=== PATIENT | male | born 1950 | race Caucasian/White ===

== ENCOUNTER 2024-11-15 15:41 | Inpatient (IN) | payer OTHER, SELFPAY ==
[2024-11-15] VITALS (35 sets, daily range): BP systolic 87–131; BP diastolic 50–90; BMI 22.3; BMI 23.2
[2024-11-15 13:30] LABS: Glucose - Point of Care 183 mg/dl (70-99)
[2024-11-15 13:55] LABS: Urine Albumin 2+ (Neg - Trace); Urine Bilirubin Negative (Negative); Urine Character Clear (Clear); Urine Color Yellow; Urine Glucose 1+ (Negative); Urine Ketone Negative (Negative); Urine Leukocyte 1+ (Negative); Urine Nitrite Negative (Negative); Urine Occult Blood 3+ (Negative); Urine Specific Gravity 1.015 (<1.030); Urine Urobilinogen Negative (Neg - 1+)
[2024-11-15] MEDS: NSS 500 IV (13:57)
[2024-11-15 14:01] LABS: % Basophils 0.1 % (0-2); % Immature Granulocytes 0.5 % (0-0.5); % Monocytes 2.1 % (1.7-9.3); % Neutrophils 92.3 % (42.2-75.2); Absolute Immature Granulocytes 0.1 10^3/uL (0-0.05); Absolute Lymphocytes 0.6 10^3/uL (1.2-3.4); Absolute Monocytes 0.3 10^3/uL (0.1-0.6); Absolute Neutrophils 11.7 10^3/uL (1.4-6.5); Hematocrit 20.8 % (39.0-52.0); Mean Corp Hgb Conc. 33.7 g/dL (33.0-37.0); Mean Corpuscular Hgb 32.7 pg (27.0-31.0); Mean Corpuscular Volume 97.2 fL (80.0-94.0); Mean Platelet Volume 9.4 fL (7.4-10.4); Nucleated Red Blood Cells % 0 % (-); Platelet Count 202 10^3/uL (130-400); Red Blood Cell Count 2.14 10^6/uL (4.70-6.10); Red Cell Dist. Width 14.7 % (11.5-14.5); White Blood Cell Count 12.7 10^3/uL (4.8-10.8)
[2024-11-15 14:02] LABS: Urine Hyaline Cast 0-2 /LPF (0-2); Urine Squamous Cell 0-2 /LPF (Few)
[2024-11-15 14:03] LABS: Urine Bacteria Few (Negative)
[2024-11-15 14:26] LABS: Lactic Acid 2.3 mmol/L (0.7-2.0)
--- NOTE | 2024-11-15 14:41 | ED.GENMED ---
History of Present Illness
General
Chief Complaint: Change in Mental Status
Source: patient and family
Exam Limitations: dementia
Time Seen by Provider: 11/15/24 13:35
History of Present Illness
History of Present Illness:
74-year-old male who presents with his who states he was just profoundly weak at home. She states that he really had a tough time getting around but she was able to get him down the steps by holding onto his waist. She then sat him on a chair
and he sort of slid down and she could not get him up. Other family arrived to try to help. They were unable to get him up. also states that his coloring has seemed yellowish and may be pale. This all has been progressive over the last week
but today was more more significant. No reported fevers. No reported diarrhea. No reported hematochezia. Patient somewhat confused on arrival and is not really sure why he is here. EMS arrived to find his blood pressure 60 systolic.
states that he was diaphoretic at that time.
Past History
Past History
ED Past Medical History: HTN, Hypercholesterolemia and Other ('Essential tremor', dementia)
Phy Exam
Physical Exam
Physical Exam:
CONSTITUTIONAL Patient alert and oriented to person, place. ill-appearing. Vital signs reviewed. Pale. Hypothermic
HEAD atraumatic, normocephalic.
EYES eyelids normal to inspection, Extraocular muscles intact, Conjunctiva normal, Sclera normal.
NECK normal range of motion, Trachea midline, no jugular venous distention.
RESPIRATORY CHEST No respiratory distress noted, Chest expansion equal, Bilateral breath sounds clear.
CARDIOVASCULAR regular rate and rhythm, Heart sounds normal.
ABDOMEN abdomen nontender, Bowel sounds normal. No distention.
Rectal exam large amount of melena
BACK normal inspection, no obvious deformities
UPPER EXTREMITY range of motion normal, Motor strength normal, no cyanosis, no edema.
LOWER EXTREMITY range of motion normal, Motor strength normal, no cyanosis, no edema.
NEURO Speech normal, No focal motor deficits,Cranial Nerves intact to screening exam. Essential tremor noted to bilateral upper extremities
SKIN skin warm, dry, and normal in color.
Course
Orders/Labs/Results
Orders:
Orders
11/15/24 13:25
Electrocardiogram (*1) Urgent
Reason for Study: Fatigue / Weakness
11/15/24 13:26
EKG- Treatment ONCE
11/15/24 13:32
Complete Blood Count/With Diff Urgent
Comprehensive Metabolic Panel Urgent
Lactic Acid Urgent
Magnesium Urgent
Urinalysis Reflex To Culture Urgent
Date Specimen was Collected: 11/15/24
Time Specimen was Collected: 13:26
Urine Microscopic Reflex Cult Urgent
Urine Culture Urgent
IRVIN Source: U
Specimen Description:
Obtained by: Random
Date Specimen was Collected: 11/15/24
Time Specimen was Collected: 13:26
11/15/24 13:40
0.9% Sodium Chloride 500 ml [Nss] 500 ml IV BOLUS
CR Chest - 2 Views Urgent
Comment:
Reason For Exam: sepsis
11/15/24 13:44
STOOL [C difficile Antigen & Toxins] Urgent
IRVIN Source: Feces/Stool
Specimen Description:
Date Specimen was Collected: 11/15/24
Time Specimen was Collected: 13:52
Stool Culture Urgent
IRVIN Source: Feces/Stool
Specimen Description:
Date Specimen was Collected: 11/15/24
Time Specimen was Collected: 13:52
11/15/24 14:36
* Blood Bank Products Urgent
Blood Bank Products: *Packed RBC Leuko(PRBC's)
Quantity: 2
Transfuse Today: Yes
Reason: Anemia
11/15/24 14:37
IV Insert/Care/Rem.- Treatment PRN
Pantoprazole 80 mg/100 ml Nss [Protonix] 80 mg in 100 ml IV NOW
Pantoprazole [Protonix IV] 80 mg IV NOW STA
11/15/24 14:41
Brennan Hugger [Brennan Hugger-Treatment] ONCE
Patient's goal temperature:: 97 F
Additional Instructions:: Temperature and skin assessment per unit protocol
11/15/24 14:47
Type+Screen Urgent
Blood Culture Q30M
IRVIN Source: Blood/Venous
Specimen Description:
Blood Culture Q30M
IRVIN Source: Blood/Venous
Specimen Description:
11/15/24 14:57
ABO2 Urgent
BBK Wristband Number:
Associate notified that ABO2 has been ordered: [id number]
Date: 11/15/24
Time: 14:58
Carbon Rod Inserter ID: [id number]
Abnormal Lab Results
11/15/24 11/15/24
13:29 13:32
WBC 12.7 H 10^3/uL
(4.8-10.8)
RBC 2.14 L 10^6/uL
(4.70-6.10)
Hgb 7.0 L g/dL
(13.0-18.0)
Hct 20.8 L* %
(39.0-52.0)
MCV 97.2 H fL
(80.0-94.0)
MCH 32.7 H pg
(27.0-31.0)
RDW 14.7 H %
(11.5-14.5)
Abs Immat Gran (auto) 0.1 H 10^3/uL
(0-0.05)
Absolute Neuts (auto) 11.7 H 10^3/uL
(1.4-6.5)
Absolute Lymphs (auto) 0.6 L 10^3/uL
(1.2-3.4)
Neutrophils % 92.3 H %
(42.2-75.2)
Lymphocytes % 5.0 L %
(20.5-51.1)
Chloride 114 H mmol/L
(98-107)
Carbon Dioxide 15 L mmol/L
(22-30)
BUN 117 H* mg/dl
(9-20)
Creatinine 3.1 H mg/dL
(0.7-1.3)
Glucose 166 H mg/dl
(70-99)
Lactic Acid 2.3 H mmol/L
(0.7-2.0)
Magnesium 2.6 H mg/dl
(1.6-2.3)
Total Protein 4.8 L g/dl
(6.3-8.2)
Albumin 2.9 L g/dl
(3.5-5.0)
Ur Occult Blood Reflex 3+ A
(Negative)
Leukocyte Esterase Rfl 1+ A
(Negative)
Urine RBC 3-6 A /HPF
(0-2)
Urine WBC (Reflex) 11-15 A /HPF
(0-5)
Urine Bacteria (Reflex) Few A
(Negative)
Urine Glucose 1+ A
(Negative)
Urine Albumin (Reflex) 2+ A
(Neg - Trace)
POC Glucose 183 H mg/dl
(70-99)
11/15/24 13:32
11/15/24 13:32
Vital Signs
Initial and Last Documented VS:
Initial Vital Signs
BP
109/90
11/15/24 13:26
Last Documented Vital Signs
Temp Pulse Resp BP Pulse Ox
95.4 F L 60 15 109/90 94
11/15/24 14:37 11/15/24 13:43 11/15/24 13:43 11/15/24 13:43 11/15/24 13:43
MDM/Problems Addressed
Differential Diagnosis Includes:
Sepsis, hemorrhagic shock, electrolyte disturbance, dehydration
MDM/Problems Addressed:
Hemorrhagic shock, acute severe upper GI bleed, NSAID use
*Radiology
Radiology exam reviewed: all reviewed NAD by ED Provider
*Pulse Oximetry
Patient hypoxic: no
*EKG
Interpreted by ED Provider?: Yes
Interpretation: abnormal
Rate: bradycardiac
Rhythm: sinus
Aniwa: left axis deviation
Ischemia: non-specific ST changes
*Hand Stonecutter Interpretation
Rate: normal
Interpretation: normal
Rhythm: sinus
*Critical Care Note
Total Time (30-74mins, 75-104mins- exclusive of procedures): 40 minutes
Data Reviewed
Review of Other/Old Records Reveals: Labs (Labs reviewed from November 03 on the patient's spouse's phone)
Source: patient, family and ambulance crew (EMS reports patient was hypotensive on their arrival and they gave 800 cc of fluid and it improved)
Further Testing Considered But Not Given:
Considered CT but abdomen benign
Patient Management
Discussion with other providers: Hospitalist and Candy Depositing Machine Operator (Gastroenterology)
Escalation/DeEscalation of care consider admission/obs:
74-year-old male who presents hypotensive and weak. Found to have profound amount of melena. Hemoglobin on labs performed on November 03 showed hemoglobin of 17 and now hemoglobin is 7. Clearly with hemorrhagic shock and hypothermia. Brennan hugger
applied and blood ordered. Case discussed with gastroenterology. does state that he takes ibuprofen mostly every night for hip pain
Also found of acute renal failure. Hopefully prerenal and will improve with blood products and fluids
ED Attending Note
-
Portions of this chart may have been created with voice recognition software.� Occasional wrong word or��sound alike� substitutions may have occurred due to the inherent limitations of voice recognition software.
Discharge Plan
Departure
Patient Disposition: Admit
Date of Disposition: 11/15/24
Time of Disposition: 14:44
Admit to: IMU
Presentation/result/management discussed w/ accepting MD/DO: Hospitalist
Discharge Problem:
Hemorrhagic shock, acute severe GI bleed, Acute renal failure
Prescriptions:
No Action
metformin 500 MG tablet
500 mg PO BID
ezetimibe 10 MG tablet
10 mg PO DAILY
donepezil 10 mg Tablet
10 mg PO DAILY
Theragen Tablet
1 tab PO DAILY
amlodipine [Norvasc] 10 mg Tablet
10 mg PO DAILY
ibuprofen [Advil] 200 mg Tablet
400 mg PO BID
carbidopa-levodopa 25-100 mg Tablet
1.5 tab PO BID@0800,1200
carbidopa-levodopa 25-100 mg Tablet
1 tab PO HS
losartan 100 mg Tablet
100 mg PO DAILY
memantine 10 mg Tablet
10 mg PO BID
PreserVision AREDS 2,148 mcg-113 mg-45 mg-17.4mg Tablet
1 tab PO BID
ZzzQuil 50 mg/30 mL Liquid
50 mg PO HSPRN PRN (Reason: sleep)
Interventions
Interventions:
*Risk Screen - Suicide Last Done: 11/15/24 13:43
*General Assessment Last Done: 11/15/24 13:43
*Neglect/Abuse Screening Last Done: 11/15/24 13:43
*ED- Fall Risk Assessment Last Done: 11/15/24 13:43
*ED COVID-19 Vaccine History Last Done: 11/15/24 13:43
ED- Pulmonary Assessment Last Done: 11/15/24 13:43
ED-Psychological Assessment Last Done: 11/15/24 13:43
ED- Neurological Assessment Last Done: 11/15/24 13:43
ED- Cardiac Assessment Last Done: 11/15/24 13:43
ED Swallowing Screen Last Done: 11/15/24 13:43
Discharge Date and Time
Print Language: KOREAN
[2024-11-15 14:55] LABS: ALT (SGPT) < 10 U/L (0-50); AST (SGOT) 27 U/L (17-59); Albumin 2.9 g/dl (3.5-5.0); Alkaline Phosphatase 50 U/L (38-126); Blood Urea Nitrogen 117 mg/dl (9-20); Carbon Dioxide 15 mmol/L (22-30); Chloride 114 mmol/L (98-107); Estimated Creatinine Clearance 22 ml/min; Glucose 166 mg/dl (70-99); Magnesium 2.6 mg/dl (1.6-2.3); Potassium 4.7 mmol/L (3.5-5.1); Sodium 141 mmol/L (135-145); Total Bilirubin 0.4 mg/dl (0.2-1.3); Total Protein 4.8 g/dl (6.3-8.2); eGFR 20.07
[2024-11-15] MEDS: PROTONIX 100 IV ×2 (14:58→23:17)
[2024-11-15] MEDS: PROTONIX IV 80 MG IV (14:58)
--- NOTE | 2024-11-15 15:05 | HPS.HSE ---
Family Physician
-
Family Physician: Gordon Rodriguez
Chief Complaint
-
Hypertension, melena, profound weakness
History of Present Illness
HPI: 74-year-old male with PMH HTN, HLD, Essential tremor, dementia; p/w profound weakness at home.
He is a limited historian due to underlying dementia.
Discussed with ED physician. Patient apparently has been taking ibuprofen for hip pain.
He was found with significant melena.
BP noted to be low by EMS. BP improved following IV fluid resuscitation in the ER.
Medical History
Past Medical History
Past Medical History: Reports Other
Additional Past Medical History:
HTN, HLD, Essential tremor, dementia
Past Surgical History: Reports None
Social History
Unable to obtain full social history at this time due to: Dementia
Personal:
Living: With Family
Family History
Family History: Not pertinent
Allergies / Home Medications
Allergies reflects when Allergies were last updated in [facility].
Home Medications with original date entered in [facility]
Allergy/Medication List:
Allergies
Allergy/AdvReac Type Severity Reaction Status Date / Time
No Known Drug Allergies Allergy Unknown Verified 09/22/13 10:00
pollen extracts Allergy Seasonal - Verified 11/15/24 15:30
sneezing,
runny nose
Home Medications
ezetimibe 10 mg tablet 10 mg PO DAILY 10/24/12
metformin 500 mg tablet 500 mg PO BID 10/24/12
amlodipine 10 mg tablet (Norvasc) 10 mg PO DAILY 11/15/24
carbidopa 25 mg-levodopa 100 mg tablet 1 tab PO HS 11/15/24
carbidopa 25 mg-levodopa 100 mg tablet 1.5 tab PO BID@0800,1200 11/15/24
diphenhydramine HCl 50 mg/30 mL oral liquid (ZzzQuil) 50 mg PO HSPRN PRN sleep 11/15/24
donepezil 10 mg tablet 10 mg PO DAILY 11/15/24
ibuprofen 200 mg tablet (Advil) 400 mg PO BID 11/15/24
losartan 100 mg tablet 100 mg PO DAILY 11/15/24
memantine 10 mg tablet 10 mg PO BID 11/15/24
therapeutic multivitamin 1 tab PO DAILY 11/15/24
vitamins A,C,R-btci-ycxvll 2,148 mcg-113 mg-45 mg-17.4 mg tablet (PreserVision AREDS) 1 tab PO BID 11/15/24
Review of Systems
-
Abdomen/GI: Reports See HPI and Bloody Stools
Physical Exam
Vital Signs
Vital Signs
Temp Pulse Resp BP Pulse Ox
35.2 C L 60 15 109/90 94
11/15/24 14:37 11/15/24 13:43 11/15/24 13:43 11/15/24 13:43 11/15/24 13:43
Physical Exam
General: Well Developed, Well Nourished, No Apparent Distress and Comfortable
HEENT: NormoCephalic, Moist mucous membranes, Atraumatic and Oxygen (4L NC)
Respiratory: Clear and Non Labored Respirations; No Accessory Resp Muscle Use
Cardiac: S1/S2 and Regular Rhythm; No Murmur or Rub
GI: Soft, Non Tender, Non Distended and Normal Bowel Sounds; No Organomegaly
Rectal: Deferred by Provider
Musculoskeletal: No Clubbing, No Cyanosis and No Edema
Skin: No Rash
Neuro: Awake
Psych: Calm and Apparent Dementia
Laboratory Results
-
11/15/24 13:32
11/15/24 13:32
Laboratory Results
Lactic Acid 2.3 mmol/L (0.7-2.0) H 11/15/24 13:32
Total Bilirubin 0.4 mg/dl (0.2-1.3) 11/15/24 13:32
AST 27 U/L (17-59) 11/15/24 13:32
ALT < 10 U/L (0-50) 11/15/24 13:32
Alkaline Phosphatase 50 U/L (38-126) 11/15/24 13:32
Data Reviewed
-
Lab Data: Labs Reviewed by me
Impression/Plan
-
HPI: 74-year-old male with PMH HTN, HLD, Essential tremor, dementia; p/w profound weakness at home.
He is a limited historian due to underlying dementia.
Discussed with ED physician. Patient apparently has been taking ibuprofen for hip pain.
He was found with significant melena.
BP noted to be low by EMS. BP improved following IV fluid resuscitation in the ER.
A/P:
# acute anemia suspect acute blood loss due to GI bleed
# Hypotension due to above
Hemoglobin 7.0 from baseline 16
To transfuse 2 units PRBC
Continue Protonix drip
check iron panel, B12 and folate level
GI CS
Blood pressure improved following IV fluid bolus, continue maintenance fluid
Consider pressor if blood pressure remains low
# Hypothermia, may be due to acute blood loss
Check TSH reflex FT4
Consider checking cortisol level
Brennan Cullen
# TAMANNA, suspect prerenal
Serum creatinine 3.1 from baseline 0.9
cont IVF support
Also check bladder scan for retention
Consider kidney ultrasound and additional workup if serum creatinine does not improve
Other medical problems
# HTN
Hold home BP meds
# HLD
# Essential tremor
# dementia
Patient awake and conversant, but not orientated
DVT ppx: SCD
FC
--- NOTE | 2024-11-15 15:22 | CON.GI ---
Addendum entered and electronically signed by Bridget Hopkins MD 11/15/24 18:25:
I saw and examined the patient.
The SALES LEDGER ADMINISTRATOR or PA's note was reviewed and I agree with the note.
Comment:
This patient is a 74-year-old man with history of dementia and restless leg. He also has a prior history of questionable ulcers and H. pylori many years ago. In fact he states that Dr. Painter did his endoscopy approximately 25 to 30 years ago. He
also has a colonoscopy in 2016 with just diverticulosis. He was admitted with a low hemoglobin. He did not see any blood per rectum and has had no abdominal pain or hematemesis. He has been taking regular ibuprofen nightly.
abd: soft, nontender
impression
anemia
hx of PUD
plan:
PPI
clears
EGD tomorrow. discussed with and daughter as well
Original Note:
Consultation
-
Date/Time Consultation Requested: 11/15/24 1500
Date/Time Consultation Performed: 11/15/24 1525
Requesting Provider: Jeniffer Javier MD
Performing Provider: SOLO Blue, Bridget Hopkins MD
Reason for Consultation: melena, anemia
Medical History
Chief Complaint / HPI
Chief Complaint: black stools
History of Present Illness:
Pt is a 74yo with hx HTN, hyperlipidemia, tremor, dementia, NIDDM, CKD, obesity , gallstones with prior raza, colon polyps, hemorrhoids with hemorrhoidectomy, IBS, h pylori presents today with weakness with pale skin, inability to get up. On
admission noted with melena and hbg 7. Last hbg 17 on 11/03/24. Pt also noted with hypotension and hypothermia on admission with creat 3.1 with BUN 117, lactate 2.3, and iron studies not c/w iron deficiency. In review with patient he admits to
weakness. He denies issues with odynophagia, dysphagia, GERD, nausea, vomiting, abdominal pain, diarrhea, constipation or rectal bleeding prior to admission. He states he was taking Ibuprofen for ? restless leg syndrome. Pt was unsure about
prior EGD but noted with H pylori in PCP office notes. Last colonoscopy 02/2016 Painter good prep to cecum- Diverticulosis in the sigmoid colon- The examination was otherwise normal.
Past Medical History
Past Medical History: HTN, Hypercholesterolemia, NIDDM, Renal Failure (CKD) and Other (essential tremor, dementia, obesity , gallstones, hemorrhoids, IBS, h pylori,HP colon polyps)
Past Surgical History: Cholecystectomy and Other (hernia repair, hemorrhoidal surgery )
Social History
Tobacco: Former Smoker
Alcohol: Other (social on past )
Drug: None
Personal:
Living: With Family
Employment: Retired
Family History
Family History: Other (pt denies family hx colon CA or polyps)
Allergies / Home Medications
Allergy/AdvReac Type Severity Reaction Status Date / Time
No Known Drug Allergies Allergy Unknown Verified 09/22/13 10:00
Seasonal Allergy Sneezing, Uncoded 09/22/13 10:00
runny nose
�Medication �Instructions �Recorded
ezetimibe 10 mg tablet 10 mg PO DAILY 10/24/12
metformin 500 mg tablet 500 mg PO BID 10/24/12
amlodipine 10 mg tablet (Norvasc) 10 mg PO DAILY 11/15/24
carbidopa 25 mg-levodopa 100 mg 1 tab PO HS 11/15/24
tablet
carbidopa 25 mg-levodopa 100 mg 1.5 tab PO BID@0800,1200 11/15/24
tablet
diphenhydramine HCl 50 mg/30 mL 50 mg PO HSPRN PRN sleep 11/15/24
oral liquid (ZzzQuil)
donepezil 10 mg tablet 10 mg PO DAILY 11/15/24
ibuprofen 200 mg tablet (Advil) 400 mg PO BID 11/15/24
losartan 100 mg tablet 100 mg PO DAILY 11/15/24
memantine 10 mg tablet 10 mg PO BID 11/15/24
therapeutic multivitamin 1 tab PO DAILY 11/15/24
vitamins A,C,A-kbpl-ajownk 2,148 1 tab PO BID 11/15/24
mcg-113 mg-45 mg-17.4 mg tablet
(PreserVision AREDS)
Review of Systems
-
History Source: Patient
Constitutional: Reports Other (tremors , hypothermia )
EENT: Reports No Symptoms
Respiratory: Reports No Symptoms
Cardiac: Reports No Symptoms
Abdomen/GI: Reports Black Stools
: Reports No Symptoms
Musculoskeletal: Reports No Symptoms
Skin: Reports No Symptoms
Neurological: Reports Weakness
Endocrine: Reports No Symptoms
Hematologic/Lymphatic: Reports Bleeding
Vital Signs
Temp Pulse Resp BP Pulse Ox
95.4 F L 57 15 87/66 93
11/15/24 14:37 11/15/24 15:15 11/15/24 15:15 11/15/24 15:00 11/15/24 15:15
Physical Exam
Exam
General: Other (elderly male with noted tremor )
HEENT: Normocephalic and Anicteric
Respiratory: Clear
Cardiac: Other
GI: Soft, Non Tender and Non Distended
Rectal: Hem Positive (melena per ER)
Musculoskeletal: No Clubbing and No Cyanosis
Skin: Warm and Dry
Neuro: Other (forgetfulness, )
Psych: Calm
Results
WBC 12.7 10^3/uL (4.8-10.8) H 11/15/24 13:32
Hgb 7.0 g/dL (13.0-18.0) L 11/15/24 13:32
Hct 20.8 % (39.0-52.0) L* 11/15/24 13:32
MCV 97.2 fL (80.0-94.0) H 11/15/24 13:32
Plt Count 202 10^3/uL (130-400) 11/15/24 13:32
Absolute Neuts (auto) 11.7 10^3/uL (1.4-6.5) H 11/15/24 13:32
Sodium 141 mmol/L (135-145) 11/15/24 13:32
Potassium 4.7 mmol/L (3.5-5.1) 11/15/24 13:32
Chloride 114 mmol/L (98-107) H 11/15/24 13:32
Carbon Dioxide 15 mmol/L (22-30) L 11/15/24 13:32
BUN 117 mg/dl (9-20) H* 11/15/24 13:32
Creatinine 3.1 mg/dL (0.7-1.3) H 11/15/24 13:32
Calcium 9.0 mg/dl (8.4-10.2) 11/15/24 13:32
Total Bilirubin 0.4 mg/dl (0.2-1.3) 11/15/24 13:32
AST 27 U/L (17-59) 11/15/24 13:32
ALT < 10 U/L (0-50) 11/15/24 13:32
Alkaline Phosphatase 50 U/L (38-126) 11/15/24 13:32
Diagnostic Image Results:
11/15/24 CR Chest - 2 Views
No acute cardiopulmonary abnormality.
Prior GI Procedures:
EGD: pt unsure
Colonoscopy: 02/2016 Painter good prep to cecum- Diverticulosis in the sigmoid colon- The examination was otherwise normal.
Assessment / Plan
-
Pt is a 74yo with hx HTN, hyperlipidemia, tremor, dementia, NIDDM, CKD, obesity, gallstones with prior raza, colon polyps, hemorrhoids with hemorrhoidectomy, IBS, h pylori presents today with weakness with pale skin, inability to get up. On
admission noted with melena and hbg 7. Last hbg 17 on 11/03/24. Pt also noted with hypotension and hypothermia on admission with creat 3.1 with BUN 117, lactate 2.3, and iron studies not c/w iron deficiency. In review with patient he admits to
weakness. He denies issues with odynophagia, dysphagia, GERD, nausea, vomiting, abdominal pain, diarrhea, constipation or rectal bleeding prior to admission. He states he was taking Ibuprofen for ? restless leg syndrome. Pt was unsure about
prior EGD but noted with H pylori in PCP office notes. Last colonoscopy 02/2016 Painter good prep to cecum- Diverticulosis in the sigmoid colon- The examination was otherwise normal.
-melena
-symptoms anemia
-hypothermic
-TAMANNA
-elevated lactate
-confusion on admission
other med problems:
-HTN
-hyperlipidemia
-tremor
-dementia
--NIDDM
-obesity
-gallstone with prior raza
-colon polyps
-hemorrhoids
-IBS
-hx H pylori
PLAN:
etiology of melena and anemia related PUD with ? NSAID use, ectasia, mass vs other
will need EGD will review timing with Dr. Hopkins
trend hbg
PPI
for transfusion
NPO
NSAID avoidance
I left message for to review history and plan
-
-
Thank you for consultation and allowing me to participate in the patient's care. Please call the absorption operator GI physician during the after hours with any questions or concerns.
--- NOTE | 2024-11-15 15:42 | CON.INTV ---
Consultation
Consultation Request
Date/Time Consultation Requested: 11/15/24-3 45 PM
Date/Time Consultation Performed: 11/15/24-4:15 PM
Requesting Provider: hospitalist
Performing Provider: Dr. Ryan
Reason for Consultation: GI bleed/critical care management
Medical History
-
Chief Complaint: GI bleed
History of Present Illness:
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
bleed/critical care management 11/15/24.. The patient is a little lethargic but alert, and denies any shortness of breath, chest pain, chest tightness, mucus production, abdominal pain, nausea,
Past Medical History
Past Medical History: None ( Hypertension. Hyperlipidemia. Essential tremor. Dementia. Diabetes. Hernia repair. Hemorrhoids. Cholelithiasis/Lap cholecystectomy 2013.)
Social History
Tobacco: Former Smoker ( less than [id number] 23 years old)
Alcohol: None
Drug: None
Living: With Family
Occupational Exposures: No known asbestos exposure
Environmental Exposures: no known tuberculosis exposure
Family History
Family History: Reviewed & Not Pertinent
Allergies / Home Medications
Allergies
Allergy/AdvReac Type Severity Reaction Status Date / Time
No Known Drug Allergies Allergy Unknown Verified 09/22/13 10:00
pollen extracts Allergy Seasonal - Verified 11/15/24 15:30
sneezing,
runny nose
Home Medications
�Medication �Instructions �Recorded �Confirmed �Last Taken �Type
ezetimibe 10 mg tablet 10 mg PO DAILY 10/24/12 11/15/24 11/15/24 History
metformin 500 mg tablet 500 mg PO BID 10/24/12 11/15/24 11/15/24 History
amlodipine 10 mg tablet (Norvasc) 10 mg PO DAILY 11/15/24 11/15/24 11/15/24 History
carbidopa 25 mg-levodopa 100 mg 1 tab PO HS 11/15/24 11/15/24 11/14/24 History
tablet
carbidopa 25 mg-levodopa 100 mg 1.5 tab PO BID@0800,1200 11/15/24 11/15/24 11/15/24 History
tablet
diphenhydramine HCl 50 mg/30 mL 50 mg PO HSPRN PRN sleep 11/15/24 11/15/24 Unknown History
oral liquid (ZzzQuil)
donepezil 10 mg tablet 10 mg PO DAILY 11/15/24 11/15/24 11/15/24 History
ibuprofen 200 mg tablet (Advil) 400 mg PO BID 11/15/24 11/15/24 11/15/24 History
losartan 100 mg tablet 100 mg PO DAILY 11/15/24 11/15/24 11/15/24 History
memantine 10 mg tablet 10 mg PO BID 11/15/24 11/15/24 11/15/24 History
therapeutic multivitamin 1 tab PO DAILY 11/15/24 11/15/24 11/15/24 History
vitamins A,C,V-wbku-xvgcqv 2,148 1 tab PO BID 11/15/24 11/15/24 11/15/24 History
mcg-113 mg-45 mg-17.4 mg tablet
(PreserVision AREDS)
Review of Systems
-
Unable to Obtain full review of systems at this time due to: Dementia
Vitals / Labs / Diagnostic Testing
Vital Signs
Temp Pulse Resp BP Pulse Ox
96.9 F L 63 12 90/65 100
11/15/24 15:34 11/15/24 15:34 11/15/24 15:34 11/15/24 15:34 11/15/24 15:34
Lab Data
11/15/24 13:32
11/15/24 13:32
Diagnostic Testing:
Physical Exam
-
Exam:
well-nourished and well-developed in no apparent distress
HEENT-atraumatic, normocephalic
Neck-supple, no JVD, no bruit
Heart-regular rate and rhythm-no murmurs, rubs or gallops
Chest-clear to auscultation, no wheezes, crackles
Back-no tenderness
Abdomen-soft, nontender, nondistended, no hepatosplenomegaly
Extremities-no cyanosis, clubbing, edema and good peripheral pulses
Integument-intact, no rashes, lesions or ecchymosis
Neurology-alert and oriented, nonfocal motor and sensory exam
Assessment
-
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
bleed/critical care management 11/15/24.
Anemia due to acute blood loss-hemoglobin 7.0-macrocytic
GI bleed/melena
Hypotension
Hypothermia
TAMANNA
Metabolic acidosis
Hyperglycemia
Conditions present prior to admission:
Hypertension.
Hyperlipidemia.
Essential tremor.
Dementia.
Diabetes.
Hernia repair. Hemorrhoids. Cholelithiasis/Lap cholecystectomy 2012.
Plan
Patient will be admitted to medical intensive care with active bleeding, critically ill and in need of resuscitation
Supplemental oxygen as needed
Aspiration precautions
Incentive spirometry
Nebulizers if needed-currently not bronchospastic
Monitor hemoglobin
Transfuse packed red blood cells and FFP as needed
Monitor coagulopathy
GI evaluation
Probable endoscopy
Avoid NSAIDs
PPI drip
Norepinephrine if needed
Bear hugger for hypothermia
Monitor renal function
Intravenous fluids and blood products for volume expansion
Consider nephrology evaluation if worsens
Monitor blood sugar
Insulin supplementation if needed
DVT prophylaxis-Mechanical
GI prophylaxis-on PPI
Aspiration precautions
Nutrition
Early mobilization
Critical care statement: A total of 55 minutes of critical care time was provided for this patient today. This includes management of unstable vital signs, management of transfusions, evaluation of the patient at bedside, reviewing the patient's
pertinent medical records including radiographs, microbiology, laboratory evaluations, and discussion with primary team, consultants, pharmacy, nutrition, physical therapy, case management, charge nurse, critical care nursing, and respiratory
therapy.
Diagnostic data:
Chest x-ray 10/20/12-NAD
Chest x-ray 11/15/24-NAD
Data Reviewed
-
EKG: Report reviewed by me
Radiology: Report reviewed by me
MRI: Report reviewed by me
Labs: Labs reviewed by me
Old Records: Reviewed
Critical Care Time (in minutes): 55
[2024-11-15 15:47] LABS: Iron 69 ug/dl (49-181)
[2024-11-15 15:48] LABS: Percent Saturation 27 % (20-50); Total Iron Binding Capacity 250 ug/dl (261-462)
--- NOTE | 2024-11-15 15:50 | EDRN ---
this RN called the receiving ICU nurse Danielle and gave verbal report
[2024-11-15 16:17] LABS: TSH Reflex To Free T4 1.29 uIU/ml (0.47-4.68)
[2024-11-15 16:52] LABS: Folate 17.4 ng/ml (2.76-20); Vitamin B12 507 pg/ml (239-931)
[2024-11-15 17:12] LABS: Glucose - Point of Care 127 mg/dl (70-99)
[2024-11-15] MEDS: SINEMET 25-100 1 TABLET PO (18:11)
[2024-11-15] MEDS: NSS 1000 IV (18:13)
--- NOTE | 2024-11-15 18:22 | PTCARENOTE ---
Pt admitted to ICU bed 3365. Pt alert with confusion. Temp 98.1 orally on arrival therefore lidia hugger not reapplied. BP 117/50 on arrival. First unit of PRBC infusing at this time. SpO2 100% on 2L NC. Small smear of dark brown stool.
Protonix gtt infusing per order. Voided in urinal. Family at bedside.
--- NOTE | 2024-11-15 20:20 | PTCARENOTE ---
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 afebrile. SR HR 60s. 1st unit PRBC complete, pt for 2nd unit. POC discussed, care ongoing. bed alarm on, call topete with pt.
--- NOTE | 2024-11-15 22:20 | PTCARENOTE ---
2nd PRBC complete, pt having difficultly with urinal- saturated with urine, skin care, #25 condom cath applied, no further changes.
[2024-11-15] MEDS: BENADRYL 50 MG PO (22:36)
[2024-11-15 23:28] LABS: Hematocrit 23.7 % (39.0-52.0); Hemoglobin 8.3 g/dL (13.0-18.0)
[2024-11-15 23:52] LABS: Glucose - Point of Care 77 mg/dl (70-99)
[2024-11-16] VITALS (30 sets, daily range): BP systolic 85–125; BP diastolic 53–88; BMI 23.3
--- NOTE | 2024-11-16 04:30 | PTCARENOTE ---
no changes in pt assessment.
[2024-11-16] MEDS: SINEMET 25-100 1.5 TABLET PO ×2 (04:51→11:51)
[2024-11-16 05:00] LABS: Hematocrit 24.6 % (39.0-52.0); Hemoglobin 8.5 g/dL (13.0-18.0); Mean Corp Hgb Conc. 34.6 g/dL (33.0-37.0); Mean Corpuscular Hgb 31.8 pg (27.0-31.0); Mean Corpuscular Volume 92.1 fL (80.0-94.0); Platelet Count 152 10^3/uL (130-400); Red Blood Cell Count 2.67 10^6/uL (4.70-6.10); Red Cell Dist. Width 15.5 % (11.5-14.5); White Blood Cell Count 9.1 10^3/uL (4.8-10.8)
[2024-11-16 05:07] LABS: APTT 27.2 Sec (23.4-35.0); INR 1.14; PT 15.1 Sec (11.4-14.6)
[2024-11-16 05:18] LABS: Blood Urea Nitrogen 105 mg/dl (9-20); Calcium 8.5 mg/dl (8.4-10.2); Carbon Dioxide 18 mmol/L (22-30); Chloride 117 mmol/L (98-107); Estimated Creatinine Clearance 25 ml/min; Glucose 86 mg/dl (70-99); Magnesium 2.5 mg/dl (1.6-2.3); Potassium 4.2 mmol/L (3.5-5.1); Sodium 145 mmol/L (135-145); eGFR 23.68
[2024-11-16 05:36] LABS: Glucose - Point of Care 98 mg/dl (70-99)
[2024-11-16] MEDS: ARICEPT 10 MG PO (07:27)
[2024-11-16] MEDS: NSS 1000 IV (07:27)
--- NOTE | 2024-11-16 07:50 | W.PN.INTV ---
Today's Communication / Plan
Recommendations
Hemodynamically improved
EGD
Follow hemoglobin
Transfuse as needed
If remains stable then transfer out of ICU-call pulmonary if respiratory issues arise
Assessment
-
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
bleed/critical care management 11/15/24.
Anemia due to acute blood loss-hemoglobin 7.0-macrocytic
GI bleed/melena
Hypotension
Hypothermia
TAMANNA
Metabolic acidosis
Hyperglycemia
Conditions present prior to admission:
Hypertension.
Hyperlipidemia.
Essential tremor.
Dementia.
Diabetes.
Hernia repair. Hemorrhoids. Cholelithiasis/Lap cholecystectomy 2012.
Plan
Patient hemodynamically stable without further evidence for active bleeding
Supplemental oxygen as needed
Aspiration precautions
Incentive spirometry
Nebulizers if needed-currently not bronchospastic
Monitor hemoglobin
Transfuse packed red blood cells and FFP as needed
Monitor coagulopathy
GI evaluation ongoing
Endoscopy today
Avoid NSAIDs
PPI drip
Norepinephrine if needed-not needed
Hypothermia improved
Monitor renal function
Intravenous fluids and blood products for volume expansion
Consider nephrology evaluation if worsens
Monitor blood sugar
Insulin supplementation if needed
DVT prophylaxis-Mechanical
GI prophylaxis-on PPI
Aspiration precautions
Nutrition
Early mobilization
If patient's hemoglobin remained stable without evidence for active bleeding and endoscopy completed the patient could be transferred out of ICU-call pulmonary if respiratory issues arise
Critical care statement: A total of 40 minutes of critical care time was provided for this patient today. This includes management of unstable vital signs, management of transfusions, evaluation of the patient at bedside, reviewing the patient's
pertinent medical records including radiographs, microbiology, laboratory evaluations, and discussion with primary team, consultants, pharmacy, nutrition, physical therapy, case management, charge nurse, critical care nursing, and respiratory
therapy.
Diagnostic data:
Chest x-ray 10/20/12-NAD
Chest x-ray 11/15/24-NAD
Subjective Dataa
Subjective Data
Date of Service:
Date of Service: November 16, 2024
Chief Complaint: Public Policy Manager Follow Up and Pulmonary Follow Up
Subjective:
patient feels well, denies any shortness of breath, chest pain, abdominal pain, nausea, and complains of his chronic hip pain
Review of Systems
General: Other ( Per HPI)
Objective Data
Data Reviewed
Vital Signs / I&O / Oxygen:
Vital Signs
Temp Pulse Resp BP Pulse Ox
97.8 F 62 15 105/53 96
11/16/24 07:46 11/16/24 06:00 11/16/24 06:00 11/16/24 06:00 11/16/24 06:00
Intake and Output
11/15/24 11/16/24 11/17/24
06:59 06:59 06:59
Intake Total 1540 / 1540
Output Total 1475 / 1475
Balance 65 / 65
SaO2 96
Nasal Cannula flow liters per 2
minute
Physical Exam
General: Respiratory Distress (n) and Comfortable
HEENT: Normocephalic, Anicteric and Moist Mucous Membranes
Cardiovascular: Regular Rhythm and Murmur
Respiratory: Crackles (n), Rhonchi (n), Non-Labored Respirations, Accessory Resp Muscle Use (n) and Stridor (n)
GI: Soft, Non Distended and Non Tender
Neurology: Awake, Alert and No Motor Deficits
Skin: Warm, Good Color, Cyanosis (n), Jaundice (n) and Rash (n)
Labs/Micro/Reports
Lab Data
11/16/24 04:42
11/16/24 04:42
Laboratory Results
11/16/24
04:42
PT 15.1 H
INR 1.14
APTT 27.2
--- NOTE | 2024-11-16 08:07 | W.PN.HOSP.TC ---
Today's Communication/Plan
-
see A/P
Assessment / Plan
Assessment / Plan
HPI: 74-year-old male with PMH HTN, HLD, Essential tremor, dementia; p/w profound weakness at home.
He is a limited historian due to underlying dementia.
Discussed with ED physician. Patient apparently has been taking ibuprofen for hip pain.
He was found with significant melena.
BP noted to be low by EMS. BP improved following IV fluid resuscitation in the ER.
A/P:
# acute anemia suspect acute blood loss due to GI bleed
Hemoglobin 7.0 from baseline 16, s/p 2 units PRBC, Hgb improved to 8.5
Continue Protonix drip
noted iron panel, B12 and folate WNL
For EGD by GI today 11/16
# Hypotension due to above
Blood pressure improved with IVF
Hold home BP meds
# Hypothermia, may be due to acute blood loss
TSH 1.29
Temperature normalized s/p Brennan Hugger
# TAMANNA, suspect prerenal
Creatinine 3.1 -> 2.7; baseline 0.9
cont IVF support
bladder scan for retention
Consider kidney ultrasound and additional workup if serum creatinine does not improve
Other medical problems
# HTN
Hold home BP meds
# HLD
# Essential tremor
# dementia
Patient awake and conversant, but not orientated
DVT ppx: SCD
FC
updated on the phone
Anticipated Discharge: 24 - 48 hours
Subjective/Interval History
-
Date of Service: November 16, 2024
Objective Data
-
Labs:
Laboratory Results
11/15/24 11/16/24
23:15 04:42
WBC 9.1
Hgb 8.3 L 8.5 L
Hct 23.7 L 24.6 L
Plt Count 152 D
PT 15.1 H
INR 1.14
APTT 27.2
Sodium 145
Potassium 4.2
Chloride 117 H
Carbon Dioxide 18 L
BUN 105 H*
Creatinine 2.7 H
Glucose 86
Calcium 8.5
Vital Signs:
Vital Signs
Temp Pulse Resp BP Pulse Ox
36.6 C 62 15 105/53 96
11/16/24 07:46 11/16/24 06:00 11/16/24 06:00 11/16/24 06:00 11/16/24 06:00
I&O
11/15/24 11/16/24 11/17/24
06:59 06:59 06:59
Intake Total 1540 / 1540
Output Total 1475 / 1475
Balance 65 / 65
Review of Systems
-
History Source: Patient
All other systems: Reviewed and negative
Physical Exam
-
General: Well Developed, Well Nourished, No Apparent Distress, Comfortable and Conversant; Negative Respiratory Distress
HEENT: Normocephalic, Atraumatic, Nose Appears Normal and Ears Appear Normal; Negative Oxygen
Respiratory: Clear to Auscultation and Non Labored Respirations; Negative Accessory Resp Muscle Use
Cardiac: Regular Rhythm and S1/S2
GI: Soft, Nontender, Nondistended and Normal Bowel Sounds
Skin: Warm and Dry
Neuro: Awake and Alert
Psych: Calm and Apparent Dementia
Data Reviewed
-
Labs: Labs Reviewed by me and Discussed with Family
--- NOTE | 2024-11-16 08:49 | PTCARENOTE ---
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 afebrile. SR HR 60s. POC discussed, care ongoing. bed alarm on, call topete with pt.
[2024-11-16] MEDS: PROTONIX 100 IV (09:15)
[2024-11-16 11:04] LABS: Ferritin 81.5 ng/ml (17.9-464.0)
[2024-11-16 11:54] LABS: Glucose - Point of Care 126 mg/dl (70-99)
--- NOTE | 2024-11-16 12:35 | PTCARENOTE ---
Assessment unchanged. VSS. Small black BM on bedside commode.
--- NOTE | 2024-11-16 13:29 | PTCARENOTE ---
Pt to EGD at 1250.
--- NOTE | 2024-11-16 13:41 | W.PN.UPDATE ---
Update Note
Progress Note Update
EGD: one clean based ulcer in Duodenum, erosive gastritis
plan:
PPI bid x 8 weeks
NO NSAIDS
bx for hpylori
regular diet
no other recs as this is low risk for rebleed (clean based)
will sign off call with questions
did d/w Mariam () by phone
--- NOTE | 2024-11-16 14:22 | CM ---
Patient seen at bedside in ICU. Patient resting, CM called to patient . Patient handed daughter, Ameena the phone and she stated that patient has been getting a large number of spam callers. Patient daughter stated that patient and
live in a 2 story home with no DME prior to this admission. Patient has not needed VN or supports. Patient PCP is Dr. Rodriguez and they use the [facility] in [place]. Patient daughter stated that patient had received call from physician but
were uncertain about next steps. CM reviewed options for post acute care from VN to SNF. Patient daughter stated that prior to this admission patient had not needed any assistance. CM will continue to follow for discharge planning needs.
Plan; home with VN vs SNF pending medical treatment or therapy recommendations.
[2024-11-16] MEDS: NSS IV (15:23)
--- NOTE | 2024-11-16 15:32 | PTCARENOTE ---
Returned from GI LAB with pt's HR noted to be in afib 80-90s. ECG performed and hospitalist, hide grader notified. BP lower than prior to procedure upon return but improved over next hour without intervention.
[2024-11-16] MEDS: SINEMET 25-100 1 TABLET PO (17:20)
--- NOTE | 2024-11-16 19:45 | PTCARENOTE ---
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 denies pain. AFib HR 70-80s. LA IV x 2 WNL- no gtts infusing. POC discussed, call topete with pt, bed alarm on.
[2024-11-16] MEDS: NSS (PRESERVATIVE FREE) 10 ML IV (19:55)
[2024-11-16] MEDS: PROTONIX IV 40 MG IV (19:55)
[2024-11-17] VITALS (16 sets, daily range): BP systolic 95–139; BP diastolic 57–91; PULSE 91; O2SAT 98; BMI 23.3
--- NOTE | 2024-11-17 03:30 | PTCARENOTE ---
vss, no changes in pt assessment.
[2024-11-17] MEDS: SINEMET 25-100 1.5 TABLET PO ×2 (03:38→12:24)
[2024-11-17 04:10] LABS: Hematocrit 23.9 % (39.0-52.0); Hemoglobin 8.1 g/dL (13.0-18.0); Mean Corp Hgb Conc. 33.9 g/dL (33.0-37.0); Mean Corpuscular Hgb 31.6 pg (27.0-31.0); Mean Corpuscular Volume 93.4 fL (80.0-94.0); Mean Platelet Volume 9.2 fL (7.4-10.4); Platelet Count 154 10^3/uL (130-400); Red Blood Cell Count 2.56 10^6/uL (4.70-6.10); Red Cell Dist. Width 15.9 % (11.5-14.5); White Blood Cell Count 7.2 10^3/uL (4.8-10.8)
[2024-11-17 04:26] LABS: Blood Urea Nitrogen 68 mg/dl (9-20); Calcium 8.2 mg/dl (8.4-10.2); Carbon Dioxide 20 mmol/L (22-30); Chloride 119 mmol/L (98-107); Estimated Creatinine Clearance 39 ml/min; Glucose 92 mg/dl (70-99); Magnesium 2.4 mg/dl (1.6-2.3); Sodium 147 mmol/L (135-145); eGFR 41.26
[2024-11-17] MEDS: NSS (PRESERVATIVE FREE) 10 ML IV ×2 (07:27→20:50)
[2024-11-17] MEDS: ARICEPT 10 MG PO (07:27)
[2024-11-17] MEDS: PROTONIX IV 40 MG IV ×2 (07:27→20:50)
--- NOTE | 2024-11-17 07:53 | W.PN.HOSP.TC ---
Today's Communication/Plan
-
see A/P
Assessment / Plan
Assessment / Plan
HPI: 74-year-old male with PMH HTN, HLD, Essential tremor, dementia; p/w profound weakness at home.
He is a limited historian due to underlying dementia.
Discussed with ED physician. Patient apparently has been taking ibuprofen for hip pain.
He was found with significant melena.
BP noted to be low by EMS. BP improved following IV fluid resuscitation in the ER.
A/P:
# acute blood loss anemia 2/2 GI bleed
Hemoglobin 7.0 on admission from baseline 16; s/p 2 units PRBC, Hgb at 8.1 today
s/p EGD 11/16: Gastritis- Biopsied. Non-bleeding duodenal ulcer with no stigmata of bleeding.
Follow pathology results outpatient with GI .
PPI PO bid for 8 weeks. Avoid nsaids
noted iron panel, B12 and folate WNL
# Hypotension due to above, resolved
Blood pressure improved with IVF
Cont to observe off home BP meds (Norvasc, Losartan)
# Hypothermia, may be due to acute blood loss, resolved
TSH 1.29
s/p Brennan Hugger
Temperature normalized
# TAMANNA, suspect prerenal
Creatinine 3.1 on admission -> 1.7; baseline 0.9
cont IVF support, changed to D5W with hypernatremia
bladder scan for retention
Consider kidney ultrasound and additional workup if serum creatinine does not improve
# Hypernatremia
Start D5W
Observe sodium level
# New onset A fib noted following EGD
Check echo
Card CS
Defer to GI wrt OAC
Other medical problems
# HTN
Hold home BP meds
# HLD
# Essential tremor
# dementia
Patient awake and conversant, but not orientated
DVT ppx: SCD
FC
DW RN
updated on the phone
total time 51 min
Anticipated Discharge: 24 - 48 hours
Subjective/Interval History
-
Date of Service: November 17, 2024
Objective Data
-
Labs:
Laboratory Results
11/17/24
03:29
WBC 7.2
Hgb 8.1 L
Hct 23.9 L
Plt Count 154
Sodium 147 H
Potassium 4.0
Chloride 119 H
Carbon Dioxide 20 L
BUN 68 H
Creatinine 1.7 H
Glucose 92
Calcium 8.2 L
Vital Signs:
Vital Signs
Temp Pulse Resp BP Pulse Ox
36.6 C 98 19 116/91 99
11/17/24 07:31 11/17/24 06:00 11/17/24 06:00 11/17/24 06:00 11/17/24 06:00
I&O
11/16/24 11/17/24 11/18/24
06:59 06:59 06:59
Intake Total 1540 / 1650 1140 / 1140
Output Total 1475 / 1475 2300 / 2300
Balance 65 / 175 -1160 / -1160
Review of Systems
-
History Source: Patient
All other systems: Reviewed and negative
Physical Exam
-
General: Well Developed, Well Nourished, No Apparent Distress, Comfortable and Conversant
HEENT: Normocephalic, Atraumatic, Nose Appears Normal, Ears Appear Normal and Oxygen (2L NC-> 1L NC)
Respiratory: Clear to Auscultation and Non Labored Respirations; Negative Accessory Resp Muscle Use
Cardiac: Regular Rhythm and S1/S2
GI: Soft, Nontender, Nondistended and Normal Bowel Sounds
Skin: Warm and Dry
Neuro: Awake and Alert
Psych: Calm and Apparent Dementia
Data Reviewed
-
Labs: Labs Reviewed by me and Discussed with Family
--- NOTE | 2024-11-17 08:55 | W.PN.INTV ---
Today's Communication / Plan
Recommendations
Hemoglobin stable
No active bleeding
Blood pressure improved-transfer out of ICU-call pulmonary if respiratory issues arise
Assessment
-
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
bleed/critical care management 11/15/24.
Anemia due to acute blood loss-hemoglobin 7.0-macrocytic
GI bleed/melena
Hypotension
Hypothermia
TAMANNA
Metabolic acidosis
Hyperglycemia
Conditions present prior to admission:
Hypertension.
Hyperlipidemia.
Aortic stenosis-moderate
Essential tremor.
Dementia.
Diabetes.
Hernia repair. Hemorrhoids. Cholelithiasis/Lap cholecystectomy 2012.
Plan
The patient remains stable without further evidence for bleeding-blood pressure improved
Supplemental oxygen as needed-weaned to room air
Aspiration precautions
Incentive spirometry
Nebulizers if needed-currently not bronchospastic
Follow hemoglobin
Transfuse packed red blood cells and FFP as needed
Monitor coagulopathy
GI evaluation ongoing-correspondence reviewed
Endoscopy 11/16/20242963-2585 5-1 clean based ulcer in duodenum, erosive gastritis
Continue to avoid NSAIDs
PPI drip-convert to oral twice daily x 8 weeks
Biopsy for H. pylori
Norepinephrine if needed-not needed
Hypothermia resolved
Follow renal function
Intravenous fluids and blood products for volume expansion
Consider nephrology evaluation if worsens
Echocardiogram 11/17/2024-EF 50%, inferolateral wall hypokinesis, moderate aortic stenosis
Monitor blood sugar
Insulin supplementation if needed
DVT prophylaxis-Mechanical
GI prophylaxis-on PPI
Aspiration precautions
Nutrition
Early mobilization
The patient's hemoglobin has remained stable without evidence for active bleeding and endoscopy completed the patient could be transferred out of ICU-call pulmonary if respiratory issues arise
Reviewed the patient's pertinent medical records including radiographs, microbiology, laboratory evaluations, and discussion with primary team, consultants, pharmacy, nutrition, physical therapy, case management, charge nurse, critical care
nursing, and respiratory therapy.
Diagnostic data:
Chest x-ray 10/20/12-NAD
Chest x-ray 11/15/24-NAD
Subjective Dataa
Subjective Data
Date of Service:
Date of Service: November 17, 2024
Chief Complaint: Pharmaceutical Physician Follow Up and Pulmonary Follow Up
Subjective:
patient feels much better, no further bleeding, blood pressure improved, no shortness of breath, chest pain or abdominal pain
Review of Systems
General: Other
Objective Data
Data Reviewed
Vital Signs / I&O / Oxygen:
Vital Signs
Temp Pulse Resp BP Pulse Ox
97.9 F 93 13 113/73 100
11/17/24 07:31 11/17/24 08:00 11/17/24 08:00 11/17/24 08:00 11/17/24 08:45
Intake and Output
11/16/24 11/17/24 11/18/24
06:59 06:59 06:59
Intake Total 1540 / 1650 1140 / 1140 240 / 240
Output Total 1475 / 1475 2300 / 2300
Balance 65 / 175 -1160 / -1160 240 / 240
SaO2 100
Nasal Cannula flow liters per 2
minute
Physical Exam
General: Respiratory Distress (n) and Comfortable
HEENT: Normocephalic, Anicteric and Moist Mucous Membranes
Cardiovascular: Regular Rhythm and Murmur
Respiratory: Crackles (n), Rhonchi (n), Non-Labored Respirations, Accessory Resp Muscle Use (n) and Stridor (n)
GI: Soft, Non Distended and Non Tender
Neurology: Awake, Alert and No Motor Deficits
Skin: Warm, Good Color, Cyanosis (n), Jaundice (n) and Rash (n)
Labs/Micro/Reports
Lab Data
11/17/24 03:29
11/17/24 03:29
Microbiology
11/15/24 14:47 Blood/Venous Blood Culture - Preliminary
No Growth in 24 hours- Final report to follow
11/15/24 14:47 Blood/Venous Blood Culture - Preliminary
No Growth in 24 hours- Final report to follow
11/15/24 13:32 Urine Urine Culture - Final
NO GROWTH
[2024-11-17] MEDS: D5W 1000 IV (09:02)
--- NOTE | 2024-11-17 09:26 | CON.CAR ---
Consultation
Consultation Request
Date/Time Consultation Requested: 11/17/24
Date/Time Consultation Performed: 11/17/24
Requesting Provider: Dr ochoa
Performing Provider: Dr Javier
Reason for Consultation: New Afib
Medical History
-
Chief Complaint: af
History of Present Illness:
74-year-old gentleman with a past medical history of hyperlipidemia with statin intolerance, type 2 diabetes on oral medications, hypertension, GERD, memory loss and stage III kidney disease who presented on 11/15/2024 with melena and and acute blood
loss anemia hemoglobin drifted to 7 before admission from a baseline of 16. He has received 2 units of packed red blood cells. EGD revealed a large nonbleeding duodenal ulcer. Following his EGD yesterday, he was found to be in atrial fibrillation
and we are asked to comment on that.Currently he is asymptomatic and in rate controlled af.
Past Medical History
Past Medical History: HTN, NIDDM and Other (memory disorder)
Past Surgical History: None
Social History
Tobacco: Non-Smoker
Living: With Family
Family History
Family History: Reviewed & Not Pertinent
Allergies / Home Medications
Allergy/AdvReac Type Severity Reaction Status Date / Time
No Known Drug Allergies Allergy Unknown Verified 09/22/13 10:00
pollen extracts Allergy Seasonal - Verified 11/15/24 15:30
sneezing,
runny nose
�Medication �Instructions �Recorded �Confirmed �Type
ezetimibe 10 mg tablet 10 mg PO DAILY High Cholesterol 10/24/12 11/15/24 History
metformin 500 mg tablet 500 mg PO BID Diabetes 10/24/12 11/15/24 History
amlodipine 10 mg tablet (Norvasc) 10 mg PO DAILY Blood Pressure 11/15/24 11/15/24 History
carbidopa 25 mg-levodopa 100 mg 1 tab PO QPM Neurological Condition 11/15/24 11/15/24 History
tablet
carbidopa 25 mg-levodopa 100 mg 1.5 tab PO BID@0600,1200 11/15/24 11/15/24 History
tablet Neurological Condition
diphenhydramine HCl 50 mg/30 mL 50 mg PO HSPRN PRN sleep 11/15/24 11/15/24 History
oral liquid (ZzzQuil)
donepezil 10 mg tablet 10 mg PO DAILY Neurological 11/15/24 11/15/24 History
Condition
ibuprofen 200 mg tablet (Advil) 400 mg PO BID Pain 11/15/24 11/15/24 History
losartan 100 mg tablet 100 mg PO DAILY Blood Pressure 11/15/24 11/15/24 History
memantine 10 mg tablet 10 mg PO BID Neurological Condition 11/15/24 11/15/24 History
therapeutic multivitamin 1 tab PO DAILY Supplement 11/15/24 11/15/24 History
vitamins A,C,A-rhwm-gstmoz 2,148 1 tab PO BID Supplement 11/15/24 11/15/24 History
mcg-113 mg-45 mg-17.4 mg tablet
(PreserVision AREDS)
Review of Systems
-
All other systems: Negative unless noted
Physical Exam
Vital Signs
Temp Pulse Resp BP Pulse Ox
97.9 F 93 13 113/73 100
11/17/24 07:31 11/17/24 08:00 11/17/24 08:00 11/17/24 08:00 11/17/24 08:45
Lab Results
11/17/24 03:29
11/17/24 03:29
Physical Exam
General: Well Developed and Well Nourished
Respiratory: Clear, Wheezes, Crackles, Rhonchi and Non Labored Respirations
Cardiac: S1/S2 and Irregular Rhythm; Negative Murmur, Rub or Peripheral Edema
Neuro: AO x 3
Impression / Plan
-
74-year-old with memory deficit, diabetes, hypertension, hyperlipidemia with statin intolerance presented for acute GI bleeding and anemia found to have new atrial fibrillation.
AFib
- Rate: inherently rate controlled
- Rhythm: af
- Oral Anticoagulation: Given the size of his ulcer seen on EGD, GI recommending trialing heparin to ensure no recurrent GI bleeding with anticoagulation.
- [id number]: (<del>Heart</del> <del>failure</del>, HTN, age 75 or more, Diabetes Mellitus, <del>prior</del> <del>Stroke/TIA,</del> <del>Vascular</del> <del>disease,</del> <del>age</del> <del>65-74</del>, <del>female</del> <del>gender):</del> 4
GI bleeding with acute blood loss anemia
Found to have large duodenal ulcer.
PPI started.
monitor hgb with heparin
Will need to avoid NSAIDs and alcohol.
Hypertension: BP has been low with blood loss, typically taking amlodipine 10 mg and losartan 100 mg
Hyperlipidemia: Statin intolerant can resume Zetia
OBS
Diabetes
Data Reviewed
-
EKG: Tracing Personally Visualized and interpreted (EKG 11/16/2024 shows atrial fibrillation at 101 bpm with PVCs. Left anterior fascicular block.Compared to the prior on 11/15/2024 atrial fibrillation has replaced sinus bradycardia left anterior
fascicular block has replaced a left bundle branch block)
Radiology: Image Personally Visualized and interpreted (Chest x-ray/ without any pulmonary edema. Normal heart size.)
--- NOTE | 2024-11-17 09:35 | PTCARENOTE ---
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 patient is AAOX3 when speaking with him, but forgetful to situation. appropriate in conversation however. He was on 2L nasal cannula from , removed and is 99% on room air. Patient is afib on monitor. echo
and cardiology consult pending. Patient has regular diet. Oral PPI given. Condom cath for urine. Will review orders. bed alarm on.
--- NOTE | 2024-11-17 11:24 | PTCARENOTE ---
Patient transferred to be 426, report given to RYLEE Reyes. patient's is at bedside and updated on plan of care. Patient was a standby assist, entered PT orders as patient is unsteady.
[2024-11-17] MEDS: HEPARIN 4000 UNITS IV (12:07)
[2024-11-17] MEDS: HEPARIN 25000 UNITS/250 ML IV (12:11)
[2024-11-17 12:20] LABS: Hematocrit 24.8 % (39.0-52.0); Hemoglobin 8.6 g/dL (13.0-18.0); Mean Corp Hgb Conc. 34.7 g/dL (33.0-37.0); Mean Corpuscular Hgb 32.6 pg (27.0-31.0); Mean Corpuscular Volume 93.9 fL (80.0-94.0); Platelet Count 164 10^3/uL (130-400); Red Blood Cell Count 2.64 10^6/uL (4.70-6.10); Red Cell Dist. Width 15.9 % (11.5-14.5); White Blood Cell Count 6.7 10^3/uL (4.8-10.8)
--- NOTE | 2024-11-17 14:53 | CM ---
Chart reviewed and patient has transferred from ICU and cardiology requesting pricing on Eliquis for patient, cost of Eliquis for patient $145 per month. Patient is possible a tier 3 or 4 for this medication as patient generally pays zero copay,
caser shoe parts met with patient and daughter and they are agreeable to cost, caser shoe parts also reviewed visiting nurses and they are agreeable to [facility].
Plan; Home when spouse and [facility].
--- NOTE | 2024-11-17 15:06 | PN.CDI ---
CDI
- -
CDI:
Physician Documentation Request
Admit Date: 11/15/24 15:41
Dear Doctor Sim,
Clinical Indicators:
Patient admitted with C. difficile colitis.
11/16 [facility] RN note, 'R sacral/buttocks DTI evolving to what appears to be a stage 3 pressure injury, pink with some yellow fibrin and dark outer edge. L coccyx stage 2 pressure injury.'
11/16 RN skin/wound assessment: Sacrum Stage 3 Pressure Injury
Physician documentation of the type and location of wounds is required for compliant documentation. Based on the above clinical findings and your assessment, please provide the following in your progress note:
1. Location of the ulcer/wound, including laterality.
2. Type (etiology) of ulcer/wound:
- Pressure (decubitus) ulcer
- Other,
3. For a non-pressure ulcer, please indicate the depth/severity:
- Limited to the breakdown of skin
- With fat layer exposed
- With necrosis of muscle
- With necrosis of bone
- Other
- Unable to determine
4. If a pressure ulcer, please also include the stage* of the ulcer:
- Stage 1 - Skin intact, non-blanchable redness
- Stage 2 - Partial thickness loss of dermis, includes intact or open blister
- Stage 3 - Full thickness tissue not including bone, tendon or muscle
- Stage 4 - Full thickness tissue loss, including exposed bone, tendon or muscle
- Unstageable - Full thickness loss in which the base of the ulcer is covered by slough (yellow, padron, winters, green or brown) and/or eschar (padron, brown or black) in the wound bed.
- Unable to determine
Use of terms such as suspected, likely, concern for, or probable (associated with a specific diagnosis that is being evaluated, monitored, or treated as if it exists) are acceptable and can be coded in the inpatient setting, when documented at the
time of discharge.
Thank you,
Jody Hicks RN
CDI Specialist
available via tiger text
Please use your independent medical judgment in providing your response.
*Source: National Pressure Ulcer Advisory Panel (NPUAP)
--- NOTE | 2024-11-17 15:36 | VNURNOTE ---
Home Health Liaison met with patient at bedside. Family were not at bedside. Per chart review, patient w/dementia. Call placed to patient's spouse Mariam, no answer, left message.
[facility]N referral completed in [facility].
[2024-11-17] MEDS: SINEMET 25-100 1 TABLET PO (17:49)
[2024-11-17 18:51] LABS: % Basophils 0.4 % (0-2); % Eosinophils 2.2 % (0-6); % Immature Granulocytes 0.4 % (0-0.5); % Lymphocytes 14.5 % (20.5-51.1); % Monocytes 8.4 % (1.7-9.3); % Neutrophils 74.1 % (42.2-75.2); Absolute Eosinophils 0.2 10^3/uL (0-0.7); Absolute Lymphocytes 1.1 10^3/uL (1.2-3.4); Absolute Monocytes 0.6 10^3/uL (0.1-0.6); Absolute Neutrophils 5.4 10^3/uL (1.4-6.5); Hematocrit 22.9 % (39.0-52.0); Hemoglobin 8.1 g/dL (13.0-18.0); Mean Corp Hgb Conc. 35.4 g/dL (33.0-37.0); Mean Corpuscular Hgb 32.8 pg (27.0-31.0); Mean Corpuscular Volume 92.7 fL (80.0-94.0); Mean Platelet Volume 9.2 fL (7.4-10.4); Nucleated Red Blood Cells % 0 % (-); Platelet Count 169 10^3/uL (130-400); Red Blood Cell Count 2.47 10^6/uL (4.70-6.10); Red Cell Dist. Width 15.8 % (11.5-14.5); White Blood Cell Count 7.3 10^3/uL (4.8-10.8)
[2024-11-17 18:59] LABS: APTT 75.1 Sec (23.4-35.0)
[2024-11-17 19:10] LABS: Blood Urea Nitrogen 53 mg/dl (9-20); Calcium 8.1 mg/dl (8.4-10.2); Carbon Dioxide 22 mmol/L (22-30); Chloride 113 mmol/L (98-107); Estimated Creatinine Clearance 48 ml/min; Glucose 128 mg/dl (70-99); Potassium 3.9 mmol/L (3.5-5.1); Sodium 140 mmol/L (135-145); eGFR 52.09
--- NOTE | 2024-11-17 20:00 | PTCARENOTE ---
Pt's Na decreased from 147 to 140. Pt ordered D5w at 110 mL/hr, latest BP 111/66, HR 80. 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
[2024-11-17] MEDS: D5W IV (20:34)
[2024-11-17] MEDS: NAMENDA 10 MG PO (20:50)
[2024-11-18 01:15] LABS: APTT 94.5 Sec (23.4-35.0)
[2024-11-18 01:52] VITALS: BP 131/73
[2024-11-18] MEDS: SINEMET 25-100 1.5 TABLET PO ×2 (06:11→12:44)
[2024-11-18 06:15] LABS: Hematocrit 23.8 % (39.0-52.0); Hemoglobin 8.3 g/dL (13.0-18.0); Mean Corp Hgb Conc. 34.9 g/dL (33.0-37.0); Mean Corpuscular Hgb 32.2 pg (27.0-31.0); Mean Corpuscular Volume 92.2 fL (80.0-94.0); Mean Platelet Volume 8.9 fL (7.4-10.4); Platelet Count 153 10^3/uL (130-400); Red Blood Cell Count 2.58 10^6/uL (4.70-6.10); Red Cell Dist. Width 15.9 % (11.5-14.5); White Blood Cell Count 6.5 10^3/uL (4.8-10.8)
[2024-11-18 07:30] VITALS: BP 123/75
[2024-11-18 07:39] LABS: Blood Urea Nitrogen 44 mg/dl (9-20); Calcium 8.3 mg/dl (8.4-10.2); Carbon Dioxide 22 mmol/L (22-30); Chloride 114 mmol/L (98-107); Estimated Creatinine Clearance 48 ml/min; Glucose 95 mg/dl (70-99); Magnesium 2.2 mg/dl (1.6-2.3); Sodium 142 mmol/L (135-145); eGFR 52.09
[2024-11-18] MEDS: HEPARIN 25000 UNITS/250 ML IV (11:18)
[2024-11-18] MEDS: ARICEPT 10 MG PO (11:33)
[2024-11-18] MEDS: NAMENDA 10 MG PO ×2 (11:33→21:06)
[2024-11-18] MEDS: NSS (PRESERVATIVE FREE) 10 ML IV ×2 (11:34→21:06)
[2024-11-18] MEDS: PROTONIX IV 40 MG IV ×2 (11:34→21:06)
[2024-11-18 11:58] VITALS: BP 122/73
--- NOTE | 2024-11-18 14:51 | W.PN.HOSP.TC ---
Today's Communication/Plan
-
continue current care
Assessment / Plan
Assessment / Plan
74-year-old male with PMH of
HTN,
HLD,
Essential tremor,
dementia;
p/w profound weakness at home. He is a limited historian due to underlying dementia. Discussed with ED physician. Patient apparently has been taking ibuprofen for hip pain.
He was found with significant melena. BP noted to be low by EMS. BP improved following IV fluid resuscitation in the ER.
A/P:
1. acute blood loss anemia 2/2 GI bleed
Hemoglobin 7.0 on admission from baseline 16; s/p 2 units PRBC, Hgb at 8.3 today
s/p EGD 11/16: Gastritis- Biopsied. Non-bleeding duodenal ulcer with no stigmata of bleeding.
Follow pathology results outpatient with GI .
PPI PO bid for 8 weeks. Avoid nsaids
noted iron panel, B12 and folate WNL
2. Hypotension due to above, resolved
Blood pressure improved with IVF
Cont to observe off home BP meds (Norvasc, Losartan)
3. Hypothermia, may be due to acute blood loss, resolved
TSH 1.29
s/p Brennan Hugger
Temperature normalized
4. TAMANNA, suspect prerenal
Creatinine 3.1 on admission -> 1.7; baseline 0.9
cont IVF support, changed to D5W with hypernatremia
bladder scan for retention
Consider kidney ultrasound and additional workup if serum creatinine does not improve
5. Hypernatremia
Started D5W
Observe sodium level
6. New onset A fib noted following EGD
Checked echo
Card CS
Defer to GI wrt OAC
Other medical problems:
HTN - Hold home BP meds
HLD
Essential tremor
dementia - Patient awake and conversant, but not orientated
DVT ppx: SCD
FC
total time 51 min
Anticipated Discharge: > 48 hours
Subjective/Interval History
-
Date of Service: November 18, 2024
No complaints.
Objective Data
-
Labs:
Laboratory Results
11/18/24
06:01
WBC 6.5
Hgb 8.3 L
Hct 23.8 L
Plt Count 153
Sodium 142
Potassium 4.0
Chloride 114 H
Carbon Dioxide 22
BUN 44 H
Creatinine 1.4 H
Glucose 95
Calcium 8.3 L
Vital Signs:
Vital Signs
Temp Pulse Resp BP Pulse Ox
98.4 F 95 20 122/73 100
11/18/24 11:58 11/18/24 11:58 11/18/24 11:58 11/18/24 11:58 11/18/24 11:58
I&O
11/17/24 11/18/24 11/19/24
06:59 06:59 06:59
Intake Total 1140 / 1140 1200 / 1200 90 / 90
Output Total 2300 / 2300 700 / 700
Balance -1160 / -1160 500 / 500 90 / 90
Review of Systems
-
Unable to obtain full review of systems at this time due to: Dementia
History Source: Patient
All other systems: Reviewed and negative
Physical Exam
-
General: Well Developed, Well Nourished, No Apparent Distress and Comfortable
HEENT: Nose Appears Normal and Ears Appear Normal
Respiratory: Clear to Auscultation
Cardiac: Regular Rhythm and S1/S2
GI: Soft, Nontender and Nondistended
Musculoskeletal: No Clubbing, No Cyanosis and No Edema
Skin: Warm and Dry
Neuro: Awake and Alert
Psych: Calm
Data Reviewed
-
Labs: Labs Reviewed by me
[2024-11-18 15:36] VITALS: BP 127/78
--- NOTE | 2024-11-18 16:28 | W.PN.CD ---
Today's Communication / Plan
-
- I am ok allowing ULCER to heal and starting Eliquis in 1-4 weeks
- Will add some gentle rate control meds
Impression / Plan
-
74-year-old with dementia, diabetes, hypertension, hyperlipidemia with statin intolerance presented for acute GI bleeding and anemia found to have new atrial fibrillation
AFib
- Rate: rates are now over 100 => will add some rate control
- Rhythm: Afib so far persisting
- Oral Anticoagulation: IV heparin chosen
- [id number]: 4 (HTN, age2, Diabetes Mellitus)
- I am ok allowing ULCER to heal and starting Eliquis in 1-4 weeks
Moderate aortic stenosis
GI bleeding with acute blood loss anemia
- Found to have large duodenal ulcer.
- PPI started.
- He was placed on IV heparin
- Will need to avoid NSAIDs and alcohol.
Dementia
Hypertension: BP has been low with blood loss, typically taking amlodipine 10 mg and losartan 100 mg
Hyperlipidemia: Statin intolerant can resume Zetia
Diabetes
Subjective: No CP or palps
Physical Exam
Vital Signs/Labs
Vital Signs
Temp Pulse Resp BP Pulse Ox
97.8 F 85 20 127/78 100
11/18/24 15:36 11/18/24 15:36 11/18/24 15:36 11/18/24 15:36 11/18/24 15:36
11/17/24 11/18/24 11/19/24
06:59 06:59 06:59
Actual Weight 75.7 kg
11/18/24 06:01
11/18/24 06:01
PT 15.1 Sec (11.4-14.6) H 11/16/24 04:42
INR 1.14 11/16/24 04:42
APTT 94.5 Sec (23.4-35.0) H 11/18/24 00:51
Magnesium 2.2 mg/dl (1.6-2.3) 11/18/24 06:01
Physical Exam
Constitutional: No acute distress
EENT: Anicteric
Cardiovascular: Rhythm & rate is regular, Pedal edema is absent and Systolic murmur present
Respiratory: Respiratory effort normal and Lungs clear to auscul.
GI: Soft and Distention absent
Neuro/Psych: Alert and Other (poorly oriented to situation)
Data Reviewed
-
Date of Service: November 18, 2024
[2024-11-18] MEDS: TOPROL XL 25 MG PO (18:33)
[2024-11-18] MEDS: SINEMET 25-100 1 TABLET PO (18:33)
[2024-11-18 19:25] VITALS: BP 100/75
[2024-11-18 23:30] VITALS: BP 113/71
[2024-11-19] VITALS (7 sets, daily range): BP systolic 94–138; BP diastolic 49–76
[2024-11-19] MEDS: SINEMET 25-100 1.5 TABLET PO ×2 (05:45→11:50)
[2024-11-19 07:47] LABS: Blood Urea Nitrogen 33 mg/dl (9-20); Calcium 8.5 mg/dl (8.4-10.2); Carbon Dioxide 24 mmol/L (22-30); Chloride 113 mmol/L (98-107); Estimated Creatinine Clearance 48 ml/min; Glucose 95 mg/dl (70-99); Hematocrit 25.5 % (39.0-52.0); Hemoglobin 8.6 g/dL (13.0-18.0); Mean Corp Hgb Conc. 33.7 g/dL (33.0-37.0); Mean Corpuscular Hgb 31.5 pg (27.0-31.0); Mean Corpuscular Volume 93.4 fL (80.0-94.0); Mean Platelet Volume 9.3 fL (7.4-10.4); Platelet Count 181 10^3/uL (130-400); Potassium 3.8 mmol/L (3.5-5.1); Red Blood Cell Count 2.73 10^6/uL (4.70-6.10); Red Cell Dist. Width 15.9 % (11.5-14.5); Sodium 142 mmol/L (135-145); White Blood Cell Count 6.5 10^3/uL (4.8-10.8); eGFR 52.09
[2024-11-19] MEDS: NSS (PRESERVATIVE FREE) 10 ML IV ×2 (08:57→20:52)
[2024-11-19] MEDS: PROTONIX IV 40 MG IV ×2 (08:57→20:52)
[2024-11-19] MEDS: ARICEPT 10 MG PO (08:58)
[2024-11-19] MEDS: NAMENDA 10 MG PO ×2 (08:58→20:52)
[2024-11-19] MEDS: TOPROL XL PO (09:12)
--- NOTE | 2024-11-19 11:15 | W.PN.HOSP.TC ---
Today's Communication/Plan
-
Renal ultrasound pending. Likely ok to go home tomorrow.
Assessment / Plan
Assessment / Plan
74-year-old male with PMH of
HTN,
HLD,
Essential tremor,
dementia
p/w profound weakness at home. He was a limited historian due to underlying dementia. Patient had been taking ibuprofen for hip pain. He was found with significant melena. BP noted to be low by EMS. BP improved following IV fluid resuscitation in
the ER.
A/P:
1. acute blood loss anemia 2/2 GI bleed
Hemoglobin 7.0 on admission from baseline 16; s/p 2 units PRBC, Hgb at 8.6 today
s/p EGD 11/16: Gastritis- Biopsied. Non-bleeding duodenal ulcer with no stigmata of bleeding.
Follow pathology results outpatient with GI .
PPI PO bid for 8 weeks.
Avoid nsaids
noted iron panel, B12 and folate WNL
2. Hypotension due to above, resolved
Blood pressure improved with IVF
Cont to observe off home BP meds (Norvasc, Losartan)
To be resumed by PCP as outpatient
3. Hypothermia, may be due to acute blood loss, resolved
TSH 1.29
s/p Brennan Carleeer
Temperature normalized
4. TAMANNA, suspect prerenal
Creatinine 3.1 on admission -> 1.4; baseline 0.9
cont IVF support, changed to D5W with hypernatremia
bladder scan for retention
kidney ultrasound ordered since serum creatinine not at baseline
Keep metformin OFF. To be restarted if needed as outpatient
5. Hypernatremia
Started D5W
Observe sodium level - today 142
6. New onset A fib noted following EGD
Checked echo
Card CS
OAC to be restarted as outpatient in 1-4 weeks
7. Diabetes - in good control
Avoid metformin until kidneys are back to baseline.
Other medical problems:
HTN - Hold home BP meds
HLD
Essential tremor
dementia - Patient awake and conversant, intermittently oriented.
Dispo: likely OK to go home tomorrow after renal ultrasound.
DVT ppx: SCD
FC
total time 51 min
Anticipated Discharge: Within 24 hours
Subjective/Interval History
-
Date of Service: November 19, 2024
Feels well. No new issues.
Objective Data
-
Labs:
Laboratory Results
11/19/24
06:34
WBC 6.5
Hgb 8.6 L
Hct 25.5 L
Plt Count 181
Sodium 142
Potassium 3.8
Chloride 113 H
Carbon Dioxide 24
BUN 33 H
Creatinine 1.4 H
Glucose 95
Calcium 8.5
Vital Signs:
Vital Signs
Temp Pulse Resp BP Pulse Ox
97.9 F 60 22 94/59 98
11/19/24 07:30 11/19/24 07:30 11/19/24 07:30 11/19/24 09:12 11/19/24 07:30
I&O
11/18/24 11/19/24 11/20/24
06:59 06:59 06:59
Intake Total 1200 / 1200 1398 / 1398
Output Total 700 / 700
Balance 500 / 500 1398 / 1398
Review of Systems
-
History Source: Patient
All other systems: Reviewed and negative
Physical Exam
-
General: Well Developed, Well Nourished, No Apparent Distress and Comfortable
HEENT: Normocephalic, Moist Mucous Membranes, Nose Appears Normal and Ears Appear Normal
Respiratory: Clear to Auscultation
Cardiac: Regular Rhythm and S1/S2
GI: Soft, Nontender and Nondistended
Musculoskeletal: No Clubbing, No Cyanosis and No Edema
Skin: Warm and Dry; Negative Rash
Neuro: Awake, Alert and Oriented
Psych: Calm
Data Reviewed
-
Labs: Labs Reviewed by me
--- NOTE | 2024-11-19 13:43 | W.PN.CD ---
Today's Communication / Plan
-
When ulcer adequately healed start Eliquis 5 bid
Increase rate control
If AFib persists then proceed to a cardioversion (after on Eliquis for at least 21 days)
Impression / Plan
-
74-year-old with dementia, diabetes, hypertension, hyperlipidemia with statin intolerance presented for acute GI bleeding and anemia found to have new atrial fibrillation
AFib
- Rate: rates are still a bit fast
- Rhythm: Afib so far persisting
- Oral Anticoagulation: Off IV heparin, I did not feel comfortable ordering it
- [id number]: 4 (HTN, age2, Diabetes Mellitus)
- I am ok allowing ULCER to heal and starting Eliquis in 1-4 weeks
Moderate aortic stenosis
GI bleeding with acute blood loss anemia
- Found to have large duodenal ulcer.
- PPI started.
- He was placed on IV heparin
- Will need to avoid NSAIDs and alcohol.
Dementia
Hypertension: BP has been low with blood loss, typically taking amlodipine 10 mg and losartan 100 mg
Hyperlipidemia: Statin intolerant can resume Zetia
Diabetes
Subjective: No CP or palps
Physical Exam
Vital Signs/Labs
Vital Signs
Temp Pulse Resp BP Pulse Ox
97.8 F 61 22 113/74 96
11/19/24 11:00 11/19/24 11:00 11/19/24 11:00 11/19/24 11:00 11/19/24 11:00
11/19/24 06:34
11/19/24 06:34
PT 15.1 Sec (11.4-14.6) H 11/16/24 04:42
INR 1.14 11/16/24 04:42
APTT 94.5 Sec (23.4-35.0) H 11/18/24 00:51
Magnesium 2.2 mg/dl (1.6-2.3) 11/18/24 06:01
Physical Exam
Cardiovascular: Rhythm/rate is irregular
Data Reviewed
-
Date of Service: November 19, 2024
[2024-11-19] MEDS: SINEMET 25-100 1 TABLET PO (17:49)
[2024-11-19] MEDS: TOPROL XL 25 MG PO (20:51)
[2024-11-20 03:41] VITALS: BP 120/80
[2024-11-20] MEDS: SINEMET 25-100 1.5 TABLET PO ×2 (05:06→11:21)
[2024-11-20 07:28] VITALS: BP 114/75
[2024-11-20] MEDS: TOPROL XL 25 MG PO (08:00)
[2024-11-20] MEDS: NAMENDA 10 MG PO (08:00)
[2024-11-20] MEDS: ARICEPT 10 MG PO (08:01)
[2024-11-20] MEDS: NSS (PRESERVATIVE FREE) 10 ML IV (08:01)
[2024-11-20] MEDS: PROTONIX IV 40 MG IV (08:01)
--- NOTE | 2024-11-20 08:27 | W.PN.CD ---
Addendum entered and electronically signed by Inder Manning MD 11/20/24 10:44:
F/u Tiffanie Badillo NP 12/06/[address] Shahid who saw the patient in initial consult on 11/17/2024.
Original Note:
Today's Communication / Plan
-
- Now rate-controlled.
- Continue Toprol-XL 25 mg BID.
- Start Eliquis in 1-4 weeks as outpatient.
- Outpatient follow-up with Cardiology (Dr. Manning).
Impression / Plan
-
74-year-old with dementia, diabetes, hypertension, hyperlipidemia with statin intolerance presented for acute GI bleeding and anemia found to have new atrial fibrillation
New onset paroxysmal atrial fibrillation:
- Now rate-controlled.
- Continue Toprol-XL 25 mg BID.
- Oral Anticoagulation: Off IV heparin, I did not feel comfortable ordering it
- [id number]: 4 (HTN, age2, Diabetes Mellitus)
- Start Eliquis in 1-4 weeks as outpatient.
- Outpatient follow-up with Cardiology (Dr. Manning).
Moderate aortic stenosis:
- Appears to be clinically stable; continue to monitor over time.
GI bleeding with acute blood loss anemia
- Found to have large duodenal ulcer.
- PPI started.
- Will need to avoid NSAIDs and alcohol.
- Start Eliquis in 1-4 weeks as outpatient.
Hypertension:
- Blood pressure controlled on Toprol-XL; continue current dose.
- Do not resume amlodipine or losartan at this time.
Hyperlipidemia:
- Statin intolerant.
- Will resume Zetia.
Diabetes:
- Management as per primary team.
Dementia:
- Appears to be at baseline.
Subjective:
No major events overnight. No cardiac complaints this a.m.
Physical Exam
Vital Signs/Labs
Vital Signs
Temp Pulse Resp BP Pulse Ox
97.8 F 82 18 114/75 100
11/20/24 07:28 11/20/24 08:00 11/20/24 07:28 11/20/24 08:00 11/20/24 07:28
PT 15.1 Sec (11.4-14.6) H 11/16/24 04:42
INR 1.14 11/16/24 04:42
APTT 94.5 Sec (23.4-35.0) H 11/18/24 00:51
Magnesium 2.2 mg/dl (1.6-2.3) 11/18/24 06:01
Physical Exam
Constitutional: No acute distress and Comfortable
EENT: Anicteric
Cardiovascular: Pedal edema is absent, Rhythm/rate is irregular, Systolic murmur present (soft 2/6) and S1S2 is normal
Respiratory: Respiratory effort normal and Lungs clear to auscul.
GI: Soft
Neuro/Psych: Alert
Other: Skin (Warm, dry, intact)
Data Reviewed
-
Date of Service: November 20, 2024
EKG: Tracing Personally Visualized and interpreted (Telemetry: A-fib)
Echo: Report Reviewed by me (EF 50%; moderate )
Labs: Labs Reviewed by me
[2024-11-20 08:39] LABS: Hematocrit 25.5 % (39.0-52.0); Hemoglobin 8.7 g/dL (13.0-18.0); Mean Corp Hgb Conc. 34.1 g/dL (33.0-37.0); Mean Corpuscular Volume 93.8 fL (80.0-94.0); Mean Platelet Volume 9.2 fL (7.4-10.4); Platelet Count 188 10^3/uL (130-400); Red Blood Cell Count 2.72 10^6/uL (4.70-6.10); Red Cell Dist. Width 15.9 % (11.5-14.5); White Blood Cell Count 7.6 10^3/uL (4.8-10.8)
[2024-11-20] MEDS: ZETIA 10 MG PO (08:43)
[2024-11-20 09:32] LABS: Blood Urea Nitrogen 29 mg/dl (9-20); Calcium 8.6 mg/dl (8.4-10.2); Carbon Dioxide 22 mmol/L (22-30); Chloride 112 mmol/L (98-107); Estimated Creatinine Clearance 48 ml/min; Glucose 92 mg/dl (70-99); Sodium 142 mmol/L (135-145); eGFR 52.09
[2024-11-20 10:49] VITALS: BP 105/71
--- NOTE | 2024-11-20 11:21 | WOUNDNOTE ---
[facility] RN note: Patient admitted with acute anemia, HOTN. Patient lives with his . Patient for discharge today with [facility].
See H&P for complete history.
PMH: HTN, essential tremor, dementia, weakness.
Wound Location and type/assessment: Patient has a small partial thickness coccyx ulcer suspect r/t moisture and possibly pressure.
Appetite: good.
Pressure redistribution devices in place: VersaLola Pirindola Accumax. Air chair cushion. Patient stood during skin assessment.
Plan: Calazime ointment applied to coccyx. Protective silicone foam maintained on sacrum.
Discharge instructions updated. Updated RYLEE Ko and Sonia Flores. Updated Dr. Curiel via tiger text. t/c VM left for requesting a call back.
Recommend follow up at wound care center upon discharge if needed.
--- NOTE | 2024-11-20 11:38 | VNURNOTE ---
Second call placed to patient's primary contact, spouse. No answer. VN referral accepted in [facility].
--- NOTE | 2024-11-20 11:42 | W.DCSUMMARY ---
Discharge Summary
Discharge Data
Date of Admission: 11/15/24
Date of Discharge: 11/20/24
-
Pending Results: No
Hospital Course
Mr. Mccabe is a 74-year-old male with a medical history of hypertension, oka-cyebppf-wfdtuecbx diabetes mellitus, essential tremor, and dementia who presented with profound weakness and significant melena. He was initially admitted to the ICU due to
hypotension. He was transfused 2 units PRBCs for initial hemoglobin of 7.0, baseline around 16. He underwent upper endoscopy on 11/16/2024 with finding of cratered duodenal bulb ulcer and gastritis. Apparently he had been taking NSAIDs for hip pain
and has now been advised to avoid NSAIDs altogether. He has been started on acid suppression twice daily for 8 weeks. His hemoglobin has recovered and continues to improve.
He developed A-fib following his upper endoscopy. Echocardiogram showed mildly reduced LVEF of 50% and moderate aortic stenosis. His heart rate was well-controlled with metoprolol succinate 25 mg twice daily. He was not started on anticoagulation
due to GI bleeding. However, he will need to follow-up with cardiology in the outpatient setting and cautiously start anticoagulation with Eliquis in 1 to 4 weeks with close monitoring for rebleeding. He has an appointment set up with Tiffanie "Casa"Justino (cardiology TMD TEACHER) on 12/06/2024 and can follow-up further with Dr. Shahid who saw this patient for initial consult on 11/17/2024.
His home blood pressure medications were held initially due to hypotension. His blood pressure recovered, however he has remained normotensive without antihypertensive medications. His home blood pressure medications will continue to be held at
time of discharge. He can follow-up with his primary care physician and with cardiology regarding restarting blood pressure medications if needed.
He had an TAMANNA initially with a creatinine of 3.1 likely due to hypovolemia and anemia in the setting of acute GI bleeding. Ultrasound showed no evidence of obstruction but did show a degree of chronic medical renal disease. Ultrasound also showed
small bilateral simple renal cysts. His renal function recovered and creatinine has been stable at 1.4 which is likely his current baseline.
His home metformin was held initially due to to his acute kidney injury. However his blood glucose has been stable and within normal limits throughout this hospitalization. His metformin will continue to be held at discharge. He can follow-up
with his primary care physician for ongoing blood glucose monitoring and diabetic medications can be restarted if needed.
He was medically stable at time of hospital discharge. He will need to follow-up with his primary care physician, with cardiology, and with gastroenterology for ongoing monitoring.
General: No Apparent Distress, Comfortable and Conversant
HEENT: NormoCephalic, Moist mucous membranes, Atraumatic
Respiratory: Clear and Non Labored Respirations
Cardiac: S1/S2 and Regular Rhythm; No Rub or Gallop
GI: Soft, Non Tender, Non Distended and Normal Bowel Sounds
Musculoskeletal: No Edema, no deformity
: NO Jose
Neuro: Awake, Alert, Nonfocal/grossly intact
Psych: Calm and cooperative
Discharge Plan
-
Patient Disposition: Home (Routine Discharge)
Discharge Diagnosis/Procedures: GI bleed, acute blood loss anemia requiring transfusion, TAMANNA
Diet: Regular
Activity: As tolerated
Other Services: VN
Activity Restrictions/Additional Instructions:
Mr. Mccabe is a 74-year-old male with a medical history of hypertension, njw-oixrksm-vjzgkbger diabetes mellitus, essential tremor, and dementia who presented with profound weakness and significant melena. He was initially admitted to the ICU due to
hypotension. He was transfused 2 units PRBCs for initial hemoglobin of 7.0, baseline around 16. He underwent upper endoscopy on 11/16/2024 with finding of cratered duodenal bulb ulcer and gastritis. Apparently he had been taking NSAIDs for hip pain
and has now been advised to avoid NSAIDs altogether. He has been started on acid suppression twice daily for 8 weeks. His hemoglobin has recovered and continues to improve.
He developed A-fib following his upper endoscopy. Echocardiogram showed mildly reduced LVEF of 50% and moderate aortic stenosis. His heart rate was well-controlled with metoprolol succinate 25 mg twice daily. He was not started on anticoagulation
due to GI bleeding. However, he will need to follow-up with cardiology in the outpatient setting and cautiously start anticoagulation with Eliquis in 1 to 4 weeks with close monitoring for rebleeding. He has an appointment set up with Tiffanie
Justino (cardiology TMD TEACHER) on 12/06/2024 and can follow-up further with Dr. Shahid who saw this patient for initial consult on 11/17/2024.
His home blood pressure medications were held initially due to hypotension. His blood pressure recovered, however he has remained normotensive without antihypertensive medications. His home blood pressure medications will continue to be held at
time of discharge. He can follow-up with his primary care physician and with cardiology regarding restarting blood pressure medications if needed.
He had an TAMANNA initially with a creatinine of 3.1 likely due to hypovolemia and anemia in the setting of acute GI bleeding. Ultrasound showed no evidence of obstruction but did show a degree of chronic medical renal disease. Ultrasound also showed
small bilateral simple renal cysts. His renal function recovered and creatinine has been stable at 1.4 which is likely his current baseline.
His home metformin was held initially due to to his acute kidney injury. However his blood glucose has been stable and within normal limits throughout this hospitalization. His metformin will continue to be held at discharge. He can follow-up
with his primary care physician for ongoing blood glucose monitoring and diabetic medications can be restarted if needed.
He was medically stable at time of hospital discharge. He will need to follow-up with his primary care physician, with cardiology, and with gastroenterology for ongoing monitoring.
Referrals:
Gordon Rodriguez DO [Family Provider] -
Tiffanie Badillo CRNP [Specified Professional Personl] - 12/06/24 2:20 pm
Prescriptions:
New
metoprolol succinate 25 mg Tablet Extended Release 24 Hr
25 mg PO BID 30 Days Qty: 60 0RF
pantoprazole 40 mg tablet,delayed release (DR/EC)
40 mg PO BID 56 Days Qty: 112 0RF
Continued
ezetimibe 10 MG tablet
10 mg PO DAILY
donepezil 10 mg Tablet
10 mg PO DAILY
therapeutic multivitamin Tablet
1 tab PO DAILY
carbidopa-levodopa 25-100 mg Tablet
1.5 tab PO BID@0600,1200
carbidopa-levodopa 25-100 mg Tablet
1 tab PO QPM
memantine 10 mg Tablet
10 mg PO BID
PreserVision AREDS 2,148 mcg-113 mg-45 mg-17.4mg Tablet
1 tab PO BID
ZzzQuil 50 mg/30 mL Liquid
50 mg PO HSPRN PRN (Reason: sleep)
Discontinued
metformin 500 MG tablet
500 mg PO BID
amlodipine [Norvasc] 10 mg Tablet
10 mg PO DAILY
ibuprofen [Advil] 200 mg Tablet
400 mg PO BID
losartan 100 mg Tablet
100 mg PO DAILY
Discharge Orders:
Discharge Patient (As Directed); Ordered 11/20/24
Ordered By: Steven Curiel
Discharge Date and Time
Print Language: UPPER SORBIAN
--- NOTE | 2024-11-20 12:30 | CM ---
Chart reviewed and cyanide case hardener met with patient this am and patient has been cleared for discharge to return to home with spouse and [facility].
Plan; Home with spouse and [facility].
== END 2024-11-20 15:06 | disposition home health service (06) | DRG 378 ==
LOC: 4 WEST ACU 15:41
PROVIDERS: Internal Medicine Cardiovascular Disease; Nurse Practitioner Primary Care; ADMITTING PHYSICIAN Internal Medicine; ATTENDING PHYSICIAN Internal Medicine; CONSULT PHYSICIAN Internal Medicine; CONSULT PHYSICIAN Internal Medicine Critical Care Medicine; EMERGENCY PHYSICIAN Emergency Medicine; FAMILY PHYSICIAN Internal Medicine
PROC: 0DB68ZX Excision of Stomach, Via Natural or Artificial Opening Endoscopic, Diagnostic (ICD-10-PCS; 2024-11-16)
PROC: 0DB98ZX Excision of Duodenum, Via Natural or Artificial Opening Endoscopic, Diagnostic (ICD-10-PCS; 2024-11-16)
DX: K29.71 Gastritis, unspecified, with bleeding (principal); D62 Acute posthemorrhagic anemia; E87.0 Hyperosmolality and hypernatremia; N17.9 Acute kidney failure, unspecified; E87.20 Acidosis, unspecified; K26.4 Chronic or unspecified duodenal ulcer with hemorrhage; F03.90 Unspecified dementia, unspecified severity, without behavioral disturbance, psychotic disturbance, mood disturbance, and anxiety; I10 Essential (primary) hypertension; G25.0 Essential tremor; E11.9 Type 2 diabetes mellitus without complications; Z79.84 Long term (current) use of oral hypoglycemic drugs
CPT/HCPCS: 88305; 51798; 71046; 76770; 80048; 80053; 81003; 81015; 82607; 82728; 82746; 82962; 83540; 83550; 83605; 83735; 84443; 85014; 85018; 85025; 85027; 85610; 85730; 86850; 86900; 86901; 86920; 87040; 87086; 88342; 93005; 93306; 96361; 96365; 97162; 97530; 99291; P9016

== ENCOUNTER 2025-01-27 16:04 | Inpatient (IN) | payer OTHER, SELFPAY ==
[2025-01-27] VITALS (30 sets, daily range): BP systolic 105–151; BP diastolic 60–109; BMI 25.6; BMI 26.3; BMI 26.5
[2025-01-27 11:15] LABS: Hematocrit 41.5 % (39.0-52.0); Hemoglobin 12.6 g/dL (13.0-18.0); Mean Corp Hgb Conc. 30.4 g/dL (33.0-37.0); Mean Corpuscular Volume 82.7 fL (80.0-94.0); Nucleated Red Blood Cells % 0.6 % (-); Platelet Count 247 10^3/uL (130-400); Red Cell Dist. Width 17.0 % (11.5-14.5)
[2025-01-27 11:23] LABS: INR 1.47; PT 18.1 Sec (11.4-14.6)
[2025-01-27 11:24] LABS: APTT 33.5 Sec (23.4-35.0)
[2025-01-27 11:41] LABS: ALT (SGPT) 29 U/L (0-50); AST (SGOT) 69 U/L (17-59); Albumin 3.9 g/dl (3.5-5.0); Alkaline Phosphatase 84 U/L (38-126); Blood Urea Nitrogen 69 mg/dl (9-20); Calcium 9.3 mg/dl (8.4-10.2); Carbon Dioxide 14 mmol/L (22-30); Chloride 113 mmol/L (98-107); Estimated Creatinine Clearance 27 ml/min; Glucose 127 mg/dl (70-99); Potassium 5.0 mmol/L (3.5-5.1); Sodium 142 mmol/L (135-145); Total Protein 6.2 g/dl (6.3-8.2); eGFR 27.28
[2025-01-27 12:03] LABS: Venous Blood Gas B.E. -9.8 mmol/L (-4 to +4); Venous Blood Gas O2 Sat % 52.2 %
[2025-01-27 12:07] LABS: Venous Blood Gas O2 Therapy RA
[2025-01-27 12:15] LABS: Troponin I < 0.012 ng/ml
[2025-01-27] MEDS: CARDIZEM 10 MG IV (14:07)
[2025-01-27] MEDS: CARDIZEM 125 IV (14:08)
--- NOTE | 2025-01-27 14:15 | ED.GENMED ---
History of Present Illness
General
Chief Complaint: Breathing Problem
Source: patient and family
Time Seen by Provider: 01/27/25 11:02
History of Present Illness
History of Present Illness:
Note:
CHIEF COMPLAINT(S)
Shortness of breath on exertion.
HISTORY OF PRESENT ILLNESS
The patient is a 74-year-old male with a recent diagnosis of atrial fibrillation (AFib) who presented with shortness of breath, predominantly upon exertion. The patient was seen following an admission about a week ago due to new-onset AFib, during
which he was started on a beta-jhon. The family reports concern that the medication may be contributing to dehydration. The patient denies nausea or vomiting, but experiences significant shortness of breath during physical activity, such as
walking. At rest, the patients lungs are clear, and oxygen saturation is 94-98%. When engaged in minor exertion, such as walking, the patient becomes distressed. The patient denies orthopnea or recent changes in stool color, although he reports two
loose stool movements this morning. Leg swelling was noted, with the left leg appearing slightly more swollen than the right, but the patient contends that the swelling is normal for him.
ADDITIONAL HISTORY OBTAINED FROM SOURCES OTHER THAN THE PATIENT
According to the patients and son, the patient stopped taking certain medications due to adverse reactions, including a notable episode where his heart rate significantly dropped. They reported that the patient has been more short of breath and
fatigued with even minimal activity such as standing up or climbing a few steps. The family also noted that he has not been eating well for the past two days, consuming minimal fluids.
EXTERNAL RECORDS REVIEWED
The patient had previous records from an intensive care unit visit where AFib was diagnosed and he was initiated on beta-jhon therapy; mentioned the patient was admitted for gastrointestinal bleeding, which precluded the use of anticoagulation
for AFib.
CHRONIC MEDICAL CONDITIONS SIGNIFICANTLY AFFECTING CARE
Atrial fibrillation.
PHYSICAL EXAM
General: Awake, alert, and oriented, no acute respiratory distress.
Cardiovascular: Irregularly irregular heartbeat with a heart rate of 117, bilateral lower extremity edema noted.
Respiratory: Lungs are clear to auscultation bilaterally when at rest.
Gastrointestinal: No focal abnormalities noted.
Neurological: No focal motor deficits observed.
PROBLEM LIST
Acute:
- Shortness of breath on exertion
- Atrial fibrillation with uncontrolled heart rate
- Peripheral edema
Chronic:
- Atrial fibrillation
PLAN
- Review prior medical records including recent hospitalization records for comprehensive insights into past AFib management.
- Initiate laboratory investigations and chest X-ray to evaluate possible causes of current symptoms including dehydration or heart failure.
- Assess the fluid and volume status of the patient.
- Discuss beta-jhon management considering heart rate control and potential dehydration. Consider alternative treatment strategies if necessary.
DIFFERENTIAL DIAGNOSIS
The Differential Diagnosis includes, in no particular order and is not limited to:
- Congestive heart failure
- Dehydration
- Anemia
- Pulmonary embolism
- Chronic obstructive pulmonary disease exacerbation
- Acute coronary syndrome
- Medication side effects
- Respiratory infection
- Gastrointestinal bleed (historical concern)
- Thyroid dysfunction
CARE-UPDATE
01/27/25 - 14:19
Patient exhibits tachypnea with Kussmaul breathing, indicating possible metabolic acidosis. Bedside ultrasound reveals trace pericardial effusion. Oxygen saturation is in the 90s, and supplemental oxygen is applied. Laboratory results confirm
metabolic acidosis without signs of diabetic ketoacidosis (DKA). Recommend measuring lactic acid levels and obtaining blood cultures to evaluate for potential sepsis.
CARE-UPDATE
01/27/25 - 14:25
Discussed plan with Cardiology: Dr. Hill Bailey recommends initiating heparin, taking into consideration the patients history of GI bleed. Close monitoring will be implemented due to this history, but heparin is advised based on current symptoms and
clinical findings. I did discuss the possibility of emergency department echocardiogram and Dr. Bailey will assess
EKG
My independent EKG interpretation is:
- Rhythm: Atrial fibrillation with rapid ventricular response (RVR)
- [place]: Left axis deviation
- Notable abnormality: Interventricular conduction delay
- Additional findings: Non-specific STT wave changes
Disposition:
SUMMARY OF ENCOUNTER
A 74-year-old male presented to the emergency department with progressive shortness of breath on exertion and rapid atrial fibrillation. Heart rates in the ED reached 130-140 beats per minute. There was a suspicion of metabolic acidosis contributing
to symptoms, as indicated by the presence of Kussmaul breathing. Labs revealed leukocytosis, metabolic acidosis with a pH of 7.28, serum bicarbonate of 14, an anion gap of 15, and a creatinine level elevated at 2.4 from a baseline of 1.4, indicating
possible acute kidney injury. Chest X-ray showed bilateral pleural effusions without pneumonia. Treatment included IV fluids for possible heart failure, and rate control with diltiazem was attempted for atrial fibrillation. Blood cultures and
lactate levels were also considered to rule out sepsis or ischemia.
DISPOSITION
Admit
ASSESSMENT
The patient is experiencing rapid atrial fibrillation potentially exacerbated by underlying metabolic acidosis and acute kidney injury. The bilateral pleural effusions suggest heart failure, compounded by possible sepsis or another contributory
factor.
EMERGENCY TREATMENTS ADMINISTERED
Diltiazem was administered for rate control of atrial fibrillation.
MANAGEMENT OF THE PATIENTS CARE WAS DISCUSSED WITH
Case was discussed with both cardiology for management recommendations and the hospitalist team for admission and ongoing care.
PLAN
The plan is to initiate heparin with supervision from cardiology, given the history of GI bleed but considering current symptoms. Blood cultures and lactate levels are to be drawn to evaluate for underlying sepsis.
INDEPENDENT REVIEW OF LABS AND INTERPRETATION OF TESTS
- My independent review of CBC indicates leukocytosis with a white blood cell count of 13.5.
- My independent review of metabolic panel indicates metabolic acidosis with a pH of 7.28 and serum bicarbonate of 14.
- Creatinine is elevated at 2.4, up from a baseline of 1.4, indicating renal function decline.
- My independent interpretation of the chest X-ray shows bilateral pleural effusions without evidence of pneumonia.
MEDICATION RECONCILIATION
The patient was administered diltiazem in the emergency department to manage atrial fibrillation rate control.
MEDICAL DECISION MAKING
- Chronic conditions affecting care: Atrial fibrillation. Differential Diagnosis List: Congestive heart failure, dehydration, anemia, pulmonary embolism, COPD exacerbation, acute coronary syndrome, medication side effects, respiratory infection, GI
bleed, thyroid dysfunction.
- Data:
Category 1:
- Reviewed external records: Recent discharge summary for a GI bleed.
Category 2:
- Input obtained from the patients family about prior medication reactions and symptoms.
Category 3:
- Discussion regarding patient management was held with cardiology and the hospitalist.
- Risk:
- Prescription medication was prescribed: Diltiazem.
- Heparin is considered under cardiac supervision due to the risk of anticoagulation in the context of his history of GI bleed.
DIAGNOSIS
- Atrial fibrillation, unspecified, with rapid ventricular response (I48.91)
- Acute Kidney Injury on chronic kidney disease, unspecified (N17.9)
- Metabolic acidosis (E87.2)
Past History
Past History
ED Past Medical History: HTN, Hypercholesterolemia and Other ('Essential tremor', dementia)
Phy Exam
Physical Exam
Physical Exam:
.
Scores
Heart Failure Risk
Heart Failure Risk Score: Yes
History of Stroke or TIA: No
History of intubation for respiratory distress: No
Heart rate on ED arrival >/= 110: Yes
SaO2 <90% on arrival on room air: No
HR >/=110 during 3min walk test (or too ill to perform test): Yes
ECG has acute ischemic changes: No
Urea >/=12mmol/L (BUN 33.6mg/dL): No
Serum CO2>/=35mmol/L: No
Troponin I or T elevated to LA Level (0.4mg/dL): No
NT-proBNP >/=5,000ng/L (5,000pg/ml): Yes
HF Risk Score: 3
Admission Status: HIGH RISK 15.9% Consider SNF treatment or admission to hospital
Course
Orders/Labs/Results
Orders:
Orders
01/27/25 11:02
EKG [Electrocardiogram (*1)] Stat
Reason for Study: Bradycardia / Tachycardia
EKG- Treatment ONCE
01/27/25 11:04
Type+Screen Urgent
Complete Blood Count/With Diff Urgent
Comprehensive Metabolic Panel Urgent
PTT Stat
Prothrombin Time Stat
01/27/25 11:15
CR Chest - 2 Views Urgent
Comment:
Reason For Exam: sob
01/27/25 11:31
NT-proBNP Urgent
Troponin I Urgent
01/27/25 11:55
Venous Blood Gas Urgent
%Oxygen/Room Air: RA
01/27/25 13:37
Diltiazem 125 mg/125 ml Nss [Cardizem] 125 mg in 125 ml IV NOW
Initial dose in mg/hr, then titrate:: 10
Titrate to keep:: Heart rate 80-100 bpm
Titrate by mg/hr:: 5 mg/hr
Frequency of titrations (minutes):: 15
Maximum dose in mg/hr:: 15
Diltiazem HCl [Cardizem] 10 mg IV NOW STA
01/27/25 14:19
Blood Culture Q30M
IRVIN Source: Blood/Venous
Specimen Description:
Blood Culture Q30M
IRVIN Source: Blood/Venous
Specimen Description:
01/27/25 14:30
Urinalysis Reflex To Culture Urgent
Date Specimen was Collected: 01/27/25
Time Specimen was Collected: 14:27
01/27/25 15:45
Admit/Transfer Patient As Directed
Co-Sign Provider:
Level of Care: Inpatient admission
Assign to:: IMU- Intermediate Care
Physician / Group: Piyush/Hospitalist
Diagnosis: AECHF, A.fib RVR, metab acidosis, TAMANNA
Reason for Hospitalization: AECHF, A.fib RVR, metab acidosis, TAMANNA
Expected length of stay greater than two midnights?: Yes
ELOS- Estimated Length of Stay in days: 4
I certify the patient meets the requirements for IP care: Yes
PRN Pain Medication Management As Directed
May give lesser potent ordered pain med per pt: Yes
preference::
Protocol:: Medication orders for pain may be administered in a
manner that supports deferring to patient preference
when the pt is:
- Requesting an ordered lesser potent pain medication.
Least to most potent pain medications are defined
as: acetaminophen < NSAID < tramadol < opioids
(morphine, oxycodone, hydromorphone).
- Requesting a lesser dose of the same medication IF
ORDERED.
- Requesting a less intrusive route of administration
if both routes are prescribed by the provider (PO <
IV).
01/27/25 15:48
Code Status As Directed
Resuscitation Status: Full Code
01/27/25 16:00
Amoxicillin [Amoxil] 500 mg PO TID
01/27/25 16:16
Lactic Acid Urgent
01/27/25 18:00
Carbidopa/Levodopa [Sinemet 25-100] 1 tablet PO QPM
Abnormal Lab Results
01/27/25 01/27/25
11:04 11:55
WBC 13.5 H 10^3/uL
(4.8-10.8)
Hgb 12.6 L g/dL
(13.0-18.0)
MCH 25.1 L pg
(27.0-31.0)
MCHC 30.4 L g/dL
(33.0-37.0)
RDW 17.0 H %
(11.5-14.5)
Abs Immat Gran (auto) 0.1 H 10^3/uL
(0-0.05)
Absolute Neuts (auto) 11.3 H 10^3/uL
(1.4-6.5)
Absolute Lymphs (auto) 0.9 L 10^3/uL
(1.2-3.4)
Absolute Monos (auto) 1.2 H 10^3/uL
(0.1-0.6)
Neutrophils % 84.0 H %
(42.2-75.2)
Lymphocytes % 6.7 L %
(20.5-51.1)
PT 18.1 H Sec
(11.4-14.6)
VBG pH 7.28 L
(7.32-7.43)
VBG pCO2 34 L mmHg
(35-48)
VBG HCO3 16.0 L mmol/L
(22-27)
Chloride 113 H mmol/L
(98-107)
Carbon Dioxide 14 L* mmol/L
(22-30)
BUN 69 H mg/dl
(9-20)
Creatinine 2.4 H mg/dL
(0.7-1.3)
Glucose 127 H mg/dl
(70-99)
AST 69 H U/L
(17-59)
Total Protein 6.2 L g/dl
(6.3-8.2)
01/27/25 11:04
01/27/25 11:04
Vital Signs
Initial and Last Documented VS:
Initial Vital Signs
Temp Pulse Resp BP Pulse Ox
97.1 F 116 20 117/89 98
01/27/25 10:53 01/27/25 10:53 01/27/25 10:53 01/27/25 10:53 01/27/25 10:53
Last Documented Vital Signs
Temp Pulse Resp BP Pulse Ox
98.1 F 88 21 106/86 91
01/27/25 14:00 01/27/25 15:00 01/27/25 15:00 01/27/25 15:00 01/27/25 15:00
*Pulse Oximetry
SaO2: 98
Oxygen Mode of Delivery: Room air
Patient hypoxic: no
*Critical Care Note
Total Time (30-74mins, 75-104mins- exclusive of procedures): 40 minutes
ED Attending Note
-
Portions of this chart may have been created with voice recognition software.� Occasional wrong word or��sound alike� substitutions may have occurred due to the inherent limitations of voice recognition software.
Discharge Plan
Departure
Patient Disposition: Admit
Date of Disposition: 01/27/25
Time of Disposition: 14:18
Admit to: IMU
Presentation/result/management discussed w/ accepting MD/DO: Hospitalist
Discharge Problem:
Acute CHF, Metabolic acidosis, Atrial fibrillation with RVR, Acute kidney injury, small pericardial effusion
Interventions
Interventions:
*Risk Screen - Suicide Last Done: 01/27/25 10:53
*General Assessment Last Done: 01/27/25 10:53
*Neglect/Abuse Screening Last Done: 01/27/25 10:53
*ED- Fall Risk Assessment Last Done: 01/27/25 10:53
ED- Cardiac Assessment Last Done: 01/27/25 11:04
ED- Pulmonary Assessment Last Done: 01/27/25 10:53
--- NOTE | 2025-01-27 14:28 | HPS.HSE ---
Addendum entered and electronically signed by Layla Pickett DO 01/27/25 17:52:
I was able to speak to the patient's in the room. She mentions that the patient could not tolerate Eliquis nor metoprolol secondary to side effects. She said that the medications kept him up all night and was not feeling well on them. He is
no longer taking his medications. She asked that we not start a heparin drip at this time. She also mention that he has not been eating nor drinking much over the past 2 days.
#Lactic acidosis of 2.9, likely intravascular depletion, the patient actually appears volume depleted at this time rather than an overload
- In the setting of history of heart failure and moderate aortic stenosis, will give a one-time 500 mL liter bolus over 2 hours, and continue the patient on normal saline at 100 mL/h for 1 bag
-Will repeat lactic acid level
-Bladder scan the patient
-Monitor for fever and signs and symptoms of infection
#Hold heparin drip at this time as per patient and family wishes
# Before medication reconciliation
The confirmed that the patient is a DNR, changed to DNR status
Original Note:
Family Physician
-
Family Physician: Gordon Rodriguez
Chief Complaint
-
SOB
History of Present Illness
The patient is a 74-year-old gentleman with past medical history significant for hypertension, wbs-kobgyri-hemvsqohy diabetes, essential tremor, dementia, recent hospitalization here from November 15 to November 20 due to GI bleed with acute blood loss
anemia requiring transfusion and acute kidney injury, admitted to the ICU at that time secondary to hypotension status post 2 units of packed red blood cells, developed atrial fibrillation following upper endoscopy at that time, not started on
anticoagulation secondary to the GI bleed, who presents to the emergency department today due to shortness of breath on exertion and was noted to be in atrial fibrillation with RVR with a heart rate high documented at 141. He was recently started
on a beta-jhon. He has been having significant amount of shortness of breath with activity including walking. At rest he is oxygenating well between 94 and 98% but with minimal exertion and becomes dyspneic. He denies any GI bleed, no chest
pain, no palpitations, he does have leg swelling left greater than right which the patient says is normal for him. He is also had anorexia for the past 2 days with decreased oral intake including decreased fluid intake. He was being evaluated in
the outpatient setting by cardiology for initiating anticoagulation after the recent GI bleed. When speaking to the ED provider he has noticed that the patient has Kussmaul breathing. The ED provider performed a bedside echocardiogram that
revealed trace pericardial effusion. Also the ED provider spoke to Dr. MARCIA Bailey, and cardiology who recommended starting a heparin drip. Labs remarkable for leukocytosis, metabolic acidosis with a pH of 7.28, serum bicarbonate of 14, an anion gap
of 15, and a creatinine level elevated at 2.4 from a baseline of 1.4. Chest X-ray revealed bilateral pleural effusions without pneumonia. Per pharmacy ( not in room currently and unable to reach on phone as of yet), Amoxicillin was filled
on 01/25-pt states for dental abscess, and per ED provider, Eliquis was dc'd by family - unknown reason why at this time (filled on 01/09 per pharmacy).
ED treatment IV diltiazem
Medical History
Past Medical History
Past Medical History: Reports Other
Additional Past Medical History:
HTN, HLD, Essential tremor, dementia
Past Surgical History: Reports None
Social History
Unable to obtain full social history at this time due to: Dementia
Personal:
Living: With Family
Family History
Family History: Not pertinent
Allergies / Home Medications
Allergies reflects when Allergies were last updated in [employer].
Home Medications with original date entered in [employer]
Allergy/Medication List:
Allergies
Allergy/AdvReac Type Severity Reaction Status Date / Time
No Known Drug Allergies Allergy Unknown Verified 01/27/25 11:03
pollen extracts Allergy Seasonal - Verified 01/27/25 11:03
sneezing,
runny nose
Home Medications
ezetimibe 10 mg tablet 10 mg PO DAILY High Cholesterol 10/24/12
carbidopa 25 mg-levodopa 100 mg tablet 1 tab PO QPM Neurological Condition 11/15/24
carbidopa 25 mg-levodopa 100 mg tablet 1.5 tab PO BID@0600,1200 Neurological Condition 11/15/24
diphenhydramine HCl 50 mg/30 mL oral liquid (ZzzQuil) 50 mg PO HSPRN PRN sleep 11/15/24
donepezil 10 mg tablet 10 mg PO DAILY Neurological Condition 11/15/24
memantine 10 mg tablet 10 mg PO BID Neurological Condition 11/15/24
therapeutic multivitamin 1 tab PO DAILY Supplement 11/15/24
vitamins A,C,C-plbd-chjcdx 2,148 mcg-113 mg-45 mg-17.4 mg tablet (PreserVision AREDS) 1 tab PO BID Supplement 11/15/24
metoprolol succinate 25 mg tablet,extended release 24 hr 25 mg PO BID 30 days #60 tabs 11/20/24
pantoprazole 40 mg tablet,delayed release 40 mg PO BID 8 weeks #112 tabs 11/20/24
Review of Systems
-
A 12 point ROS was completed and negative except as noted: Yes
Physical Exam
Vital Signs
Vital Signs
Temp Pulse Resp BP Pulse Ox
98.1 F 116 31 151/109 98
01/27/25 14:00 01/27/25 14:15 01/27/25 14:15 01/27/25 14:00 01/27/25 14:16
Physical Exam
General: No Apparent Distress and Appears Chronically Ill
HEENT: NormoCephalic, Anicteric, Moist mucous membranes and Other (left mandibular dental infection)
Respiratory: Clear and Non Labored Respirations
Cardiac: S1/S2 and Irregular Rhythm
GI: Soft, Non Tender and Non Distended
Musculoskeletal: No Clubbing, No Cyanosis, Edema, Left Lower Extremity (1+) and Edema, Right Lower Extremity (1+)
Skin: Warm and Dry
Neuro: Awake, Alert and Other (confused to situation)
Psych: Calm
Laboratory Results
-
01/27/25 11:04
01/27/25 11:04
Laboratory Results
PT 18.1 Sec (11.4-14.6) H 01/27/25 11:04
INR 1.47 01/27/25 11:04
APTT 33.5 Sec (23.4-35.0) 01/27/25 11:04
Total Bilirubin 1.2 mg/dl (0.2-1.3) 01/27/25 11:04
AST 69 U/L (17-59) H 01/27/25 11:04
ALT 29 U/L (0-50) 01/27/25 11:04
Alkaline Phosphatase 84 U/L (38-126) 01/27/25 11:04
Troponin I < 0.012 ng/ml 01/27/25 11:31
Data Reviewed
-
Diagnostic Radiology: Image Personally Visualized and interpreted and Report Reviewed by me (b/l pleural effusions)
Medical Tests (Nuc Med, Echo, EKG etc): Image Personally Visualized and interpreted and Report Reviewed by me (Atrial fibrillation with RVR, interventricular conduction delay, nonspecific ST-T wave changes)
Impression/Plan
-
IMPRESSION:
The patient is a 74-year-old gentleman with past medical history significant for hypertension, dhl-dgfphbq-ohschkpqb diabetes, essential tremor, dementia, recent hospitalization here from November 15 to November 20 due to GI bleed with acute blood loss
anemia (requiring 2 u PRBC transfusion) and acute kidney injury, admitted to the ICU at that time secondary to hypotension, EGD showed non-bleeding cratered duodenal ulcer, he went into a.fib following EGD (he just filled rx for Eliquis -
recommended for 1-4 weeks post dc, but does not recall starting Eliquis OP), who presents to the emergency department today due to shortness of breath on exertion and was noted to be in atrial fibrillation with RVR with a heart rate high documented
at 141. He was recently started on a beta-jhon. He was also started on amoxicillin OP for a dental tooth infection. He has been having significant amount of shortness of breath with activity including walking. At rest he is oxygenating well
between 94 and 98% but with minimal exertion and becomes dyspneic. He denies any GI bleed, no chest pain, no palpitations, he does have leg swelling left greater than right which the patient says is normal for him. He is also had anorexia for the
past 2 days with decreased oral intake including decreased fluid intake. He was being evaluated in the outpatient setting by cardiology for initiating anticoagulation after the recent GI bleed. When speaking to the ED provider he has noticed that
the patient has Kussmaul breathing. The ED provider performed a bedside echocardiogram that revealed trace pericardial effusion. Also the ED provider spoke to Dr. MARCIA Bailey, and cardiology who recommended starting a heparin drip. Labs remarkable
for leukocytosis, metabolic acidosis with a pH of 7.28, serum bicarbonate of 14, an anion gap of 15, and a creatinine level elevated at 2.4 from a baseline of 1.4. Chest X-ray revealed bilateral pleural effusions without pneumonia.
ED treatment IV diltiazem
#Acute exacerbation of heart failure with reduced EF, likely exacerbated by A.fib w RVR
-Admit IMU , tele monitoring
-Echo on 11/17 reduced LV systolic function, EF 50%, intero-lateral wall hypokinesis, moderate , trace AR
-Cardiology consultation
-echocardiogram
#Atrial fibrillation with RVR
-admit to IMU
-cont Dilt IV infusion, monitor
-hep gtt per Cardiology, monitor closely for signs/symptoms of GI bleeding
#Metabolic acidosis, likeley multifactorial in setting of TAMANNA, possibly 2/2 AECHF and a.fib with RVR, BP on low side, rule out infectious etiology as well-possibly dental vs UTI (pending UA), afebrile
-lactic acid pending
-UA pending
-blood cx pending
-cont amoxicililn for now, low threshold to start IV Zosyn /more broad spectrum IV abx
# Recent GI bleed not on oral anticoagulation outpatient , EGD 11/16/24 with Patchy moderate inflammation characterized by erosions and erythema was found in the gastric fundus, in the gastric body and in the gastric
antrum. One non-bleeding cratered duodenal ulcer with no stigmata of bleeding
but surrounding edema and erythema was found in the duodenal bulb.
-path report- No curvilinear Helicobacter microorganisms identified, supported with negative immunohistochemical stain for H. pylori
-discharged on PPI BID for 8 weeks
-PPI
# Atrial fibrillation, diagnosed during recent GI bleed
-On discharge from the hospital on November 20 they discussed starting anticoagulation in approximately 1 to 4 weeks including Eliquis-pt has rx filled for Eliquis
# Dementia
-on Sinemet, unclear if diagnosed with Parkinson's dx
# Dental infection, left mandible
-on amoxicillin, seems to be improving on this, will cont amoxicillin for now and monitor for signs/symptoms of infection
# Essential hypertension
-stable, monitor, hold parameters on BP meds
# Hyperlipidemia
-Statin intolerance
DVT proph-hep gtt
Full Code as per recent hospitalization, will discuss further with family (unable to reach both contacts as of yet, after multiple phone calls)
--- NOTE | 2025-01-27 15:19 | PHANOTE ---
01/27/25 med rec tech note: have left message for to call me back, pt unable to give med rec
--- NOTE | 2025-01-27 15:26 | CON.CAR ---
Consultation
Consultation Request
Date/Time Consultation Requested: 01/27/2025 at 1300
Date/Time Consultation Performed: 01/27/2025 at 1530
Requesting Provider: Dr. Gee
Performing Provider: Fede Bailey
Reason for Consultation: Atrial fibrillation
Medical History
-
Chief Complaint: Weakness and dyspnea
History of Present Illness:
74-year-old man who was admitted to [facility] in early November with upper GI bleeding related to gastritis and duodenal ulcer, after prevent presenting with profound weakness at home. Hemoglobin was 7 at presentation and received 2 units of blood. He was
discharged, seen in follow-up by Dr. Longoria. Initially followed by CBC in the hospital. Metoprolol and Eliquis were prescribed, but he discontinued both of these feeling that they were responsible for adverse effects. He is not interested in
anticoagulation at this time. He developed dyspnea with anorexia. He presents and has a metabolic acidosis with a serum bicarbonate of 14. Note he had a similar presentation during his admission for GI bleeding. He has been on metformin for many
years. He had TAMANNA in November, and had a creatinine of 2.4 on presentation today, previously was 1.4. Currently he offers no complaints. He is on donepezil. He thinks it is made. His is here. He offers no specific complaints. No attempts have
been made to restore sinus rhythm since the diagnosis of atrial fibrillation in November
Past Medical History
Past Medical History: Arrhythmias (Persistent atrial fibrillation), HTN, Hypercholesterolemia, NIDDM (Type II), Valvular Disease (Moderate aortic stenosis) and Other (CKD 3B, history of peptic ulcer disease admitted with upper GI bleed November 2024
requiring transfusion, gastritis and duodenal ulcers, Parkinson's, dementia)
Past Surgical History: Cholecystectomy and Other (Herniorrhaphy, hemorrhoidectomy)
Social History
Tobacco: Former Smoker
Alcohol: None
Drug: None
Personal:
Living: With Family
Employment: Retired
Family History
Family History: Reviewed & Not Pertinent
Allergies / Home Medications
Allergy/AdvReac Type Severity Reaction Status Date / Time
No Known Drug Allergies Allergy Unknown Verified 01/27/25 11:03
pollen extracts Allergy Seasonal - Verified 01/27/25 11:03
sneezing,
runny nose
�Medication �Instructions �Recorded �Confirmed �Type
ezetimibe 10 mg tablet 10 mg PO DAILY High Cholesterol 10/24/12 11/15/24 History
carbidopa 25 mg-levodopa 100 mg 1 tab PO QPM Neurological Condition 11/15/24 11/15/24 History
tablet
carbidopa 25 mg-levodopa 100 mg 1.5 tab PO BID@0600,1200 11/15/24 11/15/24 History
tablet Neurological Condition
diphenhydramine HCl 50 mg/30 mL 50 mg PO HSPRN PRN sleep 11/15/24 11/15/24 History
oral liquid (ZzzQuil)
donepezil 10 mg tablet 10 mg PO DAILY Neurological 11/15/24 11/15/24 History
Condition
memantine 10 mg tablet 10 mg PO BID Neurological Condition 11/15/24 11/15/24 History
therapeutic multivitamin 1 tab PO DAILY Supplement 11/15/24 11/15/24 History
vitamins A,C,G-tjsu-byyagw 2,148 1 tab PO BID Supplement 11/15/24 11/15/24 History
mcg-113 mg-45 mg-17.4 mg tablet
(PreserVision AREDS)
metoprolol succinate 25 mg 25 mg PO BID 30 days #60 tabs 11/20/24 Rx
tablet,extended release 24 hr
pantoprazole 40 mg tablet,delayed 40 mg PO BID 8 weeks #112 tabs 11/20/24 Rx
release
Review of Systems
-
Unable to obtain full review of systems at this time due to: Dementia
All other systems: Negative unless noted
Physical Exam
Vital Signs
Temp Pulse Resp BP Pulse Ox
36.7 C 88 21 106/86 91
01/27/25 14:00 01/27/25 15:00 01/27/25 15:00 01/27/25 15:00 01/27/25 15:00
Lab Results
01/27/25 11:04
01/27/25 11:04
Troponin I < 0.012 ng/ml 01/27/25 11:31
Eqq-F-Txjragwzxtd Pept > 66194 pg/ml 01/27/25 11:31
Physical Exam
General: No Apparent Distress and Comfortable
HEENT: Normocephalic
Respiratory: Clear
Cardiac: Irregular Rhythm, Murmur (3/6 aortic stenosis murmur) and Carotid Pulses (Diminished)
GI: Soft and Non Tender
Musculoskeletal: No Cyanosis and No Edema
Skin: Dry
Neuro: Awake and Alert (Pleasant somewhat flat affect)
Psych: Calm
Impression / Plan
-
Impression:
Metabolic acidosis, possibly related to metformin therapy
TAMANNA on CKD 3B
Possible acute HFpEF, though clinically he does not appear to be volume overloaded
Newly diagnosed persistent atrial fibrillation
Duodenal ulcer status post upper GI bleed requiring transfusion November 2024
Type 2 diabetes
Moderate aortic stenosis
Hypertension
Parkinson's disease
Dementia
Echocardiogram 11/17/2024: EF 50%, inferolateral hypokinesis, moderate aortic stenosis, trace aortic regurgitation, mild mitral regurgitation, peak/mean aortic valve gradients 40/24 mmHg, aortic valve area 1.3 cm 2, pulmonary artery systolic pressure
29
Plan:
Although initially he was complaining of dyspnea, I wonder if this was a respiratory compensation for metabolic acidosis induced by metformin. Though his picture could be consistent with clinical sepsis or possibly low output state, I suspect this
is not the case.
According to ER staff, he looks much better with the initiation of IV diltiazem and better rate control. He was not taking beta-jhon and is not currently interested in anticoagulation.
We will continue with rate control strategy and now using IV diltiazem and try to convert to oral in the morning.
Metformin will be held.
He is on oral amoxicillin for a dental infection. This will be continued.
We will hold diuretics for now and reassess. He will need a follow-up echo. There was some concern regarding pericardial effusion on a yearly basis study with poor definition of the left ventricle. There is no evidence of neck vein distention.
We will continue to follow.
Data Reviewed
-
EKG: Tracing Personally Visualized and interpreted (Atrial fibrillation with rapid ventricular response, possible septal OR, nonspecific intraventricular conduction delay, left axis, was in sinus rhythm November 15, 2024)
Radiology: Image Personally Visualized and interpreted (Cardiomegaly, mandible CPA blunting, minimal vascular congestion?)
Medical Tests (Nuc Med, Echo etc): Report Reviewed by me
Labs: Labs Reviewed by me (White count 13.5, hemoglobin 12.6, left shift, venous gas 7.2 8//36, bicarb 16, serum bicarb 14, potassium 5, BUN/creatinine 69 and 2.4, creatinine had been 1.4, anion gap is 15, urinalysis pending)
Old Records: Reviewed
[2025-01-27 16:18] LABS: Urine Character Slightly Cloudy (Clear)
[2025-01-27] MEDS: SINEMET 25-100 1 TABLET PO (16:48)
[2025-01-27] MEDS: AMOXIL 500 MG PO ×2 (16:48→23:06)
--- NOTE | 2025-01-27 17:16 | CM ---
CM reviewed chart and met with pt and bedside in ED. Lives with , 2 story home, 2nd floor BR/BA.
Independent in ADLs, personal care and ambulation at baseline. No DME in home.
No hx VN, had referral in October but pt declined. No hx SNF.
Home address is [address] [place] [address] Rd, [place]
PCP: Gordon Rodriguez
Pharmacy: [facility]
Discharge plan: Anticipate home, watch for needs
[2025-01-27] MEDS: NSS 500 IV (19:12)
[2025-01-27] MEDS: NSS 1000 IV (20:19)
[2025-01-27] MEDS: PROTONIX 40 MG PO (20:19)
[2025-01-27 21:32] LABS: Troponin I < 0.012 ng/ml
[2025-01-27 21:45] LABS: Glucose - Point of Care 122 mg/dl (70-99)
--- NOTE | 2025-01-27 22:15 | PTCARENOTE ---
Pt received at beginning of shift as admission to IMU. AAOx3. Slow speech. Flat affect. Hx Parkinson's. Received on Cardizem gtt 10mg/hr. Afib on CM rate 72-90. Cardizem gtt decreased to 5mg/hr. VSS. Afebrile. POX RA 97%. Tachypneic at times upper
20's. THOMPSON. Lungs clear. Pt denies any pain or discomfort. Stage 1 to sacrum wound care completed and documented. Repeat LA 1.5. Trop neg. EKG obtained and on chart. Rest of assessment as documented. Turns self in bed. Call topete within reach. Will
continue to monitor.
[2025-01-28] VITALS (12 sets, daily range): BP systolic 102–130; BP diastolic 70–105; BMI 26.5
[2025-01-28 03:26] LABS: Hematocrit 36.5 % (39.0-52.0); Hemoglobin 11.7 g/dL (13.0-18.0); Mean Corp Hgb Conc. 32.1 g/dL (33.0-37.0); Mean Corpuscular Volume 79.3 fL (80.0-94.0); Nucleated Red Blood Cells % 0.3 % (-); Platelet Count 174 10^3/uL (130-400); Red Cell Dist. Width 16.9 % (11.5-14.5)
[2025-01-28 03:41] LABS: ALT (SGPT) 31 U/L (0-50); AST (SGOT) 44 U/L (17-59); Albumin 3.1 g/dl (3.5-5.0); Alkaline Phosphatase 77 U/L (38-126); Blood Urea Nitrogen 65 mg/dl (9-20); Calcium 8.7 mg/dl (8.4-10.2); Carbon Dioxide 15 mmol/L (22-30); Chloride 116 mmol/L (98-107); Estimated Creatinine Clearance 33 ml/min; Glucose 106 mg/dl (70-99); HDL Cholesterol 21 mg/dl; LDL Cholesterol, Calculated 55 mg/dl; Magnesium 2.2 mg/dl (1.6-2.3); Potassium 4.4 mmol/L (3.5-5.1); Sodium 139 mmol/L (135-145); Total Protein 5.3 g/dl (6.3-8.2); Very Low Density Lipoprotein 20 mg/dl (0-30); eGFR 36.11
[2025-01-28 03:54] LABS: Troponin I < 0.012 ng/ml
[2025-01-28] MEDS: SINEMET 25-100 1.5 TABLET PO ×2 (05:24→12:35)
[2025-01-28] MEDS: CARDIZEM 125 IV (07:44)
[2025-01-28] MEDS: AMOXIL 500 MG PO ×3 (07:45→21:08)
[2025-01-28] MEDS: PROTONIX 40 MG PO (07:45)
[2025-01-28 08:13] LABS: Glucose - Point of Care 114 mg/dl (70-99)
--- NOTE | 2025-01-28 08:25 | W.PN.HOSP.TC ---
Addendum entered and electronically signed by Ari Escobedo MD 01/28/25 10:25:
Regarding AC, as per discussion with Dr. MARCIA Bailey, the patient is adamantly opposed to anticoagulation. I will order subcutaneous heparin for DVT prophylaxis. If patient is agreeable at some point Eliquis will be started.
Original Note:
Today's Communication/Plan
-
see plan
Assessment / Plan
Assessment / Plan
Gen: NAD, Awake and alert
Eyes: EOMI, PERRLA, no scleral icterus.
Neck: supple.
CV: irreg/irreg, +S1/S2, no m/r/g.
Resp: CTAB, no rales, wheezes, or rhonchi.
Abd: +BS, soft, NT, ND
Skin: No rashes.
Neuro: CN 2-12 intact, non-focal.
Psych: Normal mood and affect.
CXR: Possible tiny bilateral pleural effusions.
Echo 11/17/24: EF 50%. Inferolateral wall is hypokinetic. Mod , trace AR.
Afib w RVR:
-cont cardizem gtt, currently at 5mg/hr
-cards following
-check echo (prior echo above)
-with lactic acidosis (and mild hypoalbuminemia) there was concern for intravascular volume depletion. Pt was given 1.5L NS.
-I discussed the case at length with Dr. MARCIA Bailey over the phone. At this point, despite the proBNP > 27,000 acute HFpEF has been ruled out. He and I discussed a slow flow rate bicarb gtt for acute non-AG metabolic acidosis and he agrees with this.
TAMANNA:
-Cr improving after IVFs
-start NaHCO3 150meq/L @ 40cc/hr
Acute non-AG metabolic acidosis:
-due to TAMANNA and lactic acidosis
-metformin on hold
-s/p IVFs as above, lactic acidosis has resolved
-start NaHCO3 150meq/L @ 40cc/hr
-VBG/BMP in AM
Other problems:
DM2: holding Metformin with lactic acidosis. SSI/accuchecks
PUD: cont PPI daily (was on PPI BID for 8 weeks after 11/20/24 discharge for GIB)
h/o GIB: was not on AC [employer] for afib
Dementia: pt on Sinemet, unclear if h/o Parkinson's
Chronic L mandibular dental infection: afebrile, cont home Amoxicillin
Essential HTN:
HLD: h/o statin intolerance
DNR/SCDs with recent GIB
Anticipated Discharge: 24 - 48 hours
Subjective/Interval History
-
Date of Service: January 28, 2025
Denies CP/SOB.
Objective Data
-
Labs:
Laboratory Results
01/28/25
03:01
WBC 12.8 H
Hgb 11.7 L
Hct 36.5 L
Plt Count 174 D
Sodium 139
Potassium 4.4
Chloride 116 H
Carbon Dioxide 15 L
BUN 65 H
Creatinine 1.9 H
Glucose 106 H
Calcium 8.7
Total Bilirubin 1.0
AST 44
ALT 31
Alkaline Phosphatase 77
Vital Signs:
Vital Signs
Temp Pulse Resp BP Pulse Ox
97.5 F 84 27 128/96 99
01/28/25 07:10 01/28/25 04:30 01/28/25 04:30 01/28/25 04:00 01/28/25 04:30
I&O
01/27/25 01/28/25 01/29/25
06:59 06:59 06:59
Intake Total 1300 / 1300
Output Total 1250 / 1250
Balance 50 / 50
[2025-01-28] MEDS: HEPARIN 5000 UNITS SC ×2 (10:38→19:37)
--- NOTE | 2025-01-28 11:08 | W.PN.CARDCBS ---
Today's Communication / Plan
-
Convert IV diltiazem to oral diltiazem CD100 20 mg twice daily
Watch for volume overload with bicarbonate, proBNP greater than 27,000
Echo in a.m.
Impression / Plan
-
Impression:
Metabolic acidosis, possibly related to metformin therapy
TAMANNA on CKD 3B
Possible acute HFpEF, though clinically he does not appear to be volume overloaded
Newly diagnosed persistent atrial fibrillation
Duodenal ulcer status post upper GI bleed requiring transfusion November 2024
Type 2 diabetes
Moderate aortic stenosis
Hypertension
Parkinson's disease
Dementia
Echocardiogram 11/17/2024: EF 50%, inferolateral hypokinesis, moderate aortic stenosis, trace aortic regurgitation, mild mitral regurgitation, peak/mean aortic valve gradients 40/24 mmHg, aortic valve area 1.3 cm 2, pulmonary artery systolic pressure
29
Plan:
Overall, he looks reasonably improved from the standpoint of atrial fibrillation. Ventricular response is still rapid but improved. Will convert IV diltiazem to oral. Relatively low blood pressure may limit our ability to treat.
No anticoagulation at present related to patient choice.
He has moderate aortic stenosis by echo. There was some concern regarding abnormalities on a bedside echo done by the ER physician
Will repeat echo in AM.
proBNP was greater than 27,000 on admission but he was not obviously complaining of shortness of breath and chest x-ray was relatively unremarkable. He is getting bicarb. Will need to watch closely for evidence of heart failure and will have low
threshold for administering furosemide.
Still suspect metformin as the cause of metabolic acidosis in the setting of acute kidney injury. Renal function is now better, creatinine is 1.9.
We will continue to follow.
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
Subjective
Date of Service: January 28, 2025:
74-year-old man admitted with dyspnea TAMANNA, and metabolic acidosis with anion gap of 15. Had been admitted in November with upper GI bleed and had metabolic acidosis at that time. Both in November and currently, he had TAMANNA on metformin. Recently diagnosed
with persistent atrial fibrillation in November, has moderate aortic stenosis and baseline CKD 3B
PMH: Now with persistent atrial fibrillation, hypertension, hypercholesterolemia type 2 diabetes, moderate aortic stenosis, CKD 3B, recent duodenal ulcer with l upper GI bleed, hemoglobin of 7 and requiring transfusion, Parkinson's disease, dementia
Current meds: Amoxicillin for dental infection, Sinemet, IV diltiazem, pantoprazole, subcu heparin. Patient was on metoprolol and Eliquis for A-fib but stopped both and is not interested in restarting.
128/96, pulse 84, respiratory rate 27, sats are 99%, intake and output even, weight is 81.2 kg, up 0.5 kg, he offers no complaints, at bedside, lungs are relatively clear, JVD modestly elevated,Irregular rate and rhythm, murmur of moderate
aortic stenosis, abdomen benign, extremities without much edema, at bedside
Chest x-ray yesterday cardiomegaly, small effusions, perhaps minimal vascular congestion
White count 12.8, hemoglobin 11.7, MCV 79, sodium 139, potassium 4.4, bicarb is 15, anion gap is now 8., BUN is 65, creatinine is 1.9, had been 2.4, troponin undetectable, proBNP is greater than 27,000
Objective
Labs:
01/28/25 03:01
01/28/25 03:01
Labs
Hgb 11.7 g/dL (13.0-18.0) L 01/28/25 03:01
Hct 36.5 % (39.0-52.0) L 01/28/25 03:01
Plt Count 174 10^3/uL (130-400) D 01/28/25 03:01
PT 18.1 Sec (11.4-14.6) H 01/27/25 11:04
INR 1.47 01/27/25 11:04
APTT 33.5 Sec (23.4-35.0) 01/27/25 11:04
Sodium 139 mmol/L (135-145) 01/28/25 03:01
Potassium 4.4 mmol/L (3.5-5.1) 01/28/25 03:01
BUN 65 mg/dl (9-20) H 01/28/25 03:01
Creatinine 1.9 mg/dL (0.7-1.3) H 01/28/25 03:01
Glucose 106 mg/dl (70-99) H 01/28/25 03:01
Troponins
01/27/25 01/27/25 01/28/25
11:31 20:58 03:01
Troponin I < 0.012 < 0.012 < 0.012
Vital Signs and I&O:
Vital Signs
Temp Pulse Resp BP Pulse Ox
36.4 C 84 27 128/96 99
01/28/25 07:10 01/28/25 04:30 01/28/25 04:30 01/28/25 04:00 01/28/25 04:30
Vital Signs
Temp Pulse Resp BP Pulse Ox
36.4 C 84 27 128/96 99
01/28/25 07:10 01/28/25 04:30 01/28/25 04:30 01/28/25 04:00 01/28/25 04:30
Intake & Output
01/26/25 01/27/25 01/28/25 01/29/25
07:59 07:59 07:59 07:59
Intake Total 1300 / 1300
Output Total 1250 / 1250
Balance 50 / 50
Physical Exam
Physical Exam
See above
[2025-01-28] MEDS: SODIUM BICARBONATE 1150 MEQ IV (11:25)
[2025-01-28] MEDS: NOVOLOG FLEXPEN-LOW RESISTANCE SC (12:36)
[2025-01-28 12:48] LABS: Glucose - Point of Care 136 mg/dl (70-99)
[2025-01-28 13:11] LABS: Iron < 20 ug/dl (49-181)
[2025-01-28 13:20] LABS: Total Iron Binding Capacity 320 ug/dl (261-462)
[2025-01-28 16:57] LABS: Glucose - Point of Care 175 mg/dl (70-99)
[2025-01-28] MEDS: SINEMET 25-100 1 TABLET PO (17:03)
[2025-01-28] MEDS: NOVOLOG FLEXPEN-LOW RESISTANCE 1 UNITS SC (17:40)
--- NOTE | 2025-01-28 18:32 | PTCARENOTE ---
Assumed care of Pt at shift change; Resting comfortably in bed; Denies pain; AAO x 3, slow speech; Remains A-fib on monitor, with cardizem drip infusing at 5ml/hr into L hand; 98% on RA; Attempted to assist Pt OOB to chair, however once at side
of bed Pt stated he didnt 'feel right'. Reported lightheadedness. Rechecked BP = 130/91, was 107/70 before sitting up. Assisted back into bed. Will continue to monitor and assess.
[2025-01-28] MEDS: CARDIZEM CD 120 MG PO (19:37)
[2025-01-28 21:36] LABS: Glucose - Point of Care 166 mg/dl (70-99)
--- NOTE | 2025-01-28 22:42 | PTCARENOTE ---
ax3 slow ro respond. afib controlled- cardizem gt stopped- po given see sep. afebrile bp wnl- voids in urinal
[2025-01-29] VITALS (19 sets, daily range): BP systolic 98–137; BP diastolic 67–102; PULSE 101–106; BMI 27.1
--- NOTE | 2025-01-29 02:22 | PTCARENOTE ---
afib remains controlled off of Cardizem gtt
[2025-01-29 04:36] LABS: Hematocrit 33.7 % (39.0-52.0); Hemoglobin 10.7 g/dL (13.0-18.0); Mean Corp Hgb Conc. 31.8 g/dL (33.0-37.0); Mean Corpuscular Volume 79.5 fL (80.0-94.0); Platelet Count 142 10^3/uL (130-400); Red Cell Dist. Width 16.5 % (11.5-14.5); Venous Blood Gas B.E. -4.2 mmol/L (-4 to +4); Venous Blood Gas O2 Sat % 99.1 %
[2025-01-29 04:54] LABS: Blood Urea Nitrogen 48 mg/dl (9-20); Calcium 8.5 mg/dl (8.4-10.2); Carbon Dioxide 23 mmol/L (22-30); Chloride 113 mmol/L (98-107); Estimated Creatinine Clearance 39 ml/min; Glucose 117 mg/dl (70-99); Potassium 3.9 mmol/L (3.5-5.1); Sodium 138 mmol/L (135-145); eGFR 44.38
[2025-01-29] MEDS: SINEMET 25-100 1.5 TABLET PO ×2 (05:46→12:31)
--- NOTE | 2025-01-29 07:30 | W.PN.HOSP.TC ---
Addendum entered and electronically signed by Wilda Osorio MD 01/29/25 15:09:
I saw and evaluated the patient independently. I reviewed the resident�s note and agree with findings and plan as documented by Dr. Hernandez.
GENERAL: well developed, well nourished, male in no apparent distress
HEENT: NC/AT--no O2
HEART: irreg irreg
LUNGS : clear to auscultation bilaterally
ABDOM: soft, nontender, nondistended, + bowel sounds
EXT: no cyanosis, clubbing, or edema
NEUROLOGIC: flat facies, pill rolling tremor right hand
Persistent atrial fibrillation with rapid ventricular response--newly diagnosed--apprec cards--rate controlling--cardizem to carvedilol--amio being added for rate control--ECHO 11/17/24 showed EF 50% with mod aortic stenosis and hypokinetic inferior
wall--repeat echo now with EF 25%--GDMT as able--Xarelto being added for AC
Prerenal acute kidney injury-- Stable-improving--likely prerenal--can stop IVF--lasix x1 given--creat 2.4 on admission, now 1.6
Acute anion gap metabolic acidosis--thought due to lactic acidosis likely from metformin--resolved after IVF with bicarb--no metformin at discharge--can try Jardiance
Parkinson's disease-- Stable-cont sinemet
Peptic ulcer disease--Stable--cont protonix
Essential hypertension--cont home meds as able
Leukocytosis --no signs of infection--likely reactive
History of GI bleed--none currently--follow Hgb
Bau-idduxtn-ktsfwmitt type II diabetes mellitus--stop metformin at d/c--consider Jardiance
Moderate aortic stenosis--as per cards
DVT proph
code status--FULL CODE
Original Note:
Today's Communication/Plan
-
Amiodarone added for rate control
Patient unable to tolerate Eliquis�Xarelto started
IV Lasix given for tachypnea and fluid overload
Patient's diltiazem was increased today�plan to change diltiazem to carvedilol.
Assessment / Plan
Assessment / Plan
HPI: Patient is a 74-year-old male with a past medical history significant for hypertension, hxt-ebiuudt-bvmvgobqz diabetes mellitus, essential tremor, dementia, who was recently hospitalized at [place] from November 15 to November 20 due to GI bleed with
acute blood loss anemia requiring transfusion and TAMANNA. During that stay he was noted to be in atrial fibrillation with rapid ventricular response with a hide heart rate documented at 141. He was started on a beta-jhon and discharged after
spending time in the ICU and being medically stabilized. He presented to the emergency department with a significant amount of shortness of breath with activity including walking. At rest he was oxygenating well between 94 and 98% with minimal
exertion he became dyspneic. He denied any GI bleed, no chest pain, palpitations, but did note to have leg swelling with his left side being more swollen than the right which is the norm for him. He also had anorexia for the past 2 days prior to
his presentation due to decreased oral intake. While in the emergency department it was noted that the patient had Kussmaul breathing. ED provider performed a bedside echo that revealed trace pericardial effusion. Cardiology was consulted
recommended starting heparin. Labs were remarkable for leukocytosis, metabolic acidosis with a pH of 7.28, serum bicarb of 14, anion gap of 15, and a creatinine level elevated at 2.4 from a baseline of 1.4. CXR revealed bilateral pleural effusion
without pneumonia. Patient currently not on Eliquis as the patient unable to tolerate Eliquis.
Assessment/Plan:
- Persistent atrial fibrillation with rapid ventricular response:
Prior echo conducted on 11/17/2024 showed an ejection fraction of 50%. Inferior lateral wall was hypokinetic. Moderate aortic stenosis with trace aortic regurgitation.
Cardiology consulted�appreciate cardiology recommendations
Cardizem increased to 100 mg twice daily oral on 01/29/2025
Follow-up echo ordered�preliminary results show an ejection fraction of 25%
Will opt for GDMT management if patient amenable�continue current regimen for the time being. Cardiology considering attempting carvedilol in place of diltiazem. Amiodarone added for rate control.
Patient unable to tolerate Eliquis�will attempt Xarelto
Patient unable to tolerate metoprolol
IV Lasix given
-Prerenal acute kidney injury: Stable-improving
Patient had a creatinine of 2.4 on 01/27/2025 indicating acute kidney injury
Creatinine improved with IV fluid support and continues to trend downward -indicating prerenal acute kidney injury
Creatinine 1.6 on 01/29/2025
-Acute anion gap metabolic acidosis: Improving�monitoring
Anion gap secondary to lactic acid -lactic acid was 2.9 on admission with an anion gap of 15
Bicarb given in the emergency department -anion gap closed -currently anion gap 2 at 01/29/2025
Bicarb discontinued
Patient should not be restarted on metformin on discharge
-Parkinson's disease: Stable�monitoring
Continue carbidopa levodopa
-Peptic ulcer disease: Stable�monitoring
Pantoprazole
-Essential hypertension: Stable�monitoring
Continue home medications with hold parameters
-Leukocytosis: Improving�monitoring
White blood cell count at 11.2 on 01/29/25�an improvement from 01/28/2025 which was 12.8
Likely reactionary -no obvious source of infection -afebrile
-History of GI bleed: Monitoring�stable
Monitoring H&H
-Wku-qttqnxa-lzkcagyjk type II diabetes mellitus: Monitoring�stable
Holding metformin
Patient should not be restarted on metformin on discharge
Consideration of SGLT2 antagonist given the type 2 diabetes and HFpEF
-Moderate aortic stenosis: Monitoring-stable
Seen on last echocardiogram�will follow on recent echocardiogram
FULL CODE STATUS
Stress Ulcer Prophylaxis: Protonix
DVT Prophylaxis: Xarelto
Imaging:
- Chest x-ray conducted on 01/17/2025:
Possible tiny bilateral pleural effusion
Anticipated Discharge: 24 - 48 hours
Subjective/Interval History
-
Date of Service: January 29, 2025
Met with patient at the bedside. He is doing well and feels better than he did yesterday. He does not have any shortness of breath or complaints at the present time. He is polite in conversation but does not have much to say. He was looking
forward to eating his breakfast.
Objective Data
-
Labs:
Laboratory Results
01/29/25
04:26
WBC 11.2 H
Hgb 10.7 L
Hct 33.7 L
Plt Count 142
Sodium 138
Potassium 3.9
Chloride 113 H
Carbon Dioxide 23
BUN 48 H
Creatinine 1.6 H
Glucose 117 H
Calcium 8.5
Vital Signs:
Vital Signs
Temp Pulse Resp BP Pulse Ox
97.9 F 99 28 117/102 98
01/29/25 11:00 01/29/25 12:31 01/29/25 09:12 01/29/25 12:31 01/29/25 09:12
I&O
01/28/25 01/29/25 01/30/25
06:59 06:59 06:59
Intake Total 1300 / 1300 720 / 720
Output Total 1250 / 1250 400 / 400 175 / 175
Balance 50 / 50 320 / 320 -175 / -175
Review of Systems
-
History Source: Patient
Constitutional: Reports No Symptoms
EENT: Reports No Symptoms Reported
Respiratory: Reports No Symptoms
Cardiac: Reports No Symptoms
Abdomen/GI: Reports No Symptoms
Breast: Reports No Symptoms
Genitourinary: Reports No Symptoms
Musculoskeletal: Reports No Symptoms
Skin: Reports No Symptoms
Neuro: Reports No Symptoms
Endocrine: Reports No Symptoms
Physical Exam
-
General: Well Developed and Well Nourished
HEENT: Normocephalic and Atraumatic
Respiratory: Clear to Auscultation
Cardiac: S1/S2 and Murmur (Systolic murmur)
Breast: Deferred by me
GI: Soft, Nontender, Nondistended and Normal Bowel Sounds
Musculoskeletal: No Clubbing, No Cyanosis and No Edema
Skin: Warm and Dry; Negative Rash, Ulcers or Lesions
Neuro: Awake, Alert, Oriented and AO x 3
Psych: Calm
[2025-01-29 07:48] LABS: Glucose - Point of Care 106 mg/dl (70-99)
--- NOTE | 2025-01-29 08:31 | W.PN.CARDCBS ---
Addendum entered and electronically signed by Fede Bailey MD 01/29/25 11:45:
Will add amiodarone for rate control. Discussed with . They are willing to also try Xarelto in place of Eliquis. Finally, he seems tachypneic, will give IV Lasix x 1 now. Avoid digoxin at present, eventually transition diltiazem to
carvedilol. Intolerant of metoprolol.
Addendum entered and electronically signed by Fede Bailey MD 01/29/25 10:22:
Preliminary EF, 25%, will need GDMT to the extent patient will permit. No change at the moment, continue current regimen, possibly attempt carvedilol in place of diltiazem, may need amiodarone for rate control
Original Note:
Today's Communication / Plan
-
Stop bicarb, now 23
Increase diltiazem, if blood pressure is an issue might need to add digoxin
Watch for volume overload, may need Lasix, repeat proBNP in a.m.
Impression / Plan
-
Impression:
Metabolic acidosis, possibly related to metformin therapy
TAMANNA on CKD 3B
Possible acute HFpEF, though clinically he does not appear to be volume overloaded
Newly diagnosed persistent atrial fibrillation
Duodenal ulcer status post upper GI bleed requiring transfusion November 2024
Type 2 diabetes
Moderate aortic stenosis
Hypertension
Parkinson's disease
Dementia
Echocardiogram 11/17/2024: EF 50%, inferolateral hypokinesis, moderate aortic stenosis, trace aortic regurgitation, mild mitral regurgitation, peak/mean aortic valve gradients 40/24 mmHg, aortic valve area 1.3 cm 2, pulmonary artery systolic pressure
29
Plan:
Overall he looks improved, and his acidosis has resolved, was likely due to metformin in the setting of TAMANNA. Metformin should not be restarted
Renal function is improving, creatinine now down to 1.6.
Await echocardiogram
Increase diltiazem for rate control. Patient refuses beta-jhon. He has stopped Eliquis.
Repeat proBNP in a.m., watch for heart failure, admission proBNP was greater than 27,000. Currently not on a diuretic.
Could consider SGLT2 antagonist given type 2 diabetes and HFpEF.
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
Subjective
Date of Service: January 29, 2025:
74-year-old man admitted with dyspnea TAMANNA, and metabolic acidosis with anion gap of 15. Had been admitted in November with upper GI bleed and had metabolic acidosis at that time. Both in November and currently, he had TAMANNA on metformin. Recently diagnosed
with persistent atrial fibrillation in November, has moderate aortic stenosis and baseline CKD 3B
PMH: Now with persistent atrial fibrillation, hypertension, hypercholesterolemia type 2 diabetes, moderate aortic stenosis, CKD 3B, recent duodenal ulcer with l upper GI bleed, hemoglobin of 7 and requiring transfusion, Parkinson's disease, dementia
Current meds: Amoxicillin 500 3 times daily, Sinemet, pantoprazole, insulin, IV bicarb, subcu heparin, diltiazem CD120 twice daily
105/87, pulse 95, respiratory 26, weight is 83.1 kg, up 2.9 kg, no distress, eating breakfast, ventricular response is still rapid, now on oral diltiazem, head neck exam unremarkable, some coarse breath sounds, JVD not dramatically elevated,
irregular and tachycardic with MR murmur, not much edema
White count 11.2, hemoglobin 10.7, MCV 79, bicarb is 23, potassium is 3.9, BUN/creatinine are 48 and 1.6, creatinine had been 1.9 iron: Less than 20, TIBC is 320
Echo is pending
Objective
Labs:
01/29/25 04:26
01/29/25 04:26
Labs
Hgb 10.7 g/dL (13.0-18.0) L 01/29/25 04:26
Hct 33.7 % (39.0-52.0) L 01/29/25 04:26
Plt Count 142 10^3/uL (130-400) 01/29/25 04:
PT 18.1 Sec (11.4-14.6) H 01/27/25 11:04
INR 1.47 01/27/25 11:04
APTT 33.5 Sec (23.4-35.0) 01/27/25 11:04
Sodium 138 mmol/L (135-145) 01/29/25 04:26
Potassium 3.9 mmol/L (3.5-5.1) 01/29/25 04:26
BUN 48 mg/dl (9-20) H 01/29/25 04:26
Creatinine 1.6 mg/dL (0.7-1.3) H 01/29/25 04:26
Glucose 117 mg/dl (70-99) H 01/29/25 04:26
Troponins
01/27/25 01/27/25 01/28/25
11:31 20:58 03:01
Troponin I < 0.012 < 0.012 < 0.012
Vital Signs and I&O:
Vital Signs
Temp Pulse Resp BP Pulse Ox
36.5 C 95 26 105/87 87
01/29/25 07:00 01/29/25 06:00 01/29/25 06:00 01/29/25 06:00 01/29/25 06:00
Vital Signs
Temp Pulse Resp BP Pulse Ox
36.5 C 95 26 105/87 87
01/29/25 07:00 01/29/25 06:00 01/29/25 06:00 01/29/25 06:00 01/29/25 06:00
Intake & Output
01/27/25 01/28/25 01/29/25 01/30/25
07:59 07:59 07:59 07:59
Intake Total 1300 / 1300 720 / 720
Output Total 1250 / 1250 400 / 400
Balance 50 / 50 320 / 320
Physical Exam
Physical Exam
See above
[2025-01-29] MEDS: NOVOLOG FLEXPEN-LOW RESISTANCE SC ×3 (08:35→18:42)
[2025-01-29 08:53] LABS: Glycohemoglobin (HgbA1c) 6.0 % (4.0-5.6)
[2025-01-29] MEDS: CARDIZEM 10 MG IV ×2 (09:09→22:40)
[2025-01-29] MEDS: HEPARIN 5000 UNITS SC (09:14)
[2025-01-29] MEDS: CARDIZEM CD 120 MG PO ×2 (09:15→21:02)
[2025-01-29] MEDS: PROTONIX 40 MG PO (09:15)
[2025-01-29] MEDS: AMOXIL 500 MG PO ×3 (09:15→21:02)
[2025-01-29 11:13] LABS: Glucose - Point of Care 136 mg/dl (70-99)
--- NOTE | 2025-01-29 11:34 | CM ---
CM met with pt and spouse bedside
PT/OT evals pending but anticipate SNF recs as pt noted 2 person assist per nursing
Pt is hopeful to return home with VN and spouse support
Concerned note with house layout and bathroom being on 2nd floor
He is in agreement with backup SNF referrals
PAC provided, PASRR and SNF referrals sent to /[facility] rehabs per request
[facility] is of particular interest
If plan for SNF on dc, he will require IBC auth
Discharge Disposition- anticipate SNF pending auth
[2025-01-29] MEDS: KCL 40 MEQ PO (12:30)
[2025-01-29] MEDS: PACERONE 200 MG PO ×3 (12:31→21:02)
[2025-01-29] MEDS: LASIX 60 MG IV (12:31)
--- NOTE | 2025-01-29 16:41 | PTCARENOTE ---
Patient AAOx3, cooperative and making needs known. HR better controlled. See vitals documented. VSS. Afib on monitor. RA. Patient up in chair. Downgraded to tele. Continuing to closely monitor.
[2025-01-29] MEDS: XARELTO 15 MG PO (18:28)
[2025-01-29] MEDS: SINEMET 25-100 1 TABLET PO (18:28)
[2025-01-29 18:35] LABS: Glucose - Point of Care 92 mg/dl (70-99)
[2025-01-29 21:21] LABS: Glucose - Point of Care 130 mg/dl (70-99)
--- NOTE | 2025-01-29 22:44 | PTCARENOTE ---
HR >120. PRN IV cardizem administered. Patient responding well to medication AEB heart rate in low 100s, on telemetry.
--- NOTE | 2025-01-29 23:11 | PTCARENOTE ---
This RN spoke with patient's , to update her. All questions and/or concerns addressed by this RN. Per patient's , she will be in to the see the patient tomorrow, at 0900.
[2025-01-30 03:17] VITALS: BP 122/81
[2025-01-30] MEDS: SINEMET 25-100 1.5 TABLET PO ×2 (05:32→13:04)
[2025-01-30 05:49] VITALS: BMI 26.1
[2025-01-30 06:36] VITALS: BMI 26.1
--- NOTE | 2025-01-30 07:30 | W.PN.HOSP.TC ---
Addendum entered and electronically signed by Wilda Osorio MD 01/30/25 14:24:
I saw and evaluated the patient independently. I reviewed the resident�s note and agree with findings and plan as documented by Dr. Hernandez.
GENERAL: well developed, well nourished, male in no apparent distress
HEENT: NC/AT--no O2
HEART: irreg irreg
LUNGS : clear to auscultation bilaterally
ABDOM: soft, nontender, nondistended, + bowel sounds
EXT: no cyanosis, clubbing, or edema
NEUROLOGIC: flat facies, pill rolling tremor right hand
Persistent atrial fibrillation with rapid ventricular response--newly diagnosed--apprec cards--rate controlling--cont carvedilol/amio--ECHO 11/17/24 showed EF 50% with mod aortic stenosis and hypokinetic inferior wall--repeat echo now with EF
25%--GDMT as able--Xarelto being added for AC
Prerenal acute kidney injury-- Stable-improving--likely prerenal--can stop IVF--lasix x2 given--creat 2.4 on admission, now 1.5
Acute anion gap metabolic acidosis--thought due to lactic acidosis likely from metformin--resolved after IVF with bicarb--no metformin at discharge--can try Jardiance
Parkinson's disease-- Stable-cont sinemet
Peptic ulcer disease--Stable--cont protonix
Essential hypertension--cont home meds as able
Leukocytosis --no signs of infection--likely reactive
History of GI bleed--none currently--follow Hgb
Ola-cxzdejm-ssajppfiq type II diabetes mellitus--stop metformin at d/c--consider Jardiance
Moderate aortic stenosis--as per cards
DVT proph
code status--FULL CODE
therapy rec SNF--pt trying to decide on what he wants to do
Original Note:
Today's Communication/Plan
-
Patient changed from diltiazem to Coreg in preparation of outpatient management
Reached out to case management in regards to Jardiance coverage by insurance
IV Lasix given
Continue amiodarone
Will follow labs and move forward with discontinuing antibiotics if indicated
Assessment / Plan
Assessment / Plan
HPI: Patient is a 74-year-old male with a past medical history significant for hypertension, orp-kiptybq-klhtstjeb diabetes mellitus, essential tremor, dementia, who was recently hospitalized at [facility] from November 15 to November 20 due to GI bleed with
acute blood loss anemia requiring transfusion and TAMANNA. During that stay he was noted to be in atrial fibrillation with rapid ventricular response with a hide heart rate documented at 141. He was started on a beta-jhon and discharged after
spending time in the ICU and being medically stabilized. He presented to the emergency department with a significant amount of shortness of breath with activity including walking. At rest he was oxygenating well between 94 and 98% with minimal
exertion he became dyspneic. He denied any GI bleed, no chest pain, palpitations, but did note to have leg swelling with his left side being more swollen than the right which is the norm for him. He also had anorexia for the past 2 days prior to
his presentation due to decreased oral intake. While in the emergency department it was noted that the patient had Kussmaul breathing. ED provider performed a bedside echo that revealed trace pericardial effusion. Cardiology was consulted
recommended starting heparin. Labs were remarkable for leukocytosis, metabolic acidosis with a pH of 7.28, serum bicarb of 14, anion gap of 15, and a creatinine level elevated at 2.4 from a baseline of 1.4. CXR revealed bilateral pleural effusion
without pneumonia. Patient currently not on Eliquis as the patient unable to tolerate Eliquis.
Assessment/Plan:
- Persistent atrial fibrillation with rapid ventricular response:
Prior echo conducted on 11/17/2024 showed an ejection fraction of 50%. Inferior lateral wall was hypokinetic. Moderate aortic stenosis with trace aortic regurgitation.
Cardiology consulted�appreciate cardiology recommendations
Cardizem increased to 100 mg twice daily oral on 01/29/2025
Follow-up echo ordered�preliminary results show an ejection fraction of 25%
Will opt for GDMT management if patient amenable�continue current regimen for the time being. Cardiology considering attempting carvedilol in place of diltiazem. Cardiology is trying to change the patient over to Coreg if the patient will allow.
Jardiance added -reached out to case management in regards to insurance coverage
Amiodarone added for rate control.
Patient unable to tolerate Eliquis�will attempt Xarelto
Patient unable to tolerate metoprolol
IV Lasix given for volume overload based on most recent proBNP on 01/29
Cardiology considering outpatient cardioversion
-Prerenal acute kidney injury: Stable-back at baseline
Patient had a creatinine of 2.4 on 01/27/2025 indicating acute kidney injury
Creatinine improved with IV fluid support and continues to trend downward -indicating prerenal acute kidney injury
Creatinine 1.6 on 01/29/2025, 1.5 on 01/30/2025
-Acute anion gap metabolic acidosis: Improving�monitoring
Anion gap secondary to lactic acid -lactic acid was 2.9 on admission with an anion gap of 15
Bicarb given in the emergency department -anion gap closed -currently anion gap 2 at 01/29/2025
Bicarb discontinued
Patient should not be restarted on metformin on discharge
-Parkinson's disease: Stable�monitoring
Continue carbidopa levodopa
-Peptic ulcer disease: Stable�monitoring
Pantoprazole
-Essential hypertension: Stable�monitoring
Continue home medications with hold parameters
-Leukocytosis: Resolved
White blood cell count at 11.2 on 01/29/25�an improvement from 01/28/2025 which was 12.8
Likely reactionary -no obvious source of infection -afebrile
White blood cell count at 9.4 on 01/30/2025
-History of GI bleed: Monitoring�stable
Monitoring H&H
-Pzm-rqszgnp-klkbuapxh type II diabetes mellitus: Monitoring�stable
Holding metformin
Patient should not be restarted on metformin on discharge
Consideration of SGLT2 antagonist given the type 2 diabetes and HFpEF
-Moderate aortic stenosis: Monitoring-stable
Seen on last echocardiogram�will follow on recent echocardiogram
FULL CODE STATUS
Stress Ulcer Prophylaxis: Protonix
DVT Prophylaxis: Xarelto
Imaging:
- Chest x-ray conducted on 01/17/2025:
Possible tiny bilateral pleural effusion
- Echocardiogram conducted on 11/17/2024:
EF 50%, inferolateral hypokinesis, moderate aortic stenosis, trace aortic regurgitation, mild mitral regurgitation, peak/mean aortic valve gradients 40/24 mmHg, aortic valve area 1.3 cm 2, pulmonary artery systolic pressure 29
- Echocardiogram conducted on 01/29/2025:
Ejection fraction 20 to 25% with severely dilated ventricle, global hypokinesis with mid septal, anteroseptal, inferior, and apical akinesis, moderate to severe MR, mild to moderate AAS with mean gradient of 16 mmHg aortic valve area 1.5 cm�, mild
AI, mild TR PA systolic of 41 mmHg
Anticipated Discharge: 24 - 48 hours
Subjective/Interval History
-
Date of Service: January 30, 2025
Met with the patient at the bedside. He states that he is doing well and offers no complaints at the present time. Patient is polite in conversation but is not very talkative. He has no shortness of breath. He did not report any sensation of
palpitations or irregular heartbeat.
Objective Data
-
Labs:
Labs
01/30/25 07:12
01/30/25 07:12
Vital Signs:
Vital Signs
Temp Pulse Resp BP Pulse Ox
97.1 F 83 20 122/81 97
01/30/25 03:17 01/30/25 03:17 01/30/25 03:17 01/30/25 03:17 01/30/25 03:17
I&O
01/29/25 01/30/25 01/31/25
06:59 06:59 06:59
Intake Total 720 / 720 480 / 480
Output Total 400 / 400 1575 / 1575
Balance 320 / 320 -1095 / -1095
Review of Systems
-
History Source: Patient
Constitutional: Reports No Symptoms
EENT: Reports No Symptoms Reported
Respiratory: Reports No Symptoms
Cardiac: Reports No Symptoms
Abdomen/GI: Reports No Symptoms
Breast: Reports No Symptoms
Genitourinary: Reports No Symptoms
Musculoskeletal: Reports No Symptoms
Skin: Reports No Symptoms
Neuro: Reports No Symptoms
Endocrine: Reports No Symptoms
[2025-01-30 07:38] LABS: Hematocrit 34.2 % (39.0-52.0); Hemoglobin 10.6 g/dL (13.0-18.0); Mean Corp Hgb Conc. 31.0 g/dL (33.0-37.0); Mean Corpuscular Volume 80.5 fL (80.0-94.0); Platelet Count 156 10^3/uL (130-400); Red Cell Dist. Width 16.6 % (11.5-14.5)
[2025-01-30 07:59] LABS: Glucose - Point of Care 112 mg/dl (70-99)
[2025-01-30 08:19] VITALS: BP 123/76
[2025-01-30] MEDS: NOVOLOG FLEXPEN-LOW RESISTANCE SC ×3 (08:24→16:29)
[2025-01-30] MEDS: AMOXIL 500 MG PO ×3 (08:25→21:43)
[2025-01-30] MEDS: PACERONE 200 MG PO ×3 (08:25→21:43)
[2025-01-30] MEDS: CARDIZEM CD 120 MG PO (08:25)
[2025-01-30] MEDS: PROTONIX 40 MG PO (08:25)
[2025-01-30 08:36] LABS: Blood Urea Nitrogen 41 mg/dl (9-20); Calcium 8.3 mg/dl (8.4-10.2); Carbon Dioxide 22 mmol/L (22-30); Chloride 112 mmol/L (98-107); Estimated Creatinine Clearance 42 ml/min; Glucose 110 mg/dl (70-99); Potassium 3.7 mmol/L (3.5-5.1); Sodium 140 mmol/L (135-145); eGFR 47.95
--- NOTE | 2025-01-30 10:24 | CM ---
Addendum entered by Neli Gordon 01/30/25 14:12:
Consult received for zarate check of Jardiance/Farxiga 10 mg, spoke with patients pharmacy, cost of Jardiance 30 day supply $146.96, no prior auth required, Farxiga 30 day supply $140.03, no prior auth needed. Update to Resident.
Original Note:
CM reviewed chart, patient seen bedside with . CM discussed therapy recommendation of SNF- patient would like to think about it before making decision for SNF vs VN. Patient has been accepted at [facility], will need auth for SNF
if agreeable. reports she will leave decision to patient. CM will follow up with patient regarding SNF decision. CM will continue to follow for all discharge planning needs.
Plan; VN vs SNF- pt to make decision
[2025-01-30 12:08] VITALS: BP 122/88
[2025-01-30 12:38] LABS: Glucose - Point of Care 139 mg/dl (70-99)
--- NOTE | 2025-01-30 12:43 | W.PN.CARDCBS ---
Today's Communication / Plan
-
Change diltiazem to Coreg if patient will allow
Add Jardiance if insurance allows
Consider eventual outpatient cardioversion given reduced ejection fraction with the addition of amiodarone added
Will give IV Lasix as appears to still have an element of volume overload based on elevated proBNP on 01/29
Impression / Plan
-
Impression:
Metabolic acidosis, possibly related to metformin therapy
TAMANNA on CKD 3B
Possible acute HFpEF, though clinically he does not appear to be volume overloaded
Newly diagnosed persistent atrial fibrillation
Duodenal ulcer status post upper GI bleed requiring transfusion November 2024
Type 2 diabetes
Moderate aortic stenosis
Hypertension
Parkinson's disease
Dementia
Echocardiogram 11/17/2024: EF 50%, inferolateral hypokinesis, moderate aortic stenosis, trace aortic regurgitation, mild mitral regurgitation, peak/mean aortic valve gradients 40/24 mmHg, aortic valve area 1.3 cm 2, pulmonary artery systolic pressure
29
Echocardiogram 01/29/2025: Ejection fraction 20 to 25% with severely dilated ventricle, global hypokinesis with mid septal, anteroseptal, inferior, and apical akinesis, moderate to severe MR, mild to moderate AAS with mean gradient of 16 mmHg aortic
valve area 1.5 cm�, mild AI, mild TR PA systolic of 41 mmHg
Plan:
He feels better after IV Lasix on 01/29
Will give a dose of IV Lasix 40 mg now
Of note proBNP improved from greater than 27,000 to 14,60o on 01/30
Follow renal function closely as creatinine has improved to 1.5 on 01/30
Will try Coreg and stop diltiazem given reduced ejection although patient has historically refused beta-blockers in the past
Remains in A-fib and amiodarone 200 3 times daily was added on 01/29
Unclear if patient will be fall risk with Parkinson's
Could consider cardioversion as an outpatient if reduced ejection fraction could be due to A-fib
Will add Jardiance if insurance allows
Updated patient and family at bedside
Progress Note - Inventory Control Analyst
Subjective
Date of Service: January 30, 2025
No chest pain or shortness of breath
Objective
Labs:
01/30/25 07:12
01/30/25 07:12
Labs
Hgb 10.6 g/dL (13.0-18.0) L 01/30/25 07:12
Hct 34.2 % (39.0-52.0) L 01/30/25 07:12
Plt Count 156 10^3/uL (130-400) 01/30/25 07:12
PT 18.1 Sec (11.4-14.6) H 01/27/25 11:04
INR 1.47 01/27/25 11:04
APTT 33.5 Sec (23.4-35.0) 01/27/25 11:04
Sodium 140 mmol/L (135-145) 01/30/25 07:12
Potassium 3.7 mmol/L (3.5-5.1) 01/30/25 07:12
BUN 41 mg/dl (9-20) H 01/30/25 07:12
Creatinine 1.5 mg/dL (0.7-1.3) H 01/30/25 07:12
Glucose 110 mg/dl (70-99) H 01/30/25 07:12
Troponins
01/27/25 01/28/25
20:58 03:01
Troponin I < 0.012 < 0.012
Vital Signs and I&O:
Vital Signs
Temp Pulse Resp BP Pulse Ox
97.5 F 97 14 122/88 94
01/30/25 12:08 01/30/25 12:08 01/30/25 12:08 01/30/25 12:08 01/30/25 12:08
Vital Signs
Temp Pulse Resp BP Pulse Ox
97.5 F 97 14 122/88 94
01/30/25 12:08 01/30/25 12:08 01/30/25 12:08 01/30/25 12:08 01/30/25 12:08
Intake & Output
01/28/25 01/29/25 01/30/25 01/31/25
06:59 06:59 06:59 06:59
Intake Total 1300 / 1300 720 / 720 480 / 480
Output Total 1250 / 1250 400 / 400 1575 / 1575
Balance 50 / 50 320 / 320 -1095 / -1095
Physical Exam
Physical Exam
General: Well developed, well nourished in NAD.
Neck: Supple, no JVD, HJR, carotids +2 B/L, no bruits bilaterally.
Heart: Non displaced PMI, RRR, no murmurs, No S3, S4, no rubs.
Lungs: Clear to auscultation bilaterally, no wheeze, rhonchi, rubs bilaterally,
normal expiratory phase.
Extremities: No clubbing, cyanosis or edema bilaterally.
Neuro: Grossly nonfocal, awake, alert and oriented x3.
[2025-01-30] MEDS: LASIX 40 MG IV (12:59)
[2025-01-30] MEDS: FARXIGA 10 MG PO (13:04)
--- NOTE | 2025-01-30 15:20 | PN.CDI ---
CDI
- -
CDI:
Physician Documentation Request
Admit Date: 01/27/25 16:04
Dear Doctor David,
Clinical Indicators:
Patient admitted with persistent atrial fibrillation with RVR.
01/29 Cardiology PN,'Possible acute HFpEF, though clinically he does not appear to be volume overloaded'
01/30 PN, 'IV Lasix given for volume overload based on most recent proBNP on 01/29'
BNP trend:
01/27/25 01/30/25
11:31 07:12
Zjj-J-Vgdynsrmbto Pept > [id number]
Due to potentially conflicting documentation, please clarify the appropriate diagnosis, if significant, that supports the above abnormalities and additional evaluation, monitoring and/or treatment rendered:
Acute HFpEF
Volume overload only
Other, please specify
Use of terms such as suspected, likely, concern for, or probable (associated with a specific diagnosis that is being evaluated, monitored, or treated as if it exists) are acceptable and can be coded in the inpatient setting, when documented at the
time of discharge.
Thank you,
LENORA Cox RN
CDI Specialist
available via tiger text
Please use your independent medical judgment in providing your response.
[2025-01-30 15:59] VITALS: BP 120/87
[2025-01-30 16:29] LABS: Glucose - Point of Care 117 mg/dl (70-99)
[2025-01-30] MEDS: XARELTO 15 MG PO (17:20)
[2025-01-30] MEDS: SINEMET 25-100 1 TABLET PO (17:21)
[2025-01-30 19:50] VITALS: BP 124/75
[2025-01-30] MEDS: COREG 3.125 MG PO (20:07)
[2025-01-30 21:10] LABS: Glucose - Point of Care 164 mg/dl (70-99)
[2025-01-30 23:21] VITALS: BP 114/74
[2025-01-31] VITALS (8 sets, daily range): BP systolic 111–140; BP diastolic 75–95; PULSE 112–130; O2SAT 93–98; BMI 25.9
[2025-01-31] MEDS: SINEMET 25-100 1.5 TABLET PO ×2 (05:24→11:24)
[2025-01-31 06:21] LABS: Hematocrit 34.2 % (39.0-52.0); Hemoglobin 10.5 g/dL (13.0-18.0); Mean Corp Hgb Conc. 30.7 g/dL (33.0-37.0); Mean Corpuscular Volume 81.0 fL (80.0-94.0); Platelet Count 179 10^3/uL (130-400); Red Cell Dist. Width 16.6 % (11.5-14.5)
[2025-01-31 06:49] LABS: Albumin 3.2 g/dl (3.5-5.0); Blood Urea Nitrogen 39 mg/dl (9-20); Calcium 8.6 mg/dl (8.4-10.2); Carbon Dioxide 23 mmol/L (22-30); Chloride 112 mmol/L (98-107); Estimated Creatinine Clearance 39 ml/min; Glucose 120 mg/dl (70-99); Potassium 4.0 mmol/L (3.5-5.1); Sodium 139 mmol/L (135-145); eGFR 44.38
[2025-01-31] MEDS: AMOXIL 500 MG PO (07:14)
[2025-01-31] MEDS: COREG 3.125 MG PO ×2 (07:14→20:02)
[2025-01-31] MEDS: PACERONE 200 MG PO ×3 (07:14→21:39)
[2025-01-31] MEDS: PROTONIX 40 MG PO (07:14)
[2025-01-31] MEDS: FARXIGA 10 MG PO (07:14)
--- NOTE | 2025-01-31 07:34 | W.PN.HOSP.TC ---
Addendum entered and electronically signed by Wilda Osorio MD 01/31/25 15:21:
I saw and evaluated the patient independently. I reviewed the resident�s note and agree with findings and plan as documented by Dr. Hernandez.
GENERAL: well developed, well nourished, male in no apparent distress
HEENT: NC/AT--no O2
HEART: irreg irreg
LUNGS : clear to auscultation bilaterally
ABDOM: soft, nontender, nondistended, + bowel sounds
EXT: no cyanosis, clubbing, or edema
NEUROLOGIC: flat facies, pill rolling tremor right hand
Persistent atrial fibrillation with rapid ventricular response--newly diagnosed--apprec cards--rate controlling--cont carvedilol/amio--ECHO 11/17/24 showed EF 50% with mod aortic stenosis and hypokinetic inferior wall--repeat echo now with EF
25%--GDMT as able--Xarelto being added for AC--MARY JANE with CV in AM
acute exacerbation HFrEF--GDMT--apprec cards--possible ischemic eval in next few weeks/months--cont IV diuresis--cont Farxiga
Prerenal acute kidney injury-- Stable-improving--likely prerenal--can stop IVF--maybe new baseline
Acute anion gap metabolic acidosis--thought due to lactic acidosis likely from metformin--resolved after IVF with bicarb--no metformin at discharge--Farxiga added
Parkinson's disease-- Stable-cont sinemet
Peptic ulcer disease--Stable--cont protonix
Essential hypertension--cont home meds as able
Leukocytosis --no signs of infection--likely reactive
History of GI bleed--none currently--follow Hgb
Stn-gebiikn-lpbkgzsef type II diabetes mellitus--stop metformin at d/c--consider Jardiance
Moderate aortic stenosis--as per cards
DVT proph
code status--FULL CODE
therapy rec SNF--pt trying to decide on what he wants to do--now agreeable to [facility]
Original Note:
Today's Communication/Plan
-
Patient diagnosed with HFrEF based on echocardiogram conducted on 01/29/2025
40 mg IV Lasix given today -patient now started on Farxiga
Cardiology likely to proceed with MARY JANE/cardioversion in hopes of improving his ejection fraction and to restore his sinus rhythm.
Continue Coreg and amiodarone
Continue Xarelto 15 mg
Assessment / Plan
Assessment / Plan
HPI: Patient is a 74-year-old male with a past medical history significant for hypertension, ntp-rsoxfxc-elqtdvycl diabetes mellitus, essential tremor, dementia, who was recently hospitalized at [facility] from November 15 to November 20 due to GI bleed with
acute blood loss anemia requiring transfusion and TAMANNA. During that stay he was noted to be in atrial fibrillation with rapid ventricular response with a hide heart rate documented at 141. He was started on a beta-jhon and discharged after
spending time in the ICU and being medically stabilized. He presented to the emergency department with a significant amount of shortness of breath with activity including walking. At rest he was oxygenating well between 94 and 98% with minimal
exertion he became dyspneic. He denied any GI bleed, no chest pain, palpitations, but did note to have leg swelling with his left side being more swollen than the right which is the norm for him. He also had anorexia for the past 2 days prior to
his presentation due to decreased oral intake. While in the emergency department it was noted that the patient had Kussmaul breathing. ED provider performed a bedside echo that revealed trace pericardial effusion. Cardiology was consulted
recommended starting heparin. Labs were remarkable for leukocytosis, metabolic acidosis with a pH of 7.28, serum bicarb of 14, anion gap of 15, and a creatinine level elevated at 2.4 from a baseline of 1.4. CXR revealed bilateral pleural effusion
without pneumonia. Patient currently not on Eliquis as the patient unable to tolerate Eliquis.
Assessment/Plan:
- Persistent atrial fibrillation with rapid ventricular response:
Prior echo conducted on 11/17/2024 showed an ejection fraction of 50%. Inferior lateral wall was hypokinetic. Moderate aortic stenosis with trace aortic regurgitation.
Cardiology consulted�appreciate cardiology recommendations
Cardizem increased to 100 mg twice daily oral on 01/29/2025
Follow-up echo ordered�preliminary results show an ejection fraction of 25%
Will opt for GDMT management if patient amenable�continue current regimen for the time being. Cardiology considering attempting carvedilol in place of diltiazem. Cardiology is trying to change the patient over to Coreg if the patient will allow.
Jardiance added -reached out to case management in regards to insurance coverage
Amiodarone added for rate control.
Patient unable to tolerate metoprolol
IV Lasix given for volume overload based on most recent proBNP on 01/29, Lasix 40 mg IV given again on 01/31/2025
Cardiology considering MARY JANE/CV and possible eventual outpatient catheterization if no improvement with rhythm control efforts
Patient started on Xarelto 15 mg
Patient started on Farxiga
-Prerenal acute kidney injury on chronic kidney disease stage IIIa: Stable-back at baseline
Patient had a creatinine of 2.4 on 01/27/2025 indicating acute kidney injury
Creatinine improved with IV fluid support and continues to trend downward -indicating prerenal acute kidney injury
Patient has an EGFR that hovers around 45�59 for approximately 3 months indicating likely chronic kidney disease stage IIIa
Creatinine 1.6 on 01/29/2025, 1.5 on 01/30/2025
-Acute anion gap metabolic acidosis: Improving�monitoring
Anion gap secondary to lactic acid -lactic acid was 2.9 on admission with an anion gap of 15
Bicarb given in the emergency department -anion gap closed -currently anion gap 2 at 01/29/2025
Bicarb discontinued
Patient should not be restarted on metformin on discharge
- HFrEF with volume overload: Stable�monitoring
Patient had a proBNP of greater than 27,000 on 01/27/2025.
proBNP shows improvement to 14,600 on 01/30/2025
Echocardiogram conducted on 01/29/2025: Ejection fraction 20 to 25% with severely dilated ventricle, global hypokinesis with mid septal, anteroseptal, inferior, and apical akinesis, moderate to severe MR, mild to moderate AAS with mean gradient of
16 mmHg aortic valve area 1.5 cm�, mild AI, mild TR PA systolic of 41 mmHg
IV Lasix given
-Parkinson's disease: Stable�monitoring
Continue carbidopa levodopa
-Peptic ulcer disease: Stable�monitoring
Pantoprazole
-Essential hypertension: Stable�monitoring
Continue home medications with hold parameters
-Leukocytosis: Resolved
White blood cell count at 11.2 on 01/29/25�an improvement from 01/28/2025 which was 12.8
Likely reactionary -no obvious source of infection -afebrile
White blood cell count at 9.4 on 01/30/2025
-History of GI bleed: Monitoring�stable
Monitoring H&H
-Pnj-anjxrek-pzwnwvqtb type II diabetes mellitus: Monitoring�stable
Holding metformin
Patient should not be restarted on metformin on discharge
Consideration of SGLT2 antagonist given the type 2 diabetes and HFpEF
-Moderate aortic stenosis: Monitoring-stable
Seen on last echocardiogram�will follow on recent echocardiogram
FULL CODE STATUS
Stress Ulcer Prophylaxis: Protonix
DVT Prophylaxis: Xarelto
Imaging:
- Chest x-ray conducted on 01/17/2025:
Possible tiny bilateral pleural effusion
- Echocardiogram conducted on 11/17/2024:
EF 50%, inferolateral hypokinesis, moderate aortic stenosis, trace aortic regurgitation, mild mitral regurgitation, peak/mean aortic valve gradients 40/24 mmHg, aortic valve area 1.3 cm 2, pulmonary artery systolic pressure 29
- Echocardiogram conducted on 01/29/2025:
Ejection fraction 20 to 25% with severely dilated ventricle, global hypokinesis with mid septal, anteroseptal, inferior, and apical akinesis, moderate to severe MR, mild to moderate AAS with mean gradient of 16 mmHg aortic valve area 1.5 cm�, mild
AI, mild TR PA systolic of 41 mmHg
Anticipated Discharge: 24 - 48 hours
Subjective/Interval History
-
Date of Service: January 31, 2025
Met with the patient at the bedside. He is calm and polite in conversation. He offers no complaints at the present time. He is aware that he will likely need to go to a skilled rehab after discharge in order to gain his strength.
Objective Data
-
Labs:
Laboratory Results
01/31/25
05:44
WBC 8.6
Hgb 10.5 L
Hct 34.2 L
Plt Count 179
Sodium 139
Potassium 4.0
Chloride 112 H
Carbon Dioxide 23
BUN 39 H
Creatinine 1.6 H
Glucose 120 H
Calcium 8.6
Vital Signs:
Vital Signs
Temp Pulse Resp BP Pulse Ox
97.3 F 96 18 124/88 94
01/31/25 02:56 01/31/25 07:14 01/31/25 02:56 01/31/25 02:56 01/31/25 02:56
I&O
01/30/25 01/31/25 02/01/25
06:59 06:59 06:59
Intake Total 480 / 480 1140 / 1140
Output Total 1575 / 1575 1275 / 1275
Balance -1095 / -1095 -135 / -135
Review of Systems
-
History Source: Patient
All other systems: Reviewed and negative
Physical Exam
-
General: Well Developed, Well Nourished, No Apparent Distress and Comfortable
HEENT: Normocephalic, Atraumatic and Moist Mucous Membranes
Respiratory: Clear to Auscultation; Negative Wheezes, Rales, Rhonchi or Crackles
Cardiac: Irregular Rhythm and Murmur (Over the right second intercostal space); Negative Regular Rhythm, Rub, JVD or Gallop
Breast: Deferred by me
GI: Soft, Nontender, Nondistended and Normal Bowel Sounds
Rectal: Deferred by Provider
Genito-urinary: Deferred by me
Musculoskeletal: No Clubbing, No Cyanosis and No Edema; Negative Clubbing or Cyanosis
Skin: Warm and Dry; Negative Rash, Ulcers, Lesions or Jaundice
Neuro: Awake, Alert, Oriented and AO x 3
[2025-01-31 07:42] LABS: Glucose - Point of Care 111 mg/dl (70-99)
[2025-01-31] MEDS: NOVOLOG FLEXPEN-LOW RESISTANCE SC ×2 (07:53→11:23)
--- NOTE | 2025-01-31 10:25 | W.PN.CARDCBS ---
Addendum entered and electronically signed by Chacorta Torres MD 01/31/25 11:37:
I saw and examined the patient.
The Ski Technician's note was reviewed and I agree with the note.
Comment:
GEN: No distress, awake, Ox3
HEENT: supple, anicteric, mmm
LUNGS: CTA, no wheezes/rales
CV: Irreg, S1/S2, 2/6 syst aHSM
ABD: soft, BS+, NT/ND
EXT: No edema
NEURO: Gross non-focal
SKIN: No rash
Plan:
This is a complicated case. I reviewed his echo and his ejection fraction has decreased from 50% in July down to 15 to 20% currently. He also has moderate aortic stenosis and moderate to severe mitral regurgitation.
I had a lengthy discussion with him and his regarding treatment options. We discussed possible ischemic evaluation including cardiac cath and options for restoring sinus rhythm. We also discussed a rate control strategy with cardioversion in
4 weeks. We agreed to proceed with MARY JANE/cardioversion in a.m. to try to restore sinus rhythm. Hopefully this will improve his ejection fraction. His ventricular rates are improved but still not ideal. Continue Coreg and amiodarone load. Continue
Xarelto 15 mg daily.
Continue to diurese with Lasix 40 mg IV daily. Patient also now on Farxiga.
Creatinine is improved and down to 1.5. For now we will hold off on ANDREIA/ARB/Entresto.
Original Note:
Today's Communication / Plan
-
New CM, consider MARY JANE/CV and possible eventual outpatient cath if no improvement with rhythm control efforts
Cont rate control efforts
Tolerating Xarelto
Lasix 40 mg IV x1 ordered by me
Impression / Plan
-
PCP: Dr. Rodriguez
Card: Dr. Patel
Impression:
Admitted with acute HF and metabolic acidosis 01/27/25
Recent admission for GIB and new Afib 11/15/24 until 11/20/24
Acute HFrEF
CM EF 20% by echo 01/29/25
Mild to mod
Moderate to severe MR
Metabolic acidosis, possibly related to metformin therapy
TAMANNA on CKD 3B
Persistent atrial fibrillation, initially diagnosed 11/2024
Duodenal ulcer status post upper GI bleed requiring transfusion November 2024
Type 2 diabetes
Moderate aortic stenosis
Hypertension
Parkinson's disease
Dementia
Echocardiogram 11/17/2024: EF 50%, inferolateral hypokinesis, moderate aortic stenosis, trace aortic regurgitation, mild mitral regurgitation, peak/mean aortic valve gradients 40/24 mmHg, aortic valve area 1.3 cm 2, pulmonary artery systolic pressure
29
Echocardiogram 01/29/2025: Ejection fraction 20 to 25% with severely dilated ventricle, global hypokinesis with mid septal, anteroseptal, inferior, and apical akinesis, moderate to severe MR, mild to moderate with mean gradient of 16 mmHg aortic
valve area 1.5 cm�, mild AI, mild TR PA systolic of 41 mmHg
Plan:
-Patient admitted with acute HF and found to have a newly reduced EF. He was also recently admitted with GIB and found to have new Afib at that time, he was seen by CBC initially and then decided to see Dr. Patel for follow up. On readmission he
had another echo and EF is now reduced with MR and
-Echo report from 11/17/24 and 01/29/25 reviewed by me. EF was 50% and is now 20-25%. Tachycardia mediated CM is a possibility, but should have an ischemic evaluation.
-Cre as high as 2.4 on admission and now 1.6 on labs reviewed by me 01/31/25.
-If patient goes for cardiac cath then we will need to load with aspirin
-Patient with GIB 11/2024 and EGD found duodenal ulcer. No recurrent bleeding and so Eliquis was started as an outpatient for Afib that was diagnosed during the 11/2024 admission. Patient and felt that Eliquis and metoprolol caused insomnia and
poor appetite so they were stopped as an outpatient. On readmission patient was still in Afib and refused Heparin gtt. Now tolerating Xarelto 15 mg daily.
-Patient remains in Afib with HRs in the low 100s. Outpatient dose of Toprol XL was replaced with Coreg 3.125 mg BID and amiodarone 200 mg TID was added for rate control.
-Echo showed moderate to severe MR, can better evaluate MR at time of MARY JANE/CV
-Echo also showed mild to mod mean gradient 16 mmHg with EF down at 20-25% compared to mean gradient 24 mmHg when EF was 50% during 11/17/24 echo
-Weight down 1 lb overnight after Lasix 40 mg IV x1 on 01/30/25. Patient was not taking a loop diuretic prior to admission. Will give another dose of Lasix 40 mg IV x1 now, orders placed by me. Follow labs
-New to Farxiga 10 mg daily, but cost will be $140/month per CM, although not sure if he has to meet a deductible and then the zarate will drop.
-Coreg as above
-Outpatient dose of losartan is on hold due to TAMANNA
Progress Note - Business Librarian
Subjective
Date of Service: January 31, 2025
He wants to go home, less SOB
Objective
Labs:
01/31/25 05:44
01/31/25 05:44
Labs
Hgb 10.5 g/dL (13.0-18.0) L 01/31/25 05:44
Hct 34.2 % (39.0-52.0) L 01/31/25 05:44
Plt Count 179 10^3/uL (130-400) 01/31/25 05:44
PT 18.1 Sec (11.4-14.6) H 01/27/25 11:04
INR 1.47 01/27/25 11:04
APTT 33.5 Sec (23.4-35.0) 01/27/25 11:04
Sodium 139 mmol/L (135-145) 01/31/25 05:44
Potassium 4.0 mmol/L (3.5-5.1) 01/31/25 05:44
BUN 39 mg/dl (9-20) H 01/31/25 05:44
Creatinine 1.6 mg/dL (0.7-1.3) H 01/31/25 05:44
Glucose 120 mg/dl (70-99) H 01/31/25 05:44
Vital Signs and I&O:
Vital Signs
Temp Pulse Resp BP Pulse Ox
97.4 F 106 16 140/85 97
01/31/25 08:19 01/31/25 08:19 01/31/25 08:19 01/31/25 08:19 01/31/25 08:19
Vital Signs
Temp Pulse Resp BP Pulse Ox
97.4 F 106 16 140/85 97
01/31/25 08:19 01/31/25 08:19 01/31/25 08:19 01/31/25 08:19 01/31/25 08:19
Intake & Output
01/29/25 01/30/25 01/31/25 02/01/25
06:59 06:59 06:59 06:59
Intake Total 720 / 720 480 / 480 1140 / 1140
Output Total 400 / 400 1575 / 1575 1275 / 1275
Balance 320 / 320 -1095 / -1095 -135 / -135
Physical Exam
Physical Exam
General: AAO x3
Heart: Afib on tele, irreg irreg
Lungs: RA, no audible wheeze
Extremities: No edema bilaterally.
[2025-01-31 11:20] LABS: Glucose - Point of Care 126 mg/dl (70-99)
[2025-01-31] MEDS: LASIX 40 MG IV (11:26)
--- NOTE | 2025-01-31 15:37 | CM ---
CM reviewed chart, patient seen bedside with son, discussed therapy recommendations for rehab. Patient agreeable to [facility], will require insurance auth once stable. Patient for cardioversion tomorrow. Coupon for [facility] Dol[facility] placed in chart. CM will
continue to follow for all discharge planning needs.
Plan; [facility] when stable, will require auth
[2025-01-31 16:31] LABS: Glucose - Point of Care 151 mg/dl (70-99)
[2025-01-31] MEDS: NOVOLOG FLEXPEN-LOW RESISTANCE 1 UNITS SC (16:42)
[2025-01-31] MEDS: XARELTO 15 MG PO (16:43)
[2025-01-31] MEDS: SINEMET 25-100 1 TABLET PO (16:43)
[2025-01-31 21:29] LABS: Glucose - Point of Care 145 mg/dl (70-99)
[2025-02-01 03:08] VITALS: BP 130/89
[2025-02-01] MEDS: SINEMET 25-100 1.5 TABLET PO ×2 (05:01→12:13)
[2025-02-01 05:12] VITALS: BMI 25.2
[2025-02-01 06:32] LABS: Albumin 3.2 g/dl (3.5-5.0); Blood Urea Nitrogen 42 mg/dl (9-20); Calcium 8.6 mg/dl (8.4-10.2); Carbon Dioxide 21 mmol/L (22-30); Chloride 112 mmol/L (98-107); Estimated Creatinine Clearance 37 ml/min; Glucose 126 mg/dl (70-99); Potassium 3.7 mmol/L (3.5-5.1); Sodium 140 mmol/L (135-145); eGFR 41.26
[2025-02-01 07:00] VITALS: BP 131/89
[2025-02-01 07:02] LABS: Glucose - Point of Care 126 mg/dl (70-99)
[2025-02-01] MEDS: NOVOLOG FLEXPEN-LOW RESISTANCE SC ×3 (07:12→16:51)
[2025-02-01] MEDS: FARXIGA 10 MG PO (07:13)
[2025-02-01] MEDS: PROTONIX 40 MG PO (07:13)
[2025-02-01] MEDS: COREG 3.125 MG PO ×2 (07:13→20:33)
[2025-02-01] MEDS: PACERONE 200 MG PO ×3 (07:14→22:36)
--- NOTE | 2025-02-01 09:39 | ITS.CL.CARDI ---
Dial Marker - Cardioversion
Cardioversion
Procedure Report:
Date of Procedure: 02/01/25
Procedure: Cardioversion
Indication: Symptomatic atrial fibrillation
Performing Physician: Fede Zamarripa MD
Technique: The patient was brought to the holding area. Signed informed consent was obtained. A time out was called and performed. The patient was anesthetized by the anesthesia service. Anticoagulation status was reviewed and appropriate. R2 pads
were placed anteriorly and posteriorly. A 200 J, 360j, and 360 J synchronized biphasic shock failed to restore normal sinus rhythm. There were no complications.
Conclusion: Failed cardioversion of atrial fibrillation.
Recommendation: Routine post cardioversion care. Continue bed bug exterminator anticoagulation.
--- NOTE | 2025-02-01 09:51 | W.PN.CARDCBS ---
Addendum entered and electronically signed by Chacorta Torres MD 02/01/25 18:07:
I saw and examined the patient.
The Cloth Calender's note was reviewed and I agree with the note.
Comment:
GEN: No distress, awake, Ox3
HEENT: supple, anicteric, mmm
LUNGS: scatt rhonchi
CV: Irreg, S1/S2, 1/6 syst LSB, S3+
ABD: soft, BS+, NT/ND
EXT: No edema
NEURO: Gross non-focal
SKIN: No rash
PLan:
MARY JANE cardioversion today unsuccessful and patient remains in atrial fibrillation. He remains volume overloaded and will increase Lasix to 40 mg IV twice daily and attempt to diurese further.
LVEF remains markedly reduced at 15 to 20% with moderate mitral regurgitation.
Continue amiodarone load and carvedilol. Would reassess in a.m. and make plan for repeat attempted cardioversion. This could be done early next week as an inpatient or in 1 to 2 weeks as an outpatient if the patient is clinically stable.
Creatinine up to 1.7. Continue to follow closely on higher dose of Lasix.
Continue carvedilol and Farxiga. No ANDREIA/ARB due to renal insufficiency.
So far doing well on Xarelto 15 mg daily.
Original Note:
Today's Communication / Plan
-
Cont amio load and repeat CV in 2-3 weeks as an outpatient
Lasix increased to 40 mg IV BID
Impression / Plan
-
PCP: Dr. Rodriguez
Card: Dr. Patel
Impression:
Admitted with acute HF and metabolic acidosis 01/27/25
Recent admission for GIB and new Afib 11/15/24 until 11/20/24
Acute HFrEF
CM EF 20% by echo 01/29/25
Mild to mod
Moderate to severe MR
Metabolic acidosis, possibly related to metformin therapy
TAMANNA on CKD 3B
Persistent atrial fibrillation, initially diagnosed 11/2024
Duodenal ulcer status post upper GI bleed requiring transfusion November 2024
Type 2 diabetes
Moderate aortic stenosis
Hypertension
Parkinson's disease
Dementia
Echocardiogram 11/17/2024: EF 50%, inferolateral hypokinesis, moderate aortic stenosis, trace aortic regurgitation, mild mitral regurgitation, peak/mean aortic valve gradients 40/24 mmHg, aortic valve area 1.3 cm 2, pulmonary artery systolic pressure
29
Echocardiogram 01/29/2025: Ejection fraction 20 to 25% with severely dilated ventricle, global hypokinesis with mid septal, anteroseptal, inferior, and apical akinesis, moderate to severe MR, mild to moderate with mean gradient of 16 mmHg aortic
valve area 1.5 cm�, mild AI, mild TR PA systolic of 41 mmHg
MARY JANE 02/01/2025: Report pending
Plan:
-Patient admitted with acute HF and found to have a newly reduced EF. He was also recently admitted with GIB and found to have new Afib at that time, he was seen by CBC initially and then decided to see Dr. Patel for follow up. On readmission he
had another echo and EF is now reduced with MR and
-Weight down 5 lbs overnight if recorded bed scale is correct.
-Lasix increased to 40 mg IV BID on 02/01/25
-Cre up to 1.7 on my review of labs 02/01/2025. Cre was as high as 2.4 on 01/27/2025
-New to Farxiga 10 mg daily, but cost will be $140/month per CM, although not sure if he has to meet a deductible and then the zarate will drop.
-Coreg as below
-Outpatient dose of losartan is on hold due to TAMANNA
-EF was 50% 11/17/24 and is now 20-25%. Tachycardia mediated CM is a possibility, but should have an ischemic evaluation.
-Patient had an attempt MARY JANE/CV 02/01/25, no TC clot, but CV was unsuccessful x3 attempts.
-Cont amiodarone 200 mg TID and attempt CV again in 2-3 weeks as an outpatient
-Outpatient dose of Toprol XL was replaced with Coreg 3.125 mg BID
-Patient is tolerating Xarelto 15 mg daily.
-Patient with GIB 11/2024 and EGD found duodenal ulcer. No recurrent bleeding and so Eliquis was started as an outpatient for Afib that was diagnosed during the 11/2024 admission. Patient and felt that Eliquis and metoprolol caused insomnia and
poor appetite so they were stopped as an outpatient.
-Official MARY JANE report pending, but no evidence of structural disease of the mitral valve, MR may be more of a function of his severely dilated LV and EF at 20 to 25%
Progress Note - Scientific Helper
Subjective
Date of Service: February 01, 2025
He feels well
Objective
Labs:
01/31/25 05:44
02/01/25 05:19
Labs
Hgb 10.5 g/dL (13.0-18.0) L 01/31/25 05:44
Hct 34.2 % (39.0-52.0) L 01/31/25 05:44
Plt Count 179 10^3/uL (130-400) 01/31/25 05:44
PT 18.1 Sec (11.4-14.6) H 01/27/25 11:04
INR 1.47 01/27/25 11:04
APTT 33.5 Sec (23.4-35.0) 01/27/25 11:04
Sodium 140 mmol/L (135-145) 02/01/25 05:19
Potassium 3.7 mmol/L (3.5-5.1) 02/01/25 05:19
BUN 42 mg/dl (9-20) H 02/01/25 05:19
Creatinine 1.7 mg/dL (0.7-1.3) H 02/01/25 05:19
Glucose 126 mg/dl (70-99) H 02/01/25 05:19
Vital Signs and I&O:
Vital Signs
Temp Pulse Resp BP Pulse Ox
97.8 F 75 18 131/89 99
02/01/25 07:00 02/01/25 07:00 02/01/25 07:00 02/01/25 07:00 02/01/25 07:15
Vital Signs
Temp Pulse Resp BP Pulse Ox
97.8 F 75 18 131/89 99
02/01/25 07:00 02/01/25 07:00 02/01/25 07:00 02/01/25 07:00 02/01/25 07:15
Intake & Output
01/30/25 01/31/25 02/01/25 02/02/25
06:59 06:59 06:59 06:59
Intake Total 480 / 480 1140 / 1140 860 / 860
Output Total 1575 / 1575 1275 / 1275 1050 / 1050
Balance -1095 / -1095 -135 / -135 -190 / -190
Physical Exam
Physical Exam
General: AAO x3
Heart: Afib on tele, irreg irreg
Lungs: RA, slight expiratory wheeze
Extremities: No edema bilaterally.
[2025-02-01] MEDS: LASIX 40 MG IV ×2 (10:09→15:34)
--- NOTE | 2025-02-01 10:45 | W.PN.HOSP.TC ---
Addendum entered and electronically signed by Wilda Osorio MD 02/01/25 15:01:
I saw and evaluated the patient independently. I reviewed the resident�s note and agree with findings and plan as documented by Dr. Hernandez.
GENERAL: well developed, well nourished, male in no apparent distress
HEENT: NC/AT--no O2
HEART: irreg irreg
LUNGS : clear to auscultation bilaterally
ABDOM: soft, nontender, nondistended, + bowel sounds
EXT: no cyanosis, clubbing, or edema
NEUROLOGIC: flat facies, pill rolling tremor right hand
Persistent atrial fibrillation with rapid ventricular response--newly diagnosed--apprec cards--rate controlling--cont carvedilol/amio--ECHO 11/17/24 showed EF 50% with mod aortic stenosis and hypokinetic inferior wall--repeat echo now with EF
25%--GDMT as able--Xarelto being added for AC--MARY JANE with CV today unsuccesful
acute exacerbation HFrEF--GDMT--apprec cards--possible ischemic eval in next few weeks/months--cont IV diuresis as per cards--cont Farxiga
Prerenal acute kidney injury-- Stable-improving--likely prerenal--can stop IVF--maybe new baseline
Acute anion gap metabolic acidosis--thought due to lactic acidosis likely from metformin--resolved after IVF with bicarb--no metformin at discharge--Farxiga added
Parkinson's disease-- Stable-cont sinemet
Peptic ulcer disease--Stable--cont protonix
Essential hypertension--cont home meds as able
Leukocytosis --no signs of infection--likely reactive
History of GI bleed--none currently--follow Hgb
Lpd-ilrbvmv-asmeklplp type II diabetes mellitus--stop metformin at d/c--consider Jardiance
Moderate aortic stenosis--as per cards
DVT proph
code status--FULL CODE
therapy rec SNF--pt trying to decide on what he wants to do--now agreeable to [facility]
Original Note:
Today's Communication/Plan
-
Unsuccessful cardioversion today -patient will need to remain on Xarelto
Continue discharge planning with anticipated discharge to [facility] rehab
Continue Farxiga
IV Lasix 40 mg twice daily
Continue amiodarone
Continue Coreg
Assessment / Plan
Assessment / Plan
HPI: Patient is a 74-year-old male with a past medical history significant for hypertension, hio-syzmfgv-ywpaxqmtu diabetes mellitus, essential tremor, dementia, who was recently hospitalized at [facility] from November 15 to November 20 due to GI bleed with
acute blood loss anemia requiring transfusion and TAMANNA. During that stay he was noted to be in atrial fibrillation with rapid ventricular response with a hide heart rate documented at 141. He was started on a beta-jhon and discharged after
spending time in the ICU and being medically stabilized. He presented to the emergency department with a significant amount of shortness of breath with activity including walking. At rest he was oxygenating well between 94 and 98% with minimal
exertion he became dyspneic. He denied any GI bleed, no chest pain, palpitations, but did note to have leg swelling with his left side being more swollen than the right which is the norm for him. He also had anorexia for the past 2 days prior to
his presentation due to decreased oral intake. While in the emergency department it was noted that the patient had Kussmaul breathing. ED provider performed a bedside echo that revealed trace pericardial effusion. Cardiology was consulted
recommended starting heparin. Labs were remarkable for leukocytosis, metabolic acidosis with a pH of 7.28, serum bicarb of 14, anion gap of 15, and a creatinine level elevated at 2.4 from a baseline of 1.4. CXR revealed bilateral pleural effusion
without pneumonia. Patient currently not on Eliquis as the patient unable to tolerate Eliquis.
Assessment/Plan:
- Persistent atrial fibrillation with rapid ventricular response:
Prior echo conducted on 11/17/2024 showed an ejection fraction of 50%. Inferior lateral wall was hypokinetic. Moderate aortic stenosis with trace aortic regurgitation.
Cardiology consulted�appreciate cardiology recommendations
Cardizem increased to 100 mg twice daily oral on 01/29/2025
Follow-up echo ordered�preliminary results show an ejection fraction of 25%
Will opt for GDMT management if patient amenable�continue current regimen for the time being. Cardiology considering attempting carvedilol in place of diltiazem. Cardiology is trying to change the patient over to Coreg if the patient will allow.
Jardiance added -reached out to case management in regards to insurance coverage
Amiodarone added for rate control.
Patient unable to tolerate metoprolol
IV Lasix given for volume overload based on most recent proBNP on 01/29, Lasix 40 mg IV given again on 01/31/2025
Patient underwent cardioversion on 02/01/2025 which was unfortunately unsuccessful.
Patient started on Xarelto 15 mg -will need to be on long-term anticoagulation due to persistent atrial fibrillation with unsuccessful cardioversion
-Prerenal acute kidney injury on chronic kidney disease stage IIIa: Stable-back at baseline
Patient had a creatinine of 2.4 on 01/27/2025 indicating acute kidney injury
Creatinine improved with IV fluid support and continues to trend downward -indicating prerenal acute kidney injury
Patient has an EGFR that hovers around 45�59 for approximately 3 months indicating likely chronic kidney disease stage IIIa
Creatinine 1.6 on 01/29/2025, 1.5 on 01/30/2025
-Acute anion gap metabolic acidosis: Improving�monitoring
Anion gap secondary to lactic acid -lactic acid was 2.9 on admission with an anion gap of 15
Bicarb given in the emergency department -anion gap closed -currently anion gap 2 at 01/29/2025
Bicarb discontinued
Patient should not be restarted on metformin on discharge
- Acute exacerbation of HFrEF with volume overload: Stable�monitoring
Patient had a proBNP of greater than 27,000 on 01/27/2025.
proBNP shows improvement to 14,600 on 01/30/2025
Echocardiogram conducted on 01/29/2025: Ejection fraction 20 to 25% with severely dilated ventricle, global hypokinesis with mid septal, anteroseptal, inferior, and apical akinesis, moderate to severe MR, mild to moderate AAS with mean gradient of
16 mmHg aortic valve area 1.5 cm�, mild AI, mild TR PA systolic of 41 mmHg
IV Lasix 40 mg IV twice daily
Patient started on Farxiga
-Parkinson's disease: Stable�monitoring
Continue carbidopa levodopa
-Peptic ulcer disease: Stable�monitoring
Pantoprazole
-Essential hypertension: Stable�monitoring
Continue home medications with hold parameters
-Leukocytosis: Resolved
White blood cell count at 11.2 on 01/29/25�an improvement from 01/28/2025 which was 12.8
Likely reactionary -no obvious source of infection -afebrile
White blood cell count at 9.4 on 01/30/2025
-History of GI bleed: Monitoring�stable
Monitoring H&H
-Zlf-ezsmygk-fwcpdwkli type II diabetes mellitus: Monitoring�stable
Holding metformin
Patient should not be restarted on metformin on discharge
Consideration of SGLT2 antagonist given the type 2 diabetes and HFpEF
-Moderate aortic stenosis: Monitoring-stable
Seen on last echocardiogram�will follow on recent echocardiogram
FULL CODE STATUS
Stress Ulcer Prophylaxis: Protonix
DVT Prophylaxis: Xarelto
Imaging:
- Chest x-ray conducted on 01/17/2025:
Possible tiny bilateral pleural effusion
- Echocardiogram conducted on 11/17/2024:
EF 50%, inferolateral hypokinesis, moderate aortic stenosis, trace aortic regurgitation, mild mitral regurgitation, peak/mean aortic valve gradients 40/24 mmHg, aortic valve area 1.3 cm 2, pulmonary artery systolic pressure 29
- Echocardiogram conducted on 01/29/2025:
Ejection fraction 20 to 25% with severely dilated ventricle, global hypokinesis with mid septal, anteroseptal, inferior, and apical akinesis, moderate to severe MR, mild to moderate AAS with mean gradient of 16 mmHg aortic valve area 1.5 cm�, mild
AI, mild TR PA systolic of 41 mmHg
Anticipated Discharge: 24 - 48 hours
Subjective/Interval History
-
Date of Service: February 01, 2025
Met with patient at the bedside. He offers no complaints at the present time but is frustrated that his cardioversion procedure was unsuccessful today. He hopes that he will be able to be managed in the outpatient setting as he has grown impatient
with staying in the hospital. Education provided about his current health condition and the significance of ensuring that he will be safely discharged. Had a conversation about need for rehab at [facility] at discharge.
Objective Data
-
Labs:
Laboratory Results
02/01/25
05:19
Sodium 140
Potassium 3.7
Chloride 112 H
Carbon Dioxide 21 L
BUN 42 H
Creatinine 1.7 H
Glucose 126 H
Calcium 8.6
Vital Signs:
Vital Signs
Temp Pulse Resp BP Pulse Ox
97.8 F 84 18 99/72 99
02/01/25 07:00 02/01/25 10:09 02/01/25 07:00 02/01/25 10:09 02/01/25 07:15
I&O
01/31/25 02/01/25 02/02/25
06:59 06:59 06:59
Intake Total 1140 / 1140 860 / 860
Output Total 1275 / 1275 1050 / 1050
Balance -135 / -135 -190 / -190
Review of Systems
-
History Source: Patient
All other systems: Reviewed and negative
Physical Exam
-
General: Well Developed, Well Nourished, No Apparent Distress and Comfortable
HEENT: Normocephalic, Atraumatic and Moist Mucous Membranes
Respiratory: Clear to Auscultation; Negative Wheezes, Rales, Rhonchi or Crackles
Cardiac: S1/S2, Irregular Rhythm and Murmur; Negative Rub or JVD
GI: Soft, Nontender, Nondistended and Normal Bowel Sounds
Skin: Warm and Dry; Negative Rash, Ulcers or Lesions
Neuro: Awake, Alert, Oriented and AO x 3
Psych: Calm
[2025-02-01 11:00] VITALS: BP 120/82
[2025-02-01 12:08] LABS: Glucose - Point of Care 114 mg/dl (70-99)
--- NOTE | 2025-02-01 14:41 | CM ---
Addendum entered by Briana Aguilar 02/02/25 16:31:
Please call report to [facility] and confirm ambulance time
report [phone]

Addendum entered by Briana Aguilar 02/02/25 16:29:
Patient approved 5 days(02/02-02/06). The pending auth is now the auth
Ambulance auth is [id number]. Ambulance auth is [id number].
Addendum entered by Briana Aguilar 02/01/25 15:13:
bed available for patient tomorrow. CM will start auth as appropriate.
Original Note:
Patient seen at bedside with physician and patient in [facility]. Patient for discharge to SNF tomorrow. CM sent tt to admissions at [facility] to confirm available bed and will start auth when confirmed. CM will continue to follow for discharge planning
needs.
Plan; [place] pending auth and bed availability
[2025-02-01 15:35] VITALS: BP 108/78
[2025-02-01] MEDS: SINEMET 25-100 1 TABLET PO (16:46)
[2025-02-01] MEDS: XARELTO 15 MG PO (16:46)
[2025-02-01 16:52] LABS: Glucose - Point of Care 126 mg/dl (70-99)
[2025-02-01 19:58] VITALS: BP 120/85
[2025-02-01 21:13] LABS: Glucose - Point of Care 141 mg/dl (70-99)
[2025-02-01 22:34] VITALS: BP 113/83
[2025-02-02] VITALS (7 sets, daily range): BP systolic 106–127; BP diastolic 68–89; PULSE 94–123; O2SAT 94–98; BMI 25.1
[2025-02-02] MEDS: SINEMET 25-100 1.5 TABLET PO ×2 (05:06→12:14)
--- NOTE | 2025-02-02 07:30 | W.PN.HOSP.TC ---
Addendum entered and electronically signed by Wilda Osorio MD 02/02/25 17:23:
I saw and evaluated the patient independently. I reviewed the resident�s note and agree with findings and plan as documented by Dr. Hernandez.
GENERAL: well developed, well nourished, male in no apparent distress
HEENT: NC/AT--no O2
HEART: irreg irreg
LUNGS : clear to auscultation bilaterally
ABDOM: soft, nontender, nondistended, + bowel sounds
EXT: no cyanosis, clubbing, or edema
NEUROLOGIC: flat facies, pill rolling tremor right hand
Persistent atrial fibrillation with rapid ventricular response--newly diagnosed--apprec cards--rate controlling--cont carvedilol/amio--ECHO 11/17/24 showed EF 50% with mod aortic stenosis and hypokinetic inferior wall--repeat echo now with EF
25%--GDMT as able--Xarelto being added for AC--MARY JANE with CV unsuccessful, will need future appointment for another attempt
acute exacerbation HFrEF--GDMT--apprec cards--possible ischemic eval in next few weeks/months--diuresis as per cards--cont Farxiga--cleared for d/c by cards
Prerenal acute kidney injury-- Stable improving--likely prerenal---maybe new baseline
Acute anion gap metabolic acidosis--thought due to lactic acidosis likely from metformin--resolved after IVF with bicarb--no metformin at discharge--Farxiga added
Parkinson's disease-- Stable-cont sinemet
Peptic ulcer disease--Stable--cont protonix
Essential hypertension--cont home meds as able
Leukocytosis --no signs of infection--likely reactive
History of GI bleed--none currently--follow Hgb
Jpg-dqztrcu-aqjzdmqjd type II diabetes mellitus--stop metformin at d/c--consider Jardiance
Moderate aortic stenosis--as per cards
DVT proph
code status--FULL CODE
therapy rec SNF--pt trying to decide on what he wants to do--now agreeable to [facility]
Original Note:
Today's Communication/Plan
-
Moving forward discharge planning to [facility].
Assessment / Plan
Assessment / Plan
HPI: Patient is a 74-year-old male with a past medical history significant for hypertension, hsa-vxzdsof-tjviifjfs diabetes mellitus, essential tremor, dementia, who was recently hospitalized at [place] from November 15 to November 20 due to GI bleed with
acute blood loss anemia requiring transfusion and TAMANNA. During that stay he was noted to be in atrial fibrillation with rapid ventricular response with a hide heart rate documented at 141. He was started on a beta-jhon and discharged after
spending time in the ICU and being medically stabilized. He presented to the emergency department with a significant amount of shortness of breath with activity including walking. At rest he was oxygenating well between 94 and 98% with minimal
exertion he became dyspneic. He denied any GI bleed, no chest pain, palpitations, but did note to have leg swelling with his left side being more swollen than the right which is the norm for him. He also had anorexia for the past 2 days prior to
his presentation due to decreased oral intake. While in the emergency department it was noted that the patient had Kussmaul breathing. ED provider performed a bedside echo that revealed trace pericardial effusion. Cardiology was consulted
recommended starting heparin. Labs were remarkable for leukocytosis, metabolic acidosis with a pH of 7.28, serum bicarb of 14, anion gap of 15, and a creatinine level elevated at 2.4 from a baseline of 1.4. CXR revealed bilateral pleural effusion
without pneumonia. Patient currently not on Eliquis as the patient unable to tolerate Eliquis.
Assessment/Plan:
- Persistent atrial fibrillation with rapid ventricular response: Newly diagnosed during this hospital admission -stable and monitoring
Prior echo conducted on 11/17/2024 showed an ejection fraction of 50%. Inferior lateral wall was hypokinetic. Moderate aortic stenosis with trace aortic regurgitation.
Cardiology consulted�appreciate cardiology recommendations
Cardizem increased to 100 mg twice daily oral on 01/29/2025
Follow-up echo ordered�preliminary results show an ejection fraction of 25%
Will opt for GDMT management if patient amenable�continue current regimen for the time being. Cardiology considering attempting carvedilol in place of diltiazem. Cardiology is trying to change the patient over to Coreg if the patient will allow.
Jardiance added -reached out to case management in regards to insurance coverage
Amiodarone added for rate control.
Patient unable to tolerate metoprolol
IV Lasix given for volume overload based on most recent proBNP on 01/29, Lasix 40 mg IV given again on 01/31/2025
Patient underwent cardioversion on 02/01/2025 which was unfortunately unsuccessful.
Patient started on Xarelto 15 mg -will need to be on long-term anticoagulation due to persistent atrial fibrillation with unsuccessful cardioversion
Patient likely to undergo cardioversion 1 to 2 weeks following discharge in the outpatient setting.
-Prerenal acute kidney injury on chronic kidney disease stage IIIa: Stable-back at baseline
Patient had a creatinine of 2.4 on 01/27/2025 indicating acute kidney injury
Creatinine improved with IV fluid support and continues to trend downward -indicating prerenal acute kidney injury
Patient has an EGFR that hovers around 45�59 for approximately 3 months indicating likely chronic kidney disease stage IIIa
Creatinine 1.6 on 01/29/2025, 1.5 on 01/30/2025
No ANDREIA/ARB due to renal insufficiency
-Acute anion gap metabolic acidosis: Resolved
Anion gap secondary to lactic acid -lactic acid was 2.9 on admission with an anion gap of 15
Bicarb given in the emergency department -anion gap closed -currently anion gap 2 at 01/29/2025
Bicarb discontinued
Patient should not be restarted on metformin on discharge
- Acute exacerbation of HFrEF with volume overload: Stable�monitoring
Patient had a proBNP of greater than 27,000 on 01/27/2025.
proBNP shows improvement to 14,600 on 01/30/2025
Echocardiogram conducted on 01/29/2025: Ejection fraction 20 to 25% with severely dilated ventricle, global hypokinesis with mid septal, anteroseptal, inferior, and apical akinesis, moderate to severe MR, mild to moderate AAS with mean gradient of
16 mmHg aortic valve area 1.5 cm�, mild AI, mild TR PA systolic of 41 mmHg
IV Lasix 40 mg IV twice daily
Patient started on Farxiga
-Parkinson's disease: Stable�monitoring
Continue carbidopa levodopa
-Peptic ulcer disease: Stable�monitoring
Pantoprazole
-Essential hypertension: Stable�monitoring
Continue home medications with hold parameters
-Leukocytosis: Resolved
White blood cell count at 11.2 on 01/29/25�an improvement from 01/28/2025 which was 12.8
Likely reactionary -no obvious source of infection -afebrile
White blood cell count at 9.4 on 01/30/2025
-History of GI bleed: Monitoring�stable
Monitoring H&H
-Mse-mkggyhb-rxhvyopge type II diabetes mellitus: Monitoring�stable
Holding metformin
Patient should not be restarted on metformin on discharge
Consideration of SGLT2 antagonist given the type 2 diabetes and HFpEF
-Moderate aortic stenosis: Monitoring-stable
Seen on last echocardiogram�will follow on recent echocardiogram
FULL CODE STATUS
Stress Ulcer Prophylaxis: Protonix
DVT Prophylaxis: Xarelto
Imaging:
- Chest x-ray conducted on 01/17/2025:
Possible tiny bilateral pleural effusion
- Echocardiogram conducted on 11/17/2024:
EF 50%, inferolateral hypokinesis, moderate aortic stenosis, trace aortic regurgitation, mild mitral regurgitation, peak/mean aortic valve gradients 40/24 mmHg, aortic valve area 1.3 cm 2, pulmonary artery systolic pressure 29
- Echocardiogram conducted on 01/29/2025:
Ejection fraction 20 to 25% with severely dilated ventricle, global hypokinesis with mid septal, anteroseptal, inferior, and apical akinesis, moderate to severe MR, mild to moderate AAS with mean gradient of 16 mmHg aortic valve area 1.5 cm�, mild
AI, mild TR PA systolic of 41 mmHg
Anticipated Discharge: Today
Subjective/Interval History
-
Date of Service: February 02, 2025
Met with patient at the bedside. Overall he is doing well and offers no complaints at the present time. He inquires about when he will be discharged and if it will be today. Spoke to patient about upcoming discharge planning to [facility]. He
states that he is prepared and ready to go to [facility].
Objective Data
-
Labs:
Labs
02/02/25 07:40
02/02/25 07:40
01/27/25 14:19 Blood Culture - Final
Blood/Venous No Growth - Final Report
01/27/25 14:19 Blood Culture - Preliminary
Blood/Venous Diptheroids
Gram Stain - Preliminary
Vital Signs:
Vital Signs
Temp Pulse Resp BP Pulse Ox
97.9 F 107 18 127/89 96
02/02/25 07:59 02/02/25 07:59 02/02/25 07:59 02/02/25 07:59 02/02/25 07:59
I&O
02/01/25 02/02/25 02/03/25
06:59 06:59 06:59
Intake Total 860 / 860 1440 / 1440
Output Total 1050 / 1050 1575 / 1575
Balance -190 / -190 -135 / -135
Review of Systems
-
History Source: Patient
All other systems: Reviewed and negative
Constitutional: Reports No Symptoms
EENT: Reports No Symptoms Reported
Respiratory: Reports No Symptoms
Cardiac: Reports No Symptoms
Abdomen/GI: Reports No Symptoms
Breast: Reports No Symptoms
Genitourinary: Reports No Symptoms
Musculoskeletal: Reports No Symptoms
Skin: Reports No Symptoms
Neuro: Reports No Symptoms
Endocrine: Reports No Symptoms
Hematologic / Lymphatic: Reports No Symptoms
Allergy / Immunology: Reports No Symptoms
Physical Exam
-
General: Well Developed, Well Nourished, No Apparent Distress and Comfortable
HEENT: Normocephalic, Atraumatic and Moist Mucous Membranes
Respiratory: Clear to Auscultation; Negative Wheezes, Rales, Rhonchi or Crackles
Cardiac: S1/S2, Irregular Rhythm and Murmur; Negative Rub, JVD or HJR
Breast: Deferred by me
GI: Soft, Nontender, Nondistended and Normal Bowel Sounds
Rectal: Deferred by Provider
Genito-urinary: Deferred by me
Musculoskeletal: No Clubbing, No Cyanosis and No Edema
Skin: Warm, Dry and Normal Turgor; Negative Rash, Ulcers, Lesions or Jaundice
Neuro: Awake, Alert, Oriented and AO x 3
Hematologic / Lymphatic: No Lymphadenopathy
Psych: Calm
[2025-02-02 08:25] LABS: Hematocrit 35.6 % (39.0-52.0); Hemoglobin 11.0 g/dL (13.0-18.0); Mean Corp Hgb Conc. 30.9 g/dL (33.0-37.0); Mean Corpuscular Volume 79.5 fL (80.0-94.0); Nucleated Red Blood Cells % 0 % (-); Platelet Count 202 10^3/uL (130-400); Red Cell Dist. Width 16.5 % (11.5-14.5)
[2025-02-02 08:29] LABS: Albumin 3.2 g/dl (3.5-5.0); Blood Urea Nitrogen 43 mg/dl (9-20); Calcium 8.2 mg/dl (8.4-10.2); Carbon Dioxide 22 mmol/L (22-30); Chloride 109 mmol/L (98-107); Estimated Creatinine Clearance 35 ml/min; Glucose 115 mg/dl (70-99); Potassium 3.4 mmol/L (3.5-5.1); Sodium 139 mmol/L (135-145); eGFR 38.53
[2025-02-02 09:01] LABS: Glucose - Point of Care 180 mg/dl (70-99)
[2025-02-02] MEDS: NOVOLOG FLEXPEN-LOW RESISTANCE 1 UNITS SC ×2 (09:26→12:15)
[2025-02-02] MEDS: PACERONE 200 MG PO (09:28)
[2025-02-02] MEDS: COREG 3.125 MG PO (09:29)
[2025-02-02] MEDS: PROTONIX 40 MG PO (09:29)
[2025-02-02] MEDS: FARXIGA 10 MG PO (09:29)
[2025-02-02] MEDS: LASIX 40 MG IV (09:30)
[2025-02-02 11:44] LABS: Glucose - Point of Care 151 mg/dl (70-99)
--- NOTE | 2025-02-02 15:11 | W.PN.CARDCBS ---
Addendum entered and electronically signed by Constantino Patel MD 02/02/25 17:00:
I saw and examined the patient.
The [facility]'s note was reviewed and I agree with the note.
Comment: Briefly, 74-year-old man past medical history of atrial fibrillation presenting in rapid A-fib and acute decompensated heart failure. He was found to have severely reduced left ventricular function which is a new diagnosis for him and I
suspect may be a tachycardia mediated cardiomyopathy. Attempt was made to cardioversion earlier this week but was unsuccessful.
-A-fib:
Uptitrate carvedilol to 6.25 mg twice daily for rate control
Continue amiodarone load 200 mg twice daily for 1 month and then decrease to 200 mg daily
Xarelto for stroke prophylaxis
Plan for outpatient cardioversion in approximately 2 weeks. I reviewed with the patient that he needs to be reliably taking his anticoagulation.
-HFrEF:
Volume status is reasonable today on exam
Suspect he is approaching his dry weight between 165-170 lbs
Creatinine slowly uptrending
Plan to transition to oral Lasix 40 mg daily�was not on a diuretic prior to admission
Continue SGLT2
Beta-jhon as above
Unfortunately his blood pressure is unlikely to tolerate additional GDMT. Eventual plan to resume losartan for afterload reduction.
Stable cardiac status for discharge from my perspective
Outpatient follow-up has been arranged
Original Note:
Today's Communication / Plan
-
Replete potassium
Transition to oral Lasix on 02/03/2025 at 40 mg daily
Continue amiodarone 200 mg 3 times daily during admission but would discharge on 200 mg twice a day
Increase carvedilol to 6.25 mg twice a day
Continue to hold ANDREIA/ARB
Outpatient cardiology follow-up has been arranged. Cardioversion can be set up at that time
Will need eventual ischemic evaluation
Impression / Plan
-
PCP: Dr. Rodriguez
Card: Dr. Patel
Impression:
Admitted with acute HF and metabolic acidosis 01/27/25
Recent admission for GIB and new Afib 11/15/24 until 11/20/24
Acute HFrEF
CM EF 20% by echo 01/29/25
Mild to mod
Moderate to severe MR
Metabolic acidosis, possibly related to metformin therapy
TAMANNA on CKD 3B
Persistent atrial fibrillation, initially diagnosed 11/2024
Duodenal ulcer status post upper GI bleed requiring transfusion November 2024
Type 2 diabetes
Moderate aortic stenosis
Hypertension
Parkinson's disease
Dementia
Echocardiogram 11/17/2024: EF 50%, inferolateral hypokinesis, moderate aortic stenosis, trace aortic regurgitation, mild mitral regurgitation, peak/mean aortic valve gradients 40/24 mmHg, aortic valve area 1.3 cm 2, pulmonary artery systolic pressure
29
Echocardiogram 01/29/2025: Ejection fraction 20 to 25% with severely dilated ventricle, global hypokinesis with mid septal, anteroseptal, inferior, and apical akinesis, moderate to severe MR, mild to moderate with mean gradient of 16 mmHg aortic
valve area 1.5 cm�, mild AI, mild TR PA systolic of 41 mmHg
MARY JANE 02/01/2025: EF 15 to 20%. Global hypokinesis. Mild left atrial dilation. No thrombus in left atrial appendage. Moderate mitral regurgitation with restriction of posterior leaflet. Moderate aortic stenosis with mild to moderate AI. Mild TR.
Plan:
-Patient admitted 01/27/2025 with acute HF and found to have a newly reduced EF. He was also recently admitted with GIB and found to have new Afib at that time, he was seen by CBC initially and then decided to see Dr. Patel for follow up. On
readmission he had another echo and EF is now reduced with MR and
-Lasix increased to 40 mg IV BID on 02/01/25; Weight down 8 lbs since admission if recorded bed scale is correct. Volume status improved. Transition to oral Lasix 02/03/2025
-Cre up to 1.8 on my review of labs 02/02/2025. Cre was as high as 2.4 on 01/27/2025
-New to Farxiga 10 mg daily, but cost will be $140/month per CM, although not sure if he has to meet a deductible and then the zarate will drop.
-Outpatient dose of losartan is on hold due to TAMANNA
-Potassium 3.4. Would replete
-EF was 50% 11/17/24 and is now 20-25%. Tachycardia mediated CM is suspected, but should have an eventual ischemic evaluation eventually.
-MARY JANE as noted above shows EF of 15 to 20% with moderate MR and moderate , mild to moderate AI
-Patient had an attempted MARY JANE/CV 02/01/25, no TC clot, but CV was unsuccessful x3 attempts.
- Patient has received 2400 mg load of oral amiodarone as of 02/02/25 in early pm. Would continue 200 mg twice a day upon discharge and attempt CV again in 2-3 weeks as an outpatient
-Outpatient dose of Toprol XL was replaced with Coreg 3.125 mg BID. Blood pressure will allow for up titration to 6.25 mg twice a day. This hopefully will help both with his tachycardia as well as with his reduced ejection fraction.
-Patient is tolerating Xarelto 15 mg daily.
-Patient with GIB 11/2024 and EGD found duodenal ulcer. No recurrent bleeding and so Eliquis was started as an outpatient for Afib that was diagnosed during the 11/2024 admission. Patient and felt that Eliquis and metoprolol caused insomnia and
poor appetite so they were stopped as an outpatient. Stressed importance of continuing beta-jhon, amiodarone and Eliquis. Discussed if the Eliquis discontinued patient is at increased risk for thromboembolic event.
- TSH 0.71
Progress Note - [facility]
Subjective
Date of Service: February 02, 2025
Patient seen and examined. Patient resting comfortably in bed. Offers no specific cardiac complaints.
Objective
Labs:
02/02/25 07:40
02/02/25 07:40
Labs
Hgb 11.0 g/dL (13.0-18.0) L 02/02/25 07:40
Hct 35.6 % (39.0-52.0) L 02/02/25 07:40
Plt Count 202 10^3/uL (130-400) 02/02/25 07:40
PT 18.1 Sec (11.4-14.6) H 01/27/25 11:04
INR 1.47 01/27/25 11:04
APTT 33.5 Sec (23.4-35.0) 01/27/25 11:04
Sodium 139 mmol/L (135-145) 02/02/25 07:40
Potassium 3.4 mmol/L (3.5-5.1) L 02/02/25 07:40
BUN 43 mg/dl (9-20) H 02/02/25 07:40
Creatinine 1.8 mg/dL (0.7-1.3) H 02/02/25 07:40
Glucose 115 mg/dl (70-99) H 02/02/25 07:40
Vital Signs and I&O:
Vital Signs
Temp Pulse Resp BP Pulse Ox
97.6 F 75 18 125/85 94
02/02/25 11:18 02/02/25 11:18 02/02/25 11:18 02/02/25 11:18 02/02/25 11:18
Vital Signs
Temp Pulse Resp BP Pulse Ox
97.6 F 75 18 125/85 94
02/02/25 11:18 02/02/25 11:18 02/02/25 11:18 02/02/25 11:18 02/02/25 11:18
Intake & Output
01/31/25 02/01/25 02/02/25 02/03/25
06:59 06:59 06:59 06:59
Intake Total 1140 / 1140 860 / 860 1440 / 1440
Output Total 1275 / 1275 1050 / 1050 1575 / 1575
Balance -135 / -135 -190 / -190 -135 / -135
Physical Exam
Physical Exam
GEN: No distress, awake, Ox3, sitting in bed
HEENT: supple, anicteric, mmm
LUNGS: Mildly decreased at bases otherwise CTA, no wheezes/rales
CV: Irregularly irregular, S1/S2, 1/6 RSB murmur softer murmur at
ABD: soft, BS+, NT/ND
EXT: No edema, clubbing or cyanosis
NEURO: Gross non-focal
SKIN: No rash, warm, dry, pink
[2025-02-02 15:53] LABS: Glucose - Point of Care 125 mg/dl (70-99)
--- NOTE | 2025-02-02 17:28 | W.DCSUMMARY ---
Addendum entered and electronically signed by Wilda Osorio MD 02/02/25 18:05:
Read, reviewed, and agree. See same day progress note for additional details. Time spent coordinating care, DC planning, review of DC plan of care with resident, transition of care, review of records in EMR, med rec, consults, notes, d/w
consultants, nursing, family, and CM = 36 minutes
Original Note:
Discharge Summary
Discharge Data
Date of Admission: 01/27/25
Date of Discharge: 02/02/25
-
Pending Results: No
Hospital Course
Discharging Physician : Dr. Osorio
Disposition : [facility]/SNF
Primary care physician : Gordon Rodriguez
Principal Discharge diagnosis : Persistent atrial fibrillation with rapid ventricular response
Chronic Discharge diagnosis : HFrEF, chronic kidney disease stage IIIa, Parkinson's disease, peptic ulcer disease, essential hypertension, xwm-lituarg-kmijactqk type 2 diabetes mellitus, moderate aortic stenosis
Hospital Course : Patient is a 74-year-old male with a past medical history significant for hypertension, cok-lqijfdi-gzslkdvhi diabetes mellitus, essential tremor, dementia, who was recently hospitalized at [facility] from November 15 to November 20 due to
GI bleed with acute blood loss anemia requiring transfusion and TAMANNA. During that stay he was noted to be in atrial fibrillation with rapid ventricular response with a hide heart rate documented at 141. He was started on a beta-jhon and
discharged after spending time in the ICU and being medically stabilized. He presented to the emergency department with a significant amount of shortness of breath with activity including walking. At rest he was oxygenating well between 94 and 98%
with minimal exertion he became dyspneic. He denied any GI bleed, no chest pain, palpitations, but did note to have leg swelling with his left side being more swollen than the right which is the norm for him. He also had anorexia for the past 2
days prior to his presentation due to decreased oral intake. While in the emergency department it was noted that the patient had Kussmaul breathing. ED provider performed a bedside echo that revealed trace pericardial effusion. Cardiology was
consulted recommended starting heparin. Labs were remarkable for leukocytosis, metabolic acidosis with a pH of 7.28, serum bicarb of 14, anion gap of 15, and a creatinine level elevated at 2.4 from a baseline of 1.4. CXR revealed bilateral pleural
effusion without pneumonia. Patient was not on Eliquis as the patient unable to tolerate Eliquis. Patient was admitted to [facility] for acute exacerbation of heart failure with reduced ejection fraction exacerbated by atrial fibrillation with rapid
ventricular response.
The patient was admitted to the IMU with telemetry monitoring. Cardiology was consulted and echocardiogram was ordered showing an ejection fraction of 20 to 25% with a severely dilated ventricle, global hypokinesis with mild septal, anteroseptal,
inferior, and apical akinesis, moderate to severe mitral regurgitation, mild to moderate aortic stenosis. Patient was started on diltiazem which was later converted to carvedilol. Metformin was stopped due to lactic acidosis and avoid further
exacerbating metabolic acidosis. proBNP was found to be greater than 27,000. Xarelto was added for anticoagulation for atrial fibrillation. IV Lasix was given due to fluid overload. Metoprolol was discontinued because the patient was intolerant
to it and it was replaced with carvedilol. proBNP improved as the patient was diuresed. Unfortunately the patient remained in atrial fibrillation despite being given amiodarone 200 mg 3 times daily. The creatinine improved as diuresis continued
and cardiology recommended holding off on ANDREIA/ARB/Entresto. The patient was sent for cardioversion which was unfortunately unsuccessful and the patient remained in atrial fibrillation. The patient's IV Lasix was converted to oral Lasix. Farxiga
was added. It was decided that there should be no ANDREIA/ARB due to renal insufficiency. PT OT assessed the patient and recommended placement in a skilled rehab facility. Cardiology cleared the patient for discharge on amiodarone 200 mg twice a day
and that he would be followed up 10 days after discharge for repeat cardioversion. Patient believes that he is ready for discharge and would like to be discharged.
The patient has reached maximal benefit from this hospital admission and the patient is appropriate for discharge at the present time. There are no barriers that would impede the patient from being discharged from the hospital at the present time.
The patient should follow-up with their primary care provider within 1 week following discharge. The patient has an appointment with cardiology for repeat cardioversion in 10 days after discharge. Patient has been given contact information for the
cardiology group in order to continue following up.
Important imaging findings :
- Chest x-ray conducted on 01/17/2025:
Possible tiny bilateral pleural effusion
- Echocardiogram conducted on 11/17/2024:
EF 50%, inferolateral hypokinesis, moderate aortic stenosis, trace aortic regurgitation, mild mitral regurgitation, peak/mean aortic valve gradients 40/24 mmHg, aortic valve area 1.3 cm 2, pulmonary artery systolic pressure 29
- Echocardiogram conducted on 01/29/2025:
Ejection fraction 20 to 25% with severely dilated ventricle, global hypokinesis with mid septal, anteroseptal, inferior, and apical akinesis, moderate to severe MR, mild to moderate AAS with mean gradient of 16 mmHg aortic valve area 1.5 cm�, mild
AI, mild TR PA systolic of 41 mmHg
Procedure findings :
-Cardioversion on 02/01/2025:
Conclusion: Failed cardioversion of atrial fibrillation.
Recommendation: Routine post cardioversion care. Continue meterman anticoagulation.
Discharge Plan
-
Patient Disposition: [facility]dc/SNF
Discharge Diagnosis/Procedures: Persistent atrial fibrillation with rapid ventricular response, acute exacerbation of HFrEF, prerenal acute kidney injury on chronic kidney disease stage IIIa, acute anion gap metabolic acidosis, Parkinson's disease,
essential hypertension, bly-eqxqgml-uvvckynsj type 2 diabetes mellitus, moderate aortic stenosis
Condition: Fair
Diet: No restrictions
Activity: No restrictions and As tolerated
Driving Restrictions: As prior to admission
Bathing Restrictions: None
Referrals:
Gordon Rodriguez I., [Family Provider, Internal Medicine] - in less than 1 week
Fede Bailey MD [Active, Cardiology] - in one to two weeks
Pari Reis CRNP [Specified Professional Personl, Cardiology] - 02/15/25 10:20 am
Referral Note: You have cardiology follow-up with Pari Reis nurse practitioner on February 15 at 10:20 AM in [place] [place] which is located behind [facility]. If you are unable to make this appointment please call [phone]
to reschedule
Prescriptions:
New
carvedilol 6.25 mg Tablet
6.25 mg PO BID Qty: 30 0RF
dapagliflozin propanediol 10 mg Tablet
10 mg PO DAILY Qty: 30 0RF
furosemide 40 mg Tablet
40 mg PO DAILY Qty: 30 0RF
amiodarone 200 mg Tablet
200 mg PO BID Qty: 30 0RF
pantoprazole 40 mg Tablet,Delayed Release (Dr/Ec)
40 mg PO DAILY Qty: 30 0RF
Xarelto 15 mg Tablet
15 mg PO QPM Qty: 30 0RF
Continued
ezetimibe 10 MG tablet
10 mg PO DAILY
donepezil 10 mg Tablet
10 mg PO DAILY
Patient Comments:
Patient's family says that they have been giving this to him BID.
therapeutic multivitamin Tablet
1 tab PO DAILY
carbidopa-levodopa 25-100 mg Tablet
1.5 tab PO BID@0600,1200
carbidopa-levodopa 25-100 mg Tablet
1 tab PO QPM
memantine 10 mg Tablet
10 mg PO BID
PreserVision AREDS 2,148 mcg-113 mg-45 mg-17.4mg Tablet
1 tab PO BID
ZzzQuil 50 mg/30 mL Liquid
50 mg PO HSPRN PRN (Reason: sleep)
acetaminophen 325 mg Tablet
650 mg PO DAILYPRN PRN (Reason: hip pain)
polyvinyl alcohol [Artificial Tears (polyvin alc)] 1.4 % Drops
1 drp OPHTHALMIC (EYE) DAILYPRN PRN (Reason: dry eyes)
Discontinued
amoxicillin 500 mg capsule
500 mg PO TID
metformin 500 mg tablet
500 mg PO BID
losartan 100 mg tablet
100 mg PO DAILY
metoprolol succinate 25 mg tablet extended release 24 hr
25 mg PO BID
Discharge Orders:
Discharge Patient (As Directed); Ordered 02/02/25
Ordered By: Jesús Hernandez
Discharge Date and Time
Print Language: FAROESE
[2025-02-02] MEDS: KCL 40 MEQ PO (17:44)
[2025-02-02] MEDS: NOVOLOG FLEXPEN-LOW RESISTANCE SC (17:45)
[2025-02-02] MEDS: XARELTO 15 MG PO (17:45)
[2025-02-02] MEDS: COZAAR 12.5 MG PO (17:45)
[2025-02-02] MEDS: SINEMET 25-100 1 TABLET PO (18:15)
== END 2025-02-02 20:21 | DRG 682 ==
LOC: 4 WEST ACU 16:04
PROVIDERS: Internal Medicine; Internal Medicine Cardiovascular Disease; ADMITTING PHYSICIAN Internal Medicine; ATTENDING PHYSICIAN Internal Medicine; CONSULT PHYSICIAN Internal Medicine Cardiovascular Disease; EMERGENCY PHYSICIAN Emergency Medicine; FAMILY PHYSICIAN Internal Medicine
PROC: B24BZZ4 Ultrasonography of Heart with Aorta, Transesophageal (ICD-10-PCS; 2025-02-01)
PROC: 5A2204Z Restoration of Cardiac Rhythm, Single (ICD-10-PCS; 2025-02-01)
DX: N17.9 Acute kidney failure, unspecified (principal); I50.23 Acute on chronic systolic (congestive) heart failure; I48.19 Other persistent atrial fibrillation; I13.0 Hypertensive heart and chronic kidney disease with heart failure and stage 1 through stage 4 chronic kidney disease, or unspecified chronic kidney disease; E87.29 Other acidosis; N18.32 Chronic kidney disease, stage 3b; E11.22 Type 2 diabetes mellitus with diabetic chronic kidney disease; F02.80 Dementia in other diseases classified elsewhere, unspecified severity, without behavioral disturbance, psychotic disturbance, mood disturbance, and anxiety; G20.A1 Parkinson's disease without dyskinesia, without mention of fluctuations; D72.829 Elevated white blood cell count, unspecified; I08.0 Rheumatic disorders of both mitral and aortic valves; E86.9 Volume depletion, unspecified; Z66 Do not resuscitate; E78.00 Pure hypercholesterolemia, unspecified; G25.0 Essential tremor; I45.9 Conduction disorder, unspecified; K04.7 Periapical abscess without sinus; Z79.84 Long term (current) use of oral hypoglycemic drugs; Z79.899 Other long term (current) drug therapy; Z87.11 Personal history of peptic ulcer disease; Z87.891 Personal history of nicotine dependence
CPT/HCPCS: 71046; 80048; 80053; 80061; 80069; 81003; 82248; 82805; 82962; 83036; 83540; 83550; 83605; 83735; 83880; 84443; 84484; 85025; 85027; 85610; 85730; 86850; 86900; 86901; 87040; 87154; 87205; 92960; 93005; 93308; 93312; 93320; 93321; 93325; 96374; 97116; 97163; 97167; 97530; 97535; 99291

== ENCOUNTER → 2025-02-05 11:03 | Outpatient (REF) | payer OTHER, SELFPAY ==
[2025-02-05 12:30] LABS: Hematocrit 34.8 % (39.0-52.0); Hemoglobin 10.8 g/dL (13.0-18.0); Mean Corp Hgb Conc. 31.0 g/dL (33.0-37.0); Mean Corpuscular Volume 78.6 fL (80.0-94.0); Nucleated Red Blood Cells % 0 % (-); Platelet Count 228 10^3/uL (130-400); Red Cell Dist. Width 16.7 % (11.5-14.5)
[2025-02-05 12:34] LABS: Blood Urea Nitrogen 42 mg/dl (9-20); Calcium 8.7 mg/dl (8.4-10.2); Carbon Dioxide 22 mmol/L (22-30); Chloride 110 mmol/L (98-107); Glucose 125 mg/dl (70-99); Potassium 3.7 mmol/L (3.5-5.1); Sodium 138 mmol/L (135-145); eGFR 33.95
== END ==
LOC: OLABP 11:03
PROVIDERS: ATTENDING PHYSICIAN Family Medicine
DX: I48.91 Unspecified atrial fibrillation (principal); N18.30 Chronic kidney disease, stage 3 unspecified; G20.C Parkinsonism, unspecified
CPT/HCPCS: 36415; 80048; 85025

== ENCOUNTER → 2025-02-09 10:02 | Outpatient (REF) | payer OTHER, SELFPAY ==
[2025-02-09 10:46] LABS: Blood Urea Nitrogen 55 mg/dl (9-20); Calcium 8.8 mg/dl (8.4-10.2); Carbon Dioxide 19 mmol/L (22-30); Chloride 109 mmol/L (98-107); Glucose 131 mg/dl (70-99); Potassium 3.4 mmol/L (3.5-5.1); Sodium 139 mmol/L (135-145); eGFR 28.71
== END ==
LOC: OLABP 10:02
PROVIDERS: ATTENDING PHYSICIAN Family Medicine
DX: G20.A1 Parkinson's disease without dyskinesia, without mention of fluctuations (principal); I35.0 Nonrheumatic aortic (valve) stenosis; I48.19 Other persistent atrial fibrillation; N17.9 Acute kidney failure, unspecified; F03.90 Unspecified dementia, unspecified severity, without behavioral disturbance, psychotic disturbance, mood disturbance, and anxiety
CPT/HCPCS: 36415; 80048

== ENCOUNTER → 2025-02-13 11:05 | Outpatient (REF) | payer OTHER, SELFPAY ==
[2025-02-13 12:20] LABS: Hematocrit 36.7 % (39.0-52.0); Hemoglobin 11.1 g/dL (13.0-18.0); Mean Corp Hgb Conc. 30.2 g/dL (33.0-37.0); Mean Corpuscular Volume 79.3 fL (80.0-94.0); Platelet Count 279 10^3/uL (130-400); Red Cell Dist. Width 17.3 % (11.5-14.5)
[2025-02-13 12:35] LABS: Blood Urea Nitrogen 41 mg/dl (9-20); Calcium 8.9 mg/dl (8.4-10.2); Carbon Dioxide 24 mmol/L (22-30); Chloride 108 mmol/L (98-107); Glucose 126 mg/dl (70-99); Potassium 3.6 mmol/L (3.5-5.1); Sodium 139 mmol/L (135-145); eGFR 28.71
== END ==
LOC: OLABP 11:05
PROVIDERS: ATTENDING PHYSICIAN Family Medicine
DX: G20.A1 Parkinson's disease without dyskinesia, without mention of fluctuations (principal); I48.19 Other persistent atrial fibrillation; I35.0 Nonrheumatic aortic (valve) stenosis; N17.9 Acute kidney failure, unspecified; F03.90 Unspecified dementia, unspecified severity, without behavioral disturbance, psychotic disturbance, mood disturbance, and anxiety
CPT/HCPCS: 36415; 80048; 85027

== ENCOUNTER 2025-02-26 17:09 | Inpatient (IN) | payer OTHER, SELFPAY ==
[2025-02-26] VITALS (18 sets, daily range): BP systolic 72–109; BP diastolic 57–77; BMI 25.0; BMI 24.9
[2025-02-26 10:30] LABS: Hematocrit 35.5 % (39.0-52.0); Hemoglobin 10.8 g/dL (13.0-18.0); Mean Corp Hgb Conc. 30.4 g/dL (33.0-37.0); Mean Corpuscular Volume 76.3 fL (80.0-94.0); Nucleated Red Blood Cells % 0.7 % (-); Platelet Count 172 10^3/uL (130-400); Red Cell Dist. Width 19.6 % (11.5-14.5)
--- NOTE | 2025-02-26 10:37 | ED.GENMED ---
History of Present Illness
General
Chief Complaint: Weakness
Source: patient
Exam Limitations: none
Time Seen by Provider: 02/26/25 10:26
History of Present Illness
History of Present Illness:
74-year-old male with history of CHF, A-fib, GI bleeding, on Xarelto presents with generalized weakness. He was recently here in the hospital a couple weeks ago for heart failure exacerbation and GI bleeding. He denies chest pain. No slight
shortness of breath. He notes his cough is chronic and not new. No other complaints at this time
Past History
Past History
ED Past Medical History: HTN, Hypercholesterolemia and Other ('Essential tremor', dementia)
Phy Exam
Physical Exam
Physical Exam:
General: Well-appearing male no acute respiratory distress
HEENT normocephalic atraumatic
Heart: Regular rate and rhythm
Lungs: Clear no wheeze
Abdomen is soft nontender
Extremities: No cyanosis but mild edema
Course
Orders/Labs/Results
Orders:
Orders
02/26/25 10:17
Complete Blood Count/With Diff Urgent
Comprehensive Metabolic Panel Urgent
02/26/25 10:35
CR Chest - 2 Views Urgent
Comment:
Reason For Exam: weakness
02/26/25 10:53
CT Head W/o Iv Contrast Urgent
Comment:
Reason For Exam: weakness
02/26/25 10:59
Electrocardiogram (*1) Urgent
Reason for Study: Fatigue / Weakness
EKG- Treatment ONCE
02/26/25 11:06
COVID-19 Antigen Urgent
Source: Nasal Swab
Lactic Acid Q4H
Comment: CANCEL 2nd LACTIC ACID IF 1st LACTIC ACID IS LESS THAN 2
NT-proBNP Urgent
Troponin I Urgent
Urinalysis Reflex To Culture Urgent
Date Specimen was Collected: 02/26/25
Time Specimen was Collected: 11:01
Urine Microscopic Reflex Cult Urgent
Blood Culture Q30M
IRVIN Source: Blood/Venous
Specimen Description:
Blood Culture Q30M
IRVIN Source: Blood/Venous
Specimen Description:
Urine Culture Urgent
IRVIN Source: U
Specimen Description:
Date Specimen was Collected: 02/26/25
Time Specimen was Collected: 11:01
02/26/25 11:15
Lactic Acid Q4H
Comment: CANCEL 2nd LACTIC ACID IF 1st LACTIC ACID IS LESS THAN 2
02/26/25 12:17
0.9% Sodium Chloride 1000 ml [Nss] 1,000 ml IV BOLUS
02/26/25 12:29
Bladder Scan- Treatment ONCE
02/26/25 12:40
0.9% Sodium Chloride 500 ml [Nss] 500 ml IV BOLUS
Abnormal Lab Results
02/26/25 02/26/25
10:17 11:06
RBC 4.65 L 10^6/uL
(4.70-6.10)
Hgb 10.8 L g/dL
(13.0-18.0)
Hct 35.5 L %
(39.0-52.0)
MCV 76.3 L fL
(80.0-94.0)
MCH 23.2 L pg
(27.0-31.0)
MCHC 30.4 L g/dL
(33.0-37.0)
RDW 19.6 H %
(11.5-14.5)
MPV 11.3 H fL
(7.4-10.4)
Abs Immat Gran (auto) 0.1 H 10^3/uL
(0-0.05)
Absolute Neuts (auto) 9.1 H 10^3/uL
(1.4-6.5)
Absolute Lymphs (auto) 0.8 L 10^3/uL
(1.2-3.4)
Absolute Monos (auto) 0.7 H 10^3/uL
(0.1-0.6)
Neutrophils % 85.3 H %
(42.2-75.2)
Lymphocytes % 7.3 L %
(20.5-51.1)
Sodium 133 L mmol/L
(135-145)
Potassium 5.2 H mmol/L
(3.5-5.1)
Carbon Dioxide 15 L mmol/L
(22-30)
BUN 109 H* mg/dl
(9-20)
Creatinine 4.9 H* mg/dL
(0.7-1.3)
Glucose 114 H mg/dl
(70-99)
Lactic Acid 2.9 H mmol/L
(0.7-2.0)
Calcium 8.2 L mg/dl
(8.4-10.2)
Total Bilirubin 1.4 H mg/dl
(0.2-1.3)
AST 271 H U/L
(17-59)
Total Protein 5.0 L g/dl
(6.3-8.2)
Albumin 2.9 L g/dl
(3.5-5.0)
Ur Occult Blood Reflex 4+ A
(Negative)
Leukocyte Esterase Rfl 1+ A
(Negative)
Urine RBC 90-100 A /HPF
(0-2)
Urine WBC (Reflex) 16-20 A /HPF
(0-5)
Urine Bacteria (Reflex) Few A
(Negative)
Urine Albumin (Reflex) 2+ A
(Neg - Trace)
02/26/25 10:17
02/26/25 10:17
Vital Signs
Initial and Last Documented VS:
Initial Vital Signs
Temp Pulse Resp BP Pulse Ox
97.2 F 90 18 88/75 99
02/26/25 10:15 02/26/25 10:15 02/26/25 10:15 02/26/25 10:15 02/26/25 10:15
Last Documented Vital Signs
Temp Pulse Resp BP Pulse Ox
97.2 F 89 25 99/72 100
02/26/25 10:15 02/26/25 12:40 02/26/25 12:40 02/26/25 13:42 02/26/25 13:25
MDM/Problems Addressed
Differential Diagnosis Includes:
Patient via EMS from home for weakness. Hypotensive for EMS with a systolic in the 70s. He was given 900 mL of fluid en route. Review of his chart demonstrates an echocardiogram that had an ejection fraction of 20 to 25%. Fluids on hold for now
pending repeat blood pressure check. Will check labs. Rectal temperature is 97.2. Urinalysis chest x-ray pending. BNP and troponin pending.
*Pulse Oximetry
SaO2: 99
Oxygen Mode of Delivery: Room air
Patient hypoxic: no
*Critical Care Note
Total Time (30-74mins, 75-104mins- exclusive of procedures): Not Applicable
Update Note
Update Note:
Patient's blood pressure improved after fluids here. CT head negative. X-ray of chest shows small bilateral pleural effusions with cardiomegaly. Creatinine is 4.9. Bladder scan at bedside showed 0 on the bladder scan. Will admit to hospital for
generalized weakness, hypotension and acute kidney injury
ED Attending Note
-
Portions of this chart may have been created with voice recognition software.� Occasional wrong word or��sound alike� substitutions may have occurred due to the inherent limitations of voice recognition software.
Discharge Plan
Departure
Patient Disposition: Admit
Date of Disposition: 02/26/25
Time of Disposition: 13:48
Presentation/result/management discussed w/ accepting MD/DO: Hospitalist
Discharge Problem:
TAMANNA (acute kidney injury)
Prescriptions:
No Action
ezetimibe 10 MG tablet
10 mg PO DAILY
donepezil 10 mg Tablet
10 mg PO DAILY
therapeutic multivitamin Tablet
1 tab PO DAILY
carbidopa-levodopa 25-100 mg Tablet
1.5 tab PO BID@0600,1200
carbidopa-levodopa 25-100 mg Tablet
1 tab PO QPM
memantine 10 mg Tablet
10 mg PO BID
PreserVision AREDS 2,148 mcg-113 mg-45 mg-17.4mg Tablet
1 tab PO BID
ZzzQuil 50 mg/30 mL Liquid
50 mg PO HSPRN PRN (Reason: sleep)
polyvinyl alcohol [Artificial Tears (polyvin alc)] 1.4 % Drops
1 drp BOTH EYES DAILYPRN PRN (Reason: dry eyes)
carvedilol 6.25 mg Tablet
6.25 mg PO BID Qty: 30 0RF
dapagliflozin propanediol 10 mg Tablet
10 mg PO DAILY Qty: 30 0RF
amiodarone 200 mg Tablet
200 mg PO BID Qty: 30 0RF
pantoprazole 40 mg Tablet,Delayed Release (Dr/Ec)
40 mg PO DAILY Qty: 30 0RF
Xarelto 15 mg Tablet
15 mg PO QPM Qty: 30 0RF
ferrous sulfate 325 mg (65 mg iron) Tablet
325 mg PO DAILY
docusate sodium [Colace] 100 mg Capsule
100 mg PO HSPRN PRN (Reason: constipation)
melatonin 1 mg Tablet,Chewable
4 mg PO HS
furosemide 40 mg tablet
20 mg PO DAILY
Referrals:
Gordon Rodriguez I. DO [Family Provider, Internal Medicine]
Interventions
Interventions:
*Risk Screen - Suicide Last Done: 02/26/25 10:15
*General Assessment Last Done: 02/26/25 10:15
*Neglect/Abuse Screening Last Done: 02/26/25 10:15
*ED- Fall Risk Assessment Last Done: 02/26/25 10:15
ED- Cardiac Assessment Last Done: 02/26/25 10:29
ED- Neurological Assessment Last Done: 02/26/25 10:29
ED- Pulmonary Assessment Last Done: 02/26/25 10:29
Discharge Date and Time
Print Language: HUNGARIAN
[2025-02-26 11:07] LABS: ALT (SGPT) 18 U/L (0-50); AST (SGOT) 271 U/L (17-59); Albumin 2.9 g/dl (3.5-5.0); Alkaline Phosphatase 109 U/L (38-126); Blood Urea Nitrogen 109 mg/dl (9-20); Calcium 8.2 mg/dl (8.4-10.2); Carbon Dioxide 15 mmol/L (22-30); Chloride 104 mmol/L (98-107); Estimated Creatinine Clearance 13 ml/min; Glucose 114 mg/dl (70-99); Potassium 5.2 mmol/L (3.5-5.1); Sodium 133 mmol/L (135-145); Total Protein 5.0 g/dl (6.3-8.2); eGFR 11.58
[2025-02-26 11:33] LABS: Urine Character Clear (Clear)
[2025-02-26 11:43] LABS: COVID-19 Antigen Negative (Negative)
[2025-02-26 11:55] LABS: Troponin I < 0.012 ng/ml
[2025-02-26] MEDS: NSS 500 IV (12:44)
[2025-02-26 12:48] LABS: Urine Squamous Cell 0-2 /LPF (Few)
[2025-02-26 12:51] LABS: Urine Red Blood Cell 90-100 /HPF (0-2); Urine White Cell 16-20 /HPF (0-5)
--- NOTE | 2025-02-26 12:52 | CON.CAR ---
Addendum entered and electronically signed by Fede Bailey MD 02/26/25 17:22:
74-year-old man admitted in November with GI bleeding and then again February 02 in rapid atrial fibrillation and heart failure and found to have an ejection fraction of 20-25 %. He failed cardioversion, was started on amiodarone, discharged with plans to
perform outpatient cardioversion and admitted now with weakness and found to have acute kidney injury on CKD, creatinine 4.9.
PMH: Acute heart failure with reduced EF, GI bleed with paroxysmal atrial fibrillation October 2024 and again January 2025, mild to moderate aortic stenosis, moderate to severe MR, metabolic acidosis possibly related to metformin, duodenal ulcer with
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
Outpatient meds: Amiodarone 200 mg twice daily, carbidopa 1.5 mg twice daily, carvedilol 6.25 twice a day, dapagliflozin 10 mg a day, donepezil 10 mg a day, ezetimibe 10 mg a day, iron, furosemide 20 mg a day, memantine 10 mg twice daily,
pantoprazole 40 mg a day, rivaroxaban 15 mg a day
99/72, pulse 89, resp rate 25, afebrile, somewhat lethargic, lungs are relatively clear, regular rate and rhythm, rate 80s soft systolic murmur, JVD hard to assess, abdomen benign, not much edema, he appears relatively comfortable, somewhat
lethargic, regular rate and rhythm in the 80s, lungs are relatively clear, not much edema
ECG: Possible slow atrial flutter/atrial tach with 2:1 conduction and PVCs, possibly sinus tachycardia
Chest x-ray: Cardiomegaly, some blunting in the bases vascular congestion possible
Hemoglobin 10.8, white count 10.7, sodium 133, potassium 5.2, BUN and creatinine are 109 and 4.9, CO2 is 15, anion gap is 14, lactic acid is 3, AST is 271, troponin is undetectable, proBNP is greater than 27,000
Impression:
As below per TS. Reviewed in detail and agree, unless otherwise specified
Hypotension, lethargy, weakness
TAMANNA on CKD 3B
Chronic HFrEF, not markedly symptomatic at present
Hyponatremia, hyperkalemia
Cardiomyopathy, EF 20% with moderate MR and mild to moderate , tachycardia mediated versus ischemic
Persistent atrial fibrillation, now sinus rhythm versus slow atrial flutter 2-1
Parkinson's
Dementia
Peptic ulcer disease November 2024 requiring transfusion
Type 2 diabetes
Hypertension
Hypercholesterolemia
Plan:
He presents with lethargy, weakness, elevated lactate, and a markedly elevated proBNP in the setting of severe TAMANNA on CKD. He had lactic acidosis during a hospital stay for atrial fibrillation and GI bleeding, and a second hospital stay for A-fib
with RVR and tachycardia mediated cardiomyopathy
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 There is concern for a low output state is the primary goat driver of the TAMANNA.
We will repeat his echocardiogram. Hold Farxiga and furosemide. He has received IV fluid. Await renal consultation. If renal function improves with withdrawal of Farxiga and furosemide, strategy of continued conservative management would be
appropriate. Right heart catheterization, pressor and inotropic support, etc. can be considered thereafter if he fails to respond.
I have ordered a random cortisol, not checked during prior hospital stays.
Original Note:
Consultation
Consultation Request
Date/Time Consultation Requested: 02/26/2025
Date/Time Consultation Performed: 02/26/2025
Requesting Provider: Nazario Pillai PA-C
Performing Provider: Kerry Mayberry PA-C for Dr. MARCIA Bailey
Reason for Consultation: CHF, hypotension
Medical History
-
History of Present Illness:
HPI: Jl is a 74-year-old male with past medical history of chronic HFrEF, cardiomyopathy with EF 20%, CKD, persistent atrial fibrillation, duodenal ulcer with prior GI bleeding, type II DM, hypertension, Parkinson's, and dementia. He
presented to [facility] ER for evaluation of headache, weakness, and shortness of breath. He was recently admitted 01/27/2025 to 02/02/2025 with acute heart failure and rapid A-fib. He initially did well post discharge, but over the past few days has
slowly been declining. He has stopped eating and drinking and has become increasingly weak. Yesterday, his states that when trying to transfer him to the commode, he slid out of bed onto the floor. He describes having a headache and feeling
lightheaded fairly consistently. No fevers or chills. Breathing has worsened over the past few days as well. This a.m., given significant weakness, EMS was called and he was brought to ER for evaluation. He was hypotensive when EMS arrived and
he was given IVF's en route. BP 74/64 in ER and again gently hydrated in ER while awaiting testing results. Lab work revealed creatinine up to 4.9 with potassium of 5.2. UA with possible urinary tract infection. Blood and urine cultures were
drawn and are pending. There is also concern for acute heart failure with proBNP >27,000 and small pleural effusions on chest x-ray. Weight has been downtrending, down to 167 pounds at home. He continues on lower dose Lasix 20 mg daily as
outpatient. He notes that he does have some improvement in his symptoms following IVF's and with improvement in BPs.
PMH:
Chronic HFrEF
CM, EF 20% by echo 01/29/25
Mild to mod
Moderate to severe MR
CKD 3B
Persistent atrial fibrillation
Chronic Eliquis OAC
Duodenal ulcer s/p upper GI bleed requiring transfusion 11/2024
Type 2 diabetes
Hypertension
Parkinson's disease
Dementia
Past Medical History
Past Medical History: Other (In HPI)
Past Surgical History: Cholecystectomy and Other (Herniorrhaphy, hemorrhoidectomy)
Social History
Tobacco: Former Smoker
Alcohol: None
Drug: None
Personal:
Living: With Family
Employment: Retired
Family History
Family History: Reviewed & Not Pertinent
Allergies / Home Medications
Allergy/AdvReac Type Severity Reaction Status Date / Time
No Known Drug Allergies Allergy Unknown Verified 02/26/25 10:21
pollen extracts Allergy Seasonal - Verified 02/26/25 10:21
sneezing,
runny nose
metformin AdvReac Severe metabolic Verified 02/26/25 10:21
acidosis
�Medication �Instructions �Recorded �Confirmed �Type
ezetimibe 10 mg tablet 10 mg PO DAILY High Cholesterol 10/24/12 02/26/25 History
carbidopa 25 mg-levodopa 100 mg 1 tab PO QPM Neurological Condition 11/15/24 02/26/25 History
tablet
carbidopa 25 mg-levodopa 100 mg 1.5 tab PO BID@0600,1200 11/15/24 02/26/25 History
tablet Neurological Condition
diphenhydramine HCl 50 mg/30 mL 50 mg PO HSPRN PRN sleep 11/15/24 02/26/25 History
oral liquid (ZzzQuil)
donepezil 10 mg tablet 10 mg PO DAILY Neurological 11/15/24 02/26/25 History
Condition
memantine 10 mg tablet 10 mg PO BID Neurological Condition 11/15/24 02/26/25 History
therapeutic multivitamin 1 tab PO DAILY Supplement 11/15/24 02/26/25 History
vitamins A,C,Q-faqn-cfjsdm 2,148 1 tab PO BID Supplement 11/15/24 02/26/25 History
mcg-113 mg-45 mg-17.4 mg tablet
(PreserVision AREDS)
polyvinyl alcohol 1.4 % eye drops 1 drp BOTH EYES DAILYPRN PRN dry 01/27/25 02/26/25 History
(Artificial Tears (polyvinyl eyes
alcohol))
amiodarone 200 mg tablet 200 mg PO BID #30 tabs 02/02/25 02/26/25 Rx
carvedilol 6.25 mg tablet 6.25 mg PO BID Arrhythmia #30 tabs 02/02/25 02/26/25 Rx
dapagliflozin propanediol 10 mg 10 mg PO DAILY #30 tabs 02/02/25 02/26/25 Rx
tablet
pantoprazole 40 mg tablet,delayed 40 mg PO DAILY Gastrointestinal 02/02/25 02/26/25 Rx
release issue #30 tabs
rivaroxaban 15 mg tablet (Xarelto) 15 mg PO QPM Blood clot 02/02/25 02/26/25 Rx
prevention/tx #30 tabs
docusate sodium 100 mg capsule 100 mg PO HSPRN PRN constipation 02/26/25 02/26/25 History
(Colace)
ferrous sulfate 325 mg (65 mg 325 mg PO DAILY 02/26/25 02/26/25 History
iron) tablet
furosemide 40 mg tablet 20 mg PO DAILY 02/26/25 02/26/25 History
melatonin 1 mg chewable tablet 4 mg PO HS 02/26/25 02/26/25 History
Review of Systems
-
History Source: Patient and Family
All other systems: Negative unless noted
Physical Exam
Vital Signs
Temp Pulse Resp BP Pulse Ox
97.2 F 91 26 88/57 97
02/26/25 10:15 02/26/25 12:20 02/26/25 12:20 02/26/25 12:20 02/26/25 12:20
Lab Results
02/26/25 10:17
02/26/25 10:17
Troponin I < 0.012 ng/ml 02/26/25 11:06
Ilf-F-Hpohacrrpgj Pept > 58795 pg/ml 02/26/25 11:06
Physical Exam
General: Well Developed, Well Nourished and No Apparent Distress
HEENT: Normocephalic and Moist Mucous Membranes
Respiratory: Non Labored Respirations
Cardiac: S1/S2, Regular Rhythm and Murmur
Musculoskeletal: No Clubbing, No Cyanosis and Edema
Skin: Warm and Dry
Neuro: Awake, Alert and Nonfocal/Grossly Intact
Psych: Calm
Impression / Plan
-
PCP: Dr. Rodriguez
Card: Dr. Patel
Impression:
Presented with weakness, SOB, fall
TAMANNA on CKD 3b
Hypotension
Hyperkalemia
Chronic HFrEF
CM, EF 20% by echo 01/29/25
Mild to mod
Moderate to severe MR
Persistent atrial fibrillation
Chronic Eliquis OAC
Duodenal ulcer s/p upper GI bleed requiring transfusion 11/2024
Type 2 diabetes
Hypertension
Parkinson's disease
Dementia
Echo 11/17/2024: EF 50%, inferolateral hypokinesis, moderate aortic stenosis, trace aortic regurgitation, mild mitral regurgitation, peak/mean aortic valve gradients 40/24 mmHg, aortic valve area 1.3 cm 2, pulmonary artery systolic pressure 29
Echo 01/29/2025: Ejection fraction 20 to 25% with severely dilated ventricle, global hypokinesis with mid septal, anteroseptal, inferior, and apical akinesis, moderate to severe MR, mild to moderate with mean gradient of 16 mmHg aortic valve area
1.5 cm�, mild AI, mild TR PA systolic of 41 mmHg
MARY JANE 02/01/2025: EF 15 to 20%. Global hypokinesis. Mild left atrial dilation. No thrombus in left atrial appendage. Moderate mitral regurgitation with restriction of posterior leaflet. Moderate aortic stenosis with mild to moderate AI. Mild TR.
Plan:
-Presented with weakness and shortness of breath. Admitted with TAMANNA, hypotension.
-Creatinine 4.9 on arrival. Given gentle IVF in ER.
-Will hold Lasix, Farxiga. Likely will need nephrology evaluation.
-Urine cultures and blood cultures pending. UA suspicious for possible urinary tract infection. Defer management to primary service.
-Hypotensive on arrival, improving following IVFs in ER. Continue to hold carvedilol for now, and will add back as BP allows
-EKG reviewed, SR with first-degree AV block. Heart rate stable. Continue amiodarone 200 mg twice daily. As outpatient, plan was to decrease dose to 200 mg daily on 03/05.
-He is currently scheduled for CV on 03/08, however as he is in SR at this time, can cancel procedure if he remains in SR at time of discharge.
-Continues on Xarelto 15 mg daily.
-Known cardiomyopathy with EF 15 to 20% by MARY JANE 02/01/2025. No need to repeat echo at this time.
-Follow volume status closely. Weight overall has been downtrending since last admission, down to 167 pounds at home. proBNP >27,000 and small bilateral pleural effusions noted on chest x-ray. As above, holding Lasix for now given creatinine of
4.9.
-K 5.2, continue to follow.
HPI: Jl is a 74-year-old male with past medical history of chronic HFrEF, cardiomyopathy with EF 20%, CKD, persistent atrial fibrillation, duodenal ulcer with prior GI bleeding, type II DM, hypertension, Parkinson's, and dementia. He
presented to [facility] ER for evaluation of headache, weakness, and shortness of breath. He was recently admitted 01/27/2025 to 02/02/2025 with acute heart failure and rapid A-fib. He initially did well post discharge, but over the past few days has
slowly been declining. He has stopped eating and drinking and has become increasingly weak. Yesterday, his states that when trying to transfer him to the commode, he slid out of bed onto the floor. He describes having a headache and feeling
lightheaded fairly consistently. No fevers or chills. Breathing has worsened over the past few days as well. This a.m., given significant weakness, EMS was called and he was brought to ER for evaluation. He was hypotensive when EMS arrived and
he was given IVF's en route. BP 74/64 in ER and again gently hydrated in ER while awaiting testing results. Lab work revealed creatinine up to 4.9 with potassium of 5.2. UA with possible urinary tract infection. Blood and urine cultures were
drawn and are pending. There is also concern for acute heart failure with proBNP >27,000 and small pleural effusions on chest x-ray. Weight has been downtrending, down to 167 pounds at home. He continues on lower dose Lasix 20 mg daily as
outpatient. He notes that he does have some improvement in his symptoms following IVF's and with improvement in BPs.
Data Reviewed
-
EKG: Tracing Personally Visualized and interpreted
Radiology: Report Reviewed by me
Labs: Labs Reviewed by me
Old Records: Reviewed
--- NOTE | 2025-02-26 16:58 | W.CON.NEPH ---
Addendum entered and electronically signed by Jenn Chávez MD 02/26/25 17:58:
would not add IVF , ok to use prn for hypotension
likely inotrope/pressor needed if hypotension persists
Original Note:
Consultation
-
Date/Time Consultation Requested: 02/26/25 1615
Date/Time Consultation Performed: 02/26/25 1715
Requesting Provider: Juliette Nicholson
Performing Provider: Jenn Ojeda
Reason for Consultation: TAMANNA with CKD
Medical History
-
Chief Complaint: Gen weakness
History of Present Illness:
74-year-old male with past medical history of chronic HFrEF, cardiomyopathy with EF 20% on lasix 20mg daily, Farxiga, CKD variable cr at best at 1.4, recently low 2 range, persistent atrial fibrillation on Amiodarone, Xarelto, duodenal ulcer with
prior GI bleeding on PPI , type II DM on Farxiga, hypertension on coreg, Parkinson's on sinemet, and dementia memantine and Donepezil presented to ER for Gen weakness and slid off bed last night. He was recently admitted 01/27/2025 to 02/02/2025
with acute heart failure and rapid A-fib. He was sent home with Lasix 40 mg, Farxiga, PPI and coreg. During his follow-up on the with the cardiology Lasix dose was decreased with increasing creatinine. over the past few days has slowly been
declining, Nausea, decreased appetite and feeling dizzy. He progressively became weak and slid out of bed yesterday. Today he noticed even more weaker and his family brought him to the hospital. In the EMS blood pressures were low in 70s,
received 900cc of normal saline. In the ER he received 500 cc of normal saline. Blood pressure now improved to 90s, creatinine increased at 4.9, BUN 109, bicarbonate of 15, lactic acid 3, potassium 5.2, sodium 133, hemoglobin 10.8. he reports having
constant urge of urinating but no urine comes out. Bladder scan and noted 0 in the ER. Urine sample today has hematuria. Chest x-ray shows small pleural effusion, BNP more than 27,000.
Patient reportedly had a headache and shortness of breath on arrival which seemed to improve. He also feels very exhausted and tired and slow to talk. Maybe slight confusion according to the family likely related to exhaustion.
No reported fevers or chills, no abdominal pain and diarrhea. He has nausea.
Past Medical History
Chronic HFrEF
CM, EF 20% by echo 01/29/25
Mild to mod
Moderate to severe MR
CKD 3B
Persistent atrial fibrillation
Chronic Eliquis OAC
Duodenal ulcer s/p upper GI bleed requiring transfusion 11/2024
Type 2 diabetes
Hypertension
Parkinson's disease
Dementia
Past Surgical History: Cholecystectomy and Other ((Herniorrhaphy, hemorrhoidectomy)
Social History
Tobacco: Former Smoker
Alcohol: None
Drug: None
Personal:
Living: With Family
Employment: Retired
Family History
Family History: Not Pertinent
Allergies / Home Medications
Allergy/AdvReac Type Severity Reaction Status Date / Time
No Known Drug Allergies Allergy Unknown Verified 02/26/25 10:21
pollen extracts Allergy Seasonal - Verified 02/26/25 10:21
sneezing,
runny nose
metformin AdvReac Severe metabolic Verified 02/26/25 10:21
acidosis
�Medication �Instructions �Recorded �Confirmed �Type
ezetimibe 10 mg tablet 10 mg PO DAILY High Cholesterol 10/24/12 02/26/25 History
carbidopa 25 mg-levodopa 100 mg 1 tab PO QPM Neurological Condition 11/15/24 02/26/25 History
tablet
carbidopa 25 mg-levodopa 100 mg 1.5 tab PO BID@0600,1200 11/15/24 02/26/25 History
tablet Neurological Condition
diphenhydramine HCl 50 mg/30 mL 50 mg PO HSPRN PRN sleep 11/15/24 02/26/25 History
oral liquid (ZzzQuil)
donepezil 10 mg tablet 10 mg PO DAILY Neurological 11/15/24 02/26/25 History
Condition
memantine 10 mg tablet 10 mg PO BID Neurological Condition 11/15/24 02/26/25 History
therapeutic multivitamin 1 tab PO DAILY Supplement 11/15/24 02/26/25 History
vitamins A,C,D-phnd-jxmxua 2,148 1 tab PO BID Supplement 11/15/24 02/26/25 History
mcg-113 mg-45 mg-17.4 mg tablet
(PreserVision AREDS)
polyvinyl alcohol 1.4 % eye drops 1 drp BOTH EYES DAILYPRN PRN dry 01/27/25 02/26/25 History
(Artificial Tears (polyvinyl eyes
alcohol))
amiodarone 200 mg tablet 200 mg PO BID #30 tabs 02/02/25 02/26/25 Rx
carvedilol 6.25 mg tablet 6.25 mg PO BID Arrhythmia #30 tabs 02/02/25 02/26/25 Rx
dapagliflozin propanediol 10 mg 10 mg PO DAILY #30 tabs 02/02/25 02/26/25 Rx
tablet
pantoprazole 40 mg tablet,delayed 40 mg PO DAILY Gastrointestinal 02/02/25 02/26/25 Rx
release issue #30 tabs
rivaroxaban 15 mg tablet (Xarelto) 15 mg PO QPM Blood clot 02/02/25 02/26/25 Rx
prevention/tx #30 tabs
docusate sodium 100 mg capsule 100 mg PO HSPRN PRN constipation 02/26/25 02/26/25 History
(Colace)
ferrous sulfate 325 mg (65 mg 325 mg PO DAILY 02/26/25 02/26/25 History
iron) tablet
furosemide 40 mg tablet 20 mg PO DAILY 02/26/25 02/26/25 History
melatonin 1 mg chewable tablet 4 mg PO HS 02/26/25 02/26/25 History
Review of Systems
-
All other systems: Negative unless noted
Physical Exam
Vital Signs
Vital Signs
Temp Pulse Resp BP Pulse Ox
97.2 F 84 25 109/62 98
02/26/25 10:15 02/26/25 16:00 02/26/25 16:00 02/26/25 16:00 02/26/25 15:22
Lab Results
WBC 10.7 10^3/uL (4.8-10.8) 02/26/25 10:17
RBC 4.65 10^6/uL (4.70-6.10) L 02/26/25 10:17
Hgb 10.8 g/dL (13.0-18.0) L 02/26/25 10:17
Hct 35.5 % (39.0-52.0) L 02/26/25 10:17
Plt Count 172 10^3/uL (130-400) 02/26/25 10:17
Sodium 133 mmol/L (135-145) L 02/26/25 10:17
Potassium 5.2 mmol/L (3.5-5.1) H 02/26/25 10:17
Chloride 104 mmol/L (98-107) 02/26/25 10:17
Carbon Dioxide 15 mmol/L (22-30) L 02/26/25 10:17
BUN 109 mg/dl (9-20) H* 02/26/25 10:17
Creatinine 4.9 mg/dL (0.7-1.3) H* 02/26/25 10:17
eGFR 11.58 02/26/25 10:17
Glucose 114 mg/dl (70-99) H 02/26/25 10:17
Calcium 8.2 mg/dl (8.4-10.2) L 02/26/25 10:17
Mka-P-Pzycggpwgrr Pept > 57637 pg/ml 02/26/25 11:06
Albumin 2.9 g/dl (3.5-5.0) L 02/26/25 10:17
Physical Exam
General: Awake, Alert, Oriented, AOx3, No Distress and Nontoxic
HEENT: EOMI, Anicteric, Conjunctivae Clear, Facial Symmetry and No JVD
Respiratory: Normal Excursion, Nonlabored Respirations and Other ( Decreased breath sounds bilaterally)
Cardiac: S1/S2, Regular Rate/Rhythm and Murmur
Breast: Deferred by me
Abdomen: Soft, Nontender and Nondistended
Musculoskeletal: No Cyanosis and Edema ( trace)
Skin: No Rash
Neuro: Nonfocal/Grossly Intact
Psych: Appropriate
Data Reviewed
-
Labs: Labs Reviewed by me, Discussed with Patient and Discussed with Family
Assessment/Plan
-
IMP:
Gen weakness
TAMANNA on CKD 3b-cr variable at best at 1.4, at last d/c in January low 2 range
Azotemia
Hypotension
Hyperkalemia
non gap met acidosis, mild Lactic acid
Hyponatremia
Chronic HFrEF
CM, EF 20% by echo 01/29/25
Mild to mod
Moderate to severe MR
Persistent atrial fibrillation
Chronic AC with ELiquis
Duodenal ulcer s/p upper GI bleed requiring transfusion 11/2024
Type 2 diabetes
Hypertension
Parkinson's disease
Dementia
plan:
Recent d/c after treating CHF and Afib now returns with gen weakness, fall
TAMANNA with CKD-widely fluctuating cr suggests cardiorenal, last cr at 2.3 on 02/13 and at best was 1.4 in November 2024
bland UA baseline, current UA with hematuria and pyuria with few tod-await cx
bladder scan 0, renal US noted from November with cysts
current TAMANNA suspect prerenal poor intake, hypotension and diuretic use
BP improved s/p 1400cc NS bolus in ER and EMS, await cx date, abx per primary
hold anti HTN meds, farxiga and diuretics , vol status seem stable on RA, CXR Noted only small pleural effusion
Azotemia is likely from above, hb seem stable
would add po bicarb for met acidosis, trend L acid
expect potassium to improve
corrected ned is normal
avoid nephrotoxins
no emergent need of HD however likely not ideal candidate with poor flow state and frail status
This was discussed in detail with the family
CC time spent 40min
--- NOTE | 2025-02-26 17:49 | HPS.HSE ---
Addendum entered and electronically signed by Wilda Osorio MD 02/26/25 18:38:
I personally performed a history and physical exam of the patient and discussed management with the resident. I reviewed the resident's note and agree with the documented findings and plan of care HPI/CC.
GENERAL: chronically ill appearing male, lethargic but in no apparent distress--cool to touch
HEENT: NC/AT--not hypoxic--no O2 requirements
HEART: irreg irreg +S1, +S2, FER--? gallop
LUNGS : decreased breath sounds bilaterally
ABDOM: soft, nontender, nondistended, + bowel sounds
EXT: no cyanosis, clubbing--edema bilateral LE--right > left
NEUROLOGIC: grossly intact
Acute on chronic exacerbation of congestive heart failure with hypotension and TAMANNA/hyperkalemia/hyponatremia--strongly suspect cardiogenic shock but at the very least is cardiorenal syndrome--cannot give IVF with proBNP 27,000--cannot diurese with
creat 4.9, hypotension--may need pressor support, consider right heart cath, would repeat ECHO--trend troponin--consult cards/renal--apprec input--renal dose meds--avoid nephrotoxic drugs--daily weight, I/Os--trend creat--levophed ordered if needed
(actually first line for cardiogenic shock)--
metabolic acidosis--with lactic acid of 3.0--DO NOT suspect sepsis--to me, indicates more anaerobic metabolism--metformin stopped last admission, Farxiga stopped this one--may need biacrb
Persistent atrial fibrillation with rapid ventricular response--EKG to my eye appears different than on first admission--apprec cards--hold Xarelto--cont amiodarone--plans for repeat cardioversion (failed last admission) now on hold
Microscopic hematuria-- Urinalysis shows 4+ occult blood, urine RBC 90 per high-power field, 16-20 urine WBC-- check renal ultrasound to rule out obstruction, evaluate the kidney morphology, detect any tumors- Holding patient's home dose of Xarelto
and using SCDs as DVT prophylaxis instead
Parkinson's disease/dementia-- Continue on carbidopa levodopa donepezil and memantine
DVT proph -- SCDs
code status--DNR
prognosis guarded at best--might be time to discuss goal of care
Original Note:
Family Physician
-
Family Physician: Gordon Rodriguez
Chief Complaint
-
Weakness and lethargy
History of Present Illness
74-year-old male with a history of CHF with an ejection fraction of 20%, CKD, A-fib, previous history of GI bleeding on Xarelto, Parkinson's disease presents with generalized weakness that has been experiencing for the past 3 days. He was recently
here for heart failure exacerbation and GI bleeding a couple of weeks ago in the hospital. From there he was discharged to [facility]. He was doing great up until 2 weeks ago, he was able to walk by himself eat, drink, walk up and down the stairs.
Then he started to decompensate and would not eat, drink, do simple tasks like get up from a sofa without slipping, get up off his bed by himself, go up and down the stairs. He was scheduled to see [facility] for cardioversion for his A-fib 10
days after discharge but did not make the appointment. He presented to the ED via EMS and was given 500 mL of IVF's and route.
Today he complains of weakness, headache, shortness of breath. No nausea, vomiting, recent trauma, abdominal pain, constipation/diarrhea, muscle/joint pain.
Medical History
Past Medical History
Past Medical History: Reports Arrhythmia, CHF and Psychiatric (Parkinson's disease)
Past Surgical History: Reports Cholecystectomy
Additional Past Surgical History:
Hernia raphe, hemorrhoidectomy
Social History
Tobacco: Former Smoker
Alcohol: None
Drug: None
Personal:
Living: With Family
Employment: Retired
Family History
Family History: Not pertinent
Allergies / Home Medications
Allergies reflects when Allergies were last updated in [facility].
Home Medications with original date entered in [facility]
Allergy/Medication List:
Allergies
Allergy/AdvReac Type Severity Reaction Status Date / Time
No Known Drug Allergies Allergy Unknown Verified 02/26/25 10:21
pollen extracts Allergy Seasonal - Verified 02/26/25 10:21
sneezing,
runny nose
metformin AdvReac Severe metabolic Verified 02/26/25 10:21
acidosis
Home Medications
ezetimibe 10 mg tablet 10 mg PO DAILY High Cholesterol 10/24/12
carbidopa 25 mg-levodopa 100 mg tablet 1 tab PO QPM Neurological Condition 11/15/24
carbidopa 25 mg-levodopa 100 mg tablet 1.5 tab PO BID@0600,1200 Neurological Condition 11/15/24
diphenhydramine HCl 50 mg/30 mL oral liquid (ZzzQuil) 50 mg PO HSPRN PRN sleep 11/15/24
donepezil 10 mg tablet 10 mg PO DAILY Neurological Condition 11/15/24
memantine 10 mg tablet 10 mg PO BID Neurological Condition 11/15/24
therapeutic multivitamin 1 tab PO DAILY Supplement 11/15/24
vitamins A,C,R-xput-stocqd 2,148 mcg-113 mg-45 mg-17.4 mg tablet (PreserVision AREDS) 1 tab PO BID Supplement 11/15/24
polyvinyl alcohol 1.4 % eye drops (Artificial Tears (polyvinyl alcohol)) 1 drp BOTH EYES DAILYPRN PRN dry eyes 01/27/25
amiodarone 200 mg tablet 200 mg PO BID #30 tabs 02/02/25
carvedilol 6.25 mg tablet 6.25 mg PO BID Arrhythmia #30 tabs 02/02/25
dapagliflozin propanediol 10 mg tablet 10 mg PO DAILY #30 tabs 02/02/25
pantoprazole 40 mg tablet,delayed release 40 mg PO DAILY Gastrointestinal issue #30 tabs 02/02/25
rivaroxaban 15 mg tablet (Xarelto) 15 mg PO QPM Blood clot prevention/tx #30 tabs 02/02/25
docusate sodium 100 mg capsule (Colace) 100 mg PO HSPRN PRN constipation 02/26/25
ferrous sulfate 325 mg (65 mg iron) tablet 325 mg PO DAILY 02/26/25
furosemide 40 mg tablet 20 mg PO DAILY 02/26/25
melatonin 1 mg chewable tablet 4 mg PO HS 02/26/25
Review of Systems
-
History Source: Patient
A 12 point ROS was completed and negative except as noted: Yes
Respiratory: Reports Trouble Breathing
Neurological: Reports Headache and Weakness
Physical Exam
Vital Signs
Vital Signs
Temp Pulse Resp BP Pulse Ox
97.2 F 85 24 93/69 98
02/26/25 10:15 02/26/25 17:00 02/26/25 17:00 02/26/25 17:00 02/26/25 17:00
Physical Exam
General: No Apparent Distress and Appears Chronically Ill
HEENT: NormoCephalic, Anicteric, Moist mucous membranes and Other (left mandibular dental infection)
Respiratory: Clear and Non Labored Respirations
Cardiac: S1/S2 and Irregular Rhythm
GI: Soft, Non Tender and Non Distended
Musculoskeletal: No Clubbing, No Cyanosis, Edema, Left Lower Extremity (1+) and Edema, Right Lower Extremity (1+)
Skin: Warm and Dry
Neuro: AO x 3
Psych: Calm
Laboratory Results
-
02/26/25 10:17
02/26/25 10:17
Laboratory Results
Lactic Acid 3.0 mmol/L (0.7-2.0) H 02/26/25 15:11
Total Bilirubin 1.4 mg/dl (0.2-1.3) H 02/26/25 10:17
AST 271 U/L (17-59) H 02/26/25 10:17
ALT 18 U/L (0-50) 02/26/25 10:17
Alkaline Phosphatase 109 U/L (38-126) 02/26/25 10:17
Troponin I < 0.012 ng/ml 02/26/25 11:06
Data Reviewed
-
Diagnostic Radiology: Report Reviewed by me and Discussed with Physician
CT Scan: Report Reviewed by me and Discussed with Physician
Lab Data: Labs Reviewed by me and Discussed with Physician
Impression/Plan
-
Acute on chronic exacerbation of congestive heart failure
Cardiorenal syndrome
TAMANNA on CKD:
- Admit patient to IMU and telemetry (he has both mild hyperkalemia and atrial fibrillation)
-CT head was benign and chest x-ray showed bilateral pleural effusions with mild cardiomegaly which is indicative of CHF
-proBNP is above 27,000 which indicates severe heart failure, creatinine is 4.9 which indicates severe kidney dysfunction most likely secondary to ineffective cardiac output, his normal baseline creatinine is somewhere around 2.2-2.4
- Avoid nephrotoxins to prevent injury to the kidney and worsen the creatinine level. Holding patient's home dose of carvedilol and furosemide (due to low blood pressure).
- Renally dosed all meds
- Fluids were already given via EMS 500 mL and in the hospital 500 mL.
- Trend CBC and CMP to check for daily changes in the creatinine and potassium levels. Also to check for anemia.
- Ordered serial troponins to check if patient could potentially have a myocardial infarction due to EKG changes seen from previous admission.
- Consulted cardiology and asked about opinion on milrinone versus a right heart cath. They do not think patient is in to be out of a condition would like to check echo first. Would like to withdraw Farxiga and furosemide and see if patient
improves.
- Consulted nephrology
- Ordered repeat echo TTE to check if there was a decrease or improvement in his ejection fraction since last visit where it was 20%.
Persistent atrial fibrillation with rapid ventricular response:
- Rate is 85 today and well-controlled. Patient is not in A-fib today.
- Continued patient's amiodarone on transfer as this is not renally dosed.
- Discontinued patient's Xarelto due to concerns for worsening of gross hematuria and carvedilol due to low blood pressures
- Cardiology is following
Mild hyperkalemia:
- Due to possible cardiorenal syndrome, EKG does not show T wave inversions, continue to observe through serial EKGs
- Hold ANDREIA/ARB/NSAIDs
Microscopic hematuria:
- Urinalysis shows 4+ occult blood, urine RBC 90 per high-power field, 16-20 urine WBC
- Will order a renal ultrasound to rule out obstruction, evaluate the kidney morphology, detect any tumors
- Holding patient's home dose of Xarelto and using SCDs as DVT prophylaxis instead
Parkinson's disease/dementia:
- Continue on carbidopa levodopa donezepil and memantine
DNR
dvt ppx SCDs
--- NOTE | 2025-02-26 18:40 | PTCARENOTE ---
Patient arrived to IMU. Patient slid from stretcher to bed. AOx3. Lethargic but arouses to voice. Bed alarm on and audible. On RA with SpO2 greater than 92%. NSR with BBB on monitor. Hypotensive but MAP >65. Bladder scanned patient with 0 mL.
Patient stated that he is not hungry and does not want to eat dinner. Call topete within reach, bed in lowest position, and bed of wheels locked.
[2025-02-26 19:10] LABS: Cortisol, Random 59.8 ug/dl
[2025-02-26] MEDS: NAMENDA 5 MG PO (19:26)
[2025-02-26] MEDS: SINEMET 25-100 1 TABLET PO (19:26)
[2025-02-26] MEDS: SODIUM BICARBONATE 650 MG PO (19:27)
[2025-02-26] MEDS: ARICEPT 10 MG PO (19:27)
[2025-02-26] MEDS: PACERONE 200 MG PO (19:27)
[2025-02-26] MEDS: PROTONIX 40 MG PO (19:27)
[2025-02-26] MEDS: COREG 6.25 MG PO (19:27)
[2025-02-26 20:19] LABS: Troponin I < 0.012 ng/ml
[2025-02-27] VITALS (51 sets, daily range): BP systolic 65–119; BP diastolic 45–94; BMI 25.5
[2025-02-27] MEDS: DESENEX/MITRAZOL/ZEASORB TOPICAL (00:21)
[2025-02-27 04:17] LABS: Hematocrit 34.7 % (39.0-52.0); Hemoglobin 11.0 g/dL (13.0-18.0); Mean Corp Hgb Conc. 31.7 g/dL (33.0-37.0); Mean Corpuscular Volume 74.6 fL (80.0-94.0); Nucleated Red Blood Cells % 0.7 % (-); Platelet Count 144 10^3/uL (130-400); Red Cell Dist. Width 19.7 % (11.5-14.5)
--- NOTE | 2025-02-27 04:32 | PTCARENOTE ---
No acute events overnight. Patient lethargic. BPs 80s/60s but MAP remained above 65 without levo. Desatted to 83 percent on room air while asleep. Placed on 2 liters NC. Plan for echo today. Will continue to monitor.
[2025-02-27 04:58] LABS: ALT (SGPT) 29 U/L (0-50); AST (SGOT) 249 U/L (17-59); Albumin 3.0 g/dl (3.5-5.0); Alkaline Phosphatase 132 U/L (38-126); Blood Urea Nitrogen 118 mg/dl (9-20); Calcium 8.3 mg/dl (8.4-10.2); Carbon Dioxide 12 mmol/L (22-30); Chloride 105 mmol/L (98-107); Estimated Creatinine Clearance 11 ml/min; Glucose 101 mg/dl (70-99); Magnesium 2.8 mg/dl (1.6-2.3); Potassium 5.6 mmol/L (3.5-5.1); Sodium 133 mmol/L (135-145); Total Protein 5.0 g/dl (6.3-8.2); eGFR 9.66
[2025-02-27] MEDS: SINEMET 25-100 1.5 TABLET PO ×2 (05:08→11:47)
--- NOTE | 2025-02-27 05:54 | PTCARENOTE ---
Critical c02 of 12- results sent to addiction social worker nephrology through [facility].
[2025-02-27] MEDS: SODIUM BICARBONATE 650 MG PO ×3 (07:52→20:45)
[2025-02-27] MEDS: FEOSOL 325 MG PO (07:52)
[2025-02-27] MEDS: NAMENDA 5 MG PO ×2 (07:52→20:45)
[2025-02-27] MEDS: ARICEPT 10 MG PO (07:52)
[2025-02-27] MEDS: PROTONIX 40 MG PO (07:52)
[2025-02-27] MEDS: DESENEX/MITRAZOL/ZEASORB 1 APPLIC TOPICAL ×2 (07:54→21:14)
[2025-02-27] MEDS: PACERONE PO (08:04)
--- NOTE | 2025-02-27 09:37 | W.PN.CARDCBS ---
Today's Communication / Plan
-
Now with worsening renal function despite holding Lasix and Farxiga.
He appears to be in cardiogenic shock with limited options.
Discussed starting Milrinone for inotropic support in the setting of cardiorenal syndrome.
Cr was 4.9 on admit and is now >5, he received gentle IVF in the ER.
Could consider right heart cath pending response to inotropic support and renal function.
Repeat echo is pending.
pBNP was >27,000 at admit.
Hold Coreg for now.
Discussed with pt and his at bedside that despite these efforts, that he may ultimately not improve and that he may continue to worsen.
Primary service had any discussions as well including palliative care and hospice.
Pt also now receiving IV levophed for bp support.
Cont Amiodarone. He had been maintaining sinus rhythm. He has previously declined anticoagulation.
High risk clinical encounter, prognosis is grave
Impression / Plan
-
.
PCP: Dr. Rodriguez
Card: Dr. Patel
Impression:
Presented with weakness, SOB, fall
Cardiogenic shock secondary to cardiorenal syndrome
TAMANNA on CKD 3b
Hypotension
Chronic HFrEF
CM, EF 20% by echo 01/29/25
Mild to mod
Moderate to severe MR
Hyperkalemia
Persistent atrial fibrillation
Chronic Eliquis OAC
Duodenal ulcer s/p upper GI bleed requiring transfusion 11/2024
Type 2 diabetes
Hypertension
Parkinson's disease
Dementia
Echo 11/17/2024: EF 50%, inferolateral hypokinesis, moderate aortic stenosis, trace aortic regurgitation, mild mitral regurgitation, peak/mean aortic valve gradients 40/24 mmHg, aortic valve area 1.3 cm 2, pulmonary artery systolic pressure 29
Echo 01/29/2025: Ejection fraction 20 to 25% with severely dilated ventricle, global hypokinesis with mid septal, anteroseptal, inferior, and apical akinesis, moderate to severe MR, mild to moderate with mean gradient of 16 mmHg aortic valve area
1.5 cm�, mild AI, mild TR PA systolic of 41 mmHg
MARY JANE 02/01/2025: EF 15 to 20%. Global hypokinesis. Mild left atrial dilation. No thrombus in left atrial appendage. Moderate mitral regurgitation with restriction of posterior leaflet. Moderate aortic stenosis with mild to moderate AI. Mild TR.
Plan:
Now with worsening renal function despite holding Lasix and Farxiga.
He appears to be in cardiogenic shock with limited options.
Discussed starting Milrinone for inotropic support in the setting of cardiorenal syndrome.
Cr was 4.9 on admit and is now >5, he received gentle IVF in the ER.
Could consider right heart cath pending response to inotropic support and renal function.
Repeat echo is pending.
pBNP was >27,000 at admit.
Hold Coreg for now.
Pt is not a candidate for HD
Discussed with pt and his at bedside that despite these efforts, that he may ultimately not improve and that he may continue to worsen.
Primary service had any discussions as well including palliative care and hospice.
Pt also now receiving IV levophed for bp support.
Cont Amiodarone. He had been maintaining sinus rhythm. He has previously declined anticoagulation.
Discussed with nephrology, primary service, nursing and family at bedside.
High risk clinical encounter, prognosis is grave
CCT: 40 min
HPI: Jl is a 74-year-old male with past medical history of chronic HFrEF, cardiomyopathy with EF 20%, CKD, persistent atrial fibrillation, duodenal ulcer with prior GI bleeding, type II DM, hypertension, Parkinson's, and dementia. He
presented to [facility] ER for evaluation of headache, weakness, and shortness of breath. He was recently admitted 01/27/2025 to 02/02/2025 with acute heart failure and rapid A-fib. He initially did well post discharge, but over the past few days has
slowly been declining. He has stopped eating and drinking and has become increasingly weak. Yesterday, his states that when trying to transfer him to the commode, he slid out of bed onto the floor. He describes having a headache and feeling
lightheaded fairly consistently. No fevers or chills. Breathing has worsened over the past few days as well. This a.m., given significant weakness, EMS was called and he was brought to ER for evaluation. He was hypotensive when EMS arrived and
he was given IVF's en route. BP 74/64 in ER and again gently hydrated in ER while awaiting testing results. Lab work revealed creatinine up to 4.9 with potassium of 5.2. UA with possible urinary tract infection. Blood and urine cultures were
drawn and are pending. There is also concern for acute heart failure with proBNP >27,000 and small pleural effusions on chest x-ray. Weight has been downtrending, down to 167 pounds at home. He continues on lower dose Lasix 20 mg daily as
outpatient. He notes that he does have some improvement in his symptoms following IVF's and with improvement in BPs.
Progress Note - Acquisition Cost Estimator
Subjective
Date of Service: February 27, 2025
Pt seen and examined. No complaints. No chest pain or shortness of breath.
Objective
Labs:
02/27/25 03:49
Labs
Hgb 11.0 g/dL (13.0-18.0) L 02/27/25 03:49
Hct 34.7 % (39.0-52.0) L 02/27/25 03:49
Plt Count 144 10^3/uL (130-400) 02/27/25 03:49
Sodium 133 mmol/L (135-145) L 02/27/25 03:49
Potassium 5.6 mmol/L (3.5-5.1) H 02/27/25 03:49
BUN 118 mg/dl (9-20) H* 02/27/25 03:49
Creatinine 5.7 mg/dL (0.7-1.3) H* 02/27/25 03:49
Glucose 101 mg/dl (70-99) H 02/27/25 03:49
Troponins
02/26/25 02/26/25 02/27/25
11:06 19:47 00:14
Troponin I < 0.012 < 0.012 Cancelled
02/27/25
06:14
Troponin I Cancelled
Vital Signs and I&O:
Vital Signs
Temp Pulse Resp BP Pulse Ox
96.4 F L 83 24 84/70 95
02/27/25 07:40 02/27/25 08:00 02/27/25 08:00 02/27/25 08:00 02/27/25 08:00
Vital Signs
Temp Pulse Resp BP Pulse Ox
96.4 F L 83 24 84/70 95
02/27/25 07:40 02/27/25 08:00 02/27/25 08:00 02/27/25 08:00 02/27/25 08:00
Intake & Output
02/25/25 02/26/25 02/27/25 02/28/25
06:59 06:59 06:59 06:59
Output Total 250 / 250 50 / 50
Balance -250 / -250 -50 / -50
Physical Exam
Physical Exam
General: lethargic, AAOX3
Neck: Negative JVD
Heart: Regular, Negative S3 positive S1/S2, Negative S4, No murmur
Lungs: CTA b/l, negative wheezes/rales/rhonchi
Abd: Positive BS, NT/ND, neg rebound/rigidity/guarding
Ext: Negative cyanosis/clubbing/edema
Neuro: nonfocal
--- NOTE | 2025-02-27 09:48 | W.PN.HOSP.TC ---
Addendum entered and electronically signed by Wilda Osorio MD 02/27/25 14:31:
Critical care time 40 minutes.
Addendum entered and electronically signed by Wilda Osorio MD 02/27/25 14:30:
I saw and evaluated the patient independently. I reviewed the resident�s note and agree with findings and plan as documented by Dr. Segovia.
GENERAL: chronically ill appearing male, lethargic but in no apparent distress--cool to touch
HEENT: NC/AT--not hypoxic--no O2 requirements
HEART: irreg irreg +S1, +S2, FER--? gallop
LUNGS : decreased breath sounds bilaterally
ABDOM: soft, nontender, nondistended, + bowel sounds
EXT: no cyanosis, clubbing--edema bilateral LE--right > left
NEUROLOGIC: grossly intact
Acute on chronic exacerbation of congestive heart failure with hypotension and TAMANNA/hyperkalemia/hyponatremia--strongly suspect cardiogenic shock but at the very least is cardiorenal syndrome--cannot give IVF with proBNP 27,000-creat rising and now
over 5, essentially no urine output, hypotension-- pressor and inotrope support started, consider right heart cath, repeat ECHO pending--trend troponin--apprec cards/renal---renal dose meds--avoid nephrotoxic drugs--daily weight, I/Os--trend creat
metabolic acidosis--with lactic acid of 3.0--DO NOT suspect sepsis--to me, indicates more anaerobic metabolism--metformin stopped last admission, Farxiga stopped this one--may need biacrb
Persistent atrial fibrillation with rapid ventricular response--EKG to my eye appears different than on first admission--apprec cards--hold Xarelto--cont amiodarone--plans for repeat cardioversion (failed last admission) now on hold
Microscopic hematuria-- Urinalysis shows 4+ occult blood, urine RBC 90 per high-power field, 16-20 urine WBC-- check renal ultrasound to rule out obstruction, evaluate the kidney morphology, detect any tumors- Holding patient's home dose of Xarelto
and using SCDs as DVT prophylaxis instead
Parkinson's disease/dementia-- Continue on carbidopa levodopa donepezil and memantine
DVT proph -- SCDs
code status--DNR
Had goals of care discussion with patient and along with resident team and case management. Explained that I believe patient is in cardiogenic shock and that despite pressors and inotrope support, he may not make it out of the hospital.
Hospice was discussed and that he should talk about this with his family. He is DNR DNI. Unfortunately, patient will be moved to the ICU based on need for more aggressive pressor management. Spoke with cardiology and nephrology and both are in
agreement that any intervention we do may not improve things.
Original Note:
Today's Communication/Plan
-
- will continue to trend CMP
- awaiting repeat echo TTE
Assessment / Plan
Assessment / Plan
Acute on chronic exacerbation of congestive heart failure
Cardiorenal syndrome
TAMANNA on CKD:
- Admit patient to IMU and telemetry (he has both mild hyperkalemia and atrial fibrillation)
-CT head was benign and chest x-ray showed bilateral pleural effusions with mild cardiomegaly which is indicative of CHF
-proBNP is above 27,000 which indicates severe heart failure, creatinine is 4.9 which indicates severe kidney dysfunction most likely secondary to ineffective cardiac output, his normal baseline creatinine is somewhere around 2.2-2.4
- Avoid nephrotoxins to prevent injury to the kidney and worsen the creatinine level. Holding patient's home dose of carvedilol and furosemide (due to low blood pressure).
- Renally dosed all meds
- Troponins are negative.
- Consulted cardiology and asked about opinion on milrinone versus a right heart cath. They do not think patient is in to be out of a condition would like to check echo first. Would like to withdraw Farxiga and furosemide and see if patient
improves.
- Consulted nephrology who suggest inotropes if patient is still hypotensive
- Awaiting repeat echo TTE to check if there was a decrease or improvement in his ejection fraction since last visit where it was 20%.
- Today on 02/27, creatinine is increased from 4.9 to 5.7, and potassium from 5.2 to 5.6. Ordered a stat EKG to check for t wave inversions, ordered lokelma 5 mg to remove some potassium from body, and a repeat potassium.
- BP is 83/63 so stopped amiodarone. Started levophed and milnirone pressors to increase blood pressure and allow blood flow to organs. transferred patient to ICU and consulted binding printer.
- Nephrology states that patient is end stage cardiorenal syndrome and that he is not a suitable candidate for dialysis due to frality.
- Initiated goals of care discussion today with family. Prognosis is poor danay with his previous echo showing a EF of 20-25%.
Persistent atrial fibrillation with rapid ventricular response:
- Rate is 83 today and well-controlled. Patient is not in A-fib today no overnight events on telemetry.
- Discontinued patients amiodarone due to low blood pressures
- Discontinued patient's Xarelto due to concerns for worsening of gross hematuria and carvedilol due to low blood pressures
- Cardiology is following
Mild hyperkalemia:
- Today potassium is 5.6 which is mild hyperkalemia. WIll check ekg to check for t wave inversions so that I can consider the possibility of calcium gluconate IV to stabilize the cardiac membrane.
- Hold ANDREIA/ARB/NSAIDs
Microscopic hematuria:
- Urinalysis shows 4+ occult blood, urine RBC 90 per high-power field, 16-20 urine WBC
- Will order a renal ultrasound to rule out obstruction, evaluate the kidney morphology, detect any tumors
- Holding patient's home dose of Xarelto and using SCDs as DVT prophylaxis instead
Parkinson's disease/dementia:
- Continue on carbidopa levodopa donezepil and memantine
DNR
dvt ppx SCDs
Anticipated Discharge: 24 - 48 hours
Subjective/Interval History
-
Date of Service: February 27, 2025
No acute medical complaints
No overnight events.
Objective Data
-
Labs:
Laboratory Results
02/27/25 02/27/25
03:49 13:00
WBC 10.3
Hgb 11.0 L
Hct 34.7 L
Plt Count 144
Sodium 133 L Pending
Potassium 5.6 H Pending
Chloride 105 Pending
Carbon Dioxide 12 L* Pending
BUN 118 H* Pending
Creatinine 5.7 H* Pending
Glucose 101 H Pending
Calcium 8.3 L Pending
Total Bilirubin 1.3
AST 249 H
ALT 29
Alkaline Phosphatase 132 H
Vital Signs:
Vital Signs
Temp Pulse Resp BP Pulse Ox
96.4 F L 83 24 84/70 95
02/27/25 07:40 02/27/25 08:00 02/27/25 08:00 02/27/25 08:00 02/27/25 08:00
I&O
02/26/25 02/27/25 02/28/25
06:59 06:59 06:59
Output Total 250 / 250 50 / 50
Balance -250 / -250 -50 / -50
Review of Systems
-
History Source: Patient
All other systems: Reviewed and negative
Respiratory: Reports Trouble Breathing
Neuro: Reports Headache and Weakness
Physical Exam
-
General: No Apparent Distress and Appears Chronically Ill
Respiratory: Decreased Breath Sounds (bilaterally at the base of both lungs)
Cardiac: Regular Rhythm, S1/S2, Murmur (heard on mitral area) and JVD
GI: Soft, Nontender, Nondistended and Normal Bowel Sounds
Musculoskeletal: Edema, Right Lower Extrem and Edema, Left Lower Extrem
Skin: Warm
Neuro: Awake and Alert
Psych: Calm
Data Reviewed
-
Labs: Labs Reviewed by me and Discussed with Physician
[2025-02-27] MEDS: LEVOPHED 250 IV ×2 (09:58→17:00)
[2025-02-27] MEDS: PRIMACOR 20 MG 100 IV (10:04)
--- NOTE | 2025-02-27 10:13 | PTCARENOTE ---
BP is 65/52 and MAP is 58. Confirmed with Dr. Junior, that it is OK to start both Levophed and Milrinone. Patient with increased lethargy, but still arouses to voice. Dr. Junior and Dr. Osorio at bedside to talk with patient and . Care ongoing.
--- NOTE | 2025-02-27 10:14 | W.PN.NEPH.PH ---
Today's Communication / Plan
-
Inotropic support to be provided by cardiology as hemodynamically stable
Lokelma for hyperkalemia
Escalated sodium bicarbonate for worsening metabolic acidosis
Attempt to escalate MAP to 65 or greater with pressor support
Patient to be transferred to ICU
Discussion with and patient at bedside
Assessment/Plan
-
IMP:
Gen weakness
TAMANNA on CKD 3b-cr variable at best at 1.4, at last d/c in January low 2 range
Azotemia
Hypotension
Hyperkalemia
non gap met acidosis, mild Lactic acid
Hyponatremia
Chronic HFrEF
CM, EF 20% by echo 01/29/25
Mild to mod
Moderate to severe MR
Persistent atrial fibrillation
Chronic AC with ELiquis
Duodenal ulcer s/p upper GI bleed requiring transfusion 11/2024
Type 2 diabetes
Hypertension
Parkinson's disease
Dementia
plan:
TAMANNA worsening creatinine up to 5.7 , potassium up to 5.6 and carbon dioxide down to 12
Discussed case with cardiology this morning and recommended ionotropic support as last resort for what appears to be end-stage cardiorenal syndrome
Patient remains hypotensive and is not a candidate for any dialysis intervention
Recent d/c after treating CHF and Afib now returns with gen weakness, fall
TAMANNA with CKD-widely fluctuating cr suggests cardiorenal, last cr at 2.3 on 02/13 and at best was 1.4 in November 2024
bland UA baseline, current UA with hematuria and pyuria with few tod-await cx
bladder scan 0, renal US noted from November with cysts , urine output only 300 cc
Instructed for escalation of sodium bicarbonate this morning as well as Lokelma for hyperkalemia
current TAMANNA suspect prerenal poor intake, hypotension and diuretic use
hold anti HTN meds, farxiga and diuretics , vol status seem stable on RA, CXR Noted only small pleural effusion
Patient is at high clinical risk with worsening cardiorenal syndrome hyperkalemia metabolic acidosis and renal failure
-
-
Date of Service: February 27, 2025
CC / HPI / ROS
-
Chief Complaint:
Acute kidney injury
History of Present Illness:
Creatinine up to 5.7
Metabolic acidosis worsening
Hyperkalemia noted
Hemodynamically unstable on pressor support
Review of Systems:
Oliguric at 300 cc
Weights up
No fever
Labs
-
Labs:
WBC 10.3 10^3/uL (4.8-10.8) 02/27/25 03:49
RBC 4.65 10^6/uL (4.70-6.10) L 02/27/25 03:49
Hgb 11.0 g/dL (13.0-18.0) L 02/27/25 03:49
Hct 34.7 % (39.0-52.0) L 02/27/25 03:49
Plt Count 144 10^3/uL (130-400) 02/27/25 03:49
eGFR 9.66 02/27/25 03:49
Ivu-U-Ucotftkkwfa Pept > 21773 pg/ml 02/26/25 11:06
Albumin 3.0 g/dl (3.5-5.0) L 02/27/25 03:49
Physical Exam
-
Vital Signs:
Vital Signs
Temp Pulse Resp BP Pulse Ox
96.4 F L 72 24 78/58 93
02/27/25 07:40 02/27/25 10:00 02/27/25 10:00 02/27/25 10:00 02/27/25 10:00
Cardiovascular:: Regular rate and rhythm
Respiratory:: Bilateral: CTA
Lung Excursion:: Normal
Abdomen:: Nontender and Soft
Bowel Sounds:: Normal
Extremity Edema:: +1: Bilateral:
Jose Catheter: No
[2025-02-27] MEDS: LOKELMA 5 GRAM PO (10:30)
--- NOTE | 2025-02-27 10:59 | PTCARENOTE ---
Levo had to be titrated to 8 mcg/hr due to SBP less than goal of 90. MD order to transfer patient to ICU. Verbal report given to [employer] Stefani. Patient belongings transferred with patient to ICU.
--- NOTE | 2025-02-27 11:32 | PTCARENOTE ---
Echo in progress.
[2025-02-27] MEDS: PACERONE 200 MG PO ×2 (11:47→20:45)
--- NOTE | 2025-02-27 12:28 | CON.INTV ---
Consultation
Consultation Request
Date/Time Consultation Requested: 02/27/2025
Date/Time Consultation Performed: 02/27/2025
Medical History
-
Chief Complaint: Weakness.
History of Present Illness:
Patient is a very pleasant 74-year-old gentleman with underlying history of heart failure with reduced ejection fraction, EF 15 to 20%. Patient presented to the emergency room for weakness, worsening shortness of breath and recent falls at home
along with symptoms of orthostasis. When EMS was called patient was noted to be hypotensive which responded briefly to IV fluids. In the emergency room he continued to be hypotensive and received additional IV fluids. Patient noted to have acute
kidney injury with hyperkalemia. He was admitted to hospitalist service with cardiology and nephrology consultation. Patient was started on milrinone as well as later Levophed. In view of worsening shock and need for 2 pressors, he is being
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
Patient denies any chest pain but does report some dyspnea and orthopnea. Does not report much change in shortness of breath over last 24 hours. Saturating well on room air. Worsening bilateral pedal edema noted. Patient essentially anuric.
PMH:
Chronic HFrEF
CM, EF 20% by echo 01/29/25
Mild to mod
Moderate to severe MR
CKD 3B
Persistent atrial fibrillation
Chronic Eliquis OAC
Duodenal ulcer s/p upper GI bleed requiring transfusion 11/2024
Type 2 diabetes
Hypertension
Parkinson's disease
Dementia
Past Medical History
Past Medical History: Other (In HPI)
Past Surgical History: Cholecystectomy and Other (Herniorrhaphy, hemorrhoidectomy)
Social History
Tobacco: Former Smoker
Alcohol: None
Drug: None
Personal:
Living: With Family
Employment: Retired
Family History
Family History: Reviewed & Not Pertinent
Allergies / Home Medications
Allergies
Allergy/AdvReac Type Severity Reaction Status Date / Time
No Known Drug Allergies Allergy Unknown Verified 02/26/25 10:21
pollen extracts Allergy Seasonal - Verified 02/26/25 10:21
sneezing,
runny nose
metformin AdvReac Severe metabolic Verified 02/26/25 10:21
acidosis
Home Medications
�Medication �Instructions �Recorded �Confirmed �Last Taken �Type
ezetimibe 10 mg tablet 10 mg PO DAILY High Cholesterol 10/24/12 02/26/25 02/25/25 History
carbidopa 25 mg-levodopa 100 mg 1 tab PO QPM Neurological Condition 11/15/24 02/26/25 02/25/25 History
tablet
carbidopa 25 mg-levodopa 100 mg 1.5 tab PO BID@0600,1200 11/15/24 02/26/25 02/25/25 History
tablet Neurological Condition
diphenhydramine HCl 50 mg/30 mL 50 mg PO HSPRN PRN sleep 11/15/24 02/26/25 01/26/25 History
oral liquid (ZzzQuil)
donepezil 10 mg tablet 10 mg PO DAILY Neurological 11/15/24 02/26/25 02/25/25 History
Condition
memantine 10 mg tablet 10 mg PO BID Neurological Condition 11/15/24 02/26/25 02/25/25 History
therapeutic multivitamin 1 tab PO DAILY Supplement 11/15/24 02/26/25 02/25/25 History
vitamins A,C,D-khlt-mmvzni 2,148 1 tab PO BID Supplement 11/15/24 02/26/25 02/25/25 History
mcg-113 mg-45 mg-17.4 mg tablet
(PreserVision AREDS)
polyvinyl alcohol 1.4 % eye drops 1 drp BOTH EYES DAILYPRN PRN dry 01/27/25 02/26/25 Unknown History
(Artificial Tears (polyvinyl eyes
alcohol))
amiodarone 200 mg tablet 200 mg PO BID #30 tabs 02/02/25 02/26/25 02/25/25 Rx
carvedilol 6.25 mg tablet 6.25 mg PO BID Arrhythmia #30 tabs 02/02/25 02/26/25 02/25/25 Rx
dapagliflozin propanediol 10 mg 10 mg PO DAILY #30 tabs 02/02/25 02/26/25 02/25/25 Rx
tablet
pantoprazole 40 mg tablet,delayed 40 mg PO DAILY Gastrointestinal 02/02/25 02/26/25 02/25/25 Rx
release issue #30 tabs
rivaroxaban 15 mg tablet (Xarelto) 15 mg PO QPM Blood clot 02/02/25 02/26/25 02/25/25 Rx
prevention/tx #30 tabs
docusate sodium 100 mg capsule 100 mg PO HSPRN PRN constipation 02/26/25 02/26/25 Unknown History
(Colace)
ferrous sulfate 325 mg (65 mg 325 mg PO DAILY Supplement 02/26/25 02/26/25 02/25/25 History
iron) tablet
furosemide 40 mg tablet 20 mg PO DAILY Fluid 02/26/25 02/26/25 02/25/25 History
Retention/Swelling
melatonin 1 mg chewable tablet 4 mg PO HS Sleep 02/26/25 02/26/25 02/25/25 History
Review of Systems
-
Hematologic/Lymphatic: Other (All 14 systems reviewed and negative except as stated above in the history of present illness.)
Vitals / Labs / Diagnostic Testing
Vital Signs
Temp Pulse Resp BP Pulse Ox
97.7 F 89 23 110/89 94
02/27/25 12:11 02/27/25 12:15 02/27/25 12:15 02/27/25 12:15 02/27/25 12:15
Lab Data
02/27/25 03:49
Microbiology
02/26/25 11:06 Blood/Venous Blood Culture - Preliminary
No Growth in 24 hours- Final report to follow
02/26/25 11:06 Blood/Venous Blood Culture - Preliminary
No Growth in 24 hours- Final report to follow
02/26/25 11:06 Urine Urine Culture - Final
NO GROWTH
Diagnostic Testing:
Physical Exam
-
HEENT: Normocephalic
Cardiovascular: S1/S2 and Peripheral Edema
Respiratory: Rales (Particularly in the bases)
GI: Soft and Non Distended
Neurology: Awake and Alert
Skin: Warm
General: Comfortable
Assessment
-
#1. Acute on chronic heart failure with reduced ejection fraction, with cardiogenic shock
- Patient appears to be in a low perfusion state, worsening renal function, increasing shortness of breath, pleural effusions noted on imaging
- Currently requiring Levophed infusion as well as milrinone, severely reduced systolic function, LVEF 15 to 20% on MARY JANE last month.
- Continue cardiac telemetry monitoring, cardiology service on case
- Discussed with patient and also with patient's and daughter. Patient currently DNR/DNI and does not want to pursue any invasive interventions
- Follow-up chest x-ray as patient reports mildly increased dyspnea, concern for increasing pulmonary edema/enlarging pleural effusions, oxygen supplementation as needed
- Overall guarded prognosis
#2. Acute kidney injury, concern for cardiorenal syndrome
- Suspect decreased renal perfusion in the setting of cardiogenic shock
- Continues to be essentially an uric, rising creatinine
- Bilateral pedal edema noted, continue oral bicarbonate supplementation
- Nephrology service on case, patient not felt to be a candidate for renal replacement therapy due to severe advanced heart failure, discussed with nephrology service
#3. History of paroxysmal atrial fibrillation.
- Currently normal sinus rhythm, continue telemonitoring
- Amiodarone 200 mg p.o. twice daily
- Beta-blockers have been stopped in view of shock
- Anticoagulation on hold due to hematuria. Also prior history of GI bleed due to duodenal ulcer in 11/2024.
SCDs for DVT prophylaxis.
Goals of care: 02/27, Met with patient's and daughter. Also discussed with patient. Confirmed CODE STATUS DNR/DNI. Patient does not want to pursue any interventions. We also discussed the need for central access with ongoing pressor
infusion Levophed and milrinone. Considering patient wants to avoid intervention, suggested PICC line rather than a central line which patient is agreeable to. Family understands that patient might not survive this hospitalization considering
cardiogenic shock, worsening renal failure and patient not being a candidate for renal replacement therapy.
Other medical diagnoses:
-HTN
-HLD
-DM
-H/o Duodenal ulcers
-Parkinsonism
Critical Care time 66 mins -- The patient is admitted for acute critical illness for the treatment of vital organ failure and/or prevention of further life-threatening conditions. Total care includes time spent in review of history, physical exam,
medications, hemodynamic/ventilator parameters, laboratory data, imaging and discussion with house staff, pharmacy, respiratory therapy, undergraduate advisor, and nursing.
Data:
MARY JANE 01/2025: Left ventricle is mildly dilated. Severely reduced left ventricular systolic
function. Global hypokinesis. Normal left ventricular wall thickness. Left
ventricular ejection fraction is 15-20%.
Normal right ventricular size and low normal function.
Mildly dilated left atrium.
No thrombus detected in the left atrial appendage.
Mild mitral annular calcification with moderately thickened mitral valve
leaflets. There was restriction of the posterior leaflet present with moderate
central mitral regurgitation. Peak E wave velocity 78 cm/s.
Thickened aortic valve with restricted leaflet motion. Moderate aortic
stenosis. Mild to moderate aortic regurgitation.
Mild tricuspid regurgitation.
ECHO 2-D, 01/2025: Left ventricle is severely dilated. Severely reduced left ventricular systolic
function. Global hypokinesis with mid septal, anteroseptal, inferior, apical
akinesis. Mild concentric left ventricular hypertrophy. Left ventricular
ejection fraction is 20-25% by visual assessment.
Mitral valve opens normally. Thickened mitral valve leaflets. Mitral annular
calcification. Moderate to severe mitral regurgitation.
Trileaflet aortic valve. Thickened aortic valve with restricted leaflet motion.
Mild to moderate aortic stenosis. Peak/mean gradients across the aortic valve
are 27/16 mmHg. Using an LVOT diameter of 2.4 cm, the aortic valve by the
Continuity equation is calculated at 1.5 cm2. Mild aortic regurgitation.
Tricuspid valve opens normally. Mild tricuspid regurgitation. Estimated
pulmonary artery pressure of 41 mmHg. Assuming a right atrial pressure of 8
mmHg.
Since echo November 2024 which was reviewed, left ventricle is now severely dilated
with severely decreased systolic function. MR has worsened from mild to
moderate-severe.
[2025-02-27 13:33] LABS: INR 1.94; PT 22.3 Sec (11.4-14.6)
[2025-02-27 13:34] LABS: APTT 34.5 Sec (23.4-35.0)
--- NOTE | 2025-02-27 13:34 | PTCARENOTE ---
Rec'd patient from IMU around 1100. Patient initially drowsy; arousable to voice. Oriented x3. Flat/withdrawn. Slow to respond. MAEx4. Afib on tele. Rate controlled. +1 edema in b/l LE; +2 pedal edema. Pulse ox 94-95% on RA. Lung sounds shallow,
diminished throughout. SOB. Orthopneic. +BS. Incontinent of smear of bm. No urine output. CHG bath provided. Sacral foam changed; stage 2 pressure ulcer present. Left hip found to be blanchable red. Protective foams placed on left hip and b/l heel.
Patient also found to have been laying on a metal clip. Red scratches and indent left behind. Foam placed on top. Milrinone and Norepinephrine infusing through peripheral INT. Titrating Norepinephrine for SBP>90. Order for PICC placed. Repeat BMP
and coags sent. Patient currently sitting up alert in bed and talking with family. VSS. Weaning Norepinephrine as tolerated.
[2025-02-27 13:59] LABS: Calcium 8.4 mg/dl (8.4-10.2); Carbon Dioxide 10 mmol/L (22-30); Chloride 101 mmol/L (98-107); Estimated Creatinine Clearance 12 ml/min; Glucose 170 mg/dl (70-99); Potassium 5.7 mmol/L (3.5-5.1); Sodium 128 mmol/L (135-145); eGFR 9.87
--- NOTE | 2025-02-27 14:03 | PTCARENOTE ---
VAT at bedside to place PICC. Critical lab values reported to Journalism Professor.
[2025-02-27] MEDS: LOKELMA 10 GRAM PO ×2 (14:37→21:14)
--- NOTE | 2025-02-27 14:41 | CM ---
Addendum entered by Briana Aguilar 02/27/25 14:45:
Patient was at [facility] and then discharged home for last week approx and was followed by [facility] and was [facility] prior to readmission to .
Original Note:
Patient seen at bedside in IMU with physicians and patient present. Patient and live in a 2 story home with no DME prior to this admission. Patient has not been at [facility] prior to this admission. Patient PCP is Dr. Rodriguez and they use
the [facility] in [place]. Physician reviewed options for next steps and plan was to move to ICU at this time. Patient uncertain of next steps pending medication changes and agreed to discuss with patient physicians next steps. Patient confirmed
that prior to this admission patient had not needed any assistance. CM will continue to follow for discharge planning needs.
Plan; SNF pending medical treatment or therapy recommendations.
[2025-02-27 14:44] LABS: Blood Urea Nitrogen 126 mg/dl (9-20)
--- NOTE | 2025-02-27 16:15 | PTCARENOTE ---
Systems reviewed. Patient resting comfortably; no complaints. VSS. Norepinephrine parameters changed to titrate for map>65; continuing to titrate down. Incontinent of a moderate amount of urine. No other changes.
[2025-02-27] MEDS: SINEMET 25-100 1 TABLET PO (17:20)
--- NOTE | 2025-02-27 20:14 | PTCARENOTE ---
Received pt from previous RN. Pt is AAOx3, forgetful at times, drowsy, slow speech, flat/withdrawn. Afib w/ BBB on the monitor. Received pt on 3 mcgs of levo, titrated per protocol for MAP >65 (see worklist). Pt on RA O2 sat 91%, lungs diminished,
shallow. Poor appetite, incontx2. C/c in place, oliguric. SCDs in place. Milrinone at 0.125 mcgs. Mouth care provided. Call topete in reach. Safe environment maintained.
[2025-02-28] VITALS (27 sets, daily range): BP systolic 80–111; BP diastolic 55–97; BMI 25.1; BMI 25.9
--- NOTE | 2025-02-28 00:13 | PTCARENOTE ---
Systems reviewed, no new changes in assessment. Gtts maintained (see worklist). Call topete in reach. Safe environment maintained.
[2025-02-28] MEDS: LOKELMA 10 GRAM PO (03:45)
[2025-02-28 03:46] LABS: Hematocrit 33.8 % (39.0-52.0); Hemoglobin 10.7 g/dL (13.0-18.0); Mean Corp Hgb Conc. 31.7 g/dL (33.0-37.0); Mean Corpuscular Volume 74.9 fL (80.0-94.0); Platelet Count 138 10^3/uL (130-400); Red Cell Dist. Width 19.7 % (11.5-14.5)
[2025-02-28 04:05] LABS: Calcium 8.1 mg/dl (8.4-10.2); Carbon Dioxide 17 mmol/L (22-30); Chloride 103 mmol/L (98-107); Glucose 110 mg/dl (70-99); Magnesium 2.8 mg/dl (1.6-2.3); Potassium 4.2 mmol/L (3.5-5.1); Sodium 133 mmol/L (135-145)
[2025-02-28 04:14] LABS: Blood Urea Nitrogen 124 mg/dl (9-20); Estimated Creatinine Clearance 12 ml/min; eGFR 10.54
--- NOTE | 2025-02-28 04:16 | PTCARENOTE ---
Systems reviewed, no new changes in assessment. Levo gtt titrated off (see worklist). AM labs provided. Call topete in reach. Safe environment maintained.
[2025-02-28] MEDS: SINEMET 25-100 1.5 TABLET PO ×2 (05:22→12:47)
[2025-02-28] MEDS: PRIMACOR 20 MG 100 IV (05:22)
--- NOTE | 2025-02-28 08:00 | PTCARENOTE ---
Assumed care of pt at 0715 following shift report. Pt awake and resting quietly in bed, denies c/o pain or SOB. Speech slow but conversation appropriate, oriented to person, place and year. Follows all commands. Remains on RA w/ POx 92%. No cough.
Milrinone gtt infusing at ordered 0.123mcg/kg/min. Condom catheter remains intact- pt voiding clear ashley urine. Call topete w/in pt reach and bed exit alarm in use. Safe environment maintained.
[2025-02-28] MEDS: PROTONIX 40 MG PO (09:04)
[2025-02-28] MEDS: FEOSOL 325 MG PO (09:04)
[2025-02-28] MEDS: NAMENDA 5 MG PO ×2 (09:04→20:05)
[2025-02-28] MEDS: SODIUM BICARBONATE 650 MG PO ×3 (09:05→20:05)
[2025-02-28] MEDS: ARICEPT 10 MG PO (09:05)
--- NOTE | 2025-02-28 09:05 | W.PN.CARDCBS ---
Today's Communication / Plan
-
Continue inotrope and pressor support with milrinone and levophed for cardiogenic shock
Currently warm and wet on exam, would start IV diuresis when able
Impression / Plan
-
PCP: Dr. Rodriguez
Card: Dr. Patel
Impression:
Presented with weakness, SOB, fall
Cardiogenic shock secondary to cardiorenal syndrome
TAMANNA on CKD 3b
Hypotension
Chronic HFrEF
CM, EF 20% by echo 01/29/25
Mild to mod
Moderate to severe MR
Hyperkalemia
Persistent atrial fibrillation
Chronic Eliquis OAC
Duodenal ulcer s/p upper GI bleed requiring transfusion 11/2024
Type 2 diabetes
Hypertension
Parkinson's disease
Dementia
Echo 11/17/2024: EF 50%, inferolateral hypokinesis, moderate aortic stenosis, trace aortic regurgitation, mild mitral regurgitation, peak/mean aortic valve gradients 40/24 mmHg, aortic valve area 1.3 cm 2, pulmonary artery systolic pressure 29
Echo 01/29/2025: Ejection fraction 20 to 25% with severely dilated ventricle, global hypokinesis with mid septal, anteroseptal, inferior, and apical akinesis, moderate to severe MR, mild to moderate with mean gradient of 16 mmHg aortic valve area
1.5 cm�, mild AI, mild TR PA systolic of 41 mmHg
MARY JANE 02/01/2025: EF 15 to 20%. Global hypokinesis. Mild left atrial dilation. No thrombus in left atrial appendage. Moderate mitral regurgitation with restriction of posterior leaflet. Moderate aortic stenosis with mild to moderate AI. Mild TR.
Plan:
Presenting with hypotension, lactic acidosis and TAMANNA on CKD c/w cardiogenic shock
LVEF remains severely reduced here with EF 15-20% and pBNP was >27,000 at admit
Continue milrinone for inotropic support
Continue levo for MAP goal >65 mmHg
Could consider right heart cath pending response to inotropic support and renal function
Will defer volume management to nephrology, for now recommending sodium bicarb, pt is not a candidate for HD
Hemodynamics will not tolerate GDMT at this time
History of AFib, currently in rate controlled atrial flutter/fibrillation
Cont home amiodarone
He has previously declined anticoagulation.
Remains critically ill, prognosis is guarded
CCT: 32 min
HPI: Jl is a 74-year-old male with past medical history of chronic HFrEF, cardiomyopathy with EF 20%, CKD, persistent atrial fibrillation, duodenal ulcer with prior GI bleeding, type II DM, hypertension, Parkinson's, and dementia. He
presented to [facility] ER for evaluation of headache, weakness, and shortness of breath. He was recently admitted 01/27/2025 to 02/02/2025 with acute heart failure and rapid A-fib. He initially did well post discharge, but over the past few days has
slowly been declining. He has stopped eating and drinking and has become increasingly weak. Yesterday, his states that when trying to transfer him to the commode, he slid out of bed onto the floor. He describes having a headache and feeling
lightheaded fairly consistently. No fevers or chills. Breathing has worsened over the past few days as well. This a.m., given significant weakness, EMS was called and he was brought to ER for evaluation. He was hypotensive when EMS arrived and
he was given IVF's en route. BP 74/64 in ER and again gently hydrated in ER while awaiting testing results. Lab work revealed creatinine up to 4.9 with potassium of 5.2. UA with possible urinary tract infection. Blood and urine cultures were
drawn and are pending. There is also concern for acute heart failure with proBNP >27,000 and small pleural effusions on chest x-ray. Weight has been downtrending, down to 167 pounds at home. He continues on lower dose Lasix 20 mg daily as
outpatient. He notes that he does have some improvement in his symptoms following IVF's and with improvement in BPs.
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
Subjective
Date of Service: February 28, 2025
NAOE. Remains in the ICU on milrinone and levophed. No cardiac complaints including no chest pain or SOB on RA.
Objective
Labs:
02/28/25 03:29
02/28/25 03:29
Labs
Hgb 10.7 g/dL (13.0-18.0) L 02/28/25 03:29
Hct 33.8 % (39.0-52.0) L 02/28/25 03:29
Plt Count 138 10^3/uL (130-400) 02/28/25 03:29
PT 22.3 Sec (11.4-14.6) H 02/27/25 13:17
INR 1.94 02/27/25 13:17
APTT 34.5 Sec (23.4-35.0) 02/27/25 13:17
Sodium 133 mmol/L (135-145) L 02/28/25 03:29
Potassium 4.2 mmol/L (3.5-5.1) D 02/28/25 03:29
BUN 124 mg/dl (9-20) H* 02/28/25 03:29
Creatinine 5.3 mg/dL (0.7-1.3) H* 02/28/25 03:29
Glucose 110 mg/dl (70-99) H 02/28/25 03:29
Troponins
02/26/25 02/26/25 02/27/25
11:06 19:47 00:14
Troponin I < 0.012 < 0.012 Cancelled
02/27/25
06:14
Troponin I Cancelled
Vital Signs and I&O:
Vital Signs
Temp Pulse Resp BP Pulse Ox
96.6 F L 68 14 92/58 90
02/28/25 07:30 02/28/25 07:00 02/28/25 07:00 02/28/25 07:00 02/28/25 07:00
Vital Signs
Temp Pulse Resp BP Pulse Ox
96.6 F L 68 14 92/58 90
02/28/25 07:30 02/28/25 07:00 02/28/25 07:00 02/28/25 07:00 02/28/25 07:00
Intake & Output
02/26/25 02/27/25 02/28/25 03/01/25
06:59 06:59 06:59 06:59
Intake Total 1178.9 / 1178.9
Output Total 250 / 250 550 / 550
Balance -250 / -250 628.9 / 628.9
Physical Exam
Physical Exam
Gen: NAD, AA
HEENT: NC/AT, sclera anicteric
Neck: Elevated JVP
CV: Irregularly irregular, NL s1/s2
Lungs: CTAB on RA
Abd: S/ND
Ext: 1+ LE edema, warm
Skin: Dry
Neuro: Non-focal
[2025-02-28] MEDS: PACERONE 200 MG PO ×2 (09:06→20:06)
[2025-02-28] MEDS: DESENEX/MITRAZOL/ZEASORB 1 APPLIC TOPICAL ×2 (09:06→20:06)
--- NOTE | 2025-02-28 09:50 | PTCARENOTE ---
Ordered renal ultrasound completed at bedside. Pt's son 'David' visiting at bedside. Updated on pt's present condition/plan of care. Questions answered. Pt continues to rest quietly in bed w/o change or complaints offered.
--- NOTE | 2025-02-28 10:32 | W.PN.INTV ---
Today's Communication / Plan
Recommendations
- Transferred to IMU
- [employer] Mobile Developer service will sign off, please call as needed
Assessment
-
Patient is a very pleasant 74-year-old gentleman with underlying history of heart failure with reduced ejection fraction, EF 15 to 20%. Patient presented to the emergency room for weakness, worsening shortness of breath and recent falls at home
along with symptoms of orthostasis. When EMS was called patient was noted to be hypotensive which responded briefly to IV fluids. In the emergency room he continued to be hypotensive and received additional IV fluids. Patient noted to have acute
kidney injury with hyperkalemia. He was admitted to hospitalist service with cardiology and nephrology consultation. Patient was started on milrinone as well as later Levophed. In view of worsening shock and need for 2 pressors, he is being
admitted to the ICU and perianesthesia rn consultation was requested for further input.
Patient denies any chest pain but does report some dyspnea and orthopnea. Does not report much change in shortness of breath over last 24 hours. Saturating well on room air. Worsening bilateral pedal edema noted.
02/28 overview: Levophed weaned off since 1:40 AM. Currently on milrinone at 0.125, MAP of 75, saturating 92% on room air. Urine output around 500 mL over last 24 hours.
#1. Acute on chronic heart failure with reduced ejection fraction, with cardiogenic shock
- Patient appears to be in a low perfusion state, worsening renal function, increasing shortness of breath, pleural effusions noted on imaging
- Weaned off Levophed, currently milrinone infusing, severely reduced systolic function, LVEF 15 to 20% on MARY JANE last month.
- Continue cardiac telemetry monitoring, cardiology service on case
- 02/27, Discussed with patient and also with patient's and daughter. Patient currently DNR/DNI and does not want to pursue any invasive interventions
- Overall guarded prognosis
#2. Acute kidney injury, concern for cardiorenal syndrome
- Suspect decreased renal perfusion in the setting of cardiogenic shock
- Continues to be oliguric. 500 ml urine output over last 24 hrs.
- Bilateral pedal edema noted, continue oral bicarbonate supplementation
- Nephrology service on case, patient not felt to be a candidate for renal replacement therapy due to severe advanced heart failure
#3. History of paroxysmal atrial fibrillation.
- Currently normal sinus rhythm, continue telemonitoring
- Amiodarone 200 mg p.o. twice daily
- Beta-blockers have been stopped in view of shock
- Anticoagulation on hold due to hematuria. Also prior history of GI bleed due to duodenal ulcer in 11/2024.
#4. Pleural effusions, R>L.
- Cardiomegaly also noted on imaging. Very likely related to underlying congestive heart failure
- Patient currently saturating around 92% on room air and overall appears comfortable.
- Considering normal saturation on room air, hold off thoracentesis for now, can reconsider in future depending upon patient's clinical course
- Will defer diuresis to nephrology and cardiology service
SCDs for DVT prophylaxis.
Patient has been off Levophed, currently on room air. CODE STATUS DNR/DNI. Transfer to IMU. [employer] Mobile Developer service will sign off and will be available as needed
Goals of care: 02/27, Met with patient's and daughter. Also discussed with patient. Confirmed CODE STATUS DNR/DNI. Patient does not want to pursue any interventions. We also discussed the need for central access with ongoing pressor
infusion Levophed and milrinone. Considering patient wants to avoid intervention, suggested PICC line rather than a central line which patient is agreeable to. Family understands that patient might not survive this hospitalization considering
cardiogenic shock, worsening renal failure and patient not being a candidate for renal replacement therapy.
Other medical diagnoses:
-HTN
-HLD
-DM
-H/o Duodenal ulcers
-Parkinsonism
Critical Care time 66 mins -- The patient is admitted for acute critical illness for the treatment of vital organ failure and/or prevention of further life-threatening conditions. Total care includes time spent in review of history, physical exam,
medications, hemodynamic/ventilator parameters, laboratory data, imaging and discussion with house staff, pharmacy, respiratory therapy, healthcare administrator, and nursing.
Data:
MARY JANE 01/2025: Left ventricle is mildly dilated. Severely reduced left ventricular systolic
function. Global hypokinesis. Normal left ventricular wall thickness. Left
ventricular ejection fraction is 15-20%.
Normal right ventricular size and low normal function.
Mildly dilated left atrium.
No thrombus detected in the left atrial appendage.
Mild mitral annular calcification with moderately thickened mitral valve
leaflets. There was restriction of the posterior leaflet present with moderate
central mitral regurgitation. Peak E wave velocity 78 cm/s.
Thickened aortic valve with restricted leaflet motion. Moderate aortic
stenosis. Mild to moderate aortic regurgitation.
Mild tricuspid regurgitation.
ECHO 2-D, 01/2025: Left ventricle is severely dilated. Severely reduced left ventricular systolic
function. Global hypokinesis with mid septal, anteroseptal, inferior, apical
akinesis. Mild concentric left ventricular hypertrophy. Left ventricular
ejection fraction is 20-25% by visual assessment.
Mitral valve opens normally. Thickened mitral valve leaflets. Mitral annular
calcification. Moderate to severe mitral regurgitation.
Trileaflet aortic valve. Thickened aortic valve with restricted leaflet motion.
Mild to moderate aortic stenosis. Peak/mean gradients across the aortic valve
are 27/16 mmHg. Using an LVOT diameter of 2.4 cm, the aortic valve by the
Continuity equation is calculated at 1.5 cm2. Mild aortic regurgitation.
Tricuspid valve opens normally. Mild tricuspid regurgitation. Estimated
pulmonary artery pressure of 41 mmHg. Assuming a right atrial pressure of 8
mmHg.
Since echo November 2024 which was reviewed, left ventricle is now severely dilated
with severely decreased systolic function. MR has worsened from mild to
moderate-severe.
Subjective Dataa
Subjective Data
Date of Service:
Date of Service: February 28, 2025
Subjective:
Patient comfortably sitting in bed in no acute distress
Review of Systems
Genitourinary: Other (All 14 systems reviewed and negative except as stated above in the history of present illness.)
Objective Data
Data Reviewed
Vital Signs / I&O / Oxygen:
Vital Signs
Temp Pulse Resp BP Pulse Ox
96.6 F L 67 15 99/64 91
02/28/25 07:30 02/28/25 09:06 02/28/25 09:00 02/28/25 09:06 02/28/25 09:00
Intake and Output
02/27/25 02/28/25 03/01/25
06:59 06:59 06:59
Intake Total 1178.9 / 1181.9
Output Total 250 / 250 550 / 550
Balance -250 / -250 628.9 / 631.9
SaO2 91
Physical Exam
General: Comfortable
HEENT: Normocephalic
Cardiovascular: S1-S2 and Peripheral Edema
Respiratory: Clear
GI: Soft
Neurology: Awake and Alert
Skin: Warm
Labs/Micro/Reports
Lab Data
02/28/25 03:29
02/28/25 03:29
Laboratory Results
02/27/25
13:17
PT 22.3 H
INR 1.94
APTT 34.5
Microbiology
02/26/25 11:06 Blood/Venous Blood Culture - Preliminary
No Growth in 24 hours- Final report to follow
02/26/25 11:06 Blood/Venous Blood Culture - Preliminary
No Growth in 24 hours- Final report to follow
02/26/25 11:06 Urine Urine Culture - Final
NO GROWTH
--- NOTE | 2025-02-28 10:45 | CM ---
Patient seen at bedside in IMU, Patient for transfer back to IMU and plan is for SNF pending medical treatment plan. CM will continue to follow for discharge planning needs.
Plan; SNF pending medical treatment or therapy recommendations
--- NOTE | 2025-02-28 11:20 | W.PN.NEPH.PH ---
Today's Communication / Plan
-
follow labs
Assessment/Plan
-
IMP:
Gen weakness
TAMANNA on CKD 3b-cr variable at best at 1.4, at last d/c in January low 2 range
Azotemia
Hypotension
Hyperkalemia
non gap met acidosis, mild Lactic acid
Hyponatremia
Chronic HFrEF
CM, EF 20% by echo 01/29/25
Mild to mod
Moderate to severe MR
Persistent atrial fibrillation
Chronic AC with ELiquis
Duodenal ulcer s/p upper GI bleed requiring transfusion 11/2024
Type 2 diabetes
Hypertension
Parkinson's disease
Dementia
plan:
TAMANNA-cardiorenal, in setting of cardiogenic shock
cr slightly better at 5.3, persistent azotemia 124
more awake today, remains on milrinone and off levo overnight
UOP slowly improving , barely non oliguric with tate
wt relatively stable, hold diuretics
hyperkalemia improving, but he just had high k diet
repeat labs, if still high repeat LOkelma dose and adjust diet to low k
met acidosis is improving on po bicarb cont same
Bp soft end on milrinone
follow labs later today
d/w pt and family
d/w nursing
-
-
Date of Service: February 28, 2025
CC / HPI / ROS
-
Chief Complaint:
Acute kidney injury
History of Present Illness:
Creatinine slightly down at 5.3
Metabolic acidosis better at 17
Hyperkalemia resolved 4.2
BP soft on milrinone and off levo
Review of Systems:
Oliguric at 500 cc
Weights stable
no cp or sob
reports appetie returning and more awake
Labs
-
Labs:
WBC 10.2 10^3/uL (4.8-10.8) 02/28/25 03:29
RBC 4.51 10^6/uL (4.70-6.10) L 02/28/25 03:29
Hgb 10.7 g/dL (13.0-18.0) L 02/28/25 03:29
Hct 33.8 % (39.0-52.0) L 02/28/25 03:29
Plt Count 138 10^3/uL (130-400) 02/28/25 03:29
Sodium 133 mmol/L (135-145) L 02/28/25 03:29
Potassium 4.2 mmol/L (3.5-5.1) D 02/28/25 03:29
Chloride 103 mmol/L (98-107) 02/28/25 03:29
Carbon Dioxide 17 mmol/L (22-30) L 02/28/25 03:29
BUN 124 mg/dl (9-20) H* 02/28/25 03:29
Creatinine 5.3 mg/dL (0.7-1.3) H* 02/28/25 03:29
eGFR 10.54 02/28/25 03:29
Glucose 110 mg/dl (70-99) H 02/28/25 03:29
Calcium 8.1 mg/dl (8.4-10.2) L 02/28/25 03:29
Phosphorus 9.4 mg/dl (2.5-4.5) H 02/28/25 03:29
Cuw-L-Igwisxvgajt Pept > 21129 pg/ml 02/26/25 11:06
Albumin 3.0 g/dl (3.5-5.0) L 02/27/25 03:49
Physical Exam
-
Vital Signs:
Vital Signs
Temp Pulse Resp BP Pulse Ox
96.6 F L 73 17 96/72 91
02/28/25 07:30 02/28/25 11:00 02/28/25 11:00 02/28/25 11:00 02/28/25 11:00
Cardiovascular:: Regular rate and rhythm
Respiratory:: Bilateral: CTA
Lung Excursion:: Normal
Abdomen:: Nontender and Soft
Bowel Sounds:: Normal
Extremity Edema:: +1: Bilateral:
Tate Catheter: Yes
--- NOTE | 2025-02-28 11:21 | W.PN.HOSP.TC ---
Addendum entered and electronically signed by Wilda Osorio MD 02/28/25 14:15:
wound--stage 2 pressure injury on sacrum--POA
Addendum entered and electronically signed by Wilda Osorio MD 02/28/25 14:08:
I saw and evaluated the patient independently. I reviewed the resident�s note and agree with findings and plan as documented by Dr. Segovia.
GENERAL: chronically ill appearing male, lethargic but in no apparent distress--appears brighter today
HEENT: NC/AT--not hypoxic--no O2 requirements
HEART: irreg irreg +S1, +S2, FER--? gallop
LUNGS : decreased breath sounds bilaterally
ABDOM: soft, nontender, nondistended, + bowel sounds
EXT: no cyanosis, clubbing--edema bilateral LE--right > left
NEUROLOGIC: grossly intact
strongly suspect cardiogenic shock with cardiorenal syndrome and Acute on chronic exacerbation of congestive heart failure with hypotension and TAMANNA/hyperkalemia/hyponatremia-- proBNP 27,000--creat still above 5, weaned off levophed but still on
inotrope support (milrinone)-- consider right heart cath, repeat ECHO with decrease in EF to 15-20%--apprec cards/renal---renal dose meds--avoid nephrotoxic drugs--daily weight, I/Os--trend creat
metabolic acidosis--with lactic acid of 3.0--DO NOT suspect sepsis--to me, indicates more anaerobic metabolism--metformin stopped last admission, Farxiga stopped this one--sodium bicarb tabs started per renal
Persistent atrial fibrillation with rapid ventricular response--EKG to my eye appears different than on first admission--apprec cards--hold Xarelto and amiodarone--plans for repeat cardioversion (failed last admission) now on hold
Microscopic hematuria-- Urinalysis shows 4+ occult blood, urine RBC 90 per high-power field, 16-20 urine WBC-- renal ultrasound neg for hydro/obstruction- Holding patient's home dose of Xarelto and using SCDs as DVT prophylaxis instead
Parkinson's disease/dementia-- Continue on carbidopa/levodopa, donepezil and memantine
DVT proph -- SCDs
code status--DNR
02/27 Had goals of care discussion with patient and along with resident team and case management. Explained that I believe patient is in cardiogenic shock and that despite pressors and inotrope support, he may not make it out of the hospital.
Hospice was discussed and that he should talk about this with his family. He is DNR/DNI. Unfortunately, patient will be moved to the ICU based on need for more aggressive pressor management. Spoke with cardiology and nephrology and both are in
agreement that any intervention we do may not improve things.
moving to IMU as per nut culler
Original Note:
Today's Communication/Plan
-
- Trend CMP
- Monitor MAP
- Monitor for electrlyte abnormalities
Assessment / Plan
Assessment / Plan
Acute on chronic exacerbation of congestive heart failure
Cardiorenal syndrome
TAMANNA on CKD:
- Admit patient to IMU and telemetry (he has both mild hyperkalemia and atrial fibrillation)
-CT head was benign and chest x-ray showed bilateral pleural effusions with mild cardiomegaly which is indicative of CHF
- on admission proBNP is above 27,000 which indicates severe heart failure, creatinine is 4.9 which indicates severe kidney dysfunction most likely secondary to ineffective cardiac output, his normal baseline creatinine is somewhere around 2.2-2.4
- Avoid nephrotoxins to prevent injury to the kidney and worsen the creatinine level. Holding patient's home dose of carvedilol and furosemide (due to low blood pressure).
- Renally dosed all meds
- Troponins are negative.
- Consulted cardiology and asked about opinion on milrinone versus a right heart cath. They do not think patient is in to be out of a condition would like to check echo first. Would like to withdraw Farxiga and furosemide and see if patient
improves.
- Consulted nephrology who suggest inotropes if patient is still hypotensive
- A repeat echo TTE shows ejection fraction of 15-20% which is severe heart failure with reduced ejection fraction.
- BP is 83/63 so stopped amiodarone. Started levophed and milnirone pressors to increase blood pressure and allow blood flow to organs. transferred patient to ICU and consulted nut culler.
- Nephrology states that patient is end stage cardiorenal syndrome and that he is not a suitable candidate for dialysis due to frality.
- Initiated goals of care discussion today with family. Prognosis is poor in light of recent echo.
- Started patient on levophed and milnirone. Levophed stopped today at 1:30 am and milrinone is to be continued at a dose of .125 mcgs. Bp is 96/72 and MAP is 80 signifying adequate tissue perfusion.
- Creatinine is 5.3 ( trending down from 5.6 yesterday. Phosphorus is 9.4 and mag 2.8 indicating kidney injury leading to decreased excretion of phosphorus/ magnesium and accumulation in blood. Can lead to worsening heart failure, hypertension,
muscle cramps.
Persistent atrial fibrillation with rapid ventricular response:
- Rate is 73 today and well-controlled. Patient is not in A-fib today no overnight events on telemetry.
- Discontinued patients amiodarone due to low blood pressures
- Discontinued patient's Xarelto due to concerns for worsening of gross hematuria and carvedilol due to low blood pressures
- Cardiology is following
Mild hyperkalemia:
- Today potassium is 4.2 which is normalized.
Microscopic hematuria:
- Urinalysis shows 4+ occult blood, urine RBC 90 per high-power field, 16-20 urine WBC
- Holding patient's home dose of Xarelto and using SCDs as DVT prophylaxis instead
- renal ultrasound is negative for hydronephrosis. Bilateral renal cysts, including a 4.7 cm septated cyst within the upper pole of the left kidney. Underdistended but grossly unremarkable urinary bladder.
Parkinson's disease/dementia:
- Continue on carbidopa levodopa donezepil and memantine
DNR
dvt ppx SCDs
Anticipated Discharge: 24 - 48 hours
Subjective/Interval History
-
Date of Service: February 28, 2025
No acute medical complaints
No overnight events.
Objective Data
-
Labs:
Laboratory Results
02/28/25
03:29
WBC 10.2
Hgb 10.7 L
Hct 33.8 L
Plt Count 138
Sodium 133 L
Potassium 4.2 D
Chloride 103
Carbon Dioxide 17 L
BUN 124 H*
Creatinine 5.3 H*
Glucose 110 H
Calcium 8.1 L
Vital Signs:
Vital Signs
Temp Pulse Resp BP Pulse Ox
96.6 F L 73 17 96/72 91
02/28/25 07:30 02/28/25 11:00 02/28/25 11:00 02/28/25 11:00 02/28/25 11:00
I&O
02/27/25 02/28/25 03/01/25
06:59 06:59 06:59
Intake Total 1178.9 / 1181.9 135 / 135
Output Total 250 / 250 550 / 550
Balance -250 / -250 628.9 / 631.9 135 / 135
Review of Systems
-
History Source: Patient
All other systems: Reviewed and negative
Respiratory: Reports Trouble Breathing
Neuro: Reports Headache
Physical Exam
-
General: No Apparent Distress and Appears Chronically Ill
Respiratory: Decreased Breath Sounds (bilaterally at the base of both lungs)
Cardiac: Regular Rhythm, S1/S2, Murmur (heard on mitral area) and JVD
GI: Soft, Nontender, Nondistended and Normal Bowel Sounds
Musculoskeletal: Edema, Right Lower Extrem and Edema, Left Lower Extrem
Skin: Warm
Neuro: Awake and Alert
Psych: Calm
Data Reviewed
-
Labs: Labs Reviewed by me and Discussed with Physician
--- NOTE | 2025-02-28 11:43 | PN.CDI ---
CDI
- -
CDI:
Physician Documentation Request
Admit Date: 02/26/25 17:09
Dear Doctor Devon/ Resident ,
Please review the following and provide your response in the progress notes.
Clinical Indicators:
Pt admitted with TAMANNA/ Cardiogenic Shock/Acte on Chronic Systolic CHF
Documented per nursing wound care note 02/26, 'presents on admission sacrum pressure injury stage 2 ....treatment provided silicone border...'
Physician documentation of the type and location of wounds is required for compliant documentation. Based on the above clinical findings and your assessment, please provide the following in your progress note:
1. Location of the ulcer/wound, including laterality.
2. Type (etiology) of ulcer/wound:
- Pressure (decubitus) ulcer
- Non-pressure ulcer
- Other ( please specify)
Use of terms such as suspected, likely, concern for, or probable (associated with a specific diagnosis that is being evaluated, monitored, or treated as if it exists) are acceptable and can be coded in the inpatient setting, when documented at the
time of discharge.
Thank you,
Sheree Kumar RN
CDI Specialist
[place] [employer]
Please use your independent medical judgment in providing your response.
*Source: National Pressure Ulcer Advisory Panel (NPUAP)
--- NOTE | 2025-02-28 13:08 | PTCARENOTE ---
Pt OOB to chair w/ assist of two staff and use of walker. Pt's gait weak and unsteady. Tolerated increased activity w/o complication. Pt assisted w/ AM hygiene needs. Pt's , son and daughter visiting in room.
[2025-02-28 15:18] LABS: Calcium 7.9 mg/dl (8.4-10.2); Carbon Dioxide 19 mmol/L (22-30); Chloride 101 mmol/L (98-107); Glucose 174 mg/dl (70-99); Potassium 3.6 mmol/L (3.5-5.1); Sodium 131 mmol/L (135-145)
[2025-02-28 15:22] LABS: Blood Urea Nitrogen 121 mg/dl (9-20); Estimated Creatinine Clearance 13 ml/min; eGFR 11.31
[2025-02-28] MEDS: LOKELMA PO (15:34)
--- NOTE | 2025-02-28 16:39 | W.PN.UPDATE ---
Update Note
Progress Note Update
Acute on chronic exacerbation of congestive heart failure with TAMANNA on CKD in the setting of Cardiogenic shock:
- Admit patient to IMU and telemetry (he has both mild hyperkalemia and atrial fibrillation)
-CT head was benign and chest x-ray showed bilateral pleural effusions with mild cardiomegaly which is indicative of CHF
- on admission proBNP is above 27,000 which indicates severe heart failure, creatinine is 4.9 which indicates severe kidney dysfunction most likely secondary to ineffective cardiac output, his normal baseline creatinine is somewhere around 2.2-2.4
- Avoid nephrotoxins to prevent injury to the kidney and worsen the creatinine level. Holding patient's home dose of carvedilol and furosemide (due to low blood pressure).
- Renally dosed all meds
- Troponins are negative.
- Consulted cardiology and asked about opinion on milrinone versus a right heart cath. They do not think patient is in to be out of a condition would like to check echo first. Would like to withdraw Farxiga and furosemide and see if patient
improves.
- Consulted nephrology who suggest inotropes if patient is still hypotensive
- A repeat echo TTE shows ejection fraction of 15-20% which is severe heart failure with reduced ejection fraction.
- BP is 83/63 so stopped amiodarone. Started levophed and milnirone pressors to increase blood pressure and allow blood flow to organs. transferred patient to ICU and consulted cane burner.
- Nephrology states that patient is end stage cardiorenal syndrome and that he is not a suitable candidate for dialysis due to frality.
- Initiated goals of care discussion today with family. Prognosis is poor in light of recent echo.
- Started patient on levophed and milnirone. Levophed stopped today at 1:30 am and milrinone is to be continued at a dose of .125 mcgs. Bp is 96/72 and MAP is 80 signifying adequate tissue perfusion.
- Creatinine is 5.3 ( trending down from 5.6 yesterday. Phosphorus is 9.4 and mag 2.8 indicating kidney injury leading to decreased excretion of phosphorus/ magnesium and accumulation in blood. Can lead to worsening heart failure, hypertension,
muscle cramps.
[2025-02-28] MEDS: SINEMET 25-100 1 TABLET PO (17:27)
--- NOTE | 2025-02-28 20:32 | PTCARENOTE ---
Report given to IMU RN. Pt transported via bed.
--- NOTE | 2025-02-28 23:43 | PTCARENOTE ---
Rec'd pt from [facility] as transfer. Pt hypotensive, but with MAP >65. Pt asymptomatic. 2L O2 placed for desat to 88%. Milrinone gtt remains in place, see worklist. Call topete within reach. Care ongoing.
[2025-03-01] VITALS (15 sets, daily range): BP systolic 83–110; BP diastolic 65–89; BMI 25.9
[2025-03-01] MEDS: SINEMET 25-100 1.5 TABLET PO ×2 (05:26→11:38)
--- NOTE | 2025-03-01 07:58 | PTCARENOTE ---
Captured VS from [id number] for nightshift RN. Cannot verify accuracy.
[2025-03-01] MEDS: ARICEPT 10 MG PO (09:00)
[2025-03-01] MEDS: NAMENDA 5 MG PO ×2 (09:00→20:29)
[2025-03-01] MEDS: SODIUM BICARBONATE 650 MG PO ×2 (09:00→20:33)
[2025-03-01] MEDS: FEOSOL 325 MG PO (09:00)
[2025-03-01] MEDS: PROTONIX 40 MG PO (09:00)
[2025-03-01] MEDS: PACERONE 200 MG PO ×2 (09:01→20:30)
[2025-03-01] MEDS: DESENEX/MITRAZOL/ZEASORB 1 APPLIC TOPICAL ×2 (09:02→20:33)
[2025-03-01 09:46] LABS: Hematocrit 34.4 % (39.0-52.0); Hemoglobin 10.7 g/dL (13.0-18.0); Mean Corp Hgb Conc. 31.1 g/dL (33.0-37.0); Mean Corpuscular Volume 74.5 fL (80.0-94.0); Nucleated Red Blood Cells % 0 % (-); Platelet Count 145 10^3/uL (130-400); Red Cell Dist. Width 20.3 % (11.5-14.5)
[2025-03-01 10:02] LABS: ALT (SGPT) 17 U/L (0-50); AST (SGOT) 56 U/L (17-59); Albumin 2.8 g/dl (3.5-5.0); Alkaline Phosphatase 113 U/L (38-126); Blood Urea Nitrogen 115 mg/dl (9-20); Calcium 7.8 mg/dl (8.4-10.2); Carbon Dioxide 22 mmol/L (22-30); Chloride 102 mmol/L (98-107); Estimated Creatinine Clearance 15 ml/min; Glucose 111 mg/dl (70-99); Potassium 3.4 mmol/L (3.5-5.1); Sodium 133 mmol/L (135-145); Total Protein 5.0 g/dl (6.3-8.2); eGFR 13.18
--- NOTE | 2025-03-01 10:47 | W.PN.NEPH.PH ---
Addendum entered and electronically signed by Jenn Chávez MD 03/08/25 16:23:
for CDI-
TAMANNA from cardiorenal and cardiogenic shock
Original Note:
Today's Communication / Plan
-
low dose lasix and replace k
Assessment/Plan
-
IMP:
Gen weakness
TAMANNA on CKD 3b-cr variable at best at 1.4, at last d/c in January low 2 range
Azotemia
Hypotension
Hyperkalemia
non gap met acidosis, mild Lactic acid
Hyponatremia
Chronic HFrEF
CM, EF 20% by echo 01/29/25
Mild to mod
Moderate to severe MR
Persistent atrial fibrillation
Chronic AC with ELiquis
Duodenal ulcer s/p upper GI bleed requiring transfusion 11/2024
Type 2 diabetes
Hypertension
Parkinson's disease
Dementia
plan:
TAMANNA-cardiorenal, in setting of cardiogenic shock
cr better at 4.4, improving azotemia to 115, no hydro on US
remains on milrinone gtt
UOP improving, non oliguric with tate
wt relatively stable, ok to resume diuretics, replace k
adjust diet to low sodium and FR 48 ounces/day
met acidosis is improving on po bicarb-decrease to BID
mild hyponatremia stable-monitor
corrected ned is low normal-check vit d
Bp are improving
follow labs
d/w nursing and pt
-
-
Date of Service: March 01, 2025
CC / HPI / ROS
-
Chief Complaint:
Acute kidney injury
History of Present Illness:
Creatinine slightly down at 4.4, BUN better at 115
Metabolic acidosis better at 22
Hyperkalemia resolved now k low at 3.4
BP soft on milrinone
Review of Systems:
non Oliguric at 1500 cc
Weights stable
no cp or sob on 2lit of o2
Labs
-
Labs:
WBC 7.4 10^3/uL (4.8-10.8) 03/01/25 09:32
RBC 4.62 10^6/uL (4.70-6.10) L 03/01/25 09:32
Hgb 10.7 g/dL (13.0-18.0) L 03/01/25 09:32
Hct 34.4 % (39.0-52.0) L 03/01/25 09:32
Plt Count 145 10^3/uL (130-400) 03/01/25 09:32
Sodium 133 mmol/L (135-145) L 03/01/25 09:32
Potassium 3.4 mmol/L (3.5-5.1) L 03/01/25 09:32
Chloride 102 mmol/L (98-107) 03/01/25 09:32
Carbon Dioxide 22 mmol/L (22-30) 03/01/25 09:32
BUN 115 mg/dl (9-20) H* 03/01/25 09:32
Creatinine 4.4 mg/dL (0.7-1.3) H* 03/01/25 09:32
eGFR 13.18 03/01/25 09:32
Glucose 111 mg/dl (70-99) H 03/01/25 09:32
Calcium 7.8 mg/dl (8.4-10.2) L 03/01/25 09:32
Phosphorus 9.4 mg/dl (2.5-4.5) H 02/28/25 03:29
Uul-P-Ijgqghqotfc Pept > 26937 pg/ml 02/26/25 11:06
Albumin 2.8 g/dl (3.5-5.0) L 03/01/25 09:32
Physical Exam
-
Vital Signs:
Vital Signs
Temp Pulse Resp BP Pulse Ox
97.5 F 85 14 110/75 91
03/01/25 07:31 03/01/25 09:01 03/01/25 06:00 03/01/25 09:01 03/01/25 06:00
Cardiovascular:: Regular rate and rhythm
Respiratory:: Bilateral: Rales (at bases)
Lung Excursion:: Normal
Abdomen:: Nontender and Soft
Extremity Edema:: None: Bilateral:
Tate Catheter: Yes
--- NOTE | 2025-03-01 11:06 | W.PN.HOSP.TC ---
Addendum entered and electronically signed by Wilda Osorio MD 03/01/25 13:55:
I saw and evaluated the patient independently. I reviewed the resident�s note and agree with findings and plan as documented by Dr. Segovia.
GENERAL: chronically ill appearing male, in NAD--weights up
HEENT: NC/AT--now hypoxic--now O2 requirements
HEART: irreg irreg +S1, +S2, FER--? gallop
LUNGS : decreased breath sounds bilaterally
ABDOM: soft, nontender, nondistended, + bowel sounds
EXT: no cyanosis, clubbing--edema bilateral LE--right > left
NEUROLOGIC: grossly intact
strongly suspect cardiogenic shock with cardiorenal syndrome and Acute on chronic exacerbation of congestive heart failure with hypotension and TAMANNA/hyperkalemia/hyponatremia-- proBNP 27,000--creat improved to 4.4, weaned off levophed and now
stopping inotrope support (milrinone)-- repeat ECHO with decrease in EF to 15-20%--apprec cards/renal---renal dose meds--avoid nephrotoxic drugs--daily weight, I/Os--trend creat--would try to diurese to see if anything improves--still need GOC
discussion as pt and have made no decisions--need input from cards re: prognosis
metabolic acidosis--with lactic acid of 3.0 on admission, improved--DO NOT suspect sepsis--to me, indicates more anaerobic metabolism--metformin stopped last admission, Farxiga stopped this one--sodium bicarb tabs started per renal
Persistent atrial fibrillation with rapid ventricular response--EKG to my eye appears different than on first admission--apprec cards--hold Xarelto and amiodarone--plans for repeat cardioversion (failed last admission) also on hold
Microscopic hematuria-- Urinalysis shows 4+ occult blood, urine RBC 90 per high-power field, 16-20 urine WBC-- renal ultrasound neg for hydro/obstruction- Holding patient's home dose of Xarelto and using SCDs as DVT prophylaxis instead
Parkinson's disease/dementia-- Continue on carbidopa/levodopa, donepezil and memantine
wound--stage 2 pressure injury on sacrum--POA
DVT proph -- SCDs
code status--DNR
02/27 Had goals of care discussion with patient and along with resident team and case management. Explained that I believe patient is in cardiogenic shock and that despite pressors and inotrope support, he may not make it out of the hospital.
Hospice was discussed and that he should talk about this with his family. He is DNR/DNI. Unfortunately, patient will be moved to the ICU based on need for more aggressive pressor management. Spoke with cardiology and nephrology and both are in
agreement that any intervention we do may not improve things.
moving to IMU as per rubbish collection supervisor
Original Note:
Today's Communication/Plan
-
- trend CMP
Assessment / Plan
Assessment / Plan
Acute on chronic exacerbation of congestive heart failure due to cardiogenic shock.
TAMANNA on CKD:
-CT head was benign and chest x-ray showed bilateral pleural effusions with mild cardiomegaly which is indicative of CHF
- on admission proBNP is above 27,000 which indicates severe heart failure, creatinine is 4.9 which indicates severe kidney dysfunction most likely secondary to ineffective cardiac output, his normal baseline creatinine is somewhere around 2.2-2.4
- Avoid nephrotoxins to prevent injury to the kidney and worsen the creatinine level. Holding patient's home dose of carvedilol and furosemide (due to low blood pressure).
- Renally dosed all meds
- Troponins are negative. .
- Consulted nephrology who suggest inotropes if patient is still hypotensive
- transferred patient to ICU and consulted rubbish collection supervisor (02/27/25)
- A repeat echo TTE shows ejection fraction of 15-20% which is severe heart failure with reduced ejection fraction.
- BP is 110/75. Stopped levophed and continued milrinone .125 mcg pressors to increase blood pressure and allow blood flow to organs. MAP is 80 signifying adequate tissue perfusion.
- Nephrology states that patient is end stage cardiorenal syndrome and that he is not a suitable candidate for dialysis due to frality.
- Initiated goals of care discussion with family. Prognosis is poor in light of recent echo.
- Creatinine is 4.4 ( trending down from 5.0 yesterday. Most recent Phosphorus is 9.4 and mag 2.8 indicating kidney injury leading to decreased excretion of phosphorus/ magnesium and accumulation in blood. Can lead to worsening heart failure,
hypertension, muscle cramps. Will order phosphorus and mag as well.
- Will consider the use of diuresis in this patient when his potassium improves as he has gained 2 kgs of weight since admission. Will try an initial test dose and check urine output after, from there we will either escalate or change therapy based
on response.
Left arm swelling:
- On visual inspection, pts left arm is slightly more enlarged than his right. No colour change, loss of sensation, temperature change, decreased strength.
- Ordered a left upper extremity ultrasound to rule out upper extremity thrombosis.
Persistent atrial fibrillation with rapid ventricular response:
- Rate is 85 today and well-controlled. Patient is not in A-fib today no overnight events on telemetry.
- restarted patients amiodarone now that blood pressures have normalized
- Discontinued patient's Xarelto due to concerns for worsening of gross hematuria and carvedilol due to low blood pressures
- Cardiology is following
Mild hypokalemia:
- Today potassium is 3.4, nephrology ordered 40 iv stat. trend cmp.
Microscopic hematuria:
- Urinalysis shows 4+ occult blood, urine RBC 90 per high-power field, 16-20 urine WBC
- Holding patient's home dose of Xarelto and using SCDs as DVT prophylaxis instead
- renal ultrasound is negative for hydronephrosis. Bilateral renal cysts, including a 4.7 cm septated cyst within the upper pole of the left kidney. Underdistended but grossly unremarkable urinary bladder.
Parkinson's disease/dementia:
- Continue on carbidopa levodopa donezepil and memantine
DNR
dvt ppx SCDs
Anticipated Discharge: 24 - 48 hours
Subjective/Interval History
-
Date of Service: March 01, 2025
No acute medical complaints
No overnight events.
Objective Data
-
Labs:
Laboratory Results
03/01/25
09:32
WBC 7.4
Hgb 10.7 L
Hct 34.4 L
Plt Count 145
Sodium 133 L
Potassium 3.4 L
Chloride 102
Carbon Dioxide 22
BUN 115 H*
Creatinine 4.4 H*
Glucose 111 H
Calcium 7.8 L
Total Bilirubin 1.1
AST 56
ALT 17
Alkaline Phosphatase 113
Vital Signs:
Vital Signs
Temp Pulse Resp BP Pulse Ox
97.5 F 85 14 110/75 91
03/01/25 07:31 03/01/25 09:01 03/01/25 06:00 03/01/25 09:01 03/01/25 06:00
I&O
02/28/25 03/01/25 03/02/25
06:59 06:59 06:59
Intake Total 1178.9 / 1181.9 692 / 692
Output Total 550 / 550 750 / 750 875 / 875
Balance 628.9 / 631.9 -58 / -58 -875 / -875
Review of Systems
-
History Source: Patient
All other systems: Reviewed and negative
Respiratory: Reports Trouble Breathing
Neuro: Reports Headache
Physical Exam
-
General: No Apparent Distress and Appears Chronically Ill
Respiratory: Clear to Auscultation
Cardiac: Regular Rhythm, S1/S2, Murmur (heard on mitral area) and JVD
GI: Soft, Nontender, Nondistended and Normal Bowel Sounds
Musculoskeletal: Edema, Right Lower Extrem and Edema, Left Lower Extrem
Skin: Warm
Neuro: Awake and Alert
Psych: Calm
Data Reviewed
-
Labs: Labs Reviewed by me and Discussed with Physician
--- NOTE | 2025-03-01 11:30 | W.PN.CARDCBS ---
Today's Communication / Plan
-
Stop milrinone
Agree with diuresis
On bicarbonate
Impression / Plan
-
PCP: Dr. Rodriguez
Card: Dr. Patel
Impression:
Presented with weakness, SOB, fall
Cardiogenic shock secondary to cardiorenal syndrome
TAMANNA on CKD 3b
Hypotension
Chronic HFrEF
CM, EF 20% by echo 01/29/25
Mild to mod
Moderate to severe MR
Hyperkalemia
Persistent atrial fibrillation
Chronic Eliquis OAC
Duodenal ulcer s/p upper GI bleed requiring transfusion 11/2024
Type 2 diabetes
Hypertension
Parkinson's disease
Dementia
Echo 11/17/2024: EF 50%, inferolateral hypokinesis, moderate aortic stenosis, trace aortic regurgitation, mild mitral regurgitation, peak/mean aortic valve gradients 40/24 mmHg, aortic valve area 1.3 cm 2, pulmonary artery systolic pressure 29
Echo 01/29/2025: Ejection fraction 20 to 25% with severely dilated ventricle, global hypokinesis with mid septal, anteroseptal, inferior, and apical akinesis, moderate to severe MR, mild to moderate with mean gradient of 16 mmHg aortic valve area
1.5 cm�, mild AI, mild TR PA systolic of 41 mmHg
MARY JANE 02/01/2025: EF 15 to 20%. Global hypokinesis. Mild left atrial dilation. No thrombus in left atrial appendage. Moderate mitral regurgitation with restriction of posterior leaflet. Moderate aortic stenosis with mild to moderate AI. Mild TR.
Plan:
He looks better. Receiving bicarb with a serum bicarbonate of 22. Still on low-dose milrinone. Blood pressure is adequate.
We will stop milrinone and observe.
His creatinine continues to improve, 4.4. Furosemide will be administered
I feel as if I do not completely understand his case. He has developed metabolic acidosis on 3 different occasions, the first in the setting of a GI bleed in October, then again when hospitalized in January at which time we thought metformin could be
the problem, and now again. His anion gap was never that high, lactic acid was only modestly increased, and he never had ketones in his urine, so I am not sure that we understand where his metabolic acidosis is coming from. His proBNP was greater
than 27,000 and early January and again this time. Cortisol level was high.
Could he have renal tubular acidosis? Do not feel that he is losing large amounts of bicarb through his GI tract.
It could be that cardiogenic shock is the only explanation, but I am unsure and wonder if the lactic acid level should be higher.
Will continue to follow. Will restart anticoagulation.
HPI: Jl is a 74-year-old male with past medical history of chronic HFrEF, cardiomyopathy with EF 20%, CKD, persistent atrial fibrillation, duodenal ulcer with prior GI bleeding, type II DM, hypertension, Parkinson's, and dementia. He
presented to [facility] ER for evaluation of headache, weakness, and shortness of breath. He was recently admitted 01/27/2025 to 02/02/2025 with acute heart failure and rapid A-fib. He initially did well post discharge, but over the past few days has
slowly been declining. He has stopped eating and drinking and has become increasingly weak. Yesterday, his states that when trying to transfer him to the commode, he slid out of bed onto the floor. He describes having a headache and feeling
lightheaded fairly consistently. No fevers or chills. Breathing has worsened over the past few days as well. This a.m., given significant weakness, EMS was called and he was brought to ER for evaluation. He was hypotensive when EMS arrived and
he was given IVF's en route. BP 74/64 in ER and again gently hydrated in ER while awaiting testing results. Lab work revealed creatinine up to 4.9 with potassium of 5.2. UA with possible urinary tract infection. Blood and urine cultures were
drawn and are pending. There is also concern for acute heart failure with proBNP >27,000 and small pleural effusions on chest x-ray. Weight has been downtrending, down to 167 pounds at home. He continues on lower dose Lasix 20 mg daily as
outpatient. He notes that he does have some improvement in his symptoms following IVF's and with improvement in BPs.
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
Subjective
Date of Service: March 01, 2025:
74-year-old man admitted in November with GI bleeding and then again February 02 in rapid atrial fibrillation and heart failure and found to have an ejection fraction of 20-25 %. He failed cardioversion, was started on amiodarone, discharged with plans to
perform outpatient cardioversion and admitted now with weakness and found to have acute kidney injury on CKD, creatinine 4.9.
PMH: Acute heart failure with reduced EF, GI bleed with paroxysmal atrial fibrillation October 2024 and again January 2025, mild to moderate aortic stenosis, moderate to severe MR, metabolic acidosis possibly related to metformin, duodenal ulcer with
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
Medications: Milrinone, Sinemet, Aricept 10 mg a day, iron, Namenda, pantoprazole 40 mg a day, amiodarone 200 mg twice daily, bicarb 650 3 times daily
110/75, pulse 85, respiratory rate 14, afebrile, intake and output -1.1 L, weight is 81.9 kg, which is up 3.3 kg since admission and 1 kg since February 27 lungs are relatively clear, JVD not dramatically elevated, no acute distress, not much edema,
lungs are relatively clear, regular rate and rhythm, abdomen benign, extremities without much edema
Hemoglobin is 10.7, MCV is 74.5, BUN and creatinine are 115 and 4.4, white carb is 22, potassium is 3.4
Objective
Labs:
03/01/25 09:
03/01/25:
Labs
Hgb 10.7 g/dL (13.0-18.0) L 03/01/25 09:
Hct 34.4 % (39.0-52.0) L 03/01/25:
Plt Count 145 10^3/uL (130-400) 03/01/25 09:32
PT 22.3 Sec (11.4-14.6) H 02/27/25 13:17
INR 1.94 02/27/25 13:17
APTT 34.5 Sec (23.4-35.0) 02/27/25 13:17
Sodium 133 mmol/L (135-145) L 03/01/25 09:32
Potassium 3.4 mmol/L (3.5-5.1) L 03/01/25 09:32
BUN 115 mg/dl (9-20) H* 03/01/25 09:32
Creatinine 4.4 mg/dL (0.7-1.3) H* 03/01/25 09:32
Glucose 111 mg/dl (70-99) H 03/01/25 09:32
Troponins
02/26/25 02/26/25 02/27/25
11:06 19:47 00:14
Troponin I < 0.012 < 0.012 Cancelled
02/27/25
06:14
Troponin I Cancelled
Vital Signs and I&O:
Vital Signs
Temp Pulse Resp BP Pulse Ox
36.6 C 85 14 110/75 91
03/01/25 11:17 03/01/25 09:01 03/01/25 06:00 03/01/25 09:01 03/01/25 06:00
Vital Signs
Temp Pulse Resp BP Pulse Ox
36.6 C 85 14 110/75 91
03/01/25 11:17 03/01/25 09:01 03/01/25 06:00 03/01/25 09:01 03/01/25 06:00
Intake & Output
02/27/25 02/28/25 03/01/25 03/02/25
07:59 07:59 07:59 07:59
Intake Total 1181.9 / 1184.9 689 / 689
Output Total 300 / 300 500 / 500 800 / 800 825 / 825
Balance -300 / -300 681.9 / 684.9 -111 / -111 -825 / -825
Physical Exam
Physical Exam
See above
[2025-03-01] MEDS: PRIMACOR 20 MG 100 IV (11:31)
[2025-03-01] MEDS: KCL 40 MEQ PO (11:37)
[2025-03-01] MEDS: LASIX 20 MG IV (11:37)
--- NOTE | 2025-03-01 14:07 | CM ---
Patient seen at bedside in IMU with patient present as well as physician. Patient awake and pleasant. Patient indicated that she was awaiting swimmer visit. Patient plan is for SNF when medically appropriate at this time,
uncertain patient/family choice for referrals currently. CM will continue to follow for discharge planning needs.
Plan; SNF vs home with VN pending medical treatment plan
[2025-03-01] MEDS: SINEMET 25-100 1 TABLET PO (17:37)
--- NOTE | 2025-03-01 18:18 | PTCARENOTE ---
Pt's BP low, systolic 80s. MAP in 70s. Dr. Osorio aware.
[2025-03-02] VITALS (13 sets, daily range): BP systolic 88–112; BP diastolic 66–86; BMI 25.4
[2025-03-02 05:23] LABS: Hematocrit 34.6 % (39.0-52.0); Hemoglobin 10.8 g/dL (13.0-18.0); Mean Corp Hgb Conc. 31.2 g/dL (33.0-37.0); Mean Corpuscular Volume 75.1 fL (80.0-94.0); Nucleated Red Blood Cells % 0.3 % (-); Platelet Count 144 10^3/uL (130-400); Red Cell Dist. Width 20.0 % (11.5-14.5)
[2025-03-02] MEDS: SINEMET 25-100 1.5 TABLET PO ×2 (05:31→12:19)
[2025-03-02 05:41] LABS: ALT (SGPT) 22 U/L (0-50); AST (SGOT) 41 U/L (17-59); Albumin 2.8 g/dl (3.5-5.0); Alkaline Phosphatase 109 U/L (38-126); Blood Urea Nitrogen 107 mg/dl (9-20); Calcium 7.7 mg/dl (8.4-10.2); Carbon Dioxide 21 mmol/L (22-30); Chloride 104 mmol/L (98-107); Estimated Creatinine Clearance 15 ml/min; Glucose 112 mg/dl (70-99); Magnesium 2.8 mg/dl (1.6-2.3); Potassium 3.5 mmol/L (3.5-5.1); Sodium 134 mmol/L (135-145); Total Protein 5.2 g/dl (6.3-8.2); eGFR 13.94
[2025-03-02 05:55] LABS: Vitamin D, 25-OH*** 50.4 ng/mL (30-80)
--- NOTE | 2025-03-02 08:11 | W.PN.NEPH.PH ---
Today's Communication / Plan
-
Diuretics per cardiology would suggest 40 mg IV twice daily
Follow BMP
Milrinone now off
Will follow kidney function in setting of advanced cardiorenal syndrome
Assessment/Plan
-
IMP:
Gen weakness
TAMANNA on CKD 3b-cr variable at best at 1.4, at last d/c in January low 2 range
Azotemia
Hypotension
Hyperkalemia
non gap met acidosis, mild Lactic acid
Hyponatremia
Chronic HFrEF
CM, EF 20% by echo 01/29/25
Mild to mod
Moderate to severe MR
Persistent atrial fibrillation
Chronic AC with ELiquis
Duodenal ulcer s/p upper GI bleed requiring transfusion 11/2024
Type 2 diabetes
Hypertension
Parkinson's disease
Dementia
plan:
TAMANNA-cardiorenal, in setting of cardiogenic shock
cr better at 4.2, improving azotemia to 107, no hydro on US
Now off milrinone gtt
UOP improving, non oliguric with tate ~1500cc,weight down a
wt relatively stable, ok to resume diuretics, replace k PRN (40mg IV BID?)
adjust diet to low sodium and FR 48 ounces/day
metabolic acidosis is improving on po bicarb-decrease to BID
mild hyponatremia stable-monitor,improving with diuresis
corrected ned is low normal-check vit d
Remains hemodynamically labile
follow labs
d/w nursing and pt
-
-
Date of Service: March 02, 2025
CC / HPI / ROS
-
Chief Complaint:
Acute kidney injury
History of Present Illness:
Creatinine slightly down at 4.2, BUN better
Metabolic acidosis better at 22
Hyperkalemia resolved now k low at 3.5
BP soft off milrinone
Review of Systems:
non Oliguric at 1500 cc
Weights down
no cp or sob on 2lit of o2
Labs
-
Labs:
WBC 8.0 10^3/uL (4.8-10.8) 03/02/25 04:58
RBC 4.61 10^6/uL (4.70-6.10) L 03/02/25 04:58
Hgb 10.8 g/dL (13.0-18.0) L 03/02/25 04:58
Hct 34.6 % (39.0-52.0) L 03/02/25 04:58
Plt Count 144 10^3/uL (130-400) 03/02/25 04:58
Sodium 134 mmol/L (135-145) L 03/02/25 04:58
Potassium 3.5 mmol/L (3.5-5.1) 03/02/25 04:58
Chloride 104 mmol/L (98-107) 03/02/25 04:58
Carbon Dioxide 21 mmol/L (22-30) L 03/02/25 04:58
BUN 107 mg/dl (9-20) H* 03/02/25 04:58
Creatinine 4.2 mg/dL (0.7-1.3) H* 03/02/25 04:58
eGFR 13.94 03/02/25 04:58
Glucose 112 mg/dl (70-99) H 03/02/25 04:58
Calcium 7.7 mg/dl (8.4-10.2) L 03/02/25 04:58
Phosphorus 6.3 mg/dl (2.5-4.5) H 03/02/25 04:58
Uly-U-Qwvbgmvzzok Pept > 97599 pg/ml 02/26/25 11:06
Albumin 2.8 g/dl (3.5-5.0) L 03/02/25 04:58
Physical Exam
-
Vital Signs:
Vital Signs
Temp Pulse Resp BP Pulse Ox
98 F 91 17 99/86 97
03/02/25 07:26 03/02/25 06:00 03/02/25 06:00 03/02/25 06:00 03/02/25 06:00
Cardiovascular:: Regular rate and rhythm
Respiratory:: Bilateral: Rales (at bases)
Lung Excursion:: Normal
Abdomen:: Nontender and Soft
Extremity Edema:: None: Bilateral:
Tate Catheter: Yes
[2025-03-02] MEDS: PROTONIX 40 MG PO (08:42)
[2025-03-02] MEDS: PACERONE 200 MG PO ×2 (08:43→21:28)
[2025-03-02] MEDS: NAMENDA 5 MG PO ×2 (08:44→21:32)
[2025-03-02] MEDS: FEOSOL 325 MG PO (08:44)
[2025-03-02] MEDS: SODIUM BICARBONATE 650 MG PO ×2 (08:45→21:30)
[2025-03-02] MEDS: LASIX 40 MG IV (08:45)
[2025-03-02] MEDS: ARICEPT 10 MG PO (08:45)
[2025-03-02] MEDS: DESENEX/MITRAZOL/ZEASORB 1 APPLIC TOPICAL ×2 (08:46→21:17)
--- NOTE | 2025-03-02 10:09 | CM ---
Addendum entered by Briana Aguilar 03/02/25 16:17:
Patient family spoke with hospice nurse to review information and requested referral to [facility] for rehab at this time. CM will send referral to [facility]. CM will continue to follow for discharge planning needs.
Plan; SNF; [facility] pending acceptance when medically appropriate.
Original Note:
Patient seen at bedside in IMU, pending medical treatment plan. Patient plan is SNF vs home with supports. CM will continue to follow for discharge planning needs.
Plan; SNF vs home with VN; pending medical treatment plan
--- NOTE | 2025-03-02 11:59 | W.PN.HOSP.TC ---
Addendum entered and electronically signed by Wilda Osorio MD 03/02/25 17:29:
I saw and evaluated the patient independently. I reviewed the resident�s note and agree with findings and plan as documented by Dr. Segovia.
GENERAL: chronically ill appearing male, in NAD--weights up
HEENT: NC/AT--off O2
HEART: irreg irreg +S1, +S2, FER--? gallop
LUNGS : decreased breath sounds bilaterally
ABDOM: soft, nontender, nondistended, + bowel sounds
EXT: no cyanosis, clubbing--edema bilateral LE--right > left
NEUROLOGIC: grossly intact
cardiogenic shock with cardiorenal syndrome and Acute on chronic exacerbation of congestive heart failure with hypotension and TAMANNA/hyperkalemia/hyponatremia-- proBNP 27,000--creat improved to 4.2, weaned off levophed/ midodrine-- repeat ECHO with
decrease in EF to 15-20%--apprec cards/renal---renal dose meds--avoid nephrotoxic drugs--daily weight, I/Os--trend creat-- diuresing--had GOC discussion as pt and have made no decisions--plan to go to SNF first to rehab then transition to
hospice if appropriate
metabolic acidosis--with lactic acid of 3.0 on admission, improved--DO NOT suspect sepsis--to me, indicates more anaerobic metabolism--metformin stopped last admission, Farxiga stopped this one--sodium bicarb tabs started per renal
Persistent atrial fibrillation with rapid ventricular response--EKG to my eye appears different than on first admission--apprec cards--hold Xarelto and amiodarone--plans for repeat cardioversion (failed last admission) also on hold
Microscopic hematuria-- Urinalysis shows 4+ occult blood, urine RBC 90 per high-power field, 16-20 urine WBC-- renal ultrasound neg for hydro/obstruction- Holding patient's home dose of Xarelto and using SCDs as DVT prophylaxis instead
Parkinson's disease/dementia-- Continue on carbidopa/levodopa, donepezil and memantine
wound--stage 2 pressure injury on sacrum--POA
DVT proph -- SCDs
code status--DNR
Original Note:
Today's Communication/Plan
-
- check urine output, case managment, trend cmp and cbc
Assessment / Plan
Assessment / Plan
- Discussed goals of care with patient and family. Due to patients poor prognosis, we offered several options of care such as SNF vs home hospice. Placed educational hospice consult. corrections caseworker to follow.
Acute on chronic exacerbation of congestive heart failure due to cardiogenic shock.
TAMANNA on CKD:
-CT head was benign and chest x-ray showed bilateral pleural effusions with mild cardiomegaly which is indicative of CHF
- on admission proBNP is above 27,000 which indicates severe heart failure, creatinine is 4.9 which indicates severe kidney dysfunction most likely secondary to ineffective cardiac output, his normal baseline creatinine is somewhere around 2.2-2.4
- Avoid nephrotoxins to prevent injury to the kidney and worsen the creatinine level. Holding patient's home dose of carvedilol and furosemide (due to low blood pressure).
- Renally dosed all meds
- Troponins are negative. .
- Consulted nephrology who suggest inotropes if patient is still hypotensive
- transferred patient to ICU and consulted manager heavy duty (02/27/25)
- A repeat echo TTE shows ejection fraction of 15-20% which is severe heart failure with reduced ejection fraction.
- BP is 110/75. Stopped levophed and midodrine.
- Nephrology states that patient is end stage cardiorenal syndrome and that he is not a suitable candidate for dialysis due to frality.
- Initiated goals of care discussion with family. Prognosis is poor in light of recent echo.
- Creatinine is 4.2 ( trending down from 4.4 yesterday. Most recent Phosphorus is 6.3 from 9.4 and mag 2.8 (same) indicating kidney injury leading to decreased excretion of phosphorus/ magnesium and accumulation in blood. Can lead to worsening
heart failure, hypertension, muscle cramps. Will order phosphorus and mag as well.
- administered 40 mg iv lasix bolus to help volume status and excrete fluid. Will check in 4-6 hours how much urine output. if more than 500 ml will continue therapy otherwise will change therapy/ additive agent.
- Downgraded patient from IMU to tele
Left arm swelling:
- On visual inspection, pts left arm is slightly more enlarged than his right. No colour change, loss of sensation, temperature change, decreased strength.
- ultrasound of the left arm negative for dvt, continue to observe.
Persistent atrial fibrillation with rapid ventricular response:
- Rate is 85 today and well-controlled. Patient is not in A-fib today no overnight events on telemetry.
- restarted patients amiodarone now that blood pressures have normalized
- Discontinued patient's Xarelto due to concerns for worsening of gross hematuria and carvedilol due to low blood pressures
- Cardiology is following
Mild hypokalemia (resolved):
- Today potassium is 3.5 normal, initiated lasix bolus therapy
Microscopic hematuria:
- Urinalysis shows 4+ occult blood, urine RBC 90 per high-power field, 16-20 urine WBC
- Holding patient's home dose of Xarelto and using SCDs as DVT prophylaxis instead
- renal ultrasound is negative for hydronephrosis. Bilateral renal cysts, including a 4.7 cm septated cyst within the upper pole of the left kidney. Underdistended but grossly unremarkable urinary bladder.
- started patient on subq heparin for dvt ppx
Parkinson's disease/dementia:
- Continue on carbidopa levodopa donezepil and memantine
DNR
sub q heparin dvt ppx
Anticipated Discharge: 24 - 48 hours
Subjective/Interval History
-
Date of Service: March 02, 2025
No acute medical complaints
No overnight events.
Objective Data
-
Labs:
Laboratory Results
03/02/25
04:58
WBC 8.0
Hgb 10.8 L
Hct 34.6 L
Plt Count 144
Sodium 134 L
Potassium 3.5
Chloride 104
Carbon Dioxide 21 L
BUN 107 H*
Creatinine 4.2 H*
Glucose 112 H
Calcium 7.7 L
Total Bilirubin 0.9
AST 41
ALT 22
Alkaline Phosphatase 109
Vital Signs:
Vital Signs
Temp Pulse Resp BP Pulse Ox
97.8 F 99 14 90/75 97
03/02/25 11:24 03/02/25 10:00 03/02/25 10:00 03/02/25 10:00 03/02/25 11:20
I&O
03/01/25 03/02/25 03/03/25
06:59 06:59 06:59
Intake Total 692 / 692 1200 / 1200 780 / 780
Output Total 750 / 750 1575 / 1575
Balance -58 / -58 -375 / -375 780 / 780
Review of Systems
-
History Source: Patient
All other systems: Reviewed and negative
Respiratory: Reports Trouble Breathing
Neuro: Reports Headache
Physical Exam
-
General: No Apparent Distress and Appears Chronically Ill
Respiratory: Clear to Auscultation
Cardiac: Regular Rhythm, S1/S2 and Murmur (heard on mitral area)
GI: Soft, Nontender, Nondistended and Normal Bowel Sounds
Musculoskeletal: Edema, Right Lower Extrem, Edema, Left Lower Extrem and Other (there is swelling of the left upper extremity compared to right on visual inspection, no weakness, no temperature change, touch sensation normal, pulses normal)
Skin: Warm
Neuro: Awake and Alert
Psych: Calm
Data Reviewed
-
Labs: Labs Reviewed by me and Discussed with Physician
[2025-03-02] MEDS: MIRALAX 17 GRAMS PO (12:19)
[2025-03-02] MEDS: SENOKOT-S 1 TABLET PO (12:19)
--- NOTE | 2025-03-02 13:07 | W.PN.CARDCBS ---
Today's Communication / Plan
-
Stable cardiology status with nephrology managing diuretics
Will sign off, call with questions
Impression / Plan
-
PCP: Dr. Rodriguez
Card: Dr. Patel
Impression:
Presented with weakness, SOB, fall
Cardiogenic shock secondary to cardiorenal syndrome
TAMANNA on CKD 3b
Hypotension
Chronic HFrEF
CM, EF 20% by echo 01/29/25
Mild to mod
Moderate to severe MR
Hyperkalemia
Persistent atrial fibrillation
Chronic Eliquis OAC
Duodenal ulcer s/p upper GI bleed requiring transfusion 11/2024
Type 2 diabetes
Hypertension
Parkinson's disease
Dementia
Echo 11/17/2024: EF 50%, inferolateral hypokinesis, moderate aortic stenosis, trace aortic regurgitation, mild mitral regurgitation, peak/mean aortic valve gradients 40/24 mmHg, aortic valve area 1.3 cm 2, pulmonary artery systolic pressure 29
Echo 01/29/2025: Ejection fraction 20 to 25% with severely dilated ventricle, global hypokinesis with mid septal, anteroseptal, inferior, and apical akinesis, moderate to severe MR, mild to moderate with mean gradient of 16 mmHg aortic valve area
1.5 cm�, mild AI, mild TR PA systolic of 41 mmHg
[facility] JANE 02/01/2025: EF 15 to 20%. Global hypokinesis. Mild left atrial dilation. No thrombus in left atrial appendage. Moderate mitral regurgitation with restriction of posterior leaflet. Moderate aortic stenosis with mild to moderate AI. Mild TR.
Plan:
He continues to lose weight and is down 3 pounds in the past 24 hours after stopping milrinone on 03/01/2025.
Nephrology managing diuretics and renal function continues to improve with creatinine decreasing from 4.4 in 03/01 to 4.2 in 03/02
Stable cardiology status
Will sign off, call with questions
HPI: Jl is a 74-year-old male with past medical history of chronic HFrEF, cardiomyopathy with EF 20%, CKD, persistent atrial fibrillation, duodenal ulcer with prior GI bleeding, type II DM, hypertension, Parkinson's, and dementia. He
presented to [facility] for evaluation of headache, weakness, and shortness of breath. He was recently admitted 01/27/2025 to 02/02/2025 with acute heart failure and rapid A-fib. He initially did well post discharge, but over the past few days has
slowly been declining. He has stopped eating and drinking and has become increasingly weak. Yesterday, his states that when trying to transfer him to the commode, he slid out of bed onto the floor. He describes having a headache and feeling
lightheaded fairly consistently. No fevers or chills. Breathing has worsened over the past few days as well. This a.m., given significant weakness, EMS was called and he was brought to ER for evaluation. He was hypotensive when EMS arrived and
he was given IVF's en route. BP 74/64 in ER and again gently hydrated in ER while awaiting testing results. Lab work revealed creatinine up to 4.9 with potassium of 5.2. UA with possible urinary tract infection. Blood and urine cultures were
drawn and are pending. There is also concern for acute heart failure with proBNP >27,000 and small pleural effusions on chest x-ray. Weight has been downtrending, down to 167 pounds at home. He continues on lower dose Lasix 20 mg daily as
outpatient. He notes that he does have some improvement in his symptoms following IVF's and with improvement in BPs.
Progress Note - Bone Puller
Subjective
Date of Service: March 02, 2025
No chest pain or shortness of breath
Objective
Labs:
03/02/25 04:58
03/02/25 04:58
Labs
Hgb 10.8 g/dL (13.0-18.0) L 03/02/25 04:58
Hct 34.6 % (39.0-52.0) L 03/02/25 04:58
Plt Count 144 10^3/uL (130-400) 03/02/25 04:58
PT 22.3 Sec (11.4-14.6) H 02/27/25 13:17
INR 1.94 02/27/25 13:17
APTT 34.5 Sec (23.4-35.0) 02/27/25 13:17
Sodium 134 mmol/L (135-145) L 03/02/25 04:58
Potassium 3.5 mmol/L (3.5-5.1) 03/02/25 04:58
BUN 107 mg/dl (9-20) H* 03/02/25 04:58
Creatinine 4.2 mg/dL (0.7-1.3) H* 03/02/25 04:58
Glucose 112 mg/dl (70-99) H 03/02/25 04:58
Vital Signs and I&O:
Vital Signs
Temp Pulse Resp BP Pulse Ox
97.8 F 99 14 90/75 97
03/02/25 11:24 03/02/25 10:00 03/02/25 10:00 03/02/25 10:00 03/02/25 11:20
Vital Signs
Temp Pulse Resp BP Pulse Ox
97.8 F 99 14 90/75 97
03/02/25 11:24 03/02/25 10:00 03/02/25 10:00 03/02/25 10:00 03/02/25 11:20
Intake & Output
02/28/25 03/01/25 03/02/25 03/03/25
06:59 06:59 06:59 06:59
Intake Total 1178.9 / 1181.9 692 / 692 1200 / 1200 780 / 780
Output Total 550 / 550 750 / 750 1575 / 1575
Balance 628.9 / 631.9 -58 / -58 -375 / -375 780 / 780
Physical Exam
Physical Exam
General: Well developed, well nourished in NAD.
Neck: Supple, no JVD, HJR, carotids +2 B/L, no bruits bilaterally.
Heart: Non displaced PMI, RRR, no murmurs, No S3, S4, no rubs.
Lungs: Scattered rhonchi
Extremities: No clubbing, cyanosis or edema bilaterally.
Neuro: Grossly nonfocal, awake, alert and oriented x3.
--- NOTE | 2025-03-02 14:22 | HOSPNOTE ---
Addendum entered by Silvana Blankenship RN 03/02/25 15:27:
Spoke to spouse and daughter. They are looking for information on hospice. Their initial plan is rehab then hospice in the future but wanted information so they know when it is time what to do. Will meet them both monday 03/05 at 830 am to provide
this information in person. CM updated.
Original Note:
Notified by CM of hospice referral. Called spouse and daughter and had to leave message for both. Will await return call. More information to follow. CM updated.
[2025-03-02] MEDS: HEPARIN 5000 UNITS SC ×2 (16:46→23:02)
[2025-03-02] MEDS: SINEMET 25-100 1 TABLET PO (16:47)
--- NOTE | 2025-03-02 17:04 | W.PN.UPDATE ---
Update Note
Progress Note Update
patient's family are considering the possibility of discharge to SNF and then hospice care. Case management currently following.
[2025-03-02] MEDS: SENOKOT-S PO (21:33)
[2025-03-03] VITALS (9 sets, daily range): BP systolic 98–114; BP diastolic 70–84; PULSE 101–106; O2SAT 94–95; BMI 25.3
[2025-03-03] MEDS: SINEMET 25-100 1.5 TABLET PO ×2 (05:20→11:54)
[2025-03-03 08:14] LABS: Hematocrit 36.2 % (39.0-52.0); Hemoglobin 11.3 g/dL (13.0-18.0); Mean Corp Hgb Conc. 31.2 g/dL (33.0-37.0); Mean Corpuscular Volume 74.8 fL (80.0-94.0); Nucleated Red Blood Cells % 0.2 % (-); Platelet Count 146 10^3/uL (130-400); Red Cell Dist. Width 20.5 % (11.5-14.5)
[2025-03-03] MEDS: MIRALAX 17 GRAMS PO (08:47)
[2025-03-03] MEDS: PROTONIX 40 MG PO (08:47)
[2025-03-03] MEDS: PACERONE 200 MG PO ×2 (08:48→20:22)
[2025-03-03] MEDS: SODIUM BICARBONATE 650 MG PO ×2 (08:48→20:22)
[2025-03-03] MEDS: SENOKOT-S 1 TABLET PO ×2 (08:48→20:23)
[2025-03-03] MEDS: HEPARIN 5000 UNITS SC ×2 (08:48→16:01)
[2025-03-03 08:51] LABS: Blood Urea Nitrogen 98 mg/dl (9-20); Calcium 7.7 mg/dl (8.4-10.2); Carbon Dioxide 18 mmol/L (22-30); Chloride 102 mmol/L (98-107); Estimated Creatinine Clearance 17 ml/min; Glucose 129 mg/dl (70-99); Potassium 3.8 mmol/L (3.5-5.1); Sodium 133 mmol/L (135-145); eGFR 15.72
[2025-03-03] MEDS: DESENEX/MITRAZOL/ZEASORB 1 APPLIC TOPICAL ×2 (08:51→20:19)
[2025-03-03] MEDS: ARICEPT 10 MG PO (08:51)
[2025-03-03] MEDS: FEOSOL 325 MG PO (08:51)
[2025-03-03] MEDS: NAMENDA 5 MG PO ×2 (08:51→20:22)
[2025-03-03] MEDS: LASIX 40 MG IV (09:16)
--- NOTE | 2025-03-03 11:18 | W.PN.NEPH.PH ---
Addendum entered and electronically signed by Alton Ocampo DO 03/03/25 11:22:
Will give 60 mg IV of Lasix now not 40 mg
Original Note:
Today's Communication / Plan
-
Will provide 40 mg of IV Lasix now as patient appears more short of breath
Continue to monitor BMP
Assessment/Plan
-
IMP:
Gen weakness
TAMANNA on CKD 3b-cr variable at best at 1.4, at last d/c in January low 2 range
Azotemia
Hypotension
Hyperkalemia
non gap met acidosis, mild Lactic acid
Hyponatremia
Chronic HFrEF
CM, EF 20% by echo 01/29/25
Mild to mod
Moderate to severe MR
Persistent atrial fibrillation
Chronic AC with ELiquis
Duodenal ulcer s/p upper GI bleed requiring transfusion 11/2024
Type 2 diabetes
Hypertension
Parkinson's disease
Dementia
plan:
TAMANNA-cardiorenal, in setting of cardiogenic shock
cr better at 3.8, improving azotemia to 98 no hydro on US
Now off milrinone gtt and feeling weaker
UOP improving, non oliguric with tate ~1100cc,weight down a
wt relatively stable, ok to resume diuretics, replace k PRN (40mg IV BID?)
adjusted diet to low sodium and FR 48 ounces/day re: hyponatremia
metabolic acidosis is worsening on po bicarb-decrease to BID
As patient appears short of breath this morning will give extra dose of 40 mg of IV Lasix now
corrected ned is low normal-check vit d
Remains hemodynamically labile
follow labs
d/w patient and family members
Patient had high clinical risk with persistent renal failure in setting of cardiorenal syndrome requiring extra dose of IV Lasix this morning for suspected congestive heart failure exacerbation
-
-
Date of Service: March 03, 2025
CC / HPI / ROS
-
Chief Complaint:
Acute kidney injury
History of Present Illness:
Creatinine slightly down at 3.8, BUN better
Metabolic acidosis worsening to 18
Hyperkalemia resolved
BP soft off milrinone
Review of Systems:
non Oliguric at 1100 cc
Weights unchanged
Appears more short of breath
Labs
-
Labs:
WBC 8.3 10^3/uL (4.8-10.8) 03/03/25 08:03
RBC 4.84 10^6/uL (4.70-6.10) 03/03/25 08:03
Hgb 11.3 g/dL (13.0-18.0) L 03/03/25 08:03
Hct 36.2 % (39.0-52.0) L 03/03/25 08:03
Plt Count 146 10^3/uL (130-400) 03/03/25 08:03
Sodium 133 mmol/L (135-145) L 03/03/25 06:10
Potassium 3.8 mmol/L (3.5-5.1) 03/03/25 06:10
Chloride 102 mmol/L (98-107) 03/03/25 06:10
Carbon Dioxide 18 mmol/L (22-30) L 03/03/25 06:10
BUN 98 mg/dl (9-20) H 03/03/25 06:10
Creatinine 3.8 mg/dL (0.7-1.3) H 03/03/25 06:10
eGFR 15.72 03/03/25 06:10
Glucose 129 mg/dl (70-99) H 03/03/25 06:10
Calcium 7.7 mg/dl (8.4-10.2) L 03/03/25 06:10
Phosphorus 6.3 mg/dl (2.5-4.5) H 03/02/25 04:58
Emk-U-Gxhsmepjhgi Pept > 16358 pg/ml 02/26/25 11:06
Albumin 2.8 g/dl (3.5-5.0) L 03/02/25 04:58
Physical Exam
-
Vital Signs:
Vital Signs
Temp Pulse Resp BP Pulse Ox
96.7 F L 102 20 108/71 96
03/03/25 07:15 03/03/25 07:15 03/03/25 07:15 03/03/25 07:15 03/03/25 07:15
Cardiovascular:: Regular rate and rhythm
Respiratory:: Bilateral: Rales
Lung Excursion:: Normal
Abdomen:: Nontender and Soft
Bowel Sounds:: Normal
Extremity Edema:: None: Bilateral:
Atte Catheter: No
[2025-03-03] MEDS: LASIX 60 MG IV (11:55)
--- NOTE | 2025-03-03 13:18 | W.PN.HOSP.TC ---
Addendum entered and electronically signed by Wilda Osorio MD 03/03/25 14:27:
I saw and evaluated the patient independently. I reviewed the resident�s note and agree with findings and plan as documented by Dr. Segovia.
GENERAL: chronically ill appearing male, in NAD--weights up
HEENT: NC/AT--off O2
HEART: irreg irreg +S1, +S2, FER--? gallop
LUNGS : decreased breath sounds bilaterally
ABDOM: soft, nontender, nondistended, + bowel sounds
EXT: no cyanosis, clubbing--edema bilateral LE--right > left
NEUROLOGIC: favoring leaning to the left--strength equal bilateral UE
cardiogenic shock with cardiorenal syndrome and Acute on chronic exacerbation of congestive heart failure with hypotension and TAMANNA/hyperkalemia/hyponatremia-- proBNP 27,000--creat improved to 4.2, weaned off levophed/ midodrine-- repeat ECHO with
decrease in EF to 15-20%--apprec cards/renal---renal dose meds--avoid nephrotoxic drugs--daily weight, I/Os--creat improving-- diuresing--had GOC discussion as pt and have made no decisions--plan to go to SNF first to rehab then transition to
hospice if appropriate
left sided weakness?--favoring left side?--pt could have had small stroke but given all things considered and after speaking with family--will not pursue head CT--also spoke about NOT sending him to skilled therapy as I don't think he will do
well--sleeping and tired today (family feels this is different than yesterday--I did say with GOC discussion 03/02 that this will happen)--they have hospice meeting with hospice Wednesday
metabolic acidosis--resolved and returning--lactic acid of 3.0 on admission--DO NOT suspect sepsis--to me, indicates more anaerobic metabolism--metformin stopped last admission, Farxiga stopped this one--sodium bicarb tabs started per renal
Persistent atrial fibrillation with rapid ventricular response---apprec cards--hold Xarelto and amiodarone--plans for repeat cardioversion (failed last admission) also on hold
Microscopic hematuria-- Urinalysis shows 4+ occult blood, urine RBC 90 per high-power field, 16-20 urine WBC-- renal ultrasound neg for hydro/obstruction- Holding patient's home dose of Xarelto and using SCDs as DVT prophylaxis instead
Parkinson's disease/dementia-- Continue on carbidopa/levodopa, donepezil and memantine
wound--stage 2 pressure injury on sacrum--POA
DVT proph -- SCDs
code status--DNR
Original Note:
Today's Communication/Plan
-
- trend weights, i/o, fluid restriction, CMP
- Awaiting hospice nurse conversation with family
Assessment / Plan
Assessment / Plan
- Discussed goals of care with patient and family. Due to patients poor prognosis, we offered several options of care such as SNF vs home hospice. Placed educational hospice consult, they are meeting with nurse on wednesday. shoe parts caser to follow.
Acute on chronic exacerbation of congestive heart failure due to cardiogenic shock.
TAMANNA on CKD:
-CT head was benign and chest x-ray showed bilateral pleural effusions with mild cardiomegaly which is indicative of CHF
- on admission proBNP is above 27,000 which indicates severe heart failure, creatinine is 4.9 which indicates severe kidney dysfunction most likely secondary to ineffective cardiac output, his normal baseline creatinine is somewhere around 2.2-2.4
- Avoid nephrotoxins to prevent injury to the kidney and worsen the creatinine level. Holding patient's home dose of carvedilol and furosemide (due to low blood pressure).
- Renally dosed all meds
- Troponins are negative. .
- Consulted nephrology who suggest inotropes if patient is still hypotensive
- Patient downgraded to tele
- A repeat echo TTE shows ejection fraction of 15-20% which is severe heart failure with reduced ejection fraction.
- BP is 102/77. Stopped levophed and midodrine.
- Nephrology states that patient is end stage cardiorenal syndrome and that he is not a suitable candidate for dialysis due to frality.
- Initiated goals of care discussion with family. Prognosis is poor in light of recent echo.
- Creatinine is 3.8 ( trending down from 4.2 yesterday. Most recent Phosphorus is 6.3 from 9.4 and mag 2.8 (same) indicating kidney injury leading to decreased excretion of phosphorus/ magnesium and accumulation in blood. Can lead to worsening
heart failure, hypertension, muscle cramps. Will order phosphorus and mag as well.
- Patient excreted 375 ml fluid yesterday after administration lasix 40 mg iv, continue lasix 40 mg iv daily. Today 60 mg Iv lasix extra was given by nephrology to diurese patient. trend In and outs, and weights (today 79.9 kgs)
- Patient is complaining of shortness of breath despite lasix regime, likely due to midodrine discontinuation, no more inotropic action on heart leading to fluid accumulation in lungs.
Left sided extremity weakness:
- PT/OT noted on exam patient is leaning towards his left and has LLE/LUE weakness.
- No focal neurological deficits. On exam there is slightly more weakness of left upper extremity compared to right.
- After discussion with family, decided not to pursue repeat CT of head taking into account patients current condition
Left arm swelling:
- On visual inspection, pts left arm is slightly more enlarged than his right. No colour change, loss of sensation, temperature change, decreased strength.
- ultrasound of the left arm negative for dvt, continue to observe.
Persistent atrial fibrillation with rapid ventricular response:
- Rate is 101 today and well-controlled. Patient is not in A-fib today no overnight events on telemetry.
- restarted patients amiodarone now that blood pressures have normalized
- Discontinued patient's Xarelto due to concerns for worsening of gross hematuria and carvedilol due to low blood pressures
- Cardiology is following
Microscopic hematuria:
- Urinalysis shows 4+ occult blood, urine RBC 90 per high-power field, 16-20 urine WBC
- Holding patient's home dose of Xarelto and using SCDs as DVT prophylaxis instead
- renal ultrasound is negative for hydronephrosis. Bilateral renal cysts, including a 4.7 cm septated cyst within the upper pole of the left kidney. Underdistended but grossly unremarkable urinary bladder.
- started patient on subq heparin for dvt ppx
Parkinson's disease/dementia:
- Continue on carbidopa levodopa donezepil and memantine
DNR
sub q heparin dvt ppx
Anticipated Discharge: 24 - 48 hours
Subjective/Interval History
-
Date of Service: March 03, 2025
No overnight events. Patient transferred to [facility].
Patient is complaining of shortness of breath.
Objective Data
-
Labs:
Laboratory Results
03/03/25 03/03/25
06:10 08:03
WBC 8.3
Hgb 11.3 L
Hct 36.2 L
Plt Count 146
Sodium 133 L
Potassium 3.8
Chloride 102
Carbon Dioxide 18 L
BUN 98 H
Creatinine 3.8 H
Glucose 129 H
Calcium 7.7 L
Vital Signs:
Vital Signs
Temp Pulse Resp BP Pulse Ox
97.6 F 101 20 102/77 95
03/03/25 11:32 03/03/25 11:47 03/03/25 11:32 03/03/25 11:47 03/03/25 11:32
I&O
03/02/25 03/03/25 03/04/25
06:59 06:59 06:59
Intake Total 1200 / 1200 1020 / 1020
Output Total 1575 / 1575 1100 / 1100
Balance -375 / -375 -80 / -80
Review of Systems
-
History Source: Patient
All other systems: Reviewed and negative
Respiratory: Reports Trouble Breathing
Physical Exam
-
General: No Apparent Distress and Appears Chronically Ill
Respiratory: Rales (heard bilaterally at the base of both lungs)
Cardiac: Regular Rhythm, S1/S2 and Murmur (heard on mitral area)
GI: Soft, Nontender, Nondistended and Normal Bowel Sounds
Musculoskeletal: Edema, Right Lower Extrem, Edema, Left Lower Extrem and Other (there is swelling of the left upper extremity compared to right on visual inspection, no weakness, no temperature change, touch sensation normal, pulses normal)
Skin: Warm
Neuro: Awake and Alert
Psych: Calm
Data Reviewed
-
Labs: Labs Reviewed by me and Discussed with Physician
[2025-03-03] MEDS: SINEMET 25-100 1 TABLET PO (17:00)
[2025-03-04] MEDS: HEPARIN 5000 UNITS SC ×4 (00:30→23:19)
[2025-03-04 03:00] VITALS: BP 106/77
[2025-03-04] MEDS: SINEMET 25-100 1.5 TABLET PO ×2 (05:50→12:28)
[2025-03-04 06:00] VITALS: BMI 25.4
[2025-03-04 07:55] VITALS: BP 117/64
[2025-03-04 08:31] LABS: Blood Urea Nitrogen 101 mg/dl (9-20); Calcium 8.2 mg/dl (8.4-10.2); Carbon Dioxide 18 mmol/L (22-30); Chloride 103 mmol/L (98-107); Estimated Creatinine Clearance 15 ml/min; Glucose 131 mg/dl (70-99); Magnesium 2.7 mg/dl (1.6-2.3); Potassium 4.2 mmol/L (3.5-5.1); Sodium 135 mmol/L (135-145); eGFR 13.94
[2025-03-04] MEDS: MIRALAX 17 GRAMS PO (09:23)
[2025-03-04] MEDS: LASIX 40 MG IV ×2 (09:23→15:41)
[2025-03-04] MEDS: ARICEPT 10 MG PO (09:24)
[2025-03-04] MEDS: PROTONIX 40 MG PO (09:24)
[2025-03-04] MEDS: PACERONE 200 MG PO ×2 (09:24→20:38)
[2025-03-04] MEDS: SODIUM BICARBONATE 650 MG PO ×2 (09:24→20:37)
[2025-03-04] MEDS: FEOSOL 325 MG PO (09:24)
[2025-03-04] MEDS: NAMENDA 5 MG PO ×2 (09:24→20:38)
[2025-03-04] MEDS: DESENEX/MITRAZOL/ZEASORB 1 APPLIC TOPICAL ×2 (09:25→20:34)
[2025-03-04] MEDS: SENOKOT-S 1 TABLET PO ×2 (09:25→20:37)
--- NOTE | 2025-03-04 11:20 | W.PN.NEPH.PH ---
Today's Communication / Plan
-
Maintain IV diuretics 40 mg IV twice daily
Assessment/Plan
-
IMP:
Gen weakness
TAMANNA on CKD 3b-cr variable at best at 1.4, at last d/c in January low 2 range
Azotemia
Hypotension
Hyperkalemia
non gap met acidosis, mild Lactic acid
Hyponatremia
Chronic HFrEF
CM, EF 20% by echo 01/29/25
Mild to mod
Moderate to severe MR
Persistent atrial fibrillation
Chronic AC with ELiquis
Duodenal ulcer s/p upper GI bleed requiring transfusion 11/2024
Type 2 diabetes
Hypertension
Parkinson's disease
Dementia
plan:
TAMANNA-cardiorenal, in setting of cardiogenic shock
cr worsening to 4.2, up to 101
Now off milrinone gtt and feeling weaker and kidney function deteriorating with less efficacy of IV diuretics
Urine output 750 cc weights increasing
Maintain diuretics, replace k PRN (40mg IV BID)
adjusted diet to low sodium and FR 48 ounces/day re: hyponatremia
metabolic acidosis is persistent on po bicarb-decrease to BID
corrected ned is low normal-check vit d
Remains hemodynamically labile
follow labs
d/w patient and family members, likely will transition to hospice tomorrow
Patient had high clinical risk with persistent worsening renal failure in setting of cardiorenal syndrome requiring extra dose of IV Lasix this morning for suspected congestive heart failure exacerbation
-
-
Date of Service: March 04, 2025
CC / HPI / ROS
-
Chief Complaint:
Acute kidney injury
History of Present Illness:
Creatinine worsening at 4.2, BUN
Metabolic acidosis worsening to 18
Hyperkalemia resolved
BP soft off milrinone
Review of Systems:
non Oliguric at 750 cc
Weights up
Appears more short of breath
Labs
-
Labs:
WBC 8.3 10^3/uL (4.8-10.8) 03/03/25 08:03
RBC 4.84 10^6/uL (4.70-6.10) 03/03/25 08:03
Hgb 11.3 g/dL (13.0-18.0) L 03/03/25 08:03
Hct 36.2 % (39.0-52.0) L 03/03/25 08:03
Plt Count 146 10^3/uL (130-400) 03/03/25 08:03
Sodium 135 mmol/L (135-145) 03/04/25 06:31
Potassium 4.2 mmol/L (3.5-5.1) 03/04/25 06:31
Chloride 103 mmol/L (98-107) 03/04/25 06:31
Carbon Dioxide 18 mmol/L (22-30) L 03/04/25 06:31
BUN 101 mg/dl (9-20) H* 03/04/25 06:31
Creatinine 4.2 mg/dL (0.7-1.3) H* 03/04/25 06:31
eGFR 13.94 03/04/25 06:31
Glucose 131 mg/dl (70-99) H 03/04/25 06:31
Calcium 8.2 mg/dl (8.4-10.2) L 03/04/25 06:31
Phosphorus 6.3 mg/dl (2.5-4.5) H 03/02/25 04:58
Inr-A-Ttcfrkgwsqs Pept > 83677 pg/ml 02/26/25 11:06
Albumin 2.8 g/dl (3.5-5.0) L 03/02/25 04:58
Physical Exam
-
Vital Signs:
Vital Signs
Temp Pulse Resp BP Pulse Ox
97.5 F 102 20 117/64 95
03/04/25 07:55 03/04/25 07:55 03/04/25 07:55 03/04/25 07:55 03/04/25 07:55
Cardiovascular:: Regular rate and rhythm
Respiratory:: Bilateral: Rales
Lung Excursion:: Normal
Abdomen:: Nontender and Soft
Bowel Sounds:: Normal
Extremity Edema:: None: Bilateral:
Jose Catheter: No
[2025-03-04 11:32] VITALS: BP 108/79
--- NOTE | 2025-03-04 14:09 | W.PN.HOSP.TC ---
Addendum entered and electronically signed by Wilda Osorio MD 03/04/25 15:01:
I saw and evaluated the patient independently. I reviewed the resident�s note and agree with findings and plan as documented by Dr. Segovia.
GENERAL: chronically ill appearing male, in NAD--weights up
HEENT: NC/AT--off O2
HEART: irreg irreg +S1, +S2, FER--? gallop
LUNGS : decreased breath sounds bilaterally
ABDOM: soft, nontender, nondistended, + bowel sounds
EXT: no cyanosis, clubbing--edema bilateral LE--right > left
NEUROLOGIC: favoring leaning to the left--strength equal bilateral UE
cardiogenic shock with cardiorenal syndrome and Acute on chronic exacerbation of congestive heart failure with hypotension and TAMANNA/hyperkalemia/hyponatremia-- proBNP 27,000--creat improved to 4.2, weaned off levophed/ midodrine-- repeat ECHO with
decrease in EF to 15-20%--apprec cards/renal---renal dose meds--avoid nephrotoxic drugs--daily weight, I/Os-- diuresing--had GO discussion--plan was to go to SNF first to rehab then transition to hospice if appropriate
left sided weakness?--favoring left side?--pt could have had small stroke but given all things considered and after speaking with family--will not pursue head CT--also spoke about NOT sending him to skilled therapy as I don't think he will do
well--sleeping and tired today (family feels this is different than yesterday--I did say with GO discussion 03/02 that this will happen)--they have hospice meeting with hospice Wednesday
metabolic acidosis--resolved and returning--lactic acid of 3.0 on admission--DO NOT suspect sepsis--to me, indicates more anaerobic metabolism--metformin stopped last admission, Farxiga stopped this one--sodium bicarb tabs started per renal
Persistent atrial fibrillation with rapid ventricular response---apprec cards--hold Xarelto and amiodarone--plans for repeat cardioversion (failed last admission) also on hold
Microscopic hematuria-- Urinalysis shows 4+ occult blood, urine RBC 90 per high-power field, 16-20 urine WBC-- renal ultrasound neg for hydro/obstruction- Holding patient's home dose of Xarelto and using SCDs as DVT prophylaxis instead
Parkinson's disease/dementia-- Continue on carbidopa/levodopa, donepezil and memantine
wound--stage 2 pressure injury on sacrum--POA
DVT proph -- SCDs
code status--DNR
Original Note:
Today's Communication/Plan
-
- trend weights, i/o, fluid restriction, CMP
- Awaiting hospice nurse conversation with family
Assessment / Plan
Assessment / Plan
- Discussed goals of care with patient and family. Due to patients poor prognosis, we offered several options of care such as SNF vs home hospice. Placed educational hospice consult, they are meeting with nurse on wednesday. foster care case manager to follow.
Acute on chronic exacerbation of congestive heart failure due to cardiogenic shock.
TAMANNA on CKD:
-CT head was benign and chest x-ray showed bilateral pleural effusions with mild cardiomegaly which is indicative of CHF
- on admission proBNP is above 27,000 which indicates severe heart failure, creatinine is 4.9 which indicates severe kidney dysfunction most likely secondary to ineffective cardiac output, his normal baseline creatinine is somewhere around 2.2-2.4
- Avoid nephrotoxins to prevent injury to the kidney and worsen the creatinine level. Holding patient's home dose of carvedilol and furosemide (due to low blood pressure).
- Renally dosed all meds
- Troponins are negative. .
- Consulted nephrology who suggest inotropes if patient is still hypotensive
- Patient downgraded to tele
- A repeat echo TTE shows ejection fraction of 15-20% which is severe heart failure with reduced ejection fraction.
- BP is 102/77. Stopped levophed and midodrine.
- Nephrology states that patient is end stage cardiorenal syndrome and that he is not a suitable candidate for dialysis due to frality.
- Initiated goals of care discussion with family. Prognosis is poor in light of recent echo.
- Creatinine is 4.2 ( trending up from 3.8 yesterday). Most recent Phosphorus is 6.3 from 9.4 and mag 2.8 (same) indicating kidney injury leading to decreased excretion of phosphorus/ magnesium and accumulation in blood. Can lead to worsening heart
failure, hypertension, muscle cramps. Will order phosphorus and mag as well.
- Patient excreted 750cc fluid today. Lasix 40 mg increased to bid by nephrology. trend In and outs, and weights (yesterday 79.9 kgs, today 80.371 kgs)
- Patient is complaining of shortness of breath despite lasix regime, likely due to midodrine discontinuation, no more inotropic action on heart leading to fluid accumulation in lungs.
Left sided extremity weakness:
- PT/OT noted on exam patient is leaning towards his left and has LLE/LUE weakness.
- No focal neurological deficits. On exam there is slightly more weakness of left upper extremity compared to right.
- After discussion with family, decided not to pursue repeat CT of head taking into account patients current condition. will have meeting with hospice nurse on wednesday.
Left arm swelling:
- On visual inspection, pts left arm is slightly more enlarged than his right. No colour change, loss of sensation, temperature change, decreased strength.
- ultrasound of the left arm negative for dvt, continue to observe.
Persistent atrial fibrillation with rapid ventricular response:
- Rate is 101 today and well-controlled. Patient is not in A-fib today no overnight events on telemetry.
- continue patients amiodarone now that blood pressures have normalized
- Discontinued patient's Xarelto due to concerns for worsening of gross hematuria and carvedilol due to low blood pressures
- Cardiology is following
Microscopic hematuria:
- Urinalysis shows 4+ occult blood, urine RBC 90 per high-power field, 16-20 urine WBC
- Holding patient's home dose of Xarelto and using SCDs as DVT prophylaxis instead
- renal ultrasound is negative for hydronephrosis. Bilateral renal cysts, including a 4.7 cm septated cyst within the upper pole of the left kidney. Underdistended but grossly unremarkable urinary bladder.
- started patient on subq heparin for dvt ppx
Parkinson's disease/dementia:
- Continue on carbidopa levodopa donezepil and memantine
DNR
sub q heparin dvt ppx
Anticipated Discharge: 24 - 48 hours
Subjective/Interval History
-
Date of Service: March 04, 2025
No overnight events.
Patient is complaining of shortness of breath.
Objective Data
-
Labs:
Laboratory Results
03/04/25
06:31
Sodium 135
Potassium 4.2
Chloride 103
Carbon Dioxide 18 L
BUN 101 H*
Creatinine 4.2 H*
Glucose 131 H
Calcium 8.2 L
Vital Signs:
Vital Signs
Temp Pulse Resp BP Pulse Ox
97.5 F 101 20 108/79 96
03/04/25 11:32 03/04/25 11:32 03/04/25 11:32 03/04/25 11:32 03/04/25 11:32
I&O
03/03/25 03/04/25 03/05/25
06:59 06:59 06:59
Intake Total 1020 / 1020 480 / 480
Output Total 1100 / 1100 750 / 750
Balance -80 / -80 -270 / -270
Review of Systems
-
History Source: Patient
All other systems: Reviewed and negative
Respiratory: Reports Trouble Breathing
Physical Exam
-
General: No Apparent Distress and Appears Chronically Ill
Respiratory: Rales (heard bilaterally at the base of both lungs)
Cardiac: Regular Rhythm, S1/S2, Murmur (heard on mitral area) and JVD
GI: Soft, Nontender, Nondistended and Normal Bowel Sounds
Musculoskeletal: Edema, Right Lower Extrem, Edema, Left Lower Extrem and Other (there is swelling of the left upper extremity compared to right on visual inspection, no weakness, no temperature change, touch sensation normal, pulses normal)
Skin: Warm
Neuro: Awake and Alert
Psych: Calm
Data Reviewed
-
Labs: Labs Reviewed by me and Discussed with Physician
[2025-03-04 15:46] VITALS: BP 104/73
[2025-03-04] MEDS: SINEMET 25-100 1 TABLET PO (16:58)
[2025-03-04 19:38] VITALS: BP 111/80
[2025-03-04 23:13] VITALS: BP 106/75
[2025-03-05 03:18] VITALS: BP 109/76
[2025-03-05 06:00] VITALS: BMI 25.1
[2025-03-05] MEDS: SINEMET 25-100 1.5 TABLET PO (06:08)
[2025-03-05 07:15] VITALS: BP 113/84
[2025-03-05] MEDS: PACERONE 200 MG PO (08:22)
[2025-03-05] MEDS: NAMENDA 5 MG PO (08:22)
[2025-03-05] MEDS: ARICEPT 10 MG PO (08:22)
[2025-03-05] MEDS: FEOSOL 325 MG PO (08:22)
[2025-03-05] MEDS: SENOKOT-S 1 TABLET PO (08:22)
[2025-03-05] MEDS: PROTONIX 40 MG PO (08:22)
[2025-03-05] MEDS: SODIUM BICARBONATE 650 MG PO (08:22)
[2025-03-05] MEDS: HEPARIN 5000 UNITS SC ×2 (08:23→17:11)
[2025-03-05] MEDS: MIRALAX PO (08:23)
[2025-03-05] MEDS: LASIX 40 MG IV ×2 (08:23→17:11)
[2025-03-05] MEDS: DESENEX/MITRAZOL/ZEASORB 1 APPLIC TOPICAL ×2 (08:23→19:46)
[2025-03-05 08:29] VITALS: BP 113/84
--- NOTE | 2025-03-05 09:12 | W.PN.HOSP.TC ---
Today's Communication/Plan
-
- transition to home hospice
Assessment / Plan
Assessment / Plan
- patient will be transitioned to home hospice to[facility] as per hospice nurse.
Acute on chronic exacerbation of congestive heart failure due to cardiogenic shock.
TAMANNA on CKD:
-CT head was benign and chest x-ray showed bilateral pleural effusions with mild cardiomegaly which is indicative of CHF
- on admission proBNP is above 27,000 which indicates severe heart failure, creatinine is 4.9 which indicates severe kidney dysfunction most likely secondary to ineffective cardiac output, his normal baseline creatinine is somewhere around 2.2-2.4
- Avoid nephrotoxins to prevent injury to the kidney and worsen the creatinine level. Holding patient's home dose of carvedilol and furosemide (due to low blood pressure).
- Renally dosed all meds
- Troponins are negative. .
- Consulted nephrology who suggest inotropes if patient is still hypotensive
- Patient downgraded to tele
- A repeat echo TTE shows ejection fraction of 15-20% which is severe heart failure with reduced ejection fraction.
- BP is 113/84. Stopped levophed and midodrine.
- Nephrology states that patient is end stage cardiorenal syndrome and that he is not a suitable candidate for dialysis due to frality.
- Initiated goals of care discussion with family. Prognosis is poor in light of recent echo.
- Creatinine is 4.2 ( trending up from 3.8 yesterday). Most recent Phosphorus is 6.3 from 9.4 and mag 2.8 (same) indicating kidney injury leading to decreased excretion of phosphorus/ magnesium and accumulation in blood. Can lead to worsening heart
failure, hypertension, muscle cramps. Will order phosphorus and mag as well.
- Patient excreted 480cc fluid today. Lasix 40 mg increased to bid by nephrology. trend In and outs, and weights (yesterday 79.9 kgs, today 80.371 kgs)
- Patient is complaining of shortness of breath despite lasix regime, likely due to midodrine discontinuation, no more inotropic action on heart leading to fluid accumulation in lungs.
Left sided extremity weakness:
- PT/OT noted on exam patient is leaning towards his left and has LLE/LUE weakness.
- No focal neurological deficits. On exam there is slightly more weakness of left upper extremity compared to right.
- After discussion with family, decided not to pursue repeat CT of head taking into account patients current condition. will have meeting with hospice nurse on wednesday.
Left arm swelling:
- On visual inspection, pts left arm is slightly more enlarged than his right. No colour change, loss of sensation, temperature change, decreased strength.
- ultrasound of the left arm negative for dvt, continue to observe.
Persistent atrial fibrillation with rapid ventricular response:
- Rate is 103today and well-controlled. Patient is not in A-fib today no overnight events on telemetry.
- continue patients amiodarone now that blood pressures have normalized
- Discontinued patient's Xarelto due to concerns for worsening of gross hematuria and carvedilol due to low blood pressures
- Cardiology is following
Microscopic hematuria:
- Urinalysis shows 4+ occult blood, urine RBC 90 per high-power field, 16-20 urine WBC
- Holding patient's home dose of Xarelto and using SCDs as DVT prophylaxis instead
- renal ultrasound is negative for hydronephrosis. Bilateral renal cysts, including a 4.7 cm septated cyst within the upper pole of the left kidney. Underdistended but grossly unremarkable urinary bladder.
- started patient on subq heparin for dvt ppx
Parkinson's disease/dementia:
- Continue on carbidopa levodopa donezepil and memantine
DNR
sub q heparin dvt ppx
Anticipated Discharge: Within 24 hours
Subjective/Interval History
-
Date of Service: March 05, 2025
No overnight events.
No acute medical complaints.
Objective Data
-
Labs:
Laboratory Results
03/05/25
08:23
WBC Pending
Hgb Pending
Hct Pending
Plt Count Pending
Sodium Pending
Potassium Pending
Chloride Pending
Carbon Dioxide Pending
BUN Pending
Creatinine Pending
Glucose Pending
Calcium Pending
Total Bilirubin Pending
AST Pending
ALT Pending
Alkaline Phosphatase Pending
Vital Signs:
Vital Signs
Temp Pulse Resp BP Pulse Ox
97.3 F 103 20 113/84 95
03/05/25 03:18 03/05/25 07:15 03/05/25 07:15 03/05/25 07:15 03/05/25 07:15
I&O
03/04/25 03/05/25 03/06/25
06:59 06:59 06:59
Intake Total 480 / 480 480 / 480
Output Total 750 / 750
Balance -270 / -270 480 / 480
Review of Systems
-
History Source: Patient
All other systems: Reviewed and negative
Respiratory: Reports Trouble Breathing
Physical Exam
-
General: No Apparent Distress and Appears Chronically Ill
Respiratory: Rales (heard bilaterally at the base of both lungs)
Cardiac: Regular Rhythm, S1/S2, Murmur (heard on mitral area) and JVD
GI: Soft, Nontender, Nondistended and Normal Bowel Sounds
Musculoskeletal: Edema, Right Lower Extrem, Edema, Left Lower Extrem and Other (there is swelling of the left upper extremity compared to right on visual inspection, no weakness, no temperature change, touch sensation normal, pulses normal)
Skin: Warm
Neuro: Awake and Alert
Psych: Calm
Data Reviewed
-
Labs: Labs Reviewed by me and Discussed with Physician
[2025-03-05 09:20] LABS: Hematocrit 39.6 % (39.0-52.0); Hemoglobin 12.2 g/dL (13.0-18.0); Mean Corp Hgb Conc. 30.8 g/dL (33.0-37.0); Mean Corpuscular Volume 74.7 fL (80.0-94.0); Nucleated Red Blood Cells % 0.4 % (-); Platelet Count 170 10^3/uL (130-400); Red Cell Dist. Width 21.2 % (11.5-14.5)
--- NOTE | 2025-03-05 09:49 | CM ---
Received TT from Silvana Blankenship [facility] . Plan is for dc tomorrow to home [id number] .
[facility] asked for ambulance set up at 11AM tomorrow 03/06/25.Medical nec form completed.
[facility] DNR form on front of chart for MD signature.
Spoke with Mariam she agrees with dc tomorrow to home with hospice.She said she has a good support system at home.
IMM reviewed with she agrees with dc tomorrow.
PLAN Home with Hospice
[2025-03-05 10:10] LABS: ALT (SGPT) 16 U/L (0-50); AST (SGOT) 28 U/L (17-59); Albumin 3.0 g/dl (3.5-5.0); Alkaline Phosphatase 109 U/L (38-126); Blood Urea Nitrogen 115 mg/dl (9-20); Calcium 8.6 mg/dl (8.4-10.2); Carbon Dioxide 15 mmol/L (22-30); Chloride 104 mmol/L (98-107); Glucose 120 mg/dl (70-99); Magnesium 2.8 mg/dl (1.6-2.3); Potassium 4.5 mmol/L (3.5-5.1); Sodium 135 mmol/L (135-145); Total Protein 5.4 g/dl (6.3-8.2)
[2025-03-05 10:24] LABS: Estimated Creatinine Clearance 15 ml/min; eGFR 13.55
--- NOTE | 2025-03-05 10:49 | PTOTSP ---
Reviewed chart and noted plan to dc home on hospice. PT will sign off.
[2025-03-05 11:42] VITALS: BP 117/72
[2025-03-05] MEDS: SINEMET 25-100 PO ×2 (12:00→18:13)
--- NOTE | 2025-03-05 12:14 | HOSPNOTE ---
Met with the spouse, daughter and son. Provided information on hospice and the philosophy. They are in agreement with hospice. Equipment is being delivered this afternoon. Transport then to be set for tomorrow at 11 am. Hospice will then meet
patient and family at the home and sign onto hospice services. CM, Attending, and Primary RN updated.
--- NOTE | 2025-03-05 12:45 | W.PN.UPDATE ---
Update Note
Progress Note Update
I saw and evaluated the patient. I reviewed the resident�s note and agree with findings and plan as documented in the resident�s note.
Currently denies any pain.
Gen: NAD, awake and alert, appears chronically ill
Eyes: EOMI, PERRLA, no scleral icterus.
Neck: supple. +JVD.
CV: Irregularly irregular, +S1/S2, no m/r/g.
Resp: CTAB anteriorly, no rales, wheezes, or rhonchi.
Abd: +BS, soft, NT, ND
Skin: No rashes.
Neuro: CN 2-12 intact, non-focal.
Psych: Normal mood and affect.
Cardiogenic shock due to acute HFrEF:
-with TAMANNA on CKD3b due to cardiorenal syndrome
-was on Levophed/midodrine/Milrinone
-cont IV Lasix
-family has now opted for hospice
Persistent atrial fibrillation with RVR:
-was seen by cards
-currently on amio
-no Xarelto with microscopic hematuria and the fact that pt is going on hospice
Other problems:
Hyperkalemia, resolved
Hyponatremia, resolved
Acute metabolic acidosis: not sepsis, likely related to anaerobic metabolism (metformin stopped last admission, Farxiga stopped this one). Sodium bicarb tabs started per renal.
Parkinson's disease with parkinsonian dementia: cont carbidopa/levodopa/donepezil/memantine
Stage 2 PI on sacrum (POA)
DNR/SCDs
Medically cleared for d/c to hospice, CM aware.
--- NOTE | 2025-03-05 13:12 | W.PN.UPDATE ---
Update Note
Progress Note Update
Renal will sign off
--- NOTE | 2025-03-05 13:54 | PN.CDI ---
CDI
- -
CDI:
Physician Documentation Request
Admit Date: 02/26/25 17:09
Dear Doctor/ Resident,
Please review the following and provide your response in the progress notes.
Clinical Indicators:
Pt admitted with TAMANNA on CKD 3b baseline 2 / Acute on Chronic systolic CHF/Cardiogenic shock
Cardiology progress note 03/01,' Could he have renal tubular acidosis? Do not feel that he is losing large amounts of bicarb through his GI tract....It could be that cardiogenic shock is the only explanation, but I am unsure and wonder if the
lactic acid level should be higher....'
Nephrology notes ,' TAMANNA on CKD 3b-cr variable at best at 1.4, at last d/c in January low range..TAMANNA-cardiorenal, in setting of cardiogenic shock ...'
02/26/25 02/27/25 02/27/25
10:17 03:49 13:17
Creatinine 4.9 H* 5.7 H* 5.6 H*
03/04/25 03/05/25
06:31 08:23
Creatinine 4.2 H* 4.3 H*
Please further specify the diagnosis of TAMANNA :
TAMANNA with ATN
TAMANNA due to cardiorenal syndrome /Cardiogenic shock only
Other ( please specify)
Use of terms such as suspected, likely, concern for, or probable (associated with a specific diagnosis that is being evaluated, monitored, or treated as if it exists) are acceptable and can be coded in the inpatient setting, when documented at the
time of discharge.
Thank you,
Sheree Kumar RN
CDI Specialist
[place] [facility]
Please use your independent medical judgment in providing your response.
*Source: Kidney Disease: Improving Global Outcomes (KDIGO) 2012
[2025-03-05 15:20] VITALS: BP 106/76
[2025-03-05] MEDS: SENOKOT-S PO (19:46)
[2025-03-05] MEDS: SODIUM BICARBONATE PO (19:46)
[2025-03-05] MEDS: PACERONE PO (19:46)
[2025-03-05] MEDS: NAMENDA PO (19:46)
--- NOTE | 2025-03-05 20:04 | PTCARENOTE ---
pt refusing PO meds and dinner at this time. Oriented x3, however forgetful. Pt resting comfortably at this time, plan of care ongoing
[2025-03-05 23:40] VITALS: BP 110/82
[2025-03-06] MEDS: HEPARIN SC (00:29)
[2025-03-06] MEDS: SINEMET 25-100 1.5 TABLET PO (05:20)
[2025-03-06 06:00] VITALS: BMI 24.8
[2025-03-06 07:00] VITALS: BP 112/80
--- NOTE | 2025-03-06 07:43 | W.PN.UPDATE ---
Update Note
Progress Note Update
I saw and evaluated the patient. I reviewed the resident�s note and agree with findings and plan as documented in the resident�s note.
No new complaints.
Gen: NAD, awake and alert, appears chronically ill
Eyes: EOMI, PERRLA, no scleral icterus.
Neck: supple.
CV: remains Irregularly irregular, +S1/S2, no m/r/g.
Resp: remains CTAB anteriorly, no rales, wheezes, or rhonchi.
Abd: +BS, soft, NT, ND
Skin: No rashes.
Neuro: CN 2-12 intact, non-focal.
Psych: Normal mood and affect.
Cardiogenic shock due to acute HFrEF:
-with TAMANNA on CKD3b due to cardiorenal syndrome
-was on Levophed/midodrine/Milrinone
-cont IV Lasix
-family has now opted for hospice
Persistent atrial fibrillation with RVR:
-was seen by cards
-currently on amio
-no Xarelto with microscopic hematuria and the fact that pt is going on hospice
Other problems:
Hyperkalemia, resolved
Hyponatremia, resolved
Acute metabolic acidosis: not sepsis, likely related to anaerobic metabolism (metformin stopped last admission, Farxiga stopped this one). Sodium bicarb tabs started per renal.
Parkinson's disease with parkinsonian dementia: cont carbidopa/levodopa/donepezil/memantine
Stage 2 PI on sacrum (POA)
DNR/SCDs
Remains medically cleared for d/c to hospice, CM aware.
Total time spent on d/c = 31 min. This included today's physical exam, progress note, review of laboratory and diagnostic data, preparation of discharge documents and prescriptions, and discussions about the pt's hospital course and discharge plan
with the patient and other medical terminologist involved in the patient's care.
--- NOTE | 2025-03-06 08:58 | W.PN.HOSP.TC ---
Today's Communication/Plan
-
- patient dc'd to home hospice today
Assessment / Plan
Assessment / Plan
- patient will be transitioned to home hospice tom as per hospice nurse. To be continued on comfort meds on disharge. Hospice nurse will discuss with family which of his home medications to be continued.
Acute on chronic exacerbation of congestive heart failure due to cardiogenic shock.
TAMANNA on CKD:
-CT head was benign and chest x-ray showed bilateral pleural effusions with mild cardiomegaly which is indicative of CHF
- on admission proBNP is above 27,000 which indicates severe heart failure, creatinine is 4.9 which indicates severe kidney dysfunction most likely secondary to ineffective cardiac output, his normal baseline creatinine is somewhere around 2.2-2.4
- Avoid nephrotoxins to prevent injury to the kidney and worsen the creatinine level. Holding patient's home dose of carvedilol and furosemide (due to low blood pressure).
- Renally dosed all meds
- Troponins are negative. .
- Consulted nephrology who suggest inotropes if patient is still hypotensive
- Patient downgraded to tele
- A repeat echo TTE shows ejection fraction of 15-20% which is severe heart failure with reduced ejection fraction.
- BP is 112/80. Stopped levophed and midodrine.
- Nephrology states that patient is end stage cardiorenal syndrome and that he is not a suitable candidate for dialysis due to frality.
- Initiated goals of care discussion with family. Prognosis is poor in light of recent echo.
- Most recent Creatinine is 4.2 ( trending up from 3.8 ). Most recent Phosphorus is 6.3 from 9.4 and mag 2.8 (same) indicating kidney injury leading to decreased excretion of phosphorus/ magnesium and accumulation in blood. Can lead to worsening
heart failure, hypertension, muscle cramps. Will order phosphorus and mag as well.
- Patient is complaining of shortness of breath despite lasix regime, likely due to midodrine discontinuation, no more inotropic action on heart leading to fluid accumulation in lungs.
Left sided extremity weakness:
- PT/OT noted on exam patient is leaning towards his left and has LLE/LUE weakness.
- No focal neurological deficits. On exam there is slightly more weakness of left upper extremity compared to right.
- After discussion with family, decided not to pursue repeat CT of head taking into account patients current condition. will have meeting with hospice nurse on wednesday.
Left arm swelling:
- On visual inspection, pts left arm is slightly more enlarged than his right. No colour change, loss of sensation, temperature change, decreased strength.
- ultrasound of the left arm negative for dvt, continue to observe.
Persistent atrial fibrillation with rapid ventricular response:
- Rate is 104 today and well-controlled. Patient is not in A-fib today no overnight events on telemetry.
- discontinue patients amiodarone on discharge/
- Discontinued patient's Xarelto due to concerns for worsening of gross hematuria and carvedilol due to low blood pressures
- Cardiology is following
Microscopic hematuria:
- Urinalysis shows 4+ occult blood, urine RBC 90 per high-power field, 16-20 urine WBC
- Holding patient's home dose of Xarelto and using SCDs as DVT prophylaxis instead
- renal ultrasound is negative for hydronephrosis. Bilateral renal cysts, including a 4.7 cm septated cyst within the upper pole of the left kidney. Underdistended but grossly unremarkable urinary bladder.
- started patient on subq heparin for dvt ppx
Parkinson's disease/dementia:
- Continue on carbidopa levodopa donezepil and memantine
DNR
sub q heparin dvt ppx
Anticipated Discharge: Today
Subjective/Interval History
-
Date of Service: March 06, 2025
No overnight events.
No acute medical complaints.
Objective Data
-
Vital Signs:
Vital Signs
Temp Pulse Resp BP Pulse Ox
97.8 F 104 18 112/80 98
03/06/25 07:00 03/06/25 07:00 03/06/25 07:00 03/06/25 07:00 03/06/25 07:00
I&O
03/05/25 03/06/25 03/07/25
06:59 06:59 06:59
Intake Total 480 / 480 240 / 240
Output Total 675 / 675
Balance 480 / 480 -435 / -435
Review of Systems
-
History Source: Patient
All other systems: Reviewed and negative
Respiratory: Reports Trouble Breathing
Physical Exam
-
General: No Apparent Distress and Appears Chronically Ill
Respiratory: Rales (heard bilaterally at the base of both lungs)
Cardiac: Regular Rhythm, S1/S2, Murmur (heard on mitral area) and JVD
GI: Soft, Nontender, Nondistended and Normal Bowel Sounds
Musculoskeletal: Edema, Right Lower Extrem, Edema, Left Lower Extrem and Other (there is swelling of the left upper extremity compared to right on visual inspection, no weakness, no temperature change, touch sensation normal, pulses normal)
Skin: Warm
Neuro: Awake and Alert
Psych: Calm
[2025-03-06] MEDS: MIRALAX PO (09:17)
[2025-03-06] MEDS: HEPARIN 5000 UNITS SC (09:18)
[2025-03-06] MEDS: LASIX 40 MG IV (09:18)
[2025-03-06] MEDS: SODIUM BICARBONATE 650 MG PO (09:20)
[2025-03-06] MEDS: PROTONIX 40 MG PO (09:20)
[2025-03-06] MEDS: FLUSH (NSS) 1 FLUSH IV (09:20)
[2025-03-06] MEDS: SENOKOT-S 1 TABLET PO (09:21)
[2025-03-06] MEDS: NAMENDA 5 MG PO (09:21)
[2025-03-06] MEDS: FEOSOL 325 MG PO (09:21)
[2025-03-06] MEDS: ARICEPT 10 MG PO (09:21)
[2025-03-06] MEDS: PACERONE 200 MG PO (09:22)
[2025-03-06] MEDS: DESENEX/MITRAZOL/ZEASORB 1 APPLIC TOPICAL (09:22)
--- NOTE | 2025-03-06 09:48 | CM ---
MD entered order for discharge.
Spoke with [facility] . Plan is for dc today to home [address] .
Ambulance set up at 10AM today 03/06/25.Medical nec form completed.
OO[facility] DNR form on front of chart with MD signature.
[facility] spoke with Mariam she agrees with dc today to home with hospice.She said she has a good support system at home.
PLAN Home with Hospice
--- NOTE | 2025-03-06 10:26 | W.DCSUMMARY ---
Discharge Summary
Discharge Data
Date of Admission: 02/26/25
Date of Discharge: 03/06/25
-
Pending Results: No
Hospital Course
Discharging Physician : Dr. Ari Escobedo and Dr. Addison Segovia
Disposition : Home with hospice
Primary care physician : Dr. Javi Rodriguez
Principal Discharge diagnosis : Cardiogenic shock due to acute heart failure with reduced ejection fraction and TAMANNA on CKD , persistent atrial fibrillation with RVR, hyperkalemia, hyponatremia, acute metabolic acidosis, stage II pressure ulcer on
sacrum, left arm swelling ( resolved), left-sided extremity weakness, microscopic hematuria
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
Hospital Course : 74-year-old male with a history of CHF with an ejection fraction of 20%, CKD, A-fib, previous history of GI bleeding on Xarelto, Parkinson's disease presents with generalized weakness that has been experiencing for the past 3 days.
He was recently here for heart failure exacerbation and GI bleeding a couple of weeks ago in the hospital. From there he was discharged to [facility]. He was doing great up until 2 weeks ago, he was able to walk by himself eat, drink, walk up and
down the stairs. Then he started to decompensate and would not eat, drink, do simple tasks like get up from a sofa without slipping, get up off his bed by himself, go up and down the stairs. He was scheduled to see body make up artist for cardioversion
for his A-fib 10 days after discharge but did not make the appointment. He presented to the ED via EMS and was given 500 mL of IVF's and route.
Patient is to be transition to home with hospice care with hospice team managing his medications and care.
Problem #1: Acute on chronic exacerbation of congestive heart failure cardiogenic shock, hyperkalemia, hyponatremia, TAMANNA on CKD
- CT head was benign and chest x-ray showed bilateral pleural effusions with mild cardiomegaly which is indicative of CHF on admission, BNP was above 27,000, creatinine is 4.9 which peaked at 5.7 during course of hospital stay and normal baseline
creatinine is somewhere between 2.2-2.4. Potassium 5.2 at admission which peaked at 5.7 during course of hospital, and sodium of 133 on admission. stay troponins were negative. Consulted nephrology and cardiology. Repeat echo TTE showed ejection
fraction of [address] scan of the head was negative. Chest x-ray showed bilateral pleural effusions with cardiomegaly. Nephrology stated that patient is stage cardiorenal syndrome and that he is not a suitable candidate for dialysis due to
for LAD. Patient was started on Levophed and milrinone drip then just milrinone which was also discontinued when he got downgraded. Patient was also given multiple doses of Lasix to try and diurese fluid . on discharge creatinine is 4.3, sodium
and potassium normalized. All meds were renally dosed and all nephrotoxic meds were discontinued during course of hospital stay. Was on low-sodium diet and fluid restriction 48 ounces a day. PT/OT consulted. due to poor prognosis of his
condition, patient's family decided upon hospice care at home.
Problem #2: Persistent atrial fibrillation:
-Rate on discharge is 104 and well-controlled, patient was not any A-fib events or overnight events on telemetry. Patient's home dose of amiodarone was continued during course of hospital stay. Patient's Xarelto was discontinued for concerns of
gross hematuria. Carvedilol was also held due to initial low blood pressures.
Problem #3: Microscopic hematuria
- On admission urinalysis showed 4+ occult blood, urine RBC 90, 16-20 urine WBC. Patient's home dose of Xarelto was held and SCDs were initially used. Renal ultrasound was negative for hydronephrosis. Started patient on subcu heparin for DVT
prophylaxis.
Problem #4: Acute metabolic acidosis
- Sodium bicarbonate tabs started as per renal. Was placed on sodium bicarbonate as per renal. Bicarb on discharge was 15.
Problem #5: Stage II pressure ulcer
- Wound care was provided, continue wound care at home
Problem #6: Acute left arm swelling ( resolved):
- Ultrasound of the left upper extremity for DVT was negative.
Problem #7: Left-sided upper extremity weakness:
- PT/OT suggested left-sided and left upper extremity strength and weakness deficits, on physical examination there was slight left-sided weakness. Patient's family decided not to pursue a repeat CT scan of brain to rule out a CVA.
Problem #8: Parkinson disease with parkinsonian dementia:
- Patient is at home medications of donepezil, memantine, carbidopa/levodopa will be continued as per recommendations of home hospice team.
Important imaging findings :
Head CT on 02/26/2025:
-IMPRESSION:
No acute intracranial abnormality.
Chest x-ray 02/27/2025:
IMPRESSION:
Right PICC line catheter placement as described above.
Cardiomegaly. Progressed.
Bilateral pleural effusions. Progressed on the right. Stable on the left.
Renal ultrasound on 02/28/2025
IMPRESSION:
Negative for hydronephrosis. Bilateral renal cysts, including a 4.7 cm septated cyst within the upper pole of the left kidney.
Underdistended but grossly unremarkable urinary bladder.
Bilateral pleural effusions, right greater than left. Trace amount of perihepatic ascites.
Peripheral vascular ultrasound on 03/01/2025
IMPRESSION:
No findings to suggest deep venous thrombosis of the left upper extremity.
Procedure findings :
Discharge Plan
-
Patient Disposition: Home with Hospice
Discharge Diagnosis/Procedures: Cardiogenic shock due to HFrEF, Persistent Atrial Fibrillation with RVR, Hyperkalemia, Hyponatremia, Acute metabolic acidosis, Stage 2 pressure ulcer on sacrum, Parkinson's disease with parkinsonian dementia
Condition: Fair
Diet: 2 Gram Sodium
Activity: As tolerated
Driving Restrictions: No driving
Bathing Restrictions: None
Other Services: VN and Hospice
Referrals:
Gordon Rodriguez I., DO [Family Provider, Internal Medicine] - in less than 1 week
Additional Discharge Medication Instructions: Patient is comfort care on home hospice. Hospice team will go over which home medications to continue with the family.
Prescriptions:
New
bisacodyl 10 mg Suppository
10 mg RI [id number] PRN (Reason: constipation) Qty: 12 0RF
miconazole nitrate [Miconazorb AF] 2 % Powder
1 applic topical BID Qty: 85 0RF
Discontinued
ezetimibe 10 MG tablet
10 mg PO DAILY
donepezil 10 mg Tablet
10 mg PO DAILY
therapeutic multivitamin Tablet
1 tab PO DAILY
carbidopa-levodopa 25-100 mg Tablet
1.5 tab PO BID@0600,1200
carbidopa-levodopa 25-100 mg Tablet
1 tab PO QPM
memantine 10 mg Tablet
10 mg PO BID
PreserVision AREDS 2,148 mcg-113 mg-45 mg-17.4mg Tablet
1 tab PO BID
ZzzQuil 50 mg/30 mL Liquid
50 mg PO HSPRN PRN (Reason: sleep)
polyvinyl alcohol [Artificial Tears (polyvin alc)] 1.4 % Drops
1 drp BOTH EYES DAILYPRN PRN (Reason: dry eyes)
carvedilol 6.25 mg Tablet
6.25 mg PO BID Qty: 30 0RF
dapagliflozin propanediol 10 mg Tablet
10 mg PO DAILY Qty: 30 0RF
amiodarone 200 mg Tablet
200 mg PO BID Qty: 30 0RF
pantoprazole 40 mg Tablet,Delayed Release (Dr/Ec)
40 mg PO DAILY Qty: 30 0RF
rivaroxaban [Xarelto] 15 mg Tablet
15 mg PO QPM Qty: 30 0RF
ferrous sulfate 325 mg (65 mg iron) Tablet
325 mg PO DAILY
docusate sodium [Colace] 100 mg Capsule
100 mg PO HSPRN PRN (Reason: constipation)
melatonin 1 mg Tablet,Chewable
4 mg PO HS
furosemide 40 mg tablet
20 mg PO DAILY
Discharge Orders:
Discharge Patient (As Directed); Ordered 03/06/25
Ordered By: Ari Escobedo
Discharge Date and Time
Print Language: [id number]
== END 2025-03-06 10:41 | disposition hospice, home (50) | DRG 682 ==
LOC: 4 EAST ACU 17:09
PROVIDERS: Nurse Practitioner Family; Physician Assistant; Radiology Diagnostic Radiology; Specialist; ADMITTING PHYSICIAN Internal Medicine; ATTENDING PHYSICIAN Internal Medicine; CONSULT PHYSICIAN Internal Medicine; CONSULT PHYSICIAN Internal Medicine Cardiovascular Disease; EMERGENCY PHYSICIAN Student in an Organized Health Care Education/Training Program; FAMILY PHYSICIAN Internal Medicine; OTHER PHYSICIAN Internal Medicine
PROC: 02HV33Z Insertion of Infusion Device into Superior Vena Cava, Percutaneous Approach (ICD-10-PCS; 2025-02-26)
DX: N17.9 Acute kidney failure, unspecified (principal); I50.23 Acute on chronic systolic (congestive) heart failure; R57.0 Cardiogenic shock; I63.9 Cerebral infarction, unspecified; I13.0 Hypertensive heart and chronic kidney disease with heart failure and stage 1 through stage 4 chronic kidney disease, or unspecified chronic kidney disease; Z66 Do not resuscitate; Z51.5 Encounter for palliative care; I48.19 Other persistent atrial fibrillation; E87.21 Acute metabolic acidosis; E87.1 Hypo-osmolality and hyponatremia; G81.94 Hemiplegia, unspecified affecting left nondominant side; I42.9 Cardiomyopathy, unspecified; N18.32 Chronic kidney disease, stage 3b; K59.00 Constipation, unspecified; I44.0 Atrioventricular block, first degree; E87.5 Hyperkalemia; E78.00 Pure hypercholesterolemia, unspecified; G20.A1 Parkinson's disease without dyskinesia, without mention of fluctuations; F02.80 Dementia in other diseases classified elsewhere, unspecified severity, without behavioral disturbance, psychotic disturbance, mood disturbance, and anxiety; E11.22 Type 2 diabetes mellitus with diabetic chronic kidney disease; R31.29 Other microscopic hematuria; L89.152 Pressure ulcer of sacral region, stage 2; I34.0 Nonrheumatic mitral (valve) insufficiency; I35.0 Nonrheumatic aortic (valve) stenosis; N28.1 Cyst of kidney, acquired; E87.6 Hypokalemia; R53.1 Weakness; Z79.01 Long term (current) use of anticoagulants; Z79.84 Long term (current) use of oral hypoglycemic drugs; Z79.899 Other long term (current) drug therapy; Z87.891 Personal history of nicotine dependence; Z11.52 Encounter for screening for COVID-19
CPT/HCPCS: 70450; 71045; 71046; 76770; 80048; 80053; 81003; 81015; 82306; 82533; 83605; 83735; 83880; 84100; 84443; 84484; 85025; 85027; 85610; 85730; 87040; 87086; 87811; 93005; 93306; 93971; 96360; 97163; 97167; 97530; 99285; J2260